=== PATIENT | male | born 1955 | race African-American/Black ===

== ENCOUNTER 2023-02-25 20:38 | Emergency (ER) | payer OTHER, SELFPAY ==
[2023-02-25 20:49] VITALS: BMI 24.4
--- NOTE | 2023-02-25 21:10 | ED.PSYCH ---
HPI - Psych General Chief Complaint: Psychiatric Symptoms Stated Complaint: SI Time Seen by Provider: 02/25/23 21:06 Source: patient Mode of arrival: EMS Limitations: other (Intoxicated) History of Present Illness HPI Narrative: Patient comes to the emergency room complaining ideas of hurting himself. Patient called 911 from a gas station and EMS take him about brought him to the emergency room. Patient denies using drugs other than marijuana. Patient unwilling to disclose his plan of self-harm. Patient states that he does not want detox, states that he is not an alcoholic, does not drink heavily every day. Related Data Home Medications Medication Instructions Recorded Confirmed bictegravir 50 mg-emtricitabine 1 tab PO QAM 02/26/23 02/26/23 200 mg-tenofovir alafenam 25 mg tablet (Biktarvy) clonidine HCl 0.1 mg tablet 0.1 mg PO BID blood pressure 02/26/23 02/26/23 quetiapine 100 mg tablet 100 mg PO DAILY@1200 02/26/23 02/26/23 quetiapine 300 mg tablet 600 mg PO BEDTIME blood pressure 02/26/23 02/26/23 Allergies Allergy/AdvReac Type Severity Reaction Status Date / Time acetaminophen [ACETAMINOPHEN] Allergy Mild rashes Unverified 05/12/20 17:39 Review of Systems Review of Systems: Constitutional : No Weight loss, No Fever, No Chills, No Night Sweats, No Fatigue, No Malaise ENT/Mouth : No Hearing loss, No Ear Pain, No Nasal Congestion, No Sinus Pain, No Hoarseness, No sore throat, No Rhinorrhea, No Swallowing Difficulty Eyes: No Eye Pain, No Swelling, No Redness, No Foreign Body, No Discharge, No Vision Changes Cardiovascular : No Chest Pain, No SOB, No Dyspnea on Exertion, No Orthopnea, No Edema, No Palpitations Respiratory : No Cough, No Sputum, No Wheezing, No Smoke Exposure, No Dyspnea Gastrointestinal : No Nausea, No Vomiting, No Diarrhea, No Constipation, No abdominal Pain, No Hematochezia, No Melena Genitourinary : no irregular bleeding, No Dysuria, No Urinary Frequency, No Hematuria, No Urinary Incontinence, No Urgency, No Flank Pain, No Urinary Flow Changes, No Hesitancy Musculoskeletal : No joint pain, No Myalgias, No Joint Swelling Skin : No Skin Lesions, No rash Neuro : No Weakness, No Numbness, No Paresthesias, No Loss of Consciousness, No Dizziness, No Headache Psych : Complaining of ideas of self-harm Heme/Lymph: No Bruising, No Bleeding,No Lymphadenopathy Endocrine : No Polyuria, No Polydipsia, No Temperature Intolerance PMFSH Past Medical History Medical History Alcohol intoxication Social History Social History Advance Directives: No Advance Directives Information Provided: Yes Physical Exam Vital Signs: Vital Signs: Last Vital Signs Temp 97.9 F 02/26/23 05:00 Pulse 80 02/26/23 05:00 Resp 16 02/26/23 05:00 BP 150/87 H 02/26/23 05:00 Pulse Ox 97 02/26/23 05:00 O2 Del Method Room Air 02/26/23 05:00 BMI result Body Mass Index 24.4 Const: Other: Appearance: Alert. Oriented X3. No acute distress. Seems intoxicated Eyes: Pupils equal, round and reactive to light. ENT: Pharynx normal. Neck: Normal inspection. Neck supple. No lymph nodes noted. No crepitus CVS: Normal heart rate and rhythm. Pulses normal. Normal S1 and S2 Respiratory: No respiratory distress. Breath sounds normal. No Wheezing. No rales Abdomen: Soft and nontender. No rigidity. No distention. Skin: Skin warm and dry. Normal skin color. Normal skin turgor. Extremities: No lower extremity edema. No Lacerations. No Rash Neuro: Oriented X 3. No motor deficit. No sensory deficit. Moving all extremities. No slurred speech. CN 2 through 12 grossly intact Psych: calm, cooperative, symptom toxic gated Course Course Course Narrative: -patient calm, cooperative, intoxicated -patient's labs pending -care team consult pending -physician observation started at 21:15 Reevaluation(s) Reevaluation #1: Physician observation continued: Patient has been in the emergency department for 10 hours. No reported incidents on the patient overnight. Patient is waiting to be seen by the care team. Patient will be kept in the emergency department Behavioral Health Unit until he is seen by the care to and a disposition can be determined. Medical Decision Making Lab Data 02/25/23 21:32 02/25/23 21:32 Labs: Lab Results 0702/25/23 02/26/23 Range/Units 21:32 21:32 06:42 WBC 5.4 (4.8-10.8) X10*3/uL RBC 4.38 L (4.60-5.80) X10*6/uL Hgb 14.1 (14.0-18.0) g/dl Hct 41.4 L (42.0-52.0) % MCV 94.5 (80.0-98.0) fL MCH 32.2 (27.0-33.0) pg MCHC 34.1 (31.0-36.0) g/dl RDW 15.0 (11.0-16.0) % Plt Count 182 (160-400) X10*3/uL MPV 11.1 (9.4-12.4) fL Immature Gran % (Auto) 0.4 (0.0-0.4) % Neut % (Auto) 56.4 (45-73) % Lymph % (Auto) 33.6 (20-40) % Craven % (Auto) 8.6 (2-11) % Eos % (Auto) 0.4 (0-4) % Baso % (Auto) 0.6 (0-2) % Lymph # (Auto) 1.8 (1.2-4.9) X10*3/uL Craven # (Auto) 0.5 (0.1-1.2) X10*3/uL Eos # (Auto) 0.0 (0.0-0.4) X10*3/uL Baso # (Auto) 0.0 (0.0-0.2) X10*3/uL Abs Immat Gran (auto) 0.02 (0.00-0.03) X10*3/uL Absolute Neuts (auto) 3.0 (2.0-8.3) x10*3/uL Absolute Nucleated RBC 0.000 (0.0-0.012) X10*3/uL Nucleated RBC % (auto) 0.0 (0.0-0.2) /100WBC Sodium 140 (135-145) mmol/L Potassium 4.2 (3.3-5.1) mmol/L Chloride 104 (96-108) mmol/L Carbon Dioxide 22 (22-29) mmol/L Anion Gap 18 (12-20) BUN 20 H (9-16) mg/dL Creatinine 1.60 H (0.5-1.4) mg/dL Estim Creat Clear Calc 50.5 Estimated GFR 44 Random Glucose 68 (60-115) mg/dL Calcium 9.5 (8.4-10.2) mg/dL Total Bilirubin 0.6 (0.0-1.0) mg/dL Direct Bilirubin 0.1 (0.0-0.5) mg/dL AST 51 H (5-37) U/L ALT 45 H (0-40) U/L Alkaline Phosphatase 88 (39-117) U/L Total Protein 7.8 (6.5-8.0) g/dL Albumin 3.8 (3.5-5.0) g/dL Urine Color Yellow Urine Appearance Clear Urine pH 6.0 (5.0-9.0) Ur Specific [place] 1.025 (1.005-1.025) Urine Protein Negative (Neg-Trace) mg/dL Urine Glucose (UA) Negative (Negative) mg/dL Urine Ketones Negative (Negative) mg/dL Urine Blood Negative (Negative) Urine Nitrite Negative (Negative) Ur Leukocyte Esterase Negative (Negative) Ethyl Alcohol 168 mg/dL Discharge Plan Discharge Clinical Impression: Alcohol intoxication, Suicidal ideation Patient Disposition: Still a Patient Prescriptions: No Action clonidine HCl 0.1 mg tablet 0.1 mg PO BID quetiapine 300 mg tablet 600 mg PO BEDTIME quetiapine 100 mg tablet 100 mg PO DAILY@1200 Biktarvy 50-200-25 mg tablet 1 tab PO QAM Interventions: Price-Suicide Risk Severity Scale Last Done: 02/26/23 06:06
[2023-02-25 21:11] VITALS: BP 114/74; PULSE 92; RESP 18; TEMP 36.4; O2SAT 97
[2023-02-25 21:51] LABS: Alanine Aminotransferase 45 U/L (0-40); Albumin Level 3.8 g/dL (3.5-5.0); Alkaline Phosphatase 88 U/L (39-117); Anion Gap 18 (12-20); Aspartate Amino Transferase 51 U/L (5-37); Bilirubin Direct 0.1 mg/dL (0.0-0.5); Bilirubin Total 0.6 mg/dL (0.0-1.0); Blood Urea Nitrogen 20 mg/dL (9-16); Calcium 9.5 mg/dL (8.4-10.2); Carbon Dioxide 22 mmol/L (22-29); Chloride 104 mmol/L (96-108); Creatinine Clr Calc Pharmacy 50.5; Estimated Glomerular Filt Rate 44; Ethanol 168 mg/dL; Glucose Random 68 mg/dL (60-115); Potassium 4.2 mmol/L (3.3-5.1); Sodium 140 mmol/L (135-145); Total Protein 7.8 g/dL (6.5-8.0)
[2023-02-26 05:00] VITALS: BP 150/87; PULSE 80; RESP 16; TEMP 36.6; O2SAT 97
--- NOTE | 2023-02-26 06:08 | PC.NURSE ---
Patient slept through the night, no distress observed/reported, pending urine sample, care consult ordered/pending evaluation, blood draw completed/resulted, med rec consult ordered/med rec completed by talking to the patient, patient claim histroy is not uptodate to recent change in pharmacy, pharmacy made aware that patient is using [facility] as his pharmacy, behavior non concerning, patient is currently upset about his missing backpack, Samantha called awaiting their answers, VSS, will continue to monitor.
--- NOTE | 2023-02-26 07:02 | PHA.MEDREC ---
Pharmacy Consult ? Medication Reconciliation Pharmacy has completed the medication reconciliation. Pharmacy has reviewed med rec done by Jett. Acknowledged that pt has changed pharmacy and his claim history is not correct but conversation with patient was used to complete med rec.
== END 2023-02-26 10:45 | disposition home or self-care (01) ==
PROVIDERS: Emergency Medicine; Emergency Provider Emergency Medicine Emergency Medical Services
DX: F10.920 Alcohol use, unspecified with intoxication, uncomplicated (principal); Y90.6 Blood alcohol level of 120-199 mg/100 ml; R45.851 Suicidal ideations; F12.90 Cannabis use, unspecified, uncomplicated; Z79.899 Other long term (current) drug therapy
CPT/HCPCS: 36415; 80053; 80307; 81003; 82248; 85025; 99284; S9485

== ENCOUNTER 2023-05-15 09:22 | Emergency (ER) | payer OTHER, SELFPAY ==
--- NOTE | ~2023-05-15 | CT_ITS ---
EXAM: Noncontrast CT scan of the head and cervical spine. INDICATION: Fall with head strike. COMPARISON: Head CT 08/30/2018 TECHNIQUE: Axial slices were obtained from skull base to vertex and displayed. This was followed by helical, multislice, multidetector axial images from the occiput to the upper thorax. Coronal and sagittal reformats of the cervical spine in addition to coronal reformats of the head were obtained at the technologist workstation. DLP: 1067 mGy-cm FINDINGS: HEAD: There is no evidence of acute intracranial hemorrhage or territorial infarction. No abnormal mass effect or midline shift is appreciated. Yap-white differentiation is well preserved. No extra-axial fluid collections. The ventricular system and cortical sulci are prominent, consistent with age-appropriate volume loss. Mild cerebellar volume loss is also appreciated. There are areas of low density in the periventricular and subcortical white matter, most consistent with sequelae of microvascular ischemic change. The osseous structures and soft tissues are normal. The visualized paranasal sinuses and mastoid air cells are well aerated. SPINE: The cervical spine is visualized in its entirety. There is reversal of the normal cervical lordosis. Alignment is otherwise unremarkable. Normal C1/C2 articulation. Cervical vertebral body heights are maintained. There is mild to moderate disc space narrowing throughout the mid and lower cervical spine. Small to moderate-sized osteophytes are also noted throughout the mid and lower cervical spine. Mild diffuse facet hypertrophy bilaterally. Visualized lung apices demonstrate emphysematous changes CT/CT cervical spine wo IV con IMPRESSION: 1. No acute intracranial pathology. 2. No fractures or dislocations of the cervical spine.
--- NOTE | ~2023-05-15 | XR_ITS ---
EXAMINATION: XR RIBS, LEFT CLINICAL INFORMATION: Fall chest pain COMPARISON: Chest radiograph from 09/30/2019 TECHNIQUE: 4 views of the left ribs were obtained. FINDINGS: No focal consolidation. Stable atelectatic changes along the left costophrenic recess. No pneumothorax. Trachea is midline. Cardiac mediastinal silhouette is not enlarged. Aorta demonstrates tortuosity. No large pleural effusion. Soft tissues are unremarkable. Degenerative changes of the thoracolumbar spine. Nondisplaced fractures of the left lateral fourth through eighth ribs. XR/XR ribs LT min 3V w CXR1V IMPRESSION: 1. Stable atelectatic changes along the left costophrenic recess. 2. Nondisplaced fractures of the left lateral fourth through eighth ribs.
--- NOTE | ~2023-05-15 | CT_ITS ---
EXAM: Noncontrast CT scan of the head and cervical spine. INDICATION: Fall with head strike. COMPARISON: Head CT 08/30/2018 TECHNIQUE: Axial slices were obtained from skull base to vertex and displayed. This was followed by helical, multislice, multidetector axial images from the occiput to the upper thorax. Coronal and sagittal reformats of the cervical spine in addition to coronal reformats of the head were obtained at the technologist workstation. DLP: 1067 mGy-cm FINDINGS: HEAD: There is no evidence of acute intracranial hemorrhage or territorial infarction. No abnormal mass effect or midline shift is appreciated. Yap-white differentiation is well preserved. No extra-axial fluid collections. The ventricular system and cortical sulci are prominent, consistent with age-appropriate volume loss. Mild cerebellar volume loss is also appreciated. There are areas of low density in the periventricular and subcortical white matter, most consistent with sequelae of microvascular ischemic change. The osseous structures and soft tissues are normal. The visualized paranasal sinuses and mastoid air cells are well aerated. SPINE: The cervical spine is visualized in its entirety. There is reversal of the normal cervical lordosis. Alignment is otherwise unremarkable. Normal C1/C2 articulation. Cervical vertebral body heights are maintained. There is mild to moderate disc space narrowing throughout the mid and lower cervical spine. Small to moderate-sized osteophytes are also noted throughout the mid and lower cervical spine. Mild diffuse facet hypertrophy bilaterally. Visualized lung apices demonstrate emphysematous changes CT/CT head/brain wo IV con IMPRESSION: 1. No acute intracranial pathology. 2. No fractures or dislocations of the cervical spine.
--- NOTE | ~2023-05-15 | CT_ITS ---
EXAMINATION: CT CHEST, ABDOMEN AND PELVIS WITHOUT CONTRAST CLINICAL INFORMATION: Fall left lower rib fractures COMPARISON: Left rib radiograph from 05/15/2023, CT lumbar spine from 06/16/2018 TECHNIQUE: Multidetector volumetric CT imaging of the chest, abdomen, and pelvis was performed. Axial MIP volume rendering provided. Sagittal and coronal reformatted images were obtained. DLP: 1761 mGy-cm. FINDINGS: CHEST: LUNGS/PLEURA: Bullous emphysematous changes. Biapical pleural parenchymal scarring. Nodular focus in the right middle lobe (series 20, image 288) measuring 1.2 cm. Bronchiectatic and atelectatic changes involving the right lower lobe. Left basilar atelectasis. No pneumothorax. Central airways are patent. No large pleural effusion. MEDIASTINUM: Heart is not enlarged. No pericardial effusion. Coronary artery calcifications are noted. Aorta is nonaneurysmal. Main pulmonary artery is not enlarged. No enlarged lymph nodes per size criteria. Visualized portions of the thyroid are unremarkable. AXILLA: No lymphadenopathy. ABDOMEN AND PELVIS: LIVER, GALLBLADDER, AND BILIARY TREE: The liver is normal in size, shape, and attenuation. No focal hepatic lesion or biliary ductal dilatation is present. The gallbladder is surgically absent. PANCREAS: Unremarkable. SPLEEN: Unremarkable. ADRENAL GLANDS: Unremarkable. KIDNEYS AND URETERS: The kidneys are normal in size, shape, and attenuation. No hydronephrosis, hydroureter, or calculi seen. No perinephric stranding. BLADDER: Bladder is mildly distended. Suggestion of mild urinary bladder wall thickening which is nonspecific in an underdistended state. GASTROINTESTINAL TRACT: The small and large bowel are unremarkable. The appendix is unremarkable. ABDOMINAL WALL: No significant hernia is appreciated. LYMPH NODES: Normal. VASCULAR: Unremarkable. PELVIC VISCERA: Prostate measures 4.1 cm. Small amount of free fluid is noted in the pelvis, nonspecific. Grade 1 retrolisthesis of L5 on S1. Wedge-shaped compression deformity involving L1 with a Schmorl's node along the superior endplate, chronic in appearance. Redemonstration of mildly displaced fractures of the left fourth through eighth ribs. OSSEOUS STRUCTURES: Unremarkable. CT/CT abdomen pelvis wo IV con IMPRESSION: 1. Redemonstration of mildly displaced fractures of the left fourth through eighth ribs. 2. Nodular focus in the right middle lobe of the lung measuring 1.2 cm. Follow-up as per Fleischner criteria. 3. Small amount of free fluid is noted in the pelvis, nonspecific. 4. Bladder is mildly distended. Suggestion of mild urinary bladder wall thickening which is nonspecific in an underdistended state. 5. Grade 1 retrolisthesis of L5 on S1. 6. Wedge-shaped compression deformity involving L1 with a Schmorl's node along the superior endplate, chronic in appearance. Various management parameters for solitary pulmonary nodules are in the literature. According to the Fleischner Society, recommendations for pulmonary nodules are as follows: According to the UPDATED 2017 Fleischner Society recommendations, the advised follow-up imaging for a single solid nodule measuring 8 mm or greater is: Consider CT, PET/CT, or tissue sampling at 3 months.
[2023-05-15 09:30] VITALS: BP 118/77; PULSE 94; RESP 19; TEMP 36.6; O2SAT 97; BMI 21.8
--- NOTE | 2023-05-15 11:36 | ED.GENADULT ---
HPI - General Adult General Chief complaint: General Medical Stated complaint: fell 2 days ago l side inj Time Seen by Provider: 05/15/23 11:36 Source: patient Mode of arrival: ambulatory Limitations: no limitations History of Present Illness HPI narrative: 67 yo male with PMHx significant for hypertension, neuropathy, HIV presents to the ED today with left rib pain s/p mechanical fall onto left side 4 days ago. Reports + head strike, no LOC, no anticoagulation. Admits to walking on a sidewalk when he missed the curb and fell, landing on his left side, hitting his left upper chest/ flank on the curb. Was able to stand and ambulate after fall. Did not seek medical attention at that time. Began having left-sided rib pain the day after. States his ability to take a deep breath is limited due to the pain. Pain exacerbated with coughing/breathing/movement. Has been taking naproxen without relief. Last dose at 4:00 a.m. this morning. Denies KEMP, vision changes, dizziness, neck/back pain, difficulty breathing, shortness of breath, abdominal pain, weakness/numbness/tingling of the extremities, saddle paresthesias, or bowel/ bladder incontinence or retention. Related Data Home Medications Medication Instructions Recorded Confirmed bictegravir 50 mg-emtricitabine 1 tab PO DAILY 02/26/23 02/26/23 200 mg-tenofovir alafenam 25 mg tablet (Biktarvy) clonidine HCl 0.1 mg tablet 0.1 mg PO BID blood pressure 02/26/23 02/26/23 quetiapine 100 mg tablet 100 mg PO DAILY@1200 02/26/23 02/26/23 quetiapine 300 mg tablet 600 mg PO BEDTIME blood pressure 02/26/23 02/26/23 Previous Rx's Medication Instructions Recorded morphine 15 mg immediate release 15 mg PO Q12H PRN pain (scale 05/15/23 tablet score 7-10) #5 tabs Allergies Allergy/AdvReac Type Severity Reaction Status Date / Time acetaminophen [ACETAMINOPHEN] Allergy Mild rashes Verified 05/15/23 09:29 Review of Systems Review of Systems: Constitutional: No fever, No chills, No fatigue, No malaise ENT/Mouth: No ear pain, No hearing loss, No nasal congestion, No sinus pain, No rhinorrhea, No sore throat Eyes: No eye pain, No swelling, No redness, No vision changes, No foreign body, No discharge Cardio: + chest wall/ rib pain, No chest pain, No palpitations, No dyspnea on exertion, No orthopnea, No edema Respiratory: No SOB, No cough, No sputum, No wheezing, No dyspnea, No hemoptysis GI: No nausea, No vomiting, No hematemesis, No abdominal pain, No diarrhea, No constipation, No hematochezia, No melena : No irregular bleeding, No dysuria, No frequency, No urgency, No hesitancy, No hematuria, No flank pain, No urinary flow changes, No urinary incontinence or retention MSK: No back pain, No neck pain, No joint pain, No myalgias Skin: No skin lesions, No rashes Neuro: No weakness, No numbness, No paresthesias, No LOC, No dizziness, No headache All other systems reviewed and are negative. [facility] Past Medical History Attestation statement: The following information was validated with the patient. Source: old records reviewed and nursing notes reviewed Medical History Alcohol intoxication Social History Social History Advance Directives: No Advance Directives Information Provided: Yes Physical Exam ED Vital Signs: Vital Signs - 24 hr 05/15/23 09:30 05/15/23 13:01 05/15/23 14:56 Temperature 98 F 97.9 F Pulse Rate 94 80 Respiratory Rate 19 18 Blood Pressure 118/77 157/95 H Pulse Oximetry 97 98 98 Oxygen Delivery Method Room Air Room Air BMI result Body Mass Index 21.8 Vital signs stable. General: Nontoxic appearing. NAD Skin: Warm and dry. No rashes or lesions. Head: Normocephalic, atraumatic. EENT: PERRLA. EOM intact. Moist mucous membranes. Pharynx normal. Neck: Supple without LAD. Normal ROM. Trachea midline. Cardiac: RRR. S1 and S1 appreciated. No MRG. No JVD. Chest wall: Chest wall symmetric. No paradoxical chest wall movements. No chest wall ecchymoses, erythema, deformity or laceration. Exquisite tenderness to palpation overlying the left lateral 4th - 8th ribs. No palpable deformity or creptitus. Lungs: CTA bilaterally. No rales, rhonchi, or wheezes. Normal respiratory effort without accessory muscle use. Abdomen: No visible lesions or scars. Soft, NT/ND. No rebound tenderness or guarding. Normoactive BS x4. No masses, hepatomegaly, or splenomegaly. Spine: Midline spinous tenderness to palpation over the lumbar region. No cervical or thoracic midline spinous tenderness. No deformity or step off. Ext: Upper and lower extremities atraumatic. Full ROM throughout. Capillary refill <2 seconds in all extremities. Pulses 2+ equal b/l. No edema, cyanosis, or clubbing. Neuro: AOx3. Normal speech. CN 2-12 grossly intact. Strength 5/5 intact throughout. Sensation intact to light touch. NV intact distally. Reflexes 2+ bilaterally. Normal finger to nose, heel to ahmadi. Ambulating with steady gait. Psych: Appropriate mood and affect. Responds appropriately to questions. Course Course Course Narrative: 1158-- discussed case with my attending physician, Dr. Caraballo, who recommends CT head, C-spine, chest, abdomen and pelvis to assess for any other injuries given patient's multiple rib fractures > ordered. Will also assess ambulatory pulse oximetry. Pain control ordered. 1222- Patient SPO2 100% on RA -- ambulating pulse ox performed by environmental services floor tech who reports brief drop of SPO2 to 95% on RA however immediately increased to 98% and stayed there the entire time of ambulation. CT head/ brain without acute bleed. CT c-spine without acute fracture. CT chest showing incidental finding of 1.2 cm nodule to middle lobe of right lung > informed patient of finding and advised follow up with PCP for follow-up imaging. CT abd/pelvis with unremarkable spleen and L1 compression fracture likely chronic in nature. > Will have RT educate patient on incentive spirometry to d/c patient home with. > Will send patient home with short script of oxycodone for pain control > expressed importance of ortho follow up regarding rib fractures and compression fractures for further management > referral provided. All questions answered. Educated pt on strict return precautions. Patient agreeable with plan. Patient hemodynamically stable, talking on phone to family member and stating that he would like to go home. Stable for discharge. Medications Administered Discontinued Medications Generic Name Dose Route Start Last Admin Trade Name Freq PRN Reason Stop Dose Admin Ibuprofen 600 mg 05/15/23 11:52 05/15/23 12:25 Ibuprofen 600 Mg Tablet PO 05/15/23 11:53 600 mg ONCE ONE Administration Oxycodone HCl 5 mg 05/15/23 11:52 05/15/23 12:26 Oxycodone Hcl Immed Release 5 Mg Tablet PO 05/15/23 11:53 5 mg ONCE ONE Administration Medical Decision Making Medical Decision Making [facility] Narrative: 67 yo male with PMHx significant for hypertension, neuropathy, HIV presents to the ED today with left rib pain s/p mechanical fall onto left side 4 days ago. Vital signs stable, nontoxic appearing, in NAD. Clinical concern for rib fracture vs MSK sprain/strain vs splenic laceration > will obtain CT chest. Low suspicion for pneumothorax as patient has vesicular breath sounds bilaterally with no respiratory distress > CXR ordered. Supicion for lumbar compression fracture d/t midline spinous tenderness over lumbar region. Low suspicion for cervical spine fracture as patient has no cervical midline spinous tenderness and full ROM of C-spine. Low suspicion for intracranial hemorrhage as patient is asymptomatic, not anticoagulated, exam nonfocal > will obtain dry CT head/brain. Differential Diagnosis Differential Diagnoses: The differential diagnosis associated with the presentation includes As above. Admission/Observation Not indicated Independent Interpretation I performed an independent interpretation of an: Plain X-Ray and CT Scan Interpretation: X-ray ribs showing fractures of the left 4th- 8th ribs, agree with radiologist's interpretation. CT head/brain without acute bleed, agree with radiologist's interpretation. CT chest showing fractures of 4th-8th ribs, agree with radiologist's interpretation. CT abdomen/ pelvis without acute intra abdominal pathology, agree with radiologist's interpretation. Radiology Impression Discussion of test interpretation with radiology: I have reviewed the radiologist's reading. Radiologist Impression: XR ribs LT min 3V w CXR1V IMPRESSION: 1. Stable atelectatic changes along the left costophrenic recess. 2. Nondisplaced fractures of the left lateral fourth through eighth ribs. CT head/brain and cervical spine wo IV con IMPRESSION: 1.? No acute intracranial pathology. 2.? No fractures or dislocations of the cervical spine. CT chest and abd/pelvis wo IV con IMPRESSION:? 1.? Redemonstration of mildly displaced fractures of the left fourth through eighth ribs. 2.? Nodular focus in the right middle lobe of the lung measuring 1.2 cm. Follow-up as per Fleischner criteria. 3.? Small amount of free fluid is noted in the pelvis, nonspecific. 4.? Bladder is mildly distended. Suggestion of mild urinary bladder wall thickening which is nonspecific in an underdistended state. 5.? Grade 1 retrolisthesis of L5 on S1. 6.? Wedge-shaped compression deformity involving L1 with a Schmorl's node along the superior endplate, chronic in appearance. ? Various management parameters for solitary pulmonary nodules are in the literature. According to the Fleischner Society, recommendations for pulmonary nodules are as follows: ? ? According to the UPDATED 2017 Fleischner Society recommendations, the advised follow-up imaging for a single solid nodule measuring 8 mm or greater is: Consider CT, PET/CT, or tissue sampling at 3 months. External Record Review External record reviewed: Inpatient record Prescription Management I considered prescription management with: Pain Medication Chronic Conditions Patient?s care impacted by: Hypertension and Other (Neuropathy, HIV) Critical Care Time Critical Care Time Critical Care Time: No Discharge Plan Discharge Clinical Impression: Multiple fractures of ribs, Closed rib fracture Patient Disposition: Home, Self-Care Instructions: Rib Fracture (ED), Pulmonary Contusion (ED) Additional Instructions: The CT of your head today was negative for bleed. CT of your neck was negative for fracture. The x-ray and CT of your chest showed fractures to your 4th through 8th ribs on the left side. It also showed a 1.2 cm nodule annular right lung. The radiologist recommends that you follow-up with your primary care provider as he may require further imaging in 3 months to evaluate size progression. CT chest wo IV con IMPRESSION: 1. Redemonstration of mildly displaced fractures of the left fourth through eighth ribs. 2. Nodular focus in the right middle lobe of the lung measuring 1.2 cm. Follow-up as per Fleischner criteria. 3. Small amount of free fluid is noted in the pelvis, nonspecific. 4. Bladder is mildly distended. Suggestion of mild urinary bladder wall thickening which is nonspecific in an underdistended state. 5. Grade 1 retrolisthesis of L5 on S1. 6. Wedge-shaped compression deformity involving L1 with a Schmorl's node along the superior endplate, chronic in appearance. Various management parameters for solitary pulmonary nodules are in the literature. According to the Fleischner Society, recommendations for pulmonary nodules are as follows: According to the UPDATED 2017 Fleischner Society recommendations, the advised follow-up imaging for a single solid nodule measuring 8 mm or greater is: Consider CT, PET/CT, or tissue sampling at 3 months. Oxycodone has been sent to your pharmacy. Take this as needed for pain. You can also take ibuprofen as needed. Use incentive spirometry as directed. Follow-up with your primary care provider. You have been provided a referral to the orthopedic surgeon. Please follow-up with them regarding her injuries today. Call them to make an appointment. They will not call you. Return to the emergency department if he develops fevers, difficulty breathing, bowel or bladder retention or incontinence. Prescriptions: New morphine 15 mg tablet 15 mg PO Q12H PRN (Reason: pain (scale score 7-10)) Qty: 5 0RF Rx Instructions: Partial Fill upon patient request. No Action clonidine HCl 0.1 mg tablet 0.1 mg PO BID quetiapine 300 mg tablet 600 mg PO BEDTIME quetiapine 100 mg tablet 100 mg PO DAILY@1200 Biktarvy 50-200-25 mg tablet 1 tab PO DAILY Referrals: [facility] [Provider Group] - 2 days (XR ribs LT min 3V w CXR1V IMPRESSION: 1. Stable atelectatic changes along the left costophrenic recess. 2. Nondisplaced fractures of the left lateral fourth through eighth ribs.) Interventions: ED Discharge Assessment Last Done: 05/15/23 14:59 Discharge Date/Time: 05/15/23 15:01
--- OUTSIDE RECORDS SUMMARY | 2023-05-15 11:57 | XMS_ITS | Continuity of Care Document ---
Author Name Unknown Organization [facility] Address [address] [place] [address]- Care Team Providers Care Oven Press Tender Name Role Phone Not on Staff, PCP Primary Care Physician Unavail able Encounter [facility] [place] Date(s): 04/12/23 - 04/19/23 [facility] [address] [place] [address]- Encounter Diagnosis Foot pain(Discharge Diagnosis) - 04/12/23 Tinea pedis(Discharge Diagnosis) - 04/12/23 Attending Physician: Leti Stratton MD Referring Physician: Maverick French MD Allergies, Adverse Reactions, Alerts Substance Reaction Severity Status acetaminophen Active acetaminophen containing compounds 1 Other Active OLANZapine Active 1Outside Source Comment: not documented Immunizations Given and Recorded Vaccine Date Status Refusal Reason Influenza Virus Vaccine (oldterm) 04/26/19 Recorde d influenza virus vaccine, inactivated 09/20/17 Give n Zoster Vaccine Live 03/21/15 Recorded pneumococcal 23-valent vaccine 03/21/15 Recorded Medications aspirin 81 mg oral delayed release tablet 81 mg, 1, tablet, By Mouth, Daily, Maintenance, 01/10/21 19:58:00 EDT, Partial fill upon patient request if the prescription is for a schedule II opioid drug. Start Date: 01/10/21 Status: Ordered Biktarvy oral tablet 1 tablet, By Mouth, Daily, Maintenance, 01/10/21 19:58:00 EDT, Tablet, Partial fill upon patient request if the prescription is for a schedule II opioid drug. Start Date: 01/10/21 Status: Ordered Clonidine By Mouth, 0 Refills, Maintenance, 04/12/23 12:38:00 EDT, Partial fill upon patient request if the prescription is for a schedule II opioid drug. Start Date: 04/12/23 Status: Ordered docusate sodium 100 mg oral capsule 100 mg, 1, capsule, By Mouth, 2 times a day, PRN, Maintenance, for constipation, 01/10/21 19:59:00 EDT, Partial fill upon patient request if the prescription is for a schedule II opioid drug. Start Date: 01/10/21 Status: Ordered Dulcolax 10 mg rectal suppository 1 supp = 10 mg, Rectally, Daily, PRN as needed for constipation, Maintenance, 01/10/21 19:59:00 EDT, Suppository, Partial fill upon patient request if the prescription is for a schedule II opioid drug. Start Date: 01/10/21 Status: Ordered Eliquis 2.5 mg oral tablet 1 tablet = 2.5 mg, By Mouth, 2 times a day, Maintenance, 01/10/21 20:01:00 EDT, Tablet, Partial fill upon patient request if the prescription is for a schedule II opioid drug. Start Date: 01/10/21 Status: Ordered Fleet Enema 19 gm-7 gm rectal enema 1 each, Rectally, Once, PRN for constipation, Maintenance, 01/10/21 20:01:00 EDT, Enema, Partial fill upon patient request if the prescription is for a schedule II opioid drug. Start Date: 01/10/21 Status: Ordered lisinopril 10 mg oral tablet 10 mg, 1, tablet, By Mouth, Daily, Maintenance, 01/10/21 20:03:00 EDT, Partial fill upon patient request if the prescription is for a schedule II opioid drug. Start Date: 01/10/21 Status: Ordered Mavyret 100 mg-40 mg oral tablet 3 tablet, By Mouth, Daily, with food, Maintenance, 01/10/21 20:08:00 EDT, Tablet, Partial fill uponpatient request if the prescription is for a schedule II opioid drug. Start Date: 01/10/21 Status: Ordered Milk of Magnesia 8% oral suspension 30 mL = 2.4 Gm, By Mouth, Daily, PRN for constipation, Maintenance, 01/10/21 20:10:00 EDT, Suspension, Partial fill upon patient request if the prescription is for a schedule II opioid drug. Start Date: 01/10/21 Status: Ordered MiraLax oral powder for reconstitution = 17 Gm, By Mouth, Daily, dissolve in water before taking, Maintenance, 01/10/21 20:12:00 EDT, REC Powder, Partial fill upon patient request if the prescription is for a schedule II opioid drug. Start Date: 01/10/21 Status: Ordered oxyCODONE 5 mg oral tablet 10 mg, 2, tablet, By Mouth, Every 6 hours, PRN, Refills 0, Tot. Refills 0, Maintenance, Pain , Moderate, 01/10/21 20:13:00 EDT, Partial fill upon patient request if the prescription is for a scheduleII opioid drug. Start Date: 01/10/21 Status: Ordered OxyCONTIN 10 mg oral tablet, extended release 10 mg, 1, tablet, By Mouth, Every 12 hours, Refills 0, Tot. Refills 0, Maintenance, 04/12/23 12:38:00 EDT, Partial fill upon patient request if the prescription is for a schedule II opioid drug. Start Date: 04/12/23 Status: Ordered pregabalin 150 mg oral capsule 1 capsule = 150 mg, By Mouth, 2 times a day, Maintenance, 01/10/21 20:07:00 EDT, Capsule, Partial fill upon patient request if the prescription is for a schedule II opioid drug. Start Date: 01/10/21 Status: Ordered QUEtiapine 300 mg oral tablet 2 tablet = 600 mg, By Mouth, Daily at bedtime, Maintenance, 01/10/21 20:20:00 EDT, Tablet, Partial fill upon patient request if the prescription is for a schedule II opioid drug. Start Date: 01/10/21 Status: Ordered QUEtiapine 50 mg oral tablet 3 tablet = 150 mg, By Mouth, Daily, Maintenance, 01/10/21 20:22:00 EDT, Partial fill upon patient request if the prescription is for a schedule II opioid drug. Start Date: 01/10/21 Status: Ordered Senna 8.6 mg oral tablet 17.2 mg, 2, tablet, By Mouth, Daily at bedtime, PRN, Maintenance, for constipation, 01/10/21 20:13:00 EDT, Tablet, Partial fill upon patient request if the prescription is for a schedule II opioid drug. Start Date: 01/10/21 Status: Ordered traZODone 150 mg oral tablet 1 tablet = 150 mg, By Mouth, 0 Refills, Maintenance, 04/12/23 12:39:00 EDT, Partial fill upon patient request if the prescription is for a schedule II opioid drug. Start Date: 04/12/23 Status: Ordered Problem List Condition Confirmation Course Effective Dates Status Health St atus Informant Depression Confirmed Active HIV Confirmed Active HTN Confirmed Active Schizophrenia Confirmed Active Diagnosis Diagnosis Type Effective Dates Health Status Clini [facility] Service Informant Foot pain Discharge Diagnosis 04/12/23 Tinea pedis Discharge Diagnosis 04/12/23 Vital Signs Most recent to oldest [Reference Range]: 1 Height 191 cm (04/12/23 12:32 PM) Oxygen Saturation [94-100 %] 98 % (04/12/23 12:32 PM) Pulse Rate [55-90 bpm] 107 bpm *H* (04/12/23 12:32 PM) Blood Pressure [90-138/55-84 mm Hg] 120/ 79mm Hg (04/12/23 12:32 PM) Respiratory Rate [16-30 br/min] 16 br/mi n (04/12/23 12:32 PM) Temperature [96.8-100.4 DegF] 97.7 DegF (04/12/23 12:32 PM) Mode of Delivery (Oxygen) Room air (04/12/23 12:32 PM) Blood pressure sites Arm, right (04/12/23 12:32 PM) Temperature Route Oral (04/12/23 12:32 PM) Social History Social History Type Response Smoking Status 10 or more cigarette s (1/2 pack or more)/day in last 30 days entered on: 02/01/20 Sex Patient Care team information Care Team Personnel Name: Angela Gee RN Position: [facility] AMB Nurse Member Role: Primary Care Nurse Name: Not on Staff, PCP Position: [facility] Physician (General Medicine) Member Role: PCP Name: Leonides CALL, Shira Matias Position: [facility] Hospital Foster Care Social Worker Member Role: Primary Care Nurse Care Team Related Persons Name: DEBBIE SHEETS Address: home [address] [place] [id number]
--- OUTSIDE RECORDS SUMMARY | 2023-05-15 11:57 | XMS_ITS | Continuity of Care Document ---
Author Name Unknown Organization [facility] Address [address] [place] [address]- Care Team Providers Care Vice President Of Software Engineering Name Role Phone Not on Staff, PCP Primary Care Physician Unavail able Encounter [facility] Date(s): 04/12/23 - 05/12/23 [facility] [address] [place] [address]- Attending Physician: Ray Alves Admitting Physician: Ray Alves Referring Physician: AdmtrRay Allergies, Adverse Reactions, Alerts Substance Reaction Severity [...] Active HTN Confirmed Active Schizophrenia Confirmed Active Social History Social History Type Response Smoking Status 10 or more cigarette s (1/2 pack or more)/day in last 30 days entered on: 02/01/20 Sex Patient Care team information Care Team Personnel Name: Angela Gee RN Position: [facility] AMB Nurse Member Role: Primary Care Nurse Name: Not on Staff, PCP Position: [facility] Physician (General Medicine) Member Role: PCP Name: Shira Coyle RN Position: [facility] Hospital Corrugator Helper Member Role: Primary Care Nurse Care Team Related Persons Name: DEBBIE SHEETS Address: [address] [address]
--- OUTSIDE RECORDS SUMMARY | 2023-05-15 11:58 | XMS_ITS | Continuity of Care Document ---
Author Name Unknown Organization [facility] ter Address [address] [place] [id number]- Care Team Providers Care Building Services Engineer Name Role Phone Not on Staff, PCP Primary Care Physician Unavail able Encounter [facility] Date(s): 04/28/23 - 04/29/[address] [address]- Encounter Diagnosis Alcohol intoxication(Final) - 04/29/23 Discharge Disposition: A-D/C Home Attending Physician: Matthew Zhao MD Admitting Physician: Matthew Zhao MD Referring Physician: Not on Staff, Referring MD Allergies, Adverse Reactions, Alerts Substance Reaction [...] Active HTN Confirmed Active Schizophrenia Confirmed Active Vital Signs Most recent to oldest [Reference Range]: 1 2 Oxygen Saturation [94-100 %] 97 % (04/29/23 1:50 AM) 97 % (04/28/23 5:30 PM) Pulse Rate [55-90 bpm] 94 bpm *H* (04/29/23 1:50 AM) 89 bpm (04/28/23 5:30 PM) Blood Pressure [90-138/55-84 mm Hg] 156/ 91mm Hg *H* (04/29/23 1:50 AM) 136/85mm Hg (04/28/23 5:30 PM) Respiratory Rate [16-30 br/min] 19 br/mi n (04/29/23 1:50 AM) 18 br/min (04/28/23 5:30 PM) Temperature [96.8-100.4 DegF] 98.3 DegF (04/28/23 5:30 PM) Mode of Delivery (Oxygen) Room air (04/29/23 1:50 AM) Room air (04/28/23 5:30 PM) Blood pressure sites Arm, left (04/29/23 1:50 AM) Arm, left (04/28/23 5:30 PM) Temperature Route Oral (04/28/23 5:30 PM) Social History Social History Type Response Smoking Status 10 or more cigarette s (1/2 pack or more)/day in last 30 days entered on: 02/01/20 Sex Note * Matthew Zhao MD: PERFORM Event Display: Patient Education Leaflets Authored Date: [id number] Alcohol Intoxication ?? [id number] Alcohol Intoxication Alcohol intoxication is very serious. It occurs when you drink alcohol faster than your liver can break it down. Severe intoxication is a medical emergency. It's also called alcohol overdose or alcohol poisoning. It can lead to . Here are some quinn facts: ??? It can take 10 minutes or more??to start??to??feel the effects of a drink. So it's easy to drink more than you planned. Binge drinking can lead to an alcohol overdose. Binge drinking is having: o5 or more drinks over a short time for men o 4 or more drinks over a short time for women ??? One drink may be more than 1 serving of alcohol. In some cases, a drink can be 2 to 4 servings. This depends on the type of drink. ??? It takes about 1 hour for your body to break down 1 serving of alcohol. If you have more than 1 drink, it can take a few hours or more. ??? People with alcohol abuse disorders are more likely to get alcohol poisoning. But it can happen to anyone who drinks too much alcohol. Even a first-time drinker is at risk. ??? Many things affect how drinks will affect you. These include: o If you've eaten o How fast you drink o Your weight o How much you normally drink (or not)o Medicines you are taking o If you have a chronic disease o If you are male or female o How old you are Symptoms of alcohol intoxication Mild intoxication ??? Feel more relaxed, less tense ??? Slightly slurred speech ??? Sleepiness ??? Poor motor skills Moderate intoxication ??? Changing behavior, aggression, depression ??? Poor judgment ??? Confusion ??? Trouble focusing ??? Poor balance and coordination ??? Worsening slurred speech Severe intoxication ??? Vomiting ??? Seizures ??? Fainting or passing out (unconscious) ??? Cold, clammy skin ??? Slow or irregular breathing ??? Low body temperature (hypothermia) ??? Coma ?? Health effects Alcohol causes health problems.??This can happen after only drinking a little. There is no set number of drinks or amount of alcohol that's too much.??How much you drink at one time affects your health. And so does drinking often. Alcohol affects your whole body in these ways: ??? Brain.??Alcohol can harm parts of the brain that affect your balance, memory, thinking, and feelings. It can cause memory loss, blackouts, depression, agitation, sleep cycle changes, and seizures. These changes may or may not go away. ??? Heart and vascular system.??Alcohol can damage heart muscle. This can cause the heart muscle to weaken and stretch (cardiomyopathy). This can lead to: o Trouble breathing o Irregular heartbeat o Atrial fibrillation o Leg swelling o Heart failure Alcohol also makes the blood vessels stiffen. This causes high blood pressure. All of these problems raise your risk for heart attacks or strokes. ??? Liver.??Alcohol causes fat to build up in the liver. This affects how the liver works. And it raises the risk for hepatitis. This condition leads to belly pain, appetite loss, yellow skin and eyes (jaundice), and bleeding problems. It also leads to harmful changes in the liver. These include??liver fibrosis and cirrhosis. This can affect your ability to fight off infections. These liver changes stop it from removing toxins in your blood. This can cause a brain disease called encephalopathy. ??? Pancreas.??Alcohol can cause inflammation of the pancreas (pancreatitis). It can lead to belly pain, fever, and diabetes. ??? Immune system.??Alcohol weakens your immune system. This makes it harder to fight off infections and colds. You'll also have a higherrisk of some infections. ??? Cancer risk.??Alcohol raises your risk of some types of cancer. They include cancer of the: o Mouth o Esophagus o Pharynx o Larynx o Liver o Breast ? Sexual function.??Alcohol abuse can also lead to sexual problems. There is no safe level of alcohol use for people who are or thinking of getting . Alcohol use in may cause lifelong harm to the baby. So alcohol should be avoided. It can also cause a group of defects called alcohol spectrum disorder. These defects can include physical problems. And also behavior and learning problems. ?? Home care for alcohol intoxication Follow these tips to care for yourself at home: ??? Don't drink any more alcohol. ??? Don't drive??until all effects of the alcohol have worn off. ??? Don't use machinery that can cause injuries. ??? Get lots of rest over the next few days. ??? Drink plenty of water and other drinks that don't have alcohol. ??? Try to eat regular meals. If you have been drinking a lot every day, you may have alcohol withdrawal. Symptoms often last 3 to 4 days. They may include: ??? Nervousness ??? Shakiness ??? Nausea ??? Sweating ??? Sleeplessness They may also include severe, life-threatening symptoms. These are known as delirium tremens (DTs).DTs typically begin between 48 and 96 hours after the last drink and last 1 to 5 days. They include: ??? Seizures ??? Confusion ??? Seeing or hearing things that are not there (hallucinations) Alcohol withdrawal can cause . Call your healthcare provider before you stop drinking. This isespecially important if you've had DTs during past alcohol withdrawals. They may be able to help you with medicine. They can also refer you to an inpatient detox program. Or stay with family or friends who know when to call for medical help and can support you. If you have severe symptoms, call your provider or call 911 for help (see below). ?? Follow-up care These groups can help you and your loved one: ??? Alcoholics Anonymous (A.A.). Gives support through a self-help fellowship. ?? Find A.A. meetings near you at www.aa.org. ??? Al-Anon. ?? Gives support to families at www.al-anon.org . Or call 484-239-7987. ??? [employer] ( Self- Management and Recovery Training). A nationwide abstinence-oriented support group for people with addictive issues. This free program is focused on motivation to change, urge control, and living a balanced life. For more information and meetings near you, go to www.[employer].org/ ??? Substance Abuse and Mental Health Services Administration (SAMHSA) Treatment Clerk Typist. Free information on treatment resources in your area at https://findtreatment.gov/. Or call 680-132-4836. Call 911 Call 911 if any of these occur: ??? Trouble breathing or slow irregular breathing ??? Chest pain ??? Sudden weakness on 1 side of your body or sudden trouble speaking ??? Heavy bleeding or vomiting blood ??? Very sleepy or having trouble waking up ??? Fainting ??? Fast heart rate ??? Seizure ?? When to get medical advice Call your healthcare provider right away if any of these occur: ??? Severe shakiness? Fever of100.4??F (38??C) or higher, or as advised by your provider ??? Confusion or hallucinations ??? Painin your upper belly that gets worse ??? Repeated vomiting ?? Last Reviewed Date: 2021 ?? The [employer]. All rights reserved. This information is not intended as a substitute for professional medical care. Always follow your healthcare professional's instructions. ?? Patient Care team information Care Team Personnel Name: Gerard CALL, Angela Davies Position: [facility] AMB Nurse Member Role: Primary Care Nurse Name: Not on Staff, PCP Position: [facility] Physician (General Medicine) Member Role: PCP Name: Shira Coyle RN Position: [facility] Hospital Underwriting Director Member Role: Primary Care Nurse Name: *[facility], ED Attending Position: [facility] ED Attendings Patient Name: Kaitlyn Gray RN Position: [facility] ED RN W/OE and Tasks Member Role: Patient Care Provider Name: Matthew Zhao MD Position: [facility] Resident Member Role: ED Attending Physician Address: Address: [address] [place] [address] [place] [address]- Name: Lupis Gong Position: [facility] ED TA [facility] Member Role: Patient Care Provider Care Team Related Persons Name: DEBBIE SHEETS Address: [address] [address]
[2023-05-15] MEDS: Ibuprofen 600 MG TABLET PO (12:25)
[2023-05-15] MEDS: oxyCODONE HCl Immed Release 5 MG TABLET PO (12:26)
[2023-05-15 13:01] VITALS: O2SAT 98
--- NOTE | 2023-05-15 13:02 | PC.NURSE ---
O2 sat at rest 100% decreased to 95% then maintained 97-98% for remainder of ambulation
[2023-05-15 14:56] VITALS: BP 157/95; PULSE 80; RESP 18; TEMP 36.6; O2SAT 98
== END 2023-05-15 15:01 | disposition home or self-care (01) ==
PROVIDERS: Emergency Provider Emergency Medicine
DX: S22.42XA Multiple fractures of ribs, left side, initial encounter for closed fracture (principal); R07.81 Pleurodynia; R07.89 Other chest pain; R10.2 Pelvic and perineal pain; I10 Essential (primary) hypertension; R51.9 Headache, unspecified; M54.2 Cervicalgia; M54.6 Pain in thoracic spine; W01.10XA Fall on same level from slipping, tripping and stumbling with subsequent striking against unspecified object, initial encounter; Y93.9 Activity, unspecified; Y92.9 Unspecified place or not applicable; Y99.9 Unspecified external cause status; Z79.899 Other long term (current) drug therapy
CPT/HCPCS: 70450; 71101; 71250; 72125; 74176; 99284

== ENCOUNTER 2023-05-18 11:00 | Emergency (ER) | payer OTHER, SELFPAY ==
[2023-05-18 11:33] VITALS: BP 153/87; PULSE 111; RESP 16; TEMP 36.7; O2SAT 99; BMI 21.2
--- NOTE | 2023-05-18 11:36 | ED_ITS ---
HPI - General Adult General Chief complaint: Recheck/Abnormal Lab/Rx Stated complaint: med reill Time Seen by Provider: 05/18/23 11:48 Source: patient and RN notes reviewed Mode of arrival: ambulatory Limitations: no limitations History of Present Illness HPI narrative: This is a 67-year-old male, with a past medical history of hypertension, neuropathy, HIV, presenting to the emergency department with complaints of ongoing left-sided rib pain. Patient was seen on May 15, 2023 where he was diagnosed with multiple rib fractures and was d/c with morphine tablets for pain management. He is out of pain medication and has been taking naprosyn without any relief. He has a f/u appt with his PCP on saturday, may 21. He has had no fevers, chills, shortness of breath, chest pain, abdominal pain, nausea, vomiting or diarrhea. No other complaints or concerns at this time. MD complaint: Med refill Onset (ago): day(s) Quality: sharp Pain Consistency: constant Relieving factors: medication Exacerbating factors: none Associated symptoms: denies other symptoms Related Data Home Medications Medication Instructions Recorded Confirmed bictegravir 50 mg-emtricitabine 1 tab PO DAILY 02/26/23 02/26/23 200 mg-tenofovir alafenam 25 mg tablet (Biktarvy) clonidine HCl 0.1 mg tablet 0.1 mg PO BID blood pressure 02/26/23 02/26/23 quetiapine 100 mg tablet 100 mg PO DAILY@1200 02/26/23 02/26/23 quetiapine 300 mg tablet 600 mg PO BEDTIME blood pressure 02/26/23 02/26/23 Previous Rx's Medication Instructions Recorded morphine 15 mg immediate release 15 mg PO Q12H PRN pain (scale 05/15/23 tablet score 7-10) #5 tabs lidocaine 5 % topical patch 1 patch topical DAILY #30 ea 05/18/23 (Lidoderm) naproxen 500 mg tablet 500 mg PO BID #30 tabs 05/18/23 oxycodone 5 mg tablet 5 mg PO Q6H PRN pain #7 tabs 05/18/23 Allergies Allergy/AdvReac Type Severity Reaction Status Date / Time acetaminophen [ACETAMINOPHEN] Allergy Mild rashes Verified 05/18/23 11:39 Review of Systems Review of Systems: Yes all other systems are reviewed and are negative Constitutional: Constitutional: Reports as per HPI [facility] Past Medical History Medical History Alcohol intoxication Social History Social History Advance Directives: No Physical Exam ED Vital Signs: Vital Signs - 24 hr 05/18/23 11:33 Temperature 98.0 F Pulse Rate 111 H Respiratory Rate 16 Blood Pressure 153/87 H Pulse Oximetry 99 Oxygen Delivery Method Room Air BMI result Body Mass Index 21.2 Const General: cooperative, comfortable and no acute distress Orientation/consciousness: patient oriented x3 Limitations: no limitations HENMT Head: Yes normal to inspection, Yes normocephalic and Yes atraumatic Ears: hearing grossly normal bilaterally General nose exam: Normal external nose present Face and sinus: Yes normal facial exam Mouth: Normal oral and palatal mucosa present, oropharynx normal and moist mucous membranes Throat: Yes posterior oropharynx normal Eyes General: appearance normal, both eyes and all related structures Eyelids: Yes eyelids normal Conjunctivae: conjunctivae normal Sclerae: sclerae normal Pupils: Equal, round and reactive pupils present EOM: EOMs intact bilaterally Neck Neck: Yes normal visual inspection, Yes full ROM and Yes no lymphadenopathy Lymphatic: no lymphadenopathy noted Chest Chest palpation & inspection: normal inspection of the chest Resp Other: TTP to left lateral anterior chest wall, approximately over ribs 7-9. Normal chest rise. No flail chest noted. Lungs CTAB Effort & Inspection: normal respiratory effort and able to speak in complete sentences Auscultation: clear to auscultation bilaterally, no crackles, no rales, no rhonchi and no wheezes Cardio Rate: regular rate Rhythm: regular rhythm Heart sounds: S1 normal heart sound present and S2 normal heart sound present GI Inspection: Yes normal to inspection Skin General skin exam: no rashes or lesions noted Trauma: no lacerations or abrasions Wounds: no wounds Neuro General: patient oriented x3 and moves all extremities Cranial nerves: Yes Equal, round and reactive pupils present Extrem General: Yes normal to inspection Right upper extremity: normal to inspection Left upper extremity: normal to inspection Right lower extremity: normal to inspection Left lower extremity: normal to inspection Course Course Course Narrative: This is an RME: Additional HPI, ROS, PE not included below will be deferred to primary provider. This a [id number], Medical Decision Making Medical Decision Making MDM Narrative: 67 y/o M presenting to the ER for med refill. He was seen several days ago for rib fx and was discharged on morphine tablets. He does not have a follow up appt with his PCP until saturday and is hoping to have pain relief with another med refill. I explained to him in great detail that we cannot routinely refill narcotic pain medication from the ER. Given multiple rib fx and inability to follow up with his PCP, will refill medication this one time. Explained to him if he returns for another pain medication refill we may not be able to. He understands aand agrees with plan. His vital signs are stable, no examination findings concerning for re-imaging at this time. Given oxycodone, lidoderm patches and naproxen. Given return precautions, pt understands and agrees with plan. Stable for d/c Differential Diagnosis Differential Diagnoses: The differential diagnosis associated with the presentation includes rib fx, med refill, medication noncompliance Discharge Plan Discharge Clinical Impression: Multiple fractures of ribs, Medication refill Patient Disposition: Home, Self-Care Instructions: Rib Fracture (ED) Additional Instructions: You reported to the emergency department for medication refill for controlled substance. We typically cannot refill strong narcotic pain medication from the emergency room. You need to follow-up with her primary care physician regarding this. If you return for pain management, we will not be able to refill this medication. Take oxycodone for severe pain only. Continue using spirometer. Follow up with your primary care physician on Saturday. Continue taking naproxen as needed for pain. Pain patches can also help with your pain. If any new or worsening symptoms occur please return for re-evaluation. Prescriptions: New naproxen 500 mg tablet 500 mg PO BID Qty: 30 0RF oxycodone 5 mg tablet 5 mg PO Q6H PRN (Reason: pain) Qty: 7 0RF Rx Instructions: Partial Fill upon patient request. lidocaine [Lidoderm] 5 % adhesive patch,medicated 1 patch topical DAILY Qty: 30 0RF Rx Instructions: leave on most painful area for up to 12 hrs No Action clonidine HCl 0.1 mg tablet 0.1 mg PO BID quetiapine 300 mg tablet 600 mg PO BEDTIME quetiapine 100 mg tablet 100 mg PO DAILY@1200 Biktarvy 50-200-25 mg tablet 1 tab PO DAILY morphine 15 mg tablet 15 mg PO Q12H PRN (Reason: pain (scale score 7-10)) Qty: 5 0RF Rx Instructions: Partial Fill upon patient request. Interventions: ED Discharge Assessment Last Done: 05/18/23 12:20 Discharge Date/Time: 05/18/23 12:20
== END 2023-05-18 12:20 | disposition home or self-care (01) ==
PROVIDERS: Emergency Provider Emergency Medicine Emergency Medical Services; PCP Family Medicine
DX: Z76.0 Encounter for issue of repeat prescription (principal); S22.42XD Multiple fractures of ribs, left side, subsequent encounter for fracture with routine healing; X58.XXXD Exposure to other specified factors, subsequent encounter
CPT/HCPCS: 99282

== ENCOUNTER 2023-05-31 11:31 | Emergency (ER) | payer OTHER, SELFPAY ==
--- NOTE | 2023-05-31 11:40 | ED.GENADULT ---
HPI - General Adult General Chief complaint: Psychiatric Symptoms Stated complaint: Severe Depression Time Seen by Provider: 05/31/23 11:39 Source: patient Mode of arrival: ambulatory Limitations: no limitations History of Present Illness HPI narrative: Patient is a 67 year old assigned male at with a history of depression presenting to the emergency department today with depression and requesting additional pain medication for his left rib pain. Patient states that a few days ago he broke some ribs on his left side and is out of the pain medication they sent in. Patient states the pain is making him depressed. Patient denies any dizziness, lightheadedness, abdominal pain, nausea, vomiting, fever, chills, blurry vision, double vision, loss of vision, chest pain, difficulty breathing, shortness of breath, back pain, night sweats, pain with urination, increased urinary frequency, increased urinary urgency, blood in his urine or stool, syncope or a near syncopal episode, bowel incontinence, bladder incontinence, bowel retention, bladder retention, or any other complaints at this time. Onset (ago): day(s) Relieving factors: none Exacerbating factors: none Associated symptoms: denies other symptoms Treatments prior to arrival: none Related Data Home Medications Medication Instructions Recorded Confirmed bictegravir 50 mg-emtricitabine 1 tab PO DAILY 02/26/23 02/26/23 200 mg-tenofovir alafenam 25 mg tablet (Biktarvy) clonidine HCl 0.1 mg tablet 0.1 mg PO BID blood pressure 02/26/23 02/26/23 quetiapine 100 mg tablet 100 mg PO DAILY@1200 02/26/23 02/26/23 quetiapine 300 mg tablet 600 mg PO BEDTIME blood pressure 02/26/23 02/26/23 Previous Rx's Medication Instructions Recorded morphine 15 mg immediate release 15 mg PO Q12H PRN pain (scale 05/15/23 tablet score 7-10) #5 tabs lidocaine 5 % topical patch 1 patch topical DAILY #30 ea 05/18/23 (Lidoderm) naproxen 500 mg tablet 500 mg PO BID #30 tabs 05/18/23 oxycodone 5 mg tablet 5 mg PO Q6H PRN pain #7 tabs 05/18/23 Allergies Allergy/AdvReac Type Severity Reaction Status Date / Time acetaminophen [ACETAMINOPHEN] Allergy Mild rashes Verified 09/23/23 11:39 Review of Systems Constitutional: Constitutional: Reports no additional constitutional complaints, Denies chills, Denies fever(s) and Denies night sweats Eyes: Eyes: Reports no additional eye complaints, Denies blurry vision, Denies change in vision, Denies diplopia, Denies eye discharge, Denies loss of vision and Denies eye pain ENT: Denies dizziness Cardiovascular: Cardiovascular: Reports no additional cardiovascular complaints, Denies chest pain, Denies lightheadedness, Denies Loss of Consciousness and Denies dyspnea Respiratory: Respiratory: Reports no additional respiratory complaints and Denies dyspnea Gastrointestinal: Gastrointestinal: Reports no additional gastrointestinal complaints, Denies abdominal pain, Denies melena, Denies hematochezia, Denies change in bowel habits and Denies change in stool character Genitourinary: Genitourinary: Reports no additional male genitourinary complaints, Denies hematuria, Denies oliguria, Denies difficulty urinating, Denies dysuria, Denies urinary frequency, Denies urinary hesitancy, Denies urinary incontinence and Denies urinary urgency Musculoskeletal: Musculoskeletal: Reports no additional musculoskeletal complaints, Denies numbness and Denies tingling Comments: left sided rib pain Neurologic: Denies dizziness, Denies loss of vision, Denies numbness and Denies tingling Psychiatric: Psychiatric: Reports depression Endocrine: Endocrine: Reports no additional endocrine complaints Hematologic/Lymphatic: Hematologic/Lymphatic: Reports no additional hematologic/lymphatic complaints Allergic/Immunologic: Allergic/Immunologic: Reports no additional allergic/immunologic complaints PMFSH Past Medical History Attestation statement: The following information was validated with the patient. Source: old records reviewed and nursing notes reviewed Medical History Alcohol intoxication Social History Social History Advance Directives: No Advance Directives Information Provided: No Physical Exam ED Vital Signs: Vital Signs - 24 hr 05/31/23 12:12 Temperature 97.4 F Pulse Rate 102 H Respiratory Rate 18 Blood Pressure 154/105 H Pulse Oximetry 98 Oxygen Delivery Method Room Air BMI result Body Mass Index 20.5 Const General: cooperative, no acute distress, alert and awake Nutritional Appearance: well nourished Orientation/consciousness: patient oriented x3 Limitations: no limitations HENMT Head: Yes normal to inspection and Yes atraumatic Ears: hearing grossly normal bilaterally and external ears normal General nose exam: Normal external nose present, no nasal discharge noted and no epistaxis Face and sinus: Yes normal facial exam, No abrasion and No laceration Mouth: Normal oral and palatal mucosa present, no drooling and no muffled voice Eyes General: appearance normal, both eyes and all related structures Periorbital: periorbital findings normal Eyelids: Yes eyelids normal Conjunctivae: conjunctivae normal Pupils: Equal, round and reactive pupils present EOM: EOMs intact bilaterally Neck Neck: Yes normal visual inspection, Yes full ROM and Yes no lymphadenopathy Chest Chest palpation & inspection: normal inspection of the chest Resp Effort & Inspection: normal respiratory effort and able to speak in complete sentences Auscultation: clear to auscultation bilaterally Cardio Rate: regular rate Rhythm: regular rhythm GI Inspection: Yes normal to inspection Neuro General: patient oriented x3 and moves all extremities Cranial nerves: Yes Equal, round and reactive pupils present Cognition (Neuro): normal cognition Motor exam (neuro): 5/5 motor strength present throughout Sensory Exam: Normal double simultaneous stimulation for sensation Coordination: [id number] test normal Extrem General: Yes normal to inspection, Yes full ROM and Yes capillary refill normal Psych Appearance: grossly normal Mental Status: mental status grossly normal Affect: normal affect Attitude: cooperative Thought process: Normal thought process present Thought content: Normal thought content present Insight: Good insight present (Psych) Medical Decision Making Medical Decision Making MDM Narrative: Patient is a 67 year old assigned male at with a history of depression presenting to the emergency department today with increased depression and left rib pain. Patient's physical exam was unremarkable. Patient's blood work was unremarkable. Patient's urine showed no acute process. Patient's EKG was unremarkable. I explained my physical exam findings as well as all test results to the patient. I answered all questions asked by the patient. Patient requested opiates for his pain. I explained to the patient that opiates aren't appropriate for this type of pain. Patient stated that he would like to leave. Patient confirmed again he is not suicidal or homicidal. I stressed the importance of the patient taking his medication as prescribed. I stressed the importance of the patient following up with his primary care provider. I stressed the importance of the patient returning to the emergency department immediately if his symptoms were to worsen or if he were to develop any dizziness, shortness of breath, difficulty breathing, chest pain, blurry vision, loss of vision, nausea, vomiting, abdominal pain, fever, chills, back pain, or any other complaints. Patient verbalized agreement and understanding with this treatment plan and discharge. Differential Diagnosis Differential Diagnoses: The differential diagnosis associated with the presentation includes Depression Lab Data MDM Lab Attestation statement: I reviewed the patient's lab results. My interpretation of these studies and their corresponding values is that they are grossly normal. 05/31/23 13:04 05/31/23 13:04 Labs: Lab Results 05/31/23 05/31/23 Range/Units 12:09 13:04 WBC 3.8 L (4.8-10.8) X10*3/uL RBC 4.12 L (4.60-5.80) X10*6/uL Hgb 13.5 L (14.0-18.0) g/dl Hct 38.3 L (42.0-52.0) % MCV 93.0 (80.0-98.0) fL MCH 32.8 (27.0-33.0) pg MCHC 35.2 (31.0-36.0) g/dl RDW 13.3 (11.0-16.0) % Plt Count 144 L (160-400) X10*3/uL MPV 11.9 (9.4-12.4) fL Immature Gran % (Auto) 0.3 (0.0-0.4) % Neut % (Auto) 41.8 L (45-73) % Lymph % (Auto) 44.6 H (20-40) % [place] % (Auto) 11.4 H (2-11) % Eos % (Auto) 1.1 (0-4) % Baso % (Auto) 0.8 (0-2) % Lymph # (Auto) 1.7 (1.2-4.9) X10*3/uL [place] # (Auto) 0.4 (0.1-1.2) X10*3/uL Eos # (Auto) 0.0 (0.0-0.4) X10*3/uL Baso # (Auto) 0.0 (0.0-0.2) X10*3/uL Abs Immat Gran (auto) 0.01 (0.00-0.03) X10*3/uL Absolute Neuts (auto) 1.6 L (2.0-8.3) x10*3/uL Absolute Nucleated RBC 0.000 (0.0-0.012) X10*3/uL Nucleated RBC % (auto) 0.0 (0.0-0.2) /100WBC Sodium 142 (135-145) mmol/L Potassium 3.8 (3.3-5.1) mmol/L Chloride 107 (96-108) mmol/L Carbon Dioxide 26 (22-29) mmol/L Anion Gap 13 (12-20) BUN 9 (9-16) mg/dL Creatinine 0.93 (0.5-1.4) mg/dL Estim Creat Clear Calc 81.2 Estimated GFR > 60 Random Glucose 126 H (60-115) mg/dL Calcium 8.9 D (8.4-10.2) mg/dL Total Bilirubin 0.6 (0.0-1.0) mg/dL AST 67 H (5-37) U/L ALT 36 (0-40) U/L Alkaline Phosphatase 116 (39-117) U/L Total Protein 6.3 L (6.5-8.0) g/dL Albumin 3.1 L (3.5-5.0) g/dL Urine Color Yellow Urine Appearance Clear Urine pH 7.5 (5.0-9.0) Ur Specific [employer] 1.015 (1.005-1.025) Urine Protein Negative (Neg-Trace) mg/dL Urine Glucose (UA) Negative (Negative) mg/dL Urine Ketones Negative (Negative) mg/dL Urine Blood Negative (Negative) Urine Nitrite Negative (Negative) Ur Leukocyte Esterase Moderate (2+) H (Negative) Urine RBC 0-2 (0-2) /HPF Urine WBC 21-50 H (0-5) /HPF Ur Squamous Epith Cells 0-2 (0-2) /HPF Urine Bacteria None Seen (None Seen) Hyaline Casts 0-2 (0-2) /LPF Salicylates < 5.0 L (15-30) mg/dL Urine Opiates Screen Not Detected (Not Detect) Urine Fentanyl Screen Not Detected (Not Detect) Acetaminophen < 17 (<30) mcg/mL Ur Barbiturates Screen Not Detected (Not Detect) Ur Phencyclidine Scrn Not Detected (Not Detect) Ur Amphetamines Screen Not Detected (Not Detect) U Benzodiazepines Scrn Not Detected (Not Detect) Urine Cocaine Screen Not Detected (Not Detect) U Marijuana (THC) Screen POSITIVE H (Not Detect) Ethyl Alcohol < 10 mg/dL COVID-19 (DRAKE) Negative (Negative) COVID-19 Clin Com See Note Independent Interpretation I performed an independent interpretation of an: EKG Interpretation: Vent. Rate: 082 BPM Atrial Rate: 082 BPM P-R Int: 140 ms QRS Dur: 082 ms QT Int: 368 ms P-R-T Axes: 077 053 068 degrees QTc Int: 429 ms Normal sinus rhythm Normal ECG When compared with ECG of 26-MAY-2019 22:10, No significant change was found DD/ 1331 Discharge Plan Discharge Clinical Impression: Depression Patient Disposition: Home, Self-Care Instructions: Depression (DC) Additional Instructions: Follow up with your primary care provider. Return to the emergency department immediately if your symptoms worsen or if you develop any dizziness, shortness of breath, difficulty breathing, chest pain, blurry vision, loss of vision, nausea, vomiting, abdominal pain, fever, chills, back pain, or any other complaints. [facility]: [address] [place] [id number] Walk in hours from 10am - 12pm Open from 10am - 12pm [facility] Crisis Services: [address] [place] [address] Walk in hours from 10am - 12pm Open 18/03 [facility]: [address] [place] [id number] [address] [place] [id number] Hours: M-F 8am to 8pm Saturday and Saturday 9am to 5pm Prescriptions: No Action naproxen 500 mg tablet 500 mg PO BID Qty: 30 0RF oxycodone 5 mg tablet 5 mg PO Q6H PRN (Reason: pain) Qty: 7 0RF Rx Instructions: Partial Fill upon patient request. lidocaine [Lidoderm] 5 % adhesive patch,medicated 1 patch topical DAILY Qty: 30 0RF Rx Instructions: leave on most painful area for up to 12 hrs clonidine HCl 0.1 mg tablet 0.1 mg PO BID quetiapine 300 mg tablet 600 mg PO BEDTIME quetiapine 100 mg tablet 100 mg PO DAILY@1200 Biktarvy 50-200-25 mg tablet 1 tab PO DAILY morphine 15 mg tablet 15 mg PO Q12H PRN (Reason: pain (scale score 7-10)) Qty: 5 0RF Rx Instructions: Partial Fill upon patient request. Referrals: [facility] Family Medicine [Provider Group] (Call to establish and follow up with a primary care provider. If you already have a primary care provider, please follow up with them.) [facility] Primary Care, [facility] [Provider Group] (Call to establish and follow up with a primary care provider. If you already have a primary care provider, please follow up with them.) [facility] Primary CareJose [Provider Group] (Call to establish and follow up with a primary care provider. If you already have a primary care provider, please follow up with them.) Interventions: [place]-Suicide Risk Severity Scale Last Done: 05/31/23 13:46 ED Discharge Assessment Last Done: 05/31/23 14:42 Discharge Date/Time: 05/31/23 14:43 Print Language: Persian
[2023-05-31 12:12] VITALS: BP 154/105; PULSE 102; RESP 18; TEMP 36.3; O2SAT 98; BMI 20.5
--- NOTE | 2023-05-31 14:12 | PC.NURSE ---
patient spoke to clinician and client had asked for pain medication but had previously been offered toradol by provider, which client had declined previously and does now.
--- NOTE | 2023-05-31 14:23 | PC.NURSE ---
patient asks to leave, advised care team, patient comes up to nurses station and states this is a total waste of time
== END 2023-05-31 14:43 | disposition home or self-care (01) ==
PROVIDERS: Emergency Provider Emergency Medicine
DX: F32.A Depression, unspecified (principal); R07.81 Pleurodynia; Z11.52 Encounter for screening for COVID-19; F12.90 Cannabis use, unspecified, uncomplicated; Z79.899 Other long term (current) drug therapy
CPT/HCPCS: 80053; 80143; 80179; 80307; 81001; 85025; 87635; 93005; 99284

== ENCOUNTER 2023-10-28 23:45 | Inpatient (IN) | payer MEDICARE, OTHER, SELFPAY ==
[2023-10-28 23:52] VITALS: BP 138/114; BP 171/102; PULSE 84; PULSE 96; RESP 18; TEMP 36.8; O2SAT 96; O2SAT 98; BMI 21.9
--- NOTE | 2023-10-29 00:57 | ECG_ITS ---
Test Reason : med clearance Blood Pressure : / mmHG Vent. Rate : 091 BPM Atrial Rate : 091 BPM P-R Int : 148 ms QRS Dur : 084 ms QT Int : 388 ms P-R-T Axes : 077 060 070 degrees QTc Int : 477 ms Sinus rhythm with Premature supraventricular complexes Minimal voltage criteria for LVH, may be normal variant ( Sokolow-Mackey ) Borderline ECG When compared with ECG of 31-MAY-2023 13:31, Premature supraventricular complexes are now Present Referred By: Christina Watson Electronically Signed By:Mack Isaac
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
[2023-10-29 01:29] LABS: MANUAL DIFF FLAG NO
--- NOTE | 2023-10-29 01:29 | PC.NURSE ---
patient offered prev requested seroquel i want all of my meds or none of them . patient commonly calling out for his wants, advised to approach desk if he has requests.
[2023-10-29 01:30] LABS: Basophils Absolute Auto 0.1 X10*3/uL (0.0-0.2); Basophils Percent Auto 1.7 % (0-2); Eosinophils Absolute Auto 0.1 X10*3/uL (0.0-0.4); Hematocrit 39.8 % (42.0-52.0); Hemoglobin 13.8 g/dl (14.0-18.0); Imm Gran Abs Auto 0.01 X10*3/uL (0.00-0.03); Imm Gran Pct Auto 0.2 % (0.0-0.4); Lymphocytes Absolute Auto 3.1 X10*3/uL (1.2-4.9); Lymphocytes Percent Auto 53.5 % (20-40); Mean Corpuscular HGB Conc 34.7 g/dl (31.0-36.0); Mean Corpuscular Hemoglobin 31.5 pg (27.0-33.0); Mean Corpuscular Volume 90.9 fL (80.0-98.0); Mean Platelet Volume 10.6 fL (9.4-12.4); Monocytes Absolute Auto 0.5 X10*3/uL (0.1-1.2); Monocytes Percent Auto 7.8 % (2-11); Neutrophils Absolute Auto 2.1 x10*3/uL (2.0-8.3); Neutrophils Percent Auto 35.8 % (45-73); Platelet Count 221 X10*3/uL (160-400); Red Blood Count 4.38 X10*6/uL (4.60-5.80); Red Cell Distribution Width 13.9 % (11.0-16.0); White Blood Count 5.9 X10*3/uL (4.8-10.8)
[2023-10-29 01:49] LABS: Alanine Aminotransferase 56 U/L (0-40); Albumin Level 3.5 g/dL (3.5-5.0); Alkaline Phosphatase 99 U/L (39-117); Anion Gap 16 (12-20); Aspartate Amino Transferase 84 U/L (5-37); Bilirubin Direct 0.2 mg/dL (0.0-0.5); Bilirubin Total 0.4 mg/dL (0.0-1.0); Blood Urea Nitrogen 14 mg/dL (9-16); Calcium 9.6 mg/dL (8.4-10.2); Carbon Dioxide 26 mmol/L (22-29); Chloride 105 mmol/L (96-108); Creatinine Clr Calc Pharmacy 81.5; Estimated Glomerular Filt Rate > 60; Ethanol 140 mg/dL; Glucose Random 94 mg/dL (60-115); Lipase 36 U/L (8-78); Potassium 3.8 mmol/L (3.3-5.1); Sodium 143 mmol/L (135-145); Total Protein 7.9 g/dL (6.5-8.0)
[2023-10-29 01:54] LABS: Troponin-I High Sensitivity 3.3 ng/L (<3.5-35.0)
[2023-10-29 07:02] LABS: Amphetamine Screen Urine Not Detected (Not Detect); Barbiturates, Urine Not Detected (Not Detect); Benzodiazepines Screen Urine Not Detected (Not Detect); Cannabinoid Screen Urine POSITIVE (Not Detect); Cocaine Screen Urine Not Detected (Not Detect); Fentanyl, urine Not Detected (Not Detect); Opiate Screen Urine Not Detected (Not Detect); Phencyclidine Screen Urine Not Detected (Not Detect)
[2023-10-29 07:03] LABS: Appearance Urine Clear; Color Urine Yellow; Glucose Urine UA Negative (Negative); Leukocyte Esterase Urine Negative (Negative); Nitrite Urine Negative (Negative); PH 7.5 (5.0-9.0); Specific Gravity - Urine 1.015 (1.005-1.025); Urine Blood Negative (Negative); Urine Ketones Negative (Negative); Urine Protein Negative (Neg-Trace)
[2023-10-29 07:47] VITALS: BP 161/94; PULSE 90; RESP 20; TEMP 36.7; O2SAT 95
--- NOTE | 2023-10-29 08:52 | PC.NURSE ---
Med rec verified with patient who stated his medications were last filled in [place] at the [facility]. Patient stating that he was taken off metoprolol and started on lisinopril 20mg while in [place]. Patient stating last took all his medications a few days ago but medications were thrown out when he left the half-way
--- NOTE | 2023-10-29 10:16 | PC.NURSE ---
Patient refusing all am medications until he gets topical cream for pain in feet. Provider aware
[2023-10-29] MEDS: lisinopriL 20 MG TABLET PO (10:48)
[2023-10-29] MEDS: QUEtiapine Fumarate 100 MG TABLET PO (10:49)
[2023-10-29] MEDS: cloNIDine HCL 0.1 MG TABLET PO (10:50)
[2023-10-29] MEDS: Nicotine 21 MG PATCH.TD24 TRANSDERMA (10:50)
[2023-10-29] MEDS: Bictegrav/Emtricit/Tenofov Ala TABLET 1 TAB PO (10:50)
[2023-10-29] MEDS: Aspirin Enteric Coated 81 MG TABLET.DR PO (10:51)
[2023-10-29 10:52] LABS: COVID-19 Test Negative (Negative); IDNOW Serial# 152EDE1D
--- NOTE | 2023-10-29 11:28 | MHC.CARE ---
CARE Team spoke with CCA- Pt CCA 06/25/23
[2023-10-29] MEDS: Trolamine Salicylate 10 % Cream 141 gm Tube 1 APPL TOPICAL (11:58)
[2023-10-29 14:47] VITALS: BP 121/81; PULSE 107; RESP 16; TEMP 36.8; O2SAT 97
--- NOTE | 2023-10-29 15:58 | PC.NURSE ---
pt arrived to unit on a CV via wheelchair. Vital taken, skin check performed, and patient oriented to the unit. Admission handed-off to Francoise Price RN
[2023-10-29 16:06] VITALS: BMI 22.9
--- NOTE | 2023-10-29 17:25 | PC.ADMIT ---
This 68 y.o. male was referred to this [facility] by [facility] Care Team with diagnosis of Major Depressive Disorder, recurrent, severe with psychotic symptoms. Arrived on unit at 1445 and placed on 15 min safety checks. Nurse to nurse done with ED pod prior to admission. Conditional voluntary signed. Precipitating events to admission: Self presented to [facility] ED oin 10/28/23 reporting SI with plan, non compliance with meds and depression. Reporting struggling with mental health issues, housing insecurities and SI; currently homeless. Reporting AH telling him to kill himself. Denies HI/VH. Pt does not have current providers, reports [facility] involvement. Hx prior behavioral health admissions and substance admissions for etoh. Medical issues: Reports hx HTN and frequendt falls due to legs giving out for unknown reason. Does not use ambulatory device at home. WRAY positive for marijuana, etoh 140 10/29/23 at 0125. CIWA 4 when assessed during admission process. Pt states it is unlikely that he will withdraw. Last etoh/marijuana use 10/28/23 rob prior to ED admission. Becomes frustrated easily and repeats needs until needs are met. Denies current SI.
[2023-10-30 08:15] VITALS: BP 139/94; PULSE 87; RESP 16; TEMP 36.2; O2SAT 97
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
--- NOTE | 2023-10-30 09:59 | MHC.CLN ---
NUTRITION CONSULT FOR RECENT 2-13# WEIGHT LOSS. EMR INCLUDING WEIGHT HX REVIEWED. 10/29/23 WEIGHT=83.1 KG; 10/28/23=79.379 KG; 05/18/23=77.111 KG. SHOWS WEIGHT GAIN X 6 MONTHS OF 7.8% (USING 3/ WEIGHT) OR 2.9% (USING 3/ WEIGHT). DIET=REGULAR. PROVIDER ADDED ENSURE TID. SUPPLEMENT PROVIDES 1050 KCALS, 60 G PROTEIN. ESTIMATED ENERGY NEEDS BASED ON HT=6'3 AND IBW=89.1 KG IS 2405 KG (27 KCALS/KG IBW). PATIENT WITH HIGHER ENERGY NEEDS DUE TO STATURE. SUSPECT RECENT POOR NUTRITION DUE TO HOMELESSNESS. CONTINUE REGULAR DIET AND SUPPLEMENT.
[2023-10-30] MEDS: Aspirin Enteric Coated 81 MG TABLET.DR PO (12:05)
[2023-10-30] MEDS: Bictegrav/Emtricit/Tenofov Ala TABLET 1 TAB PO (12:05)
[2023-10-30] MEDS: cloNIDine HCL 0.1 MG TABLET PO (12:05)
[2023-10-30] MEDS: LORazepam 1 MG TABLET PO ×2 (12:06→21:04)
[2023-10-30] MEDS: Nicotine 21 MG PATCH.TD24 TRANSDERMA (12:06)
[2023-10-30 12:24] VITALS: BP 139/82; PULSE 99
[2023-10-30] MEDS: Brexpiprazole 1 MG TABLET 3 MG PO (13:13)
[2023-10-30] MEDS: Trolamine Salicylate 10 % Cream 141 gm Tube 1 APPL TOPICAL ×2 (13:14→16:04)
[2023-10-30] MEDS: QUEtiapine Fumarate 100 MG TABLET PO ×2 (13:17→17:07)
--- NOTE | 2023-10-30 15:08 | MHC.RECOVRN ---
AUDIT-C Brief Intervention Pt had positive screen for unhealthy alcohol use on admission. Pt declined to meet to discuss alcohol use/resources.
[2023-10-30 16:20] VITALS: BP 110/63; PULSE 98; TEMP 36.6
[2023-10-31] MEDS: Trolamine Salicylate 10 % Cream 141 gm Tube 1 APPL TOPICAL ×3 (06:52→17:40)
[2023-10-31] MEDS: LORazepam 1 MG TABLET PO (06:54)
[2023-10-31 07:00] VITALS: BMI 23.9
[2023-10-31] MEDS: Bictegrav/Emtricit/Tenofov Ala TABLET 1 TAB PO (08:09)
[2023-10-31] MEDS: lisinopriL 20 MG TABLET PO (08:09)
[2023-10-31] MEDS: Aspirin Enteric Coated 81 MG TABLET.DR PO (08:09)
[2023-10-31] MEDS: cloNIDine HCL 0.1 MG TABLET PO (08:10)
[2023-10-31 08:25] LABS: Estimated Average Glucose 103 mg/dL; Hemoglobin A1c % 5.2 % (<6.0)
[2023-10-31] MEDS: Nicotine 7 MG PATCH.TD24 TRANSDERMA (08:35)
[2023-10-31 08:46] LABS: Alanine Aminotransferase 60 U/L (0-40); Albumin Level 3.2 g/dL (3.5-5.0); Alkaline Phosphatase 103 U/L (39-117); Anion Gap 13 (12-20); Aspartate Amino Transferase 94 U/L (5-37); Bilirubin Total 0.5 mg/dL (0.0-1.0); Blood Urea Nitrogen 12 mg/dL (9-16); Calcium 9.7 mg/dL (8.4-10.2); Carbon Dioxide 28 mmol/L (22-29); Chloride 104 mmol/L (96-108); Cholesterol 161 mg/dL (<200); Creatinine Clr Calc Pharmacy 88.9; Estimated Glomerular Filt Rate > 60; Glucose Fasting 75 mg/dL (60-99); HDL Cholesterol 84 mg/dL (>40); LDL Cholesterol Calculated 61 mg/dL (<100); Potassium 4.2 mmol/L (3.3-5.1); Sodium 141 mmol/L (135-145); Total Protein 7.2 g/dL (6.5-8.0); Triglycerides 80 mg/dL (<150)
[2023-10-31 09:04] LABS: Thyroid Stimulating Hormone 1.25 uIU/mL (0.32-4.0)
[2023-10-31 09:05] LABS: Vitamin B12 413 pg/mL (200-900)
[2023-10-31 09:17] VITALS: BP 115/74; PULSE 87; RESP 16; TEMP 36.6; O2SAT 97
[2023-10-31] MEDS: QUEtiapine Fumarate 100 MG TABLET PO ×2 (12:09→17:32)
--- NOTE | 2023-10-31 17:19 | P.PNPSI_ITS ---
Subjective Subjective Date of Service: 10/31/23 Reason For Visit: SI Subjective Notes: Conditional Voluntary Interim History: Pt continues to insist that he needs oxycodone for bunions, arthritis. He states I am the star of the show, you do what I say! He denies SI/HI. He was encourage to consider treatment options discuss for type of pain he has been having. He has been visible on the unit. He does not attend groups. We discussed referrals for shelters. [facility] filament makerVanessa Srivastava told SW that he will submit referral to PACT team this week. no signs of psychosis. Review of Systems Review of Systems Pt reports feet pain due to arthritis and bunions. No chest pain No constipation or diarrhea. No SOB/Wheezing No changes in vision Mental Status Exam Mental Status Exam Narrative: Appearance: wearing casual clothing, good hygiene, in NAD Behavior: superficially cooperative Psychomotor: no agitation or retardation noted. noted involuntary perioral movement Speech: clear, normal rate/rhythm/volume, spontaneous TP: linear TC: complaining of pain and need for oxycodone Mood: in pain Affect: brigther than reported mood, irritable SI: denies HI: denies VH/AH: does not appear internally preoccupied Delusions: none Insight/judgment: poor x 2 memory/cog: alert, oriented x 3. grossly intact to conversational testing. Diagnostics Vital Signs (24Hr): Vital Signs - 24 hr 10/31/23 09:17 Temperature 97.9 F Pulse Rate 87 Respiratory Rate 16 Blood Pressure 115/74 Pulse Oximetry 97 Oxygen Delivery Method Room Air BMI result Body Mass Index 23.9 Labs 10/29/23 01:24 10/31/23 07:49 Labs: Laboratory Results - last 48 hr 10/31/23 10/31/23 07:49 07:50 Sodium 141 Potassium 4.2 Chloride 104 Carbon Dioxide 28 Anion Gap 13 BUN 12 Creatinine 0.96 Estim Creat Clear Calc 88.9 Estimated GFR > 60 Fasting Glucose 75 Estimat Average Glucose 103 Hemoglobin A1c % 5.2 Calcium 9.7 Total Bilirubin 0.5 AST 94 H ALT 60 H Alkaline Phosphatase 103 Total Protein 7.2 Albumin 3.2 L Triglycerides 80 Cholesterol 161 LDL Cholesterol, Calc 61 HDL Cholesterol 84 Vitamin B12 413 TSH 1.25 Medications Medications Current Medications Al Hydroxide/Mg Hydroxide (Magnesium Hydrox/Alum Hydrox 30 Ml Oral.Susp) 30 ml PO Q6H PRN PRN Reason: Heartburn/Nausea Aspirin (Aspirin Enteric Coated 81 Mg Tablet.Dr) 81 mg PO DAILY [facility] Last Admin: 10/31/23 08:09 Dose: 81 mg Bictegravir/Emtricitabine/Tenofovir (Bictegrav/Emtricit/Tenofov Ala Tablet) 1 tab PO DAILY [facility] Last Admin: 10/31/23 08:09 Dose: 1 tab Brexpiprazole (Brexpiprazole 1 Mg Tablet) 3 mg PO BEDTIME [facility] Clonidine HCl (Clonidine Hcl 0.1 Mg Tablet) 0.1 mg PO BID [facility]; Protocol Last Admin: 10/31/23 08:10 Dose: 0.1 mg Hydroxyzine HCl (Hydroxyzine Hcl 25 Mg Tablet) 25 mg PO Q6H PRN PRN Reason: Anxiety Lisinopril (Lisinopril 20 Mg Tablet) 20 mg PO DAILY [facility]; Protocol Last Admin: 10/31/23 08:09 Dose: 20 mg Lorazepam (Lorazepam 1 Mg Tablet) 1 mg PO Q4H PRN PRN Reason: ciwa 8-12 Last Admin: 10/31/23 06:54 Dose: 1 mg Magnesium Hydroxide (Milk Of Magnesia 30 Ml Oral.Susp) 30 ml PO DAILY PRN PRN Reason: Constipation Nicotine (Nicotine 7 Mg Patch.Td24) 7 mg TRANSDERMA DAILY [facility] Last Admin: 10/31/23 08:35 Dose: 7 mg Quetiapine Fumarate (Quetiapine Fumarate 100 Mg Tablet) 100 mg PO DAILY@1300,1800 [facility] Last Admin: 10/31/23 12:09 Dose: 100 mg Thiamine HCl (Thiamine Hcl 100 Mg Tablet) 100 mg PO DAILY [facility] Last Admin: 10/31/23 08:16 Dose: Not Given Trazodone HCl (Trazodone Hcl 50 Mg Tablet) 50 mg PO BEDTIME PRN PRN Reason: Insomnia Trolamine Salicylate (Trolamine Salicylate 10 % Cream 141 Gm Tube) 1 appl TOPICAL QID [facility]; Protocol Last Admin: 10/31/23 13:59 Dose: 1 appl Allergies Allergies Allergy/AdvReac Type Severity Reaction Status Date / Time acetaminophen [ACETAMINOPHEN] Allergy Mild rashes Verified 05/18/23 11:39 Assessment & Plan Assessment & Plan (1) MDD (major depressive disorder), recurrent episode, moderate: Status: Acute Code(s): F33.1 - Major depressive disorder, recurrent, moderate (2) Alcohol use disorder: Status: Acute Code(s): F10.90 - Alcohol use, unspecified, uncomplicated Plan continue tx. Reason for continued inpatient stay Substantial Risk for: stable for discharge Time Spent With Patient Time: Total time managing care of this patient today ____ minutes.
[2023-10-31] MEDS: Brexpiprazole 1 MG TABLET 3 MG PO (17:31)
[2023-10-31 18:00] VITALS: BP 122/78; PULSE 90; RESP 18; TEMP 36.6; O2SAT 97
--- NOTE | 2023-10-31 19:02 | PC.NURSE ---
Antonio requested to take his HS rexulti at 1700. This nurse spoke with Dr Lundberg while he was on the unit. He states that Antonio can take the rexulti when he would like . Medication given per patients request.
[2023-11-01] MEDS: Bictegrav/Emtricit/Tenofov Ala TABLET 1 TAB PO (08:24)
[2023-11-01] MEDS: cloNIDine HCL 0.1 MG TABLET PO ×2 (08:24→21:27)
[2023-11-01] MEDS: Aspirin Enteric Coated 81 MG TABLET.DR PO (08:24)
[2023-11-01] MEDS: Nicotine 7 MG PATCH.TD24 TRANSDERMA (08:25)
[2023-11-01] MEDS: lisinopriL 20 MG TABLET PO (08:33)
[2023-11-01] MEDS: Trolamine Salicylate 10 % Cream 141 gm Tube 1 APPL TOPICAL ×2 (08:34→12:05)
[2023-11-01 08:35] VITALS: BP 127/78; PULSE 96; RESP 16; TEMP 36.2; O2SAT 98
--- NOTE | 2023-11-01 09:52 | HO.PSYCHPN ---
Subjective Subjective Date of Service: 11/01/23 Reason For Visit: SI Subjective Notes: Conditional Voluntary Interim History: Pt continues to insist that he needs oxycodone for bunions, arthritis. He is irritable and anxious; He denies SI/HI. He was encourage to consider treatment options discuss for type of pain he has been having. declined tylenol, aspercream, ibuprofen. agreed to trial of lidocain cream He has been visible on the unit. no sign of psychosi. no withdrawal symptoms; CIWA discontinued Medication Compliance: Yes Side effects from medications: No Attending Groups: No Review of Systems Acute medical concerns: No Medical Review of Systems: unchanged Review of Systems Review of Systems All other systems are reviewed and are negative Constitutional: Reports as per HPI and Reports no additional constitutional complaints Eyes: Reports as per HPI and Reports no additional eye complaints Reports system reviewed and no additional complaints, except as documented Cardiovascular: Reports as per HPI and Reports no additional cardiovascular complaints Respiratory: Reports as per HPI and Reports no additional respiratory complaints Gastrointestinal: Reports as per HPI and Reports no additional gastrointestinal complaints Genitourinary: Reports no additional female genitourinary complaints Musculoskeletal: Reports no additional musculoskeletal complaints Skin/Breast: Reports system reviewed and no additional complaints, except as docu Psychiatric: Reports no additional psychiatric complaints Endocrine: Reports no additional endocrine complaints Hematologic/Lymphatic: Reports no additional hematologic/lymphatic complaints Allergic/Immunologic: Reports no additional allergic/immunologic complaints Reports system reviewed and no additional complaints, except as documented and Reports Abnormal speech present Mental Status Exam Mental Status Exam Narrative: Appearance: wearing casual clothing, good hygiene, in NAD Behavior: superficially cooperative Psychomotor: no agitation or retardation noted. noted involuntary perioral movement Speech: clear, normal rate/rhythm/volume, spontaneous TP: linear TC: complaining of pain and need for oxycodone Mood: in pain Affect: brigther than reported mood, irritable SI: denies HI: denies VH/AH: does not appear internally preoccupied Delusions: none Insight/judgment: poor x 2 memory/cog: alert, oriented x 3. grossly intact to conversational testing. Diagnostics Vital Signs (24Hr): Vital Signs - 24 hr 10/31/23 18:00 11/01/23 08:35 Temperature 97.9 F 97.2 F Pulse Rate 90 96 Respiratory Rate 18 16 Blood Pressure 122/78 127/78 Pulse Oximetry 97 98 Oxygen Delivery Method Room Air Room Air BMI result Body Mass Index 23.9 Labs 10/29/23 01:24 10/31/23 07:49 Labs: Laboratory Results - last 48 hr 10/31/23 10/31/23 07:49 07:50 Sodium 141 Potassium 4.2 Chloride 104 Carbon Dioxide 28 Anion Gap 13 BUN 12 Creatinine 0.96 Estim Creat Clear Calc 88.9 Estimated GFR > 60 Fasting Glucose 75 Estimat Average Glucose 103 Hemoglobin A1c % 5.2 Calcium 9.7 Total Bilirubin 0.5 AST 94 H ALT 60 H Alkaline Phosphatase 103 Total Protein 7.2 Albumin 3.2 L Triglycerides 80 Cholesterol 161 LDL Cholesterol, Calc 61 HDL Cholesterol 84 Vitamin B12 413 TSH 1.25 Medications Medications Current Medications Al Hydroxide/Mg Hydroxide (Magnesium Hydrox/Alum Hydrox 30 Ml Oral.Susp) 30 ml PO Q6H PRN PRN Reason: Heartburn/Nausea Aspirin (Aspirin Enteric Coated 81 Mg Tablet.) 81 mg PO DAILY [facility] Last Admin: 11/01/23 08:24 Dose: 81 mg Bictegravir/Emtricitabine/Tenofovir (Bictegrav/Emtricit/Tenofov Ala Tablet) 1 tab PO DAILY [facility] Last Admin: 11/01/23 08:24 Dose: 1 tab Brexpiprazole (Brexpiprazole 1 Mg Tablet) 3 mg PO BEDTIME [facility] Last Admin: 10/31/23 17:31 Dose: 3 mg Clonidine HCl (Clonidine Hcl 0.1 Mg Tablet) 0.1 mg PO BID [facility]; Protocol Last Admin: 11/01/23 08:24 Dose: 0.1 mg Hydroxyzine HCl (Hydroxyzine Hcl 25 Mg Tablet) 25 mg PO Q6H PRN PRN Reason: Anxiety Lisinopril (Lisinopril 20 Mg Tablet) 20 mg PO DAILY [facility]; Protocol Last Admin: 11/01/23 08:33 Dose: 20 mg Lorazepam (Lorazepam 1 Mg Tablet) 1 mg PO Q4H PRN PRN Reason: ciwa 8-12 Last Admin: 10/31/23 06:54 Dose: 1 mg Magnesium Hydroxide (Milk Of Magnesia 30 Ml Oral.Susp) 30 ml PO DAILY PRN PRN Reason: Constipation Nicotine (Nicotine 7 Mg Patch.Td24) 7 mg TRANSDERMA DAILY [facility] Last Admin: 11/01/23 08:25 Dose: 7 mg Quetiapine Fumarate (Quetiapine Fumarate 100 Mg Tablet) 100 mg PO DAILY@1300,1800 [facility] Last Admin: 10/31/23 17:32 Dose: 100 mg Thiamine HCl (Thiamine Hcl 100 Mg Tablet) 100 mg PO DAILY [facility] Last Admin: 11/01/23 08:34 Dose: Not Given Trazodone HCl (Trazodone Hcl 50 Mg Tablet) 50 mg PO BEDTIME PRN PRN Reason: Insomnia Trolamine Salicylate (Trolamine Salicylate 10 % Cream 141 Gm Tube) 1 appl TOPICAL QID [facility]; Protocol Last Admin: 11/01/23 08:34 Dose: 1 appl Allergies Allergies Allergy/AdvReac Type Severity Reaction Status Date / Time acetaminophen [ACETAMINOPHEN] Allergy Mild rashes Verified 05/18/23 11:39 Assessment & Plan Assessment & Plan (1) MDD (major depressive disorder), recurrent episode, moderate: Status: Acute Code(s): F33.1 - Major depressive disorder, recurrent, moderate (2) Alcohol use disorder: Status: Acute Code(s): F10.90 - Alcohol use, unspecified, uncomplicated Plan Plan Continue treatment plan add lidocaine cream p.r.n. Patient educated on: diagnosis, medication risk/benefits, substance abuse, therapeutic strategies and medical condition Informed Consent: further education needed Reason for continued inpatient stay Substantial Risk for: harm to self, inability to function and rapid decompensation Time Spent With Patient Time: Total time managing care of this patient today __30__ minutes.
[2023-11-01] MEDS: QUEtiapine Fumarate 100 MG TABLET PO ×2 (12:49→17:42)
[2023-11-01] MEDS: Lidocaine 4 % Cream KIT 1 APPL TOPICAL (16:42)
[2023-11-01 20:45] VITALS: BP 132/78; PULSE 82; RESP 18; TEMP 36.3; O2SAT 97
[2023-11-01] MEDS: Brexpiprazole 1 MG TABLET 3 MG PO (21:27)
[2023-11-02] MEDS: Lidocaine 4 % Cream KIT 1 APPL TOPICAL ×3 (06:25→19:02)
[2023-11-02 08:00] VITALS: BP 144/82; PULSE 76; RESP 18; TEMP 36.3; O2SAT 100
[2023-11-02] MEDS: Nicotine 7 MG PATCH.TD24 TRANSDERMA (09:29)
[2023-11-02] MEDS: lisinopriL 20 MG TABLET PO (09:29)
[2023-11-02] MEDS: Aspirin Enteric Coated 81 MG TABLET.DR PO (09:30)
[2023-11-02] MEDS: Bictegrav/Emtricit/Tenofov Ala TABLET 1 TAB PO (09:30)
--- NOTE | 2023-11-02 10:28 | P.PNPSI_ITS ---
Subjective Subjective Date of Service: 11/02/23 Reason For Visit: SI Interim History: Met with patient; discussed with team Mood overall better though patient shares he has some residual anger that he was not continued on oxycodone 5 mg for foot pain; patient says that he is in the hospital he gets it but does not want it on discharge. At any rate, he appreciates increase in lidocaine cream availability, which has been increased to q.i.d.. No SI. Patient hoping to get help with PCP to help address severe left foot bunions which he showed medical underwriter Mental Status Exam Mental Status Exam Narrative: Appearance: wearing casual clothing, good hygiene, in NAD Behavior: cooperative, friendly Psychomotor: no agitation or retardation noted. noted involuntary perioral movement Speech: clear, normal rate/rhythm/volume, spontaneous TP: linear TC: complaining of pain and need for oxycodone Mood: Still angry but also agrees overall better Affect: brigther than reported mood, irritable SI: denies HI: denies VH/AH: does not appear internally preoccupied Delusions: none Insight/judgment: Improving Diagnostics Vital Signs (24Hr): Vital Signs - 24 hr 11/01/23 20:45 11/02/23 08:00 Temperature 97.4 F 97.4 F Pulse Rate 82 76 Respiratory Rate 18 18 Blood Pressure 132/78 144/82 H Pulse Oximetry 97 100 Oxygen Delivery Method Room Air Room Air BMI result Body Mass Index 23.9 Labs 10/29/23 01:24 10/31/23 07:49 Medications Medications Current Medications Al Hydroxide/Mg Hydroxide (Magnesium Hydrox/Alum Hydrox 30 Ml Oral.Susp) 30 ml PO Q6H PRN PRN Reason: Heartburn/Nausea Aspirin (Aspirin Enteric Coated 81 Mg Tablet.) 81 mg PO DAILY [facility] Last Admin: 11/02/23 09:30 Dose: 81 mg Bictegravir/Emtricitabine/Tenofovir (Bictegrav/Emtricit/Tenofov Ala Tablet) 1 tab PO DAILY [facility] Last Admin: 11/02/23 09:30 Dose: 1 tab Brexpiprazole (Brexpiprazole 1 Mg Tablet) 3 mg PO BEDTIME [facility] Last Admin: 11/01/23 21:27 Dose: 3 mg Clonidine HCl (Clonidine Hcl 0.1 Mg Tablet) 0.1 mg PO BID [facility]; Protocol Last Admin: 03/08/24 21:27 Dose: 0.1 mg Hydroxyzine HCl (Hydroxyzine Hcl 25 Mg Tablet) 25 mg PO Q6H PRN PRN Reason: Anxiety Lidocaine HCl (Lidocaine 4 % Cream Kit) 1 appl TOPICAL ONCE PRN; Protocol PRN Reason: foot pain Last Admin: 11/02/23 06:25 Dose: 1 appl Lisinopril (Lisinopril 20 Mg Tablet) 20 mg PO DAILY [facility]; Protocol Last Admin: 11/02/23 09:29 Dose: 20 mg Lorazepam (Lorazepam 1 Mg Tablet) 1 mg PO Q4H PRN PRN Reason: ciwa 8-12 Last Admin: 10/31/23 06:54 Dose: 1 mg Magnesium Hydroxide (Milk Of Magnesia 30 Ml Oral.Susp) 30 ml PO DAILY PRN PRN Reason: Constipation Nicotine (Nicotine 7 Mg Patch.Td24) 7 mg TRANSDERMA DAILY [facility] Last Admin: 11/02/23 09:29 Dose: 7 mg Quetiapine Fumarate (Quetiapine Fumarate 100 Mg Tablet) 100 mg PO DAILY@1300,1800 [facility] Last Admin: 11/01/23 17:42 Dose: 100 mg Thiamine HCl (Thiamine Hcl 100 Mg Tablet) 100 mg PO DAILY [facility] Last Admin: 11/02/23 09:29 Dose: Not Given Trazodone HCl (Trazodone Hcl 50 Mg Tablet) 50 mg PO BEDTIME PRN PRN Reason: Insomnia Trolamine Salicylate (Trolamine Salicylate 10 % Cream 141 Gm Tube) 1 appl TOPICAL QID [facility]; Protocol Last Admin: 11/01/23 21:33 Dose: Not Given Allergies Allergies Allergy/AdvReac Type Severity Reaction Status Date / Time acetaminophen [ACETAMINOPHEN] Allergy Mild rashes Verified 05/18/23 11:39 Assessment & Plan Assessment & Plan (1) MDD (major depressive disorder), recurrent episode, moderate: Status: Acute Code(s): F33.1 - Major depressive disorder, recurrent, moderate (2) Alcohol use disorder: Status: Acute Code(s): F10.90 - Alcohol use, unspecified, uncomplicated Plan Hospital course: 11/01 patient expresses some residual anger about medication treatment however says overall mood improving Plan Continue treatment plan Increase lidocaine cream to q.i.d. p.r.n. Patient educated on: diagnosis, medication risk/benefits and medical condition Informed Consent: understands Reason for continued inpatient stay Substantial Risk for: rapid decompensation Time Spent With Patient Time: Total time managing care of this patient today ____ minutes.
[2023-11-02] MEDS: cloNIDine HCL 0.1 MG TABLET PO ×2 (10:42→20:24)
[2023-11-02] MEDS: QUEtiapine Fumarate 100 MG TABLET PO ×2 (13:13→17:29)
[2023-11-02] MEDS: Trolamine Salicylate 10 % Cream 141 gm Tube 1 APPL TOPICAL (15:51)
[2023-11-02 18:00] VITALS: BP 168/100; PULSE 99; RESP 18; TEMP 36.8; O2SAT 98
[2023-11-02] MEDS: Brexpiprazole 1 MG TABLET 3 MG PO (20:25)
[2023-11-03] MEDS: Lidocaine 4 % Cream KIT 1 APPL TOPICAL (05:33)
[2023-11-03 08:00] VITALS: BP 165/85; PULSE 74; RESP 18; TEMP 36.4; O2SAT 100
[2023-11-03] MEDS: lisinopriL 20 MG TABLET PO (09:07)
[2023-11-03] MEDS: Bictegrav/Emtricit/Tenofov Ala TABLET 1 TAB PO (09:07)
[2023-11-03] MEDS: Aspirin Enteric Coated 81 MG TABLET.DR PO (09:07)
[2023-11-03] MEDS: Nicotine 7 MG PATCH.TD24 TRANSDERMA (09:07)
[2023-11-03] MEDS: cloNIDine HCL 0.1 MG TABLET PO ×2 (09:08→21:03)
--- NOTE | 2023-11-03 11:02 | HO.PSYCHPN ---
Subjective Subjective Date of Service: 11/03/23 Reason For Visit: SI Interim History: met with patient; discussed with team mood overall better, but remains irritated about not getting oxycodone for foot pain. Mental Status Exam Mental Status Exam Narrative: Appearance: wearing casual clothing, good hygiene, in NAD Behavior: cooperative, friendly Psychomotor: no agitation or retardation noted. noted involuntary perioral movement Speech: clear, normal rate/rhythm/volume, spontaneous TP: linear TC: complaining of pain and need for oxycodone Mood: irritated but also agrees overall better Affect: brigther than reported mood, irritable SI: denies HI: denies VH/AH: does not appear internally preoccupied Delusions: none Insight/judgment: fair Diagnostics Vital Signs (24Hr): Vital Signs - 24 hr 11/02/23 18:00 11/03/23 08:00 Temperature 98.2 F 97.5 F Pulse Rate 99 74 Respiratory Rate 18 18 Blood Pressure 168/100 H 165/85 H Pulse Oximetry 98 100 Oxygen Delivery Method Room Air Room Air BMI result Body Mass Index 23.9 Labs 10/29/23 01:24 10/31/23 07:49 Medications Medications Current Medications Al Hydroxide/Mg Hydroxide (Magnesium Hydrox/Alum Hydrox 30 Ml Oral.Susp) 30 ml PO Q6H PRN PRN Reason: Heartburn/Nausea Aspirin (Aspirin Enteric Coated 81 Mg Tablet.) 81 mg PO DAILY [facility] Last Admin: 11/03/23 09:07 Dose: 81 mg Bictegravir/Emtricitabine/Tenofovir (Bictegrav/Emtricit/Tenofov Ala Tablet) 1 tab PO DAILY [facility] Last Admin: 11/03/23 09:07 Dose: 1 tab Brexpiprazole (Brexpiprazole 1 Mg Tablet) 3 mg PO BEDTIME [facility] Last Admin: 11/02/23 20:25 Dose: 3 mg Clonidine HCl (Clonidine Hcl 0.1 Mg Tablet) 0.1 mg PO BID [facility]; Protocol Last Admin: 11/03/23 09:08 Dose: 0.1 mg Hydroxyzine HCl (Hydroxyzine Hcl 25 Mg Tablet) 25 mg PO Q6H PRN PRN Reason: Anxiety Lidocaine HCl (Lidocaine 4 % Cream Kit) 1 appl TOPICAL QID PR[facility]; Protocol PRN Reason: foot pain Last Admin: 11/03/23 05:33 Dose: 1 appl Lisinopril (Lisinopril 20 Mg Tablet) 20 mg PO DAILY [facility]; Protocol Last Admin: 11/03/23 09:07 Dose: 20 mg Magnesium Hydroxide (Milk Of Magnesia 30 Ml Oral.Susp) 30 ml PO DAILY PRN PRN Reason: Constipation Nicotine (Nicotine 7 Mg Patch.Td24) 7 mg TRANSDERMA DAILY [facility] Last Admin: 11/03/23 09:07 Dose: 7 mg Quetiapine Fumarate (Quetiapine Fumarate 100 Mg Tablet) 100 mg PO DAILY@1300,1800 [facility] Last Admin: 11/02/23 17:29 Dose: 100 mg Trazodone HCl (Trazodone Hcl 50 Mg Tablet) 50 mg PO BEDTIME PRN PRN Reason: Insomnia Trolamine Salicylate (Trolamine Salicylate 10 % Cream 141 Gm Tube) 1 appl TOPICAL QID [facility]; Protocol Last Admin: 11/03/23 09:16 Dose: Not Given Allergies Allergies Allergy/AdvReac Type Severity Reaction Status Date / Time acetaminophen [ACETAMINOPHEN] Allergy Mild rashes Verified 05/18/23 11:39 Assessment & Plan Assessment & Plan (1) MDD (major depressive disorder), recurrent episode, moderate: Status: Acute Code(s): F33.1 - Major depressive disorder, recurrent, moderate (2) Alcohol use disorder: Status: Acute Code(s): F10.90 - Alcohol use, unspecified, uncomplicated Plan Hospital course: 11/01 patient expresses some residual anger about medication treatment however says overall mood improving 11/02 stable; irritable; added Diclofenac lotion bid Plan Continue treatment plan Increase lidocaine cream to q.i.d. p.r.n. Diclofenac XL gell BID both feet Patient educated on: diagnosis, medication risk/benefits and medical condition Informed Consent: understands Reason for continued inpatient stay Substantial Risk for: stable for discharge Time Spent With Patient Time: Total time managing care of this patient today ____ minutes.
[2023-11-03] MEDS: Lidocaine 5 % Ointment 35 GM 1 APPL TOPICAL ×2 (13:48→19:43)
[2023-11-03] MEDS: QUEtiapine Fumarate 100 MG TABLET PO ×2 (13:48→21:05)
[2023-11-03 18:44] VITALS: BP 146/85; PULSE 85; RESP 18; TEMP 36.4; O2SAT 96
[2023-11-03] MEDS: Diclofenac Sodium Delayed Rel 50 MG TABLET.DR PO (21:03)
[2023-11-03] MEDS: Brexpiprazole 1 MG TABLET 3 MG PO (21:03)
[2023-11-04] MEDS: Lidocaine 5 % Ointment 35 GM 1 APPL TOPICAL ×2 (03:16→08:52)
[2023-11-04 08:14] VITALS: BP 143/68; PULSE 84; RESP 16; TEMP 36.6; O2SAT 98
[2023-11-04] MEDS: Bictegrav/Emtricit/Tenofov Ala TABLET 1 TAB PO (08:46)
[2023-11-04] MEDS: cloNIDine HCL 0.1 MG TABLET PO ×2 (08:46→19:56)
[2023-11-04] MEDS: hydrOXYzine HCL 25 MG TABLET PO (08:47)
[2023-11-04] MEDS: Diclofenac Sodium Delayed Rel 50 MG TABLET.DR PO ×2 (08:47→19:55)
[2023-11-04] MEDS: lisinopriL 20 MG TABLET PO (08:47)
[2023-11-04] MEDS: Nicotine 7 MG PATCH.TD24 TRANSDERMA (08:47)
[2023-11-04] MEDS: Aspirin Enteric Coated 81 MG TABLET.DR PO (09:03)
--- NOTE | 2023-11-04 11:29 | HO.PSYCHPN ---
Subjective Subjective Date of Service: 11/04/23 Reason For Visit: SI Subjective Notes: Conditional Voluntary Interim History: Reviewed with Dr. Villa. Pt reports feeling a little better today; pt stated, my psychotherapist social worker spoke to me about maybe going to respite, which I think is a good idea . denies SI/HI/VH/AH. Medication Compliance: Yes Side effects from medications: No Review of Systems Constitutional: Reports as per HPI Eyes: Reports as per HPI Reports as per HPI Cardiovascular: Reports as per HPI Respiratory: Reports as per HPI Gastrointestinal: Reports as per HPI Genitourinary: Reports as per HPI Musculoskeletal: Reports as per HPI Skin/Breast: Reports as per HPI Reports as per HPI Psychiatric: Reports as per HPI Endocrine: Reports as per HPI Hematologic/Lymphatic: Reports as per HPI Allergic/Immunologic: Reports as per HPI Mental Status Exam Mental Status Exam Narrative: Pt is alert and oriented; behavior is calm; dressed in casual attire; mood is described as a little better ; eye contact appropriate; Speech is normal rate, volume and prosody and not pressured; thought process is organized and goal directed; Thought content is on tx; denies SI/HI/VH/AH. Diagnostics Vital Signs (24Hr): Vital Signs - 24 hr 11/03/23 18:44 11/04/23 08:14 Temperature 97.5 F 97.8 F Pulse Rate 85 84 Respiratory Rate 18 16 Blood Pressure 146/85 H 143/68 H Pulse Oximetry 96 98 Oxygen Delivery Method Room Air BMI result Body Mass Index 23.9 Labs 10/29/23 01:24 10/31/23 07:49 Medications Medications Current Medications Al Hydroxide/Mg Hydroxide (Magnesium Hydrox/Alum Hydrox 30 Ml Oral.Susp) 30 ml PO Q6H PRN PRN Reason: Heartburn/Nausea Aspirin (Aspirin Enteric Coated 81 Mg Tablet.) 81 mg PO DAILY [facility] Last Admin: 11/04/23 09:03 Dose: 81 mg Bictegravir/Emtricitabine/Tenofovir (Bictegrav/Emtricit/Tenofov Ala Tablet) 1 tab PO DAILY [facility] Last Admin: 11/04/23 08:46 Dose: 1 tab Brexpiprazole (Brexpiprazole 1 Mg Tablet) 3 mg PO BEDTIME [facility] Last Admin: 11/03/23 21:03 Dose: 3 mg Clonidine HCl (Clonidine Hcl 0.1 Mg Tablet) 0.1 mg PO BID [facility]; Protocol Last Admin: 11/04/23 08:46 Dose: 0.1 mg Diclofenac Sodium (Diclofenac Sodium Delayed Rel 50 Mg Tablet.Dr) 50 mg PO BID [facility] Last Admin: 11/04/23 08:47 Dose: 50 mg Hydroxyzine HCl (Hydroxyzine Hcl 25 Mg Tablet) 25 mg PO Q6H PRN PRN Reason: Anxiety Last Admin: 11/04/23 08:47 Dose: 25 mg Lidocaine (Lidocaine 5 % Ointment 35 Gm) 1 appl TOPICAL Q6H PRN; Protocol PRN Reason: foot pain Last Admin: 11/04/23 08:52 Dose: 1 appl Lisinopril (Lisinopril 20 Mg Tablet) 20 mg PO DAILY [facility]; Protocol Last Admin: 11/04/23 08:47 Dose: 20 mg Magnesium Hydroxide (Milk Of Magnesia 30 Ml Oral.Susp) 30 ml PO DAILY PRN PRN Reason: Constipation Nicotine (Nicotine 7 Mg Patch.Td24) 7 mg TRANSDERMA DAILY [facility] Last Admin: 11/04/23 08:47 Dose: 7 mg Quetiapine Fumarate (Quetiapine Fumarate 100 Mg Tablet) 100 mg PO DAILY@1300,2100 [facility] Last Admin: 11/03/23 21:05 Dose: 100 mg Trazodone HCl (Trazodone Hcl 50 Mg Tablet) 50 mg PO BEDTIME PRN PRN Reason: Insomnia Trolamine Salicylate (Trolamine Salicylate 10 % Cream 141 Gm Tube) 1 appl TOPICAL QID [facility]; Protocol Last Admin: 11/04/23 09:09 Dose: Not Given Allergies Allergies Allergy/AdvReac Type Severity Reaction Status Date / Time acetaminophen [ACETAMINOPHEN] Allergy Mild rashes Verified 05/18/23 11:39 Assessment & Plan Assessment & Plan (1) MDD (major depressive disorder), recurrent episode, moderate: Status: Acute Code(s): F33.1 - Major depressive disorder, recurrent, moderate (2) Alcohol use disorder: Status: Acute Code(s): F10.90 - Alcohol use, unspecified, uncomplicated Plan Hospital course: 11/01 patient expresses some residual anger about medication treatment however says overall mood improving 11/02 stable; irritable; added Diclofenac lotion bid 11/03: continue current tx plan. Plan Continue treatment plan Increase lidocaine cream to q.i.d. p.r.n. Diclofenac XL gell BID both feet Reason for continued inpatient stay Substantial Risk for: med/psych decompensation Time Spent With Patient Time: Total time managing care of this patient today ____ minutes.
[2023-11-04] MEDS: QUEtiapine Fumarate 100 MG TABLET PO ×2 (12:21→20:01)
[2023-11-04] MEDS: Brexpiprazole 1 MG TABLET 3 MG PO (19:55)
[2023-11-04] MEDS: Melatonin 3 MG TABLET PO (19:57)
[2023-11-04] MEDS: traZODone HCL 50 MG TABLET PO (19:57)
[2023-11-04 20:03] VITALS: BP 177/95; PULSE 84; RESP 16; O2SAT 98
[2023-11-04 20:11] VITALS: TEMP 36.2
[2023-11-05] MEDS: Lidocaine 5 % Ointment 35 GM 1 APPL TOPICAL (01:22)
[2023-11-05 08:00] VITALS: BP 151/87; PULSE 75; RESP 16; TEMP 36.1; O2SAT 97
--- NOTE | 2023-11-05 08:38 | HO.PSYCHPN ---
Subjective Subjective Date of Service: 11/05/23 Reason For Visit: SI Subjective Notes: Conditional Voluntary Interim History: Reviewed with Dr. Villa. Keeping to self. active on unit. Pt reports feeling alright today; pt stated, I'm just waiting to see where I end up . denies SI/HI/VH/AH. Medication Compliance: Yes Side effects from medications: No Attending Groups: No Review of Systems Constitutional: Reports as per HPI Eyes: Reports as per HPI Reports as per HPI Cardiovascular: Reports as per HPI Respiratory: Reports as per HPI Gastrointestinal: Reports as per HPI Genitourinary: Reports as per HPI Musculoskeletal: Reports as per HPI Skin/Breast: Reports as per HPI Reports as per HPI Psychiatric: Reports as per HPI Endocrine: Reports as per HPI Hematologic/Lymphatic: Reports as per HPI Allergic/Immunologic: Reports as per HPI Mental Status Exam Mental Status Exam Narrative: Pt is alert and oriented; behavior is calm; dressed in casual attire; mood is described as alright ; eye contact appropriate; Speech is normal rate, volume and prosody and not pressured; thought process is organized and goal directed; Thought content is on tx; denies SI/HI/VH/AH. Diagnostics Vital Signs (24Hr): Vital Signs - 24 hr 11/04/23 20:03 11/04/23 20:11 Temperature 97.1 F Pulse Rate 84 Respiratory Rate 16 Blood Pressure 177/95 H Pulse Oximetry 98 Oxygen Delivery Method Room Air BMI result Body Mass Index 23.9 Labs 10/29/23 01:24 10/31/23 07:49 Medications Medications Current Medications Al Hydroxide/Mg Hydroxide (Magnesium Hydrox/Alum Hydrox 30 Ml Oral.Susp) 30 ml PO Q6H PRN PRN Reason: Heartburn/Nausea Aspirin (Aspirin Enteric Coated 81 Mg Tablet.) 81 mg PO DAILY [facility] Last Admin: 11/04/23 09:03 Dose: 81 mg Bictegravir/Emtricitabine/Tenofovir (Bictegrav/Emtricit/Tenofov Ala Tablet) 1 tab PO DAILY [facility] Last Admin: 11/04/23 08:46 Dose: 1 tab Brexpiprazole (Brexpiprazole 1 Mg Tablet) 3 mg PO BEDTIME [facility] Last Admin: 11/04/23 19:55 Dose: 3 mg Clonidine HCl (Clonidine Hcl 0.1 Mg Tablet) 0.1 mg PO BID [facility]; Protocol Last Admin: 11/04/23 19:56 Dose: 0.1 mg Diclofenac Sodium (Diclofenac Sodium Delayed Rel 50 Mg Tablet.Dr) 50 mg PO BID [facility] Last Admin: 11/04/23 19:55 Dose: 50 mg Hydroxyzine HCl (Hydroxyzine Hcl 25 Mg Tablet) 25 mg PO Q6H PRN PRN Reason: Anxiety Last Admin: 11/04/23 08:47 Dose: 25 mg Lidocaine (Lidocaine 5 % Ointment 35 Gm) 1 appl TOPICAL Q6H PRN; Protocol PRN Reason: foot pain Last Admin: 11/05/23 01:22 Dose: 1 appl Lisinopril (Lisinopril 20 Mg Tablet) 20 mg PO DAILY [facility]; Protocol Last Admin: 11/04/23 08:47 Dose: 20 mg Magnesium Hydroxide (Milk Of Magnesia 30 Ml Oral.Susp) 30 ml PO DAILY PRN PRN Reason: Constipation Melatonin (Melatonin 3 Mg Tablet) 3 mg PO BEDTIME PRN PRN Reason: Insomnia Last Admin: 11/04/23 19:57 Dose: 3 mg Nicotine (Nicotine 7 Mg Patch.Td24) 7 mg TRANSDERMA DAILY [facility] Last Admin: 11/04/23 08:47 Dose: 7 mg Quetiapine Fumarate (Quetiapine Fumarate 100 Mg Tablet) 100 mg PO DAILY@1300,2100 [facility] Last Admin: 11/04/23 20:01 Dose: 100 mg Trazodone HCl (Trazodone Hcl 50 Mg Tablet) 50 mg PO BEDTIME PRN PRN Reason: Insomnia Last Admin: 11/04/23 19:57 Dose: 50 mg Trolamine Salicylate (Trolamine Salicylate 10 % Cream 141 Gm Tube) 1 appl TOPICAL QID [facility]; Protocol Last Admin: 11/04/23 20:44 Dose: Not Given Allergies Allergies Allergy/AdvReac Type Severity Reaction Status Date / Time acetaminophen [ACETAMINOPHEN] Allergy Mild rashes Verified 05/18/23 11:39 Assessment & Plan Assessment & Plan (1) MDD (major depressive disorder), recurrent episode, moderate: Status: Acute Code(s): F33.1 - Major depressive disorder, recurrent, moderate (2) Alcohol use disorder: Status: Acute Code(s): F10.90 - Alcohol use, unspecified, uncomplicated Plan Hospital course: 11/01 patient expresses some residual anger about medication treatment however says overall mood improving 11/02 stable; irritable; added Diclofenac lotion bid 11/03: continue current tx plan. 11/04: continue current plan. Plan Continue treatment plan Increase lidocaine cream to q.i.d. p.r.n. Diclofenac XL gell BID both feet Patient educated on: diagnosis, medication risk/benefits and therapeutic strategies Informed Consent: understands Reason for continued inpatient stay Substantial Risk for: med/psych decompensation Time Spent With Patient Time: Total time managing care of this patient today _20___ minutes.
[2023-11-05] MEDS: Aspirin Enteric Coated 81 MG TABLET.DR PO (08:45)
[2023-11-05] MEDS: Nicotine 7 MG PATCH.TD24 TRANSDERMA (08:45)
[2023-11-05] MEDS: cloNIDine HCL 0.1 MG TABLET PO (08:45)
[2023-11-05] MEDS: lisinopriL 20 MG TABLET PO (08:46)
[2023-11-05] MEDS: Bictegrav/Emtricit/Tenofov Ala TABLET 1 TAB PO (08:46)
[2023-11-05] MEDS: Diclofenac Sodium Delayed Rel 50 MG TABLET.DR PO (08:51)
[2023-11-05] MEDS: QUEtiapine Fumarate 100 MG TABLET PO (13:45)
[2023-11-05 17:42] VITALS: BP 147/79; PULSE 86; RESP 16; TEMP 36.6; O2SAT 97
[2023-11-06] MEDS: Aspirin Enteric Coated 81 MG TABLET.DR PO (08:22)
[2023-11-06] MEDS: lisinopriL 20 MG TABLET PO (08:22)
[2023-11-06] MEDS: Nicotine 7 MG PATCH.TD24 TRANSDERMA (08:23)
[2023-11-06] MEDS: Lidocaine 5 % Ointment 35 GM 1 APPL TOPICAL (08:27)
[2023-11-06 08:34] VITALS: BP 151/96; PULSE 77; RESP 16; TEMP 36.3; O2SAT 99
[2023-11-06] MEDS: Bictegrav/Emtricit/Tenofov Ala TABLET 1 TAB PO (09:28)
--- NOTE | 2023-11-06 16:09 | P.DS_ITS ---
DS: Providers Provider Date of Service: 11/06/23 Date of admission: 10/29/23 14:03 Date of discharge: 11/06/23 Primary care physician: Unknown Physician Admitting clinician: Kesha Krishnamurthy Attending physician on admission: Amador Villa Consults: 10/29/23 16:44 Addiction Medicine Routine Consulting Provider: Addiction Covering Reason for consultation: scored 4 on assessment Attending physician on discharge: Amador Villa Discharging clinician: Hilda Tan DS: Diagnosis Discharge Diagnosis (1) MDD (major depressive disorder), recurrent episode, moderate: Status: Acute (2) Alcohol use disorder: Status: Acute DS: Medications Discharge Medications Home Medications: Previous Rx's Medication Instructions Recorded aspirin 81 mg tablet,delayed 81 mg PO DAILY #30 tabs 11/06/23 release bictegravir 50 mg-emtricitabine 1 tab PO DAILY #30 tabs 11/06/23 200 mg-tenofovir alafenam 25 mg tablet (Biktarvy) brexpiprazole 1 mg tablet (Rexulti) 3 mg (3 x 1 mg) PO BEDTIME #30 tabs 11/06/23 clonidine HCl 0.1 mg tablet 0.1 mg PO BID #60 tabs 11/06/23 diclofenac sodium 50 mg 50 mg PO BID #60 tabs 11/06/23 tablet,delayed release lidocaine 5 % topical ointment 1 appl topical Q6H PRN foot pain 11/06/23 #30 applicators lisinopril 20 mg tablet 20 mg PO DAILY #30 tabs 11/06/23 melatonin 3 mg tablet 3 mg PO BEDTIME PRN Insomnia #30 11/06/23 tabs nicotine 7 mg/24 hr daily 7 mg transdermal DAILY #30 ea 11/06/23 transdermal patch quetiapine 100 mg tablet 100 mg PO DAILY@1300,2100 #60 tabs 11/06/23 trazodone 50 mg tablet 50 mg PO BEDTIME PRN Insomnia #30 11/06/23 tabs trolamine salicylate 10 % topical 1 appl topical QID #120 applicators 11/06/23 cream (Aspercreme) Mental Status Exam Mental Status Exam Patient Appearance: Appropriate Patient Orientation: Person, Place, Time and Situation Level of Consciousness: Alert Patient Behavior: Talkative and Good Eye Contact Mood Description: Apprehensive Affect Description: Apprehensive Patient Cognition Impaired: No Ability to Follow Directions: Good Speech Pattern: Spontaneous Speech Memory Description: Intact Hallucinations: None Delusions: Not Present Thought Process: Goal Oriented Thought Content: positive for Goal Oriented, positive for Suicidal Ideation (denies) and positive for Homicidal Ideation (denies) Judgement: Good Data Data Completed and Pending Completed studies during hospitalization [Text1]: 10/31/23 10/31/23 07:49 07:50 Sodium 141 Potassium 4.2 Chloride 104 Carbon Dioxide 28 Anion Gap 13 BUN 12 Creatinine 0.96 Estim Creat Clear Calc 88.9 Estimated GFR > 60 Fasting Glucose 75 Estimat Average Glucose 103 Hemoglobin A1c % 5.2 Calcium 9.7 Total Bilirubin 0.5 AST 94 H ALT 60 H Alkaline Phosphatase 103 Total Protein 7.2 Albumin 3.2 L Triglycerides 80 Cholesterol 161 LDL Cholesterol, Calc 61 HDL Cholesterol 84 Vitamin B12 413 TSH 1.25 DS: Summary Hospital Course Hospital Course: Admission to adult psychiatry for exacerbation of recurrent major depression and alcohol use disorder. Pt reported medications being taken on a return trip from [place] with resulting increase in depressive symptoms with suicidal ideation. Pt is engaged with [facility]. He reports [facility] unstable housing as a stressor which exacerbated symptoms of depression. Medication regime was evaluated and adjusted. Pt was requesting of ongoing Oxycodone prescription which was not continued. Full milieu therapy was offered to strength his coping and stress management skills. Pt will discharge today to [facility] Respite/PACT Team in [place], [place]. Status at Discharge Functional status at discharge: independent ambulation Overall status at discharge: patient is progressing back to baseline Time Spent with Patient Time attestation: Total time managing care of this patient today ____ minutes. Time spent: Less than 30 minutes Discharge Plan Discharge Anticipated Discharge Date/Time: 11/06/23 12:00 Patient Disposition: Xfer to Respite Facility Discharge Diagnosis: Recurrent Major Depression Alcohol Use Disorder Referrals: Clinical and Support Options Respite [Other] - 11/06/23 12:00 pm (Patient accepted [facility] Clinical [facility] Support Options PACT [Other] - 11/06/23 (Patient referred by [facility] for PACT Services Patient to connect with PACT clinician upon discharge to [facility] ) Discharge Medications: New trazodone 50 mg Tablet 50 mg PO BEDTIME PRN (Reason: Insomnia) Qty: 30 0RF melatonin 3 mg Tablet 3 mg PO BEDTIME PRN (Reason: Insomnia) Qty: 30 0RF quetiapine 100 mg Tablet 100 mg PO DAILY@1300,2100 Qty: 60 0RF diclofenac sodium 50 mg Tablet,Delayed Release (Dr/Ec) 50 mg PO BID Qty: 60 0RF nicotine 7 mg/24 hr Patch 24 Hour 7 mg transdermal DAILY Qty: 30 0RF trolamine salicylate [Aspercreme] 10 % Cream 1 appl topical QID Qty: 120 0RF Protocol: Apply to: Apply to: bilateral feet lidocaine 5 % Ointment 1 appl topical Q6H PRN (Reason: foot pain) Qty: 30 0RF Protocol: Apply to: Apply to: b/l feet Rexulti 1 mg Tablet 3 mg PO BEDTIME Qty: 30 0RF Continued clonidine HCl 0.1 mg tablet 0.1 mg PO BID Qty: 60 0RF lisinopril 20 mg Tablet 20 mg PO DAILY Qty: 30 0RF aspirin 81 mg tablet,delayed release (DR/EC) 81 mg PO DAILY Qty: 30 0RF Biktarvy 50-200-25 mg tablet 1 tab PO DAILY Qty: 30 0RF Discontinued quetiapine 100 mg tablet 100 mg PO DAILY nicotine 21 mg/24 hr patch 24 hour 1 patch topical DAILY oxycodone 5 mg tablet 5 mg PO TID PRN (Reason: Pain) diclofenac sodium 1 % gel 2 g topical BID Discharge Orders: Discharge Order (Routine); Ordered 11/06/23 Ordered By: Hilda Tan Diet: Advance to usual diet Activity on Discharge: As tolerated Stand Alone Forms: Patient Portal Discharge page, Community Support Care Plan Goals: Work on Sobriety Mood and Behavioral Stabilization Health Concerns: Sobriety Mood and Behavioral Stabilization Plan of Treatment: Attend scheduled appointments Take medications as directed Per insurance, Lidocaine, Voltaren will not be given or covered. Assessment: Scheduled discharge to respite. Pt was interviewed prior to discharge and found to be fully oriented and without any SI/HI. Pt has insight and demonstrates good judgment in terms of wanting to pursue treatment. Pt is not in imminent risk of harm to self or others and has a safety plan that includes presenting to the closest ER or calling 911 if feeling unsafe. Pt has been observed closely by nursing and unit staff throughout admission. Pt has not engaged in any behaviors that suggest dangerousness to self or others and has demonstrated appropriate behaviors and impulse control. Discharge Date/Time: 11/06/23 11:41
== END 2023-11-06 11:41 | DRG 885 ==
LOC: HO.ED 10-29 03:39 → HO.PM5 10-29 14:15
PROVIDERS: Admitting Provider Social Worker; Emergency Provider Emergency Medicine; Visit Provider Clinical Nurse Specialist Psychiatric/Mental Health, Adult
DX: F33.1 Major depressive disorder, recurrent, moderate (principal); R45.851 Suicidal ideations; Z59.02 Unsheltered homelessness; F10.920 Alcohol use, unspecified with intoxication, uncomplicated; F17.210 Nicotine dependence, cigarettes, uncomplicated; Y90.6 Blood alcohol level of 120-199 mg/100 ml; Z20.822 Contact with and (suspected) exposure to COVID-19; Z71.6 Tobacco abuse counseling; Z79.82 Long term (current) use of aspirin; Z79.899 Other long term (current) drug therapy
CPT/HCPCS: 36415; 80048; 80053; 80061; 80076; 80307; 81003; 82607; 83036; 83690; 84443; 84484; 85025; 87635; 93005; 99285; S9485

== ENCOUNTER → 2023-10-29 00:57 | Outpatient (BNV) | payer MEDICARE, SELFPAY | PROVIDERS: Admitting Provider Social Worker; Emergency Provider Emergency Medicine; Visit Provider Internal Medicine Cardiovascular Disease | DX: I49.3 Ventricular premature depolarization (principal) | CPT/HCPCS: 93010 ==

== ENCOUNTER → 2023-10-29 14:03 | Outpatient (BNV) | payer MEDICARE, SELFPAY | PROVIDERS: Admitting Provider Social Worker; Emergency Provider Emergency Medicine; Visit Provider Social Worker | DX: F33.1 Major depressive disorder, recurrent, moderate (principal); F10.90 Alcohol use, unspecified, uncomplicated | CPT/HCPCS: 90792; 99231; 99238 ==

== ENCOUNTER 2023-12-15 19:55 | Emergency (ER) | payer OTHER, SELFPAY ==
--- NOTE | ~2023-12-15 | CT_ITS ---
EXAMINATION: CT head/brain wo IV con CT cervical spine wo IV con INDICATION INFORMATION: Trauma COMPARISON: CT head and CT C-spine 05/15/2023 TECHNIQUE: Separate noncontrast CT examinations of the head and cervical spine were performed. Coronal and sagittal reformats were obtained at the acquisition workstation. This CT examination was performed using dose optimization techniques as appropriate, variously including the following: * Automated exposure control * Adjustment of mA and/or kV according to patient size (this includes techniques or standardized protocols for targeted exams where dose is matched to indication/reason for exam; i.e. extremities or head) * Use of iterative reconstruction technique DLP: 1281 mGy-cm FINDINGS: HEAD: There is no evidence of acute intracranial hemorrhage or territorial infarction. [place]ap to white matter differentiation is well preserved. No abnormal mass effect or midline shift is seen. No extra-axial fluid collections are identified. No hydrocephalus. Proportional prominence of the ventricles and sulcal spaces is consistent with mild volume loss. Patchy periventricular and deep white matter hypoattenuation is consistent with moderate small vessel ischemic changes. The cerebellar tonsils are well positioned. No acute osseous or soft tissue abnormality. Visualized portions of the orbits are unremarkable. The mastoid air cells and visualized portions of the paranasal sinuses are well aerated. CERVICAL SPINE: No evidence of acute fracture or traumatic subluxation of the cervical spine. There is reversal of the normal cervical lordosis at C3 and C4. There is mild anterolisthesis of C2 on C3 and mild retrolisthesis of C4 on C5 and C5 on C6. Vertebral body heights are relatively maintained. Moderate multilevel intervertebral disc height loss. Moderate spondylosis from C3 to C6 with subchondral cysts and marginal osteophytes. The atlantoaxial and atlantooccipital articulations are intact. No prevertebral soft tissue swelling. There is no cervical lymphadenopathy. The visualized thyroid gland is unremarkable. Paraseptal emphysema in the visualized lung apices. CT/CT cervical spine wo IV con IMPRESSION: 1. No acute intracranial pathology. Chronic microangiopathy and generalized volume loss. 2. No acute osseous abnormality within the cervical spine. Moderate multilevel cervical spondylosis as described above.
[2023-12-15 20:14] VITALS: BP 162/86; PULSE 93; O2SAT 94; BMI 23.1
[2023-12-15 20:17] VITALS: BP 147/83; PULSE 90; RESP 18; TEMP 36.6; O2SAT 98
--- OUTSIDE RECORDS SUMMARY | 2023-12-15 20:29 | XMS_ITS | Continuity of Care Document ---
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 Name Role Phone Not on Staff, PCP Primary Care Physician Unavail able [place]counter [facility] [place] Date(s): 10/11/23 - 10/12/[address] [address]- Encounter Diagnosis Auditory hallucination(Final) - 10/12/23 Discharge Disposition: A-D/C Home Attending Physician: Ching Velasco DO Admitting Physician: Ching Velasco DO Referring Physician: Not on Staff, Referring MD [...] Range]: 1 2 Oxygen Saturation [94-100 %] 95 % (10/12/23 6:03 AM) 94 % (10/12/23 2:44 AM) Pulse Rate [55-90 bpm] 97 bpm *H* (10/12/23 6:03 AM) 103 bpm *H* (10/12/23 2:44 AM) Blood Pressure [90-138/55-84 mm Hg] 138/ 74mm Hg (10/12/23 6:03 AM) 119/67mm Hg (10/12/23 2:44 AM) Respiratory Rate [16-30 br/min] 18 br/mi n (10/12/23 6:03 AM) 19 br/min (10/12/23 2:44 AM) Temperature [96.8-100.4 DegF] 97.8 DegF (10/12/23 2:44 AM) Mode of Delivery (Oxygen) Room air (10/12/23 6:03 AM) Room air (10/12/23 2:44 AM) Blood pressure sites Arm, left (10/12/23 6:03 AM) Arm, left (10/12/23 2:44 AM) Temperature Route Oral (10/12/23 2:44 AM) Social History Social History Type Response Smoking Status 10 or more cigarette s (1/2 pack or more)/day in last 30 days entered on: 02/01/20 Sex Note * Ching Velasco DO: PERFORM Event Display: Patient Education Leaflets Authored Date: [id number] [facility] [place] - If you need a Doctor or Clinic ?? 34 If You Need a Doctor or Clinic ?? Call [facility] PCP Assignment Line to help you find a doctor:?? [phone] ?? Clinics in [place], [place] For a full list of clinics:? [email or web address] ?? [facility]? [address] [phone] [facility]?[address]?[phone] [facility]?[address][phone] [facility]?[address][phone] [facility]?[address] [phone] [facility]?[address][phone] [facility]?[address][phone] [facility]?[address] [phone] [facility]? [address][phone] [facility] director [facility] social services?[address][phone] [facility]?[address][phone] [facility]?[address][phone] [facility]?[address][phone] [facility]? [address][phone] [facility]?[address][phone] ? Patient Care team information Care Team Personnel Name: Angela Gee RN Position: [facility] Nurse Member Role: Primary Care Nurse Name: Not on Staff, PCP Position: [facility] Physician (General Medicine) Member Role: PCP Name: Shira Coyle RN Position: [facility] Manufacturing Lead Member Role: Primary Care Nurse Care Team Related Persons Name: DEBBIE SHEETS Address: [address] [address]
--- OUTSIDE RECORDS SUMMARY | 2023-12-15 20:29 | XMS_ITS | Continuity of Care Document ---
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 Start Date: 01/10/21 Status: Ordered Melatonin 3 mg oral tablet 1 tablet = 3 mg, By Mouth, Daily at bedtime, PRN for insomnia, # 60 tablet, 0 Refills, Maintenance,12/11/23 15:38:00 EDT, Tablet, Partial fill upon patient request if the prescription is for a schedule II opioid drug. Start Date: 12/11/23 Status: Ordered Metoprolol Tartrate 25 mg oral tablet 1 tablet = 25 mg, By Mouth, 2 times a day, # 60 tablet, 0 Refills, Maintenance, 12/11/23 15:39:00 EDT, Tablet, Partial fill upon patient request if the prescription is for a schedule II opioid drug. Start Date: 12/11/23 Status: Ordered Milk of Magnesia 8% oral [...] Status: Ordered oxyCODONE 5 mg oral tablet 5 mg, Tablet, By Mouth, 3 times a day, PRN for Pain , Moderate, Routine, 12/11/23 16:11:00 EDT Start Date: 12/11/23 Stop Date: 12/13/23 Status: Discontinued oxyCODONE 5 mg oral tablet 10 mg, [...] opioid drug. Start Date: 01/10/21 Status: Ordered Rexulti 3 mg oral tablet 1 tablet = 3 mg, By Mouth, Daily at bedtime, # 30 tablet, 0 Refills, Maintenance, 12/11/23 15:39:00EDT, Tablet, Partial fill upon patient request if the prescription is for a schedule II opioid drug. Start Date: 12/11/23 Status: Ordered Senna 8.6 mg oral tablet 17.2 mg, 2, tablet, By Mouth, Daily at bedtime, PRN, Maintenance, for constipation, 01/10/21 20:13:00 EDT, Tablet, Partial fill upon patient request if the prescription is for a schedule II opioid drug. Start Date: 01/10/21 Status: Ordered traZODone 50 mg oral tablet 50 mg, 1, tablet, By Mouth, Daily at bedtime, # 30 tablet, Refills 0, Maintenance, 12/11/23 15:41:00 EDT, Partial fill upon patient request if the prescription is for a schedule II opioid drug. Start Date: 12/11/23 Status: Ordered Problem List Condition Confirmation Course Effective Dates Status Health St atus Informant Depression Confirmed Active HIV Confirmed Active HTN Confirmed Active Schizophrenia Confirmed Active Vital Signs Most recent to oldest [Reference Range]: 1 2 3 Height 188 cm (12/12/23 5:46 PM) 188 cm (12/11/23 6:47 PM) 188 cm (12/11/23 1:01 PM) Weight 84 kg (12/12/23 5:46 PM) 84 kg (12/11/23 6:47 PM) 84 kg (12/11/23 1:01 PM) Oxygen Saturation [94-100 %] 98 % (12/12/23 12:25 PM) 98 % (12/12/23 12:35 AM) 98 % (12/11/23 6:47 PM) Pulse Rate [55-90 bpm] 61 bpm (12/12/23 12:25 PM) 78 bpm (12/12/23 12:35 AM) 77 bpm (12/11/23 6:47 PM) Body Mass Index [18.5-24.99 kg/m2] 23.77 kg/m2 (12/11/23 6:47 PM) 23.77 kg/m2 (12/11/23 1:01 PM) 23.77 kg/m2 (12/11/23 9:28 AM) Blood Pressure [90-138/55-84 mm Hg] 160/97mm Hg *H* (12/12/23 12:25 PM) 142/92mm Hg *H* (12/12/23 12:35 AM) 138/94mm Hg (12/11/23 6:47 PM) Respiratory Rate [16-30 br/min] 17 br/min (12/12/23 5:14 PM) 17 br/min (12/12/23 4:14 PM) 17 br/min (12/12/23 1:26 PM) Temperature [96.8-100.4 DegF] 98.6 DegF (12/12/23 12:25 PM) 98.3 DegF (12/12/23 12:35 AM) 97.5 DegF (12/11/23 6:47 PM) Mode of Delivery (Oxygen) Room air (12/12/23 12:25 PM) Room air (12/12/23 12:35 AM) Room air (12/11/23 6:47 PM) Blood pressure sites Arm, right (12/12/23 12:25 PM) Arm, right (12/12/23 12:35 AM) Arm, right (12/11/23 6:47 PM) Temperature Route Oral (12/12/23 12:25 PM) Oral (12/12/23 12:35 AM) Oral (12/11/23 6:47 PM) Dry Weight 84 kg (12/12/23 5:46 PM) 84 kg (12/11/23 6:47 PM) 84 kg (12/11/23 1:01 PM) Weight Obtained Via Standing scale (12/11/23 9:28 AM) Dry Weight Obtained Via Patient lift barnes ging scale (4/17/24 9:28 AM) Social History Social History Type Response Smoking Status 10 or more cigarette s (1/2 pack or more)/day in last 30 days entered on: 02/01/20 Sex Admission evaluation note * Prior Jhon PASTRANA S: PERFORM, MODIFY, MODIFY, MODIFY, MODIFY, MODIFY, MODIFY, MODIFY, MODIFY Event Display: Admission Note Authored Date: [id number] Patient: ??CHARLIE CUELLAR ? Age:??68 Years?Sex:??Male?:??1955?? History of Present Illness Referring Physician:?Dr. Prado??Cherie ?? Chief Complaint / Reason for consult:?psychotropic medication evaluation/management ?? Source of information:??Per patient, [facility] records ?? Identifying information:??CHARLIE CUELLAR is 68-year-old??patient with past history of HIV on HAART, coronary artery disease s/p stent,??hepatitis C, hypertension, peripheral neuropathy,??schizophrenia vs. bipolar spectrum disorder, antisocial personality disorder, cannabis use disorder, alcohol??use disorder,??and multiple previous psychiatric inpatient hospitalizations, who initially presented??[facility] ED on 12/11/23 for alcohol withdrawal. He was referred to detox and ultimately returned to the ED that same day for evaluation of??suicidal ideation. ?? History of Present Illness:??Patient is??known??to the [facility] psychiatry service??from prior encounter(s), most recently from inpatient psychiatric hospitalization on [facility] 08/26/2019-08/31/2019 forunspecified mood disorder. On this presentation, ED provider described patient presents seeking rehab placement. ??Patient has been drinking at least a pint of bourbon daily. ??Last drink about 24 hours ago. ??He does feel tremulous and sweaty. ??No chest pain shortness of breath nausea vomiting or diarrhea. ??He did contact several rehabs yesterday but was told to come to the ED for medical clearance and referral. ?? Per ED provider documentation: Initial vital signs: tachycardia??91, elevated DBP??98, otherwise within normal limits Physical exam: Visible tremor with hands fingers of full extension,??tongue fasciculations; exam otherwise unremarkable/reassuring Serology:??leukopenia WBC 3.7, trace normocytic anemia Hct 40.1, thrombocytopenia 101, INR/PT 09/05,elevated AST/ALT 65/67 with comprehensive metabolic panel otherwise within normal limits,??TSH within normal limits,??TSH within normal limits Urinalysis: toxicology pending collection Imaging: none ECG: none; last done 04/28/2020, QTc??459 Misc: negative COVID-19 by RT-PCR No other diagnostics were performed in the ED. Interventions: phenobarbital 200 mg PO x1, lidocaine 5% topical x1, melatonin 9 mg PO x1, oxycodone5 mg PO x1v Other orders/referrals: CIWA, Social Work, medically cleared,??Crisis, Psychiatry ?? Per initial Crisis evaluation: Today Charlie is self presenting himself for daily alcohol use,??ongoing auditory hallucinations and increased suicidal thoughts without a specific plan today but??just yesterday his plan was to shoot himself in the head. He??confirmed he has attempted in the past, (1x in 1998 by mean of attempting to shoot himself in the mouth). He reported the gun jammed and the trigger became stuck which caused him??not to be successful. He reported his voices have been strong again, increased to the point of sounding like a loud parade of voices that are causing him to??feel more and more distressed whichin??affect is making him??want to use alcohol more to drown??out the voices and numb himself??with alcohol per his report. [1] ?? On initial interview, patient is alert and oriented to all spheres. Corroborates aforementioned precipitating events. Describes mood as depressed and angry, citing technical difficulties with the E pod telephone. States he will not accept medications until this can be resolved because he has very important phone calls to make but declines to elaborate. RN has made several attempts to assist him and other patients have not encountered similar difficulties with the phone. Patient endorses ongoing suicidal ideation and declines to elaborate. Endorses auditory hallucinations and declines to elaborate. Insists they occur in the absence of substance use, although he endorsed long-term daily alcohol and cannabis use previously. Patient denies any additional symptoms concerning for anxiety, depression, abbey, psychosis or PTSD. Patient currently denies any homicidal ideation. ? Past medical, psychiatric, and family history from patient is??limited??due to altered mentation??secondary to acute psychiatric illness??and is ascertained/supplemented from aforementioned collateral sources, summarized below. ?? Past Psychiatric History:?? Diagnoses:??schizophrenia vs. bipolar spectrum disorder, antisocial personality disorder Hospitalizations: Multiple (at least 20), including on [facility]APTU 08/26/2019- 08/31/2019, previously at [facility], [facility]. Suicidality / Aggression / Self-Injurious Behavior / LEAN SPECIALIST Trauma / ECT:??At least 2 suicide attempts(1998, 2022). Denies any history of aggression. No history of head injuries, concussions, traumaticbrain injuries??or seizures. No history of ECT treatments. Current Psychotropic Medications:?? brexpiprazole 3 mg po qhs clonidine 0.1 mg po bid quetiapine 100 mg po bid trazodone 50 mg po qhs prn insomnia Past Treatment Trials:??pregabalin, lamotrigine, zolpidem Outpatient Providers:??Dr. Hilda Tan ?? Substance Use Patient admits to current use of alcohol (unspecified??amount of bourbon whiskey daily),??tobacco (1/3 ppd) and??cannabis (4 joints/day), and past use of pharmaceutic opioids and cocaine. Patient denies any current use of heroin, LSD, PCP, methamphetamine or prescription medication abuse. ?? 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 ?? Family History:?? Maternal history of depression. Paternal history of alcohol dependence.??No family history of suicidality or attempts.?? Review of Systems Pertinent positives as listed above in HPI.??Otherwise, remainder of review of systems negative. Mental Status Vitals & Measurements T:??98.3?F?? TMIN:??97.5?F?? TMAX:??98.3?F?? HR:??78??(Peripheral)?? RR:??18?? BP:??142/92?? SpO2:??98%?? WT:??84??kg?? Mental Status Exam Appearance: Casual, disheveled Eye contact: Within normal limits Attitude: Superficailly cooperative Motor Activity: Calm; absent of tics, tremors, psychomotor agitation, psychomotor slowing Mood: Depressed, angry Affect: Congruent, restricted, irritable Speech: Nonspontaneous, normal rate, low tone and??normal prosody Perception: No reported AVH;??no internal preoccupation or responding to internal stimuli Orientation: Intact to all spheres Memory: Grossly intact Thought Process: Coherent, goal-directed Thought Content: Desire to make unspecified phone call. Reliability: Limited historian Insight: Limited Judgment: Limited Impulse control: Limited Suicidality/Self-destructive Behavior: Ongoing SI. Homicidality/Violence: None ?? Musculoskeletal Antigravity. No rigidity noted. Moving all four extremities spontaneously. Not observed ambulating. Victoria Suicide Score Victoria Suicide Assessment Ca (12/11/23) Suicidal Thoughts Past Month - CSSRS: No (12/11/23) Suicide Behavior Lifetime - CSSRS: No (12/11/23) Wish to be Past Month - CSSRS: No (12/11/23) Assessment/Plan Assessment:?In brief, this is a 68-year-old??patient with past history of HIV on HAART, coronary artery disease s/p stent,??hepatitis C, hypertension, peripheral neuropathy,??schizophrenia vs. bipolar spectrum disorder, antisocial personality disorder, cannabis use disorder, alcohol??use disorder,??and multiple previous psychiatric inpatient hospitalizations, who initially presented??to [facility] ED on 12/11/23 for alcohol withdrawal. He was referred to detox and ultimately returned to the ED that same day for evaluation of??suicidal ideation. At this point in time, the patient has been medically cleared and referred to??[facility] Crisis for evaluation and assistance with disposition,??albeit currently pending bed search for inpatient psychiatric hospitalization.??The emergency psychiatry servicewas consulted for assistance with medication management. There is concern for acute depressive illness as evident by??worsening depressed mood, suicidal ideation, and difficulty sleeping in the setting of daily alcohol and cannabis use. Initial psychiatric evaluation was notable for superficially cooperative attitude, depressed and angry mood with congruently irritable affect,??and goal-directed thought form conveying ongoing suicidal ideation, adamant desire to use the phone, and refusal to accept medications contingent on said phone call,??which has been offered by RN several times. Diagnostic clarification is deferred to the next/longitudinal level of care to consider whether patient'ssymptoms represent primary and/or superimposed substance-induced process. In the interim, will optimize psychotropic regimen for continuity with outpatient treatment plan to the extent possible on hospital formulary and provide PRNs for comfort and safety in the ED while patient awaits final disposition. Explained to the patient the differential diagnoses, treatment options, risks of untreated illness, and risks/benefits of treatment. See below for??detailed??treatment recommendations. ?? Diagnoses Depressive disorder, unspecified, r/o alcohol-induced Suicidal ideation Alcohol withdrawal Schizoaffective disorder, depressive type, by history Antisocial personality disorder, by history Alcohol use disorder Cannabis use disorder ?? Recommendations: -Disposition as per Crisis Services, albeit currently a bed search for inpatient psychiatric hospitalization. Barriers to placement: uses cane to walk. -Continue constant manager web application. Patient may NOT leave AMA without Crisis/Psychiatry clearance. -Continue CIWA protocol. -Brexpiprazole 3 mg PO QHS for psychosis sand mood stabilization??not available on hospital formulary. This medication can be brought in from home or resumed at next level of care. -Modify quetiapine schedule 100 mg PO BID (12pm, bedtime) to match outpatient regimen??for mood stabilization. -Continue clonidine 0.1 mg PO BID for anxiety. Hold for excess sedation, SBP<100, DBP<60, HR<60. -Start quetiapine 25-50 mg PO Q6H PRN severe anxiety, agitation, or psychosis. -Can also use haloperidol??5 mg??BID PRN agitation/psychosis, reserving IM for severe agitation with acute safety concern and refusal of PO. When CIWA protocol is discontinued, please add lorazepam 2mg to be coadministered with haloperidol. -The preference is for PO medications, but if the patient refuses the oral medications and there issufficient acute safety concern, can judiciously utilize IM equivalents for severe agitation.?? -Would note that these medications are only being utilized in the ER while the patient awaits placement. Long-term need for these medications will need to be assessed by the patient's future treatingpsychiatrist. -Seclusion or restraint may only be used as interventions of last resort in the management of severe agitation in patient. If they are used, seclusion and restraint episodes should be as short as possible, dignified, and as safe as possible for all involved. Patient preference should always be considered when feasible. -Follow-up expanded urine toxicology. -ECG for baseline QT/QTc??given potentially??QT-prolonging polypharmacy. ?? We counseled the patient in detail about the importance of sobriety and the interplay between usageof recreational and illicit substances and psychiatric symptoms. We explained to the patient that recreational and illicit substances would interfere with the efficacy of psychiatric medications and would keep the psychiatric medications from being able to show optimal therapeutic effect. We spoke at length about how recreational and illicit substances are known to worsen psychiatric symptoms andare known to put patients at chronic risk for recurrent psychiatric decompensation. Patient was also made aware of the fact that recreational and illicit substances are known to lead to impulsivity and disinhibited behavior because of which patient may become more likely to act on negative thoughtsincluding thoughts of suicidality/homicidality. Patient was strongly advised to stay away from any recreational and illicit substances in the future, as any usage of recreational and illicit substances upon discharge would put the patient at chronic risk for recurrent psychiatric decompensation leading to chronic risk for impulsive behavior including but not limited to risk for suicide/self-harm/harm to others. Patient expressed a good understanding of this and showed motivation to stay away from recreational and illicit substances upon discharge and to work on addiction during individual psyc hotherapy sessions in the outpatient setting. ?? Please feel free to contact the Psychiatry consult service (page [phone]) with any questions or concerns.? Recommendations messaged via??[employer] to Dr. Eve Crespo ?? Jhon Ramirez PACatalina (he/him) Emergency Psychiatry Services Division of Consultation-Liaison Psychiatry Department of Psychiatry [facility]?? Medications Inpatient aspirin 81 mg oral tablet, chewable, 81 mg, By Mouth, Daily cloNIDine 0.1 mg oral tablet, 0.1 mg, By Mouth, 2 times a day Lidocaine 5% Topical, 1 application, Topically, 2 times a day, PRN lisinopril 20 mg oral tablet, 20 mg, By Mouth, Daily LORazepam Tablet, 1 mg, By Mouth, Every hour, PRN LORazepam Tablet, 2 mg, By Mouth, Every hour, PRN LORazepam Tablet, 3 mg, By Mouth, Every hour, PRN LORazepam Tablet, 4 mg, By Mouth, Every hour, PRN Melatonin Tablet, 3 mg, By Mouth, Daily at bedtime oxyCODONE 5 mg oral tablet, 5 mg, By Mouth, 3 times a day, PRN QUEtiapine 100 mg oral tablet, 100 mg, By Mouth, 2 times a day QUEtiapine 100 mg oral tablet, 100 mg, By Mouth, 2 times a day QUEtiapine 25 mg oral tablet, 25 mg, By Mouth, Every 6 hours, PRN traZODone 50 mg oral tablet, 50 mg, By Mouth, Daily at bedtime, PRN Allergies OLANZapine acetaminophen acetaminophen containing compounds??(Other) Lab Results Event Name?? Event Result?? Normal Range?? Date/Time?? WBC 3.7 k/mm3??Low 4 k/mm3 - 11 k/mm3 12/11/23 10:23:00 RBC 4.35 m/mm3??Low 4.7 m/mm3 - 6.1 m/mm3 12/11/23 10:23:00 Hgb 13.8 Gm/dL 13.7 Gm/dL - 17.1 Gm/dL 12/11/23 10:23:00 Hct 40.4 %??Low 40.5 % - 50 % 12/11/23 10:23:00 MCV 92.9 femtoliters 80 femtoliters - 94 femtoliters 12/11/23 10:23:00 MCH 31.7 pg 27 pg - 34 pg 12/11/23 10:23:00 MCHC 34.2 g/dL 33 g/dL - 37 g/dL 12/11/23 10:23:00 Platelet Count 101 k/mm3??Low 150 k/mm3 - 460 k/mm3 12/11/23 10:23:00 RDW-SD 50.3 femtoliters??High ?? 12/11/23 10:23:00 MPV 11.8 femtoliters 9.4 femtoliters - 12.4 femtoliters 12/11/23 10:23:00 Nucleated RBC (Automated) 0 #/100 WBC'S ?? 12/11/23 10:23:00 Abs. NRBC 0 k/mm3 ?? 12/11/23 10:23:00 Abs. Neut 1.8 k/mm3 1.3 k/mm3 - 7 k/mm3 12/11/23 10:23:00 Abs. Lymph 1.3 k/mm3 0.8 k/mm3 - 3.1 k/mm3 12/11/23 10:23:00 Abs. [place] 0.5 k/mm3 0.4 k/mm3 - 1.3 k/mm3 12/11/23 10:23:00 Abs. Eo 0.1 k/mm3 0 k/mm3 - 0.4 k/mm3 12/11/23 10:23:00 Abs. Baso 0 k/mm3 0 k/mm3 - 0.1 k/mm3 12/11/23 10:23:00 Neut % 48.7 % 44 % - 76 % 12/11/23 10:23:00 Lymph % 36.1 % 15 % - 43 % 12/11/23 10:23:00 [place] % 12.5 %??High 4.5 % - 10.5 % 12/11/23 10:23:00 Eos % 2.2 % 0 % - 6 % 12/11/23 10:23:00 Baso % 0.5 % 0 % - 2 % 12/11/23 10:23:00 Imm Gran 0 % ?? 12/11/23 10:23:00 Abs. Imm Gran 0 k/mm3 ?? 12/11/23 10:23:00 INR 1 0.9 ??- 1.1 12/11/23 10:34:00 Protime (PT) 11 seconds 9.2 seconds - 11.4 seconds 12/11/23 10:34:00 Sodium 142 mmol/L 133 mmol/L - 145 mmol/L 12/11/23 10:23:00 Potassium 3.9 mmol/L 3.6 mmol/L - 5.2 mmol/L 12/11/23 10:23:00 Chloride 107 mmol/L 98 mmol/L - 107 mmol/L 12/11/23 10:23:00 Bicarbonate Level 22 mmol/L 22 mmol/L - 29 mmol/L 12/11/23 10:23:00 Anion Gap 13 4 ??- 17 12/11/23 10:23:00 Glucose Level 79 mg/dL 70 mg/dL - 99 mg/dL 12/11/23 10:23:00 BUN 11 mg/dL 8 mg/dL - 23 mg/dL 12/11/23 10:23:00 Creatinine-Blood 1.1 mg/dL 0.7 mg/dL - 1.2 mg/dL 12/11/23 10:23:00 Estimated GFR Creatinine 78 ML/MIN/1.73 M2 ?? 12/11/23 10:23:00 Calcium 8.7 mg/dL 8.6 mg/dL - 10.5 mg/dL 12/11/23 10:23:00 Protein, Total 6.8 Gm/dL 6.2 Gm/dL - 8.2 Gm/dL 12/11/23 10:23:00 Albumin 3.7 Gm/dL 3.4 Gm/dL - 4.8 Gm/dL 12/11/23 10:23:00 AG Ratio 1.2 ?? 12/11/23 10:23:00 Alkaline Phosphatase 90 units/L 40 units/L - 129 units/L 12/11/23 10:23:00 AST (SGOT) 65 units/L??High 0 units/L - 40 units/L 12/11/23 10:23:00 ALT (SGPT) 67 units/L??High 0 units/L - 41 units/L 12/11/23 10:23:00 Bilirubin, Total 0.4 mg/dL 0 mg/dL - 1.2 mg/dL 12/11/23 10:23:00 TSH 1.01 uIU/mL 0.4 uIU/mL - 4.2 uIU/mL 12/11/23 10:23:00 Ethanol, Serum or Plasma NONE DETECTED ?? 12/11/23 10:23:00 COVID-19 by RT-PCR NEGATIVE ?? 12/11/23 10:40:00 Est Creatinine Clearance 76.84 mL/min ?? 12/11/23 11:54:38 ? [1]??Crisis Evaluation Initial; Phyllis Singer 12/11/2023 16:30 EDT Hospital Progress note * Event Display: Progress Note Hospital Authored Date: Note * Randi Vieyra: PERFORM, SIGN, VERIFY Event Display: Patient Education Handout Authored Date: * Randi Vieyra: PERFORM Event Display: Patient Education Leaflets Authored Date: Alcohol Withdrawal ?? [id number] Alcohol Withdrawal Alcohol withdrawal often starts after prolonged heavy drinking, and then you suddenly stop drinking. Or you cut down on your alcohol use. It is not one thing. It is a complex combination of signs andsymptoms that often occur together and define a certain problem or condition. ??? Alcohol withdrawal is potentially life-threatening. It is a medical emergency. ??? It can startas early as a couple of hours after your last drink. Or it may take 1 to 3 days to develop. ??? It can last from days to a week or more. ??? It can worsen very quickly. Signs and symptoms There are??several stages of alcohol withdrawal. But they overlap, as do their signs and symptoms. In the earlier stages, it most often includes: ??? Anxiety ??? Shakiness ??? Nausea and vomiting ???Sweating ??? Insomnia ??? Headaches ??? Fever ??? Mood swings, irritability, agitation, restlessness ?? Delirium tremens (DTs) DTs are a severe and life-threatening complication. If??DTs happen, they often start about 3 to 5 days after your last drink. They are potentially life threatening, so medical care should be sought. Symptoms of DTs include: ??? Sudden and severe mental or nervous system changes ??? Uncontrollable tremors ??? Severe disorientation, confusion, hallucinations ??? Heart racing, or irregular heartbeat??? High blood pressure ??? Seizures ??? Possible coma and ?? Home care ??? You'll need plenty of rest and fluids over the next several days. Eat regular meals and drink plenty of fluids to prevent dehydration. Don't drink any more alcohol. During this time, itis best that you're not alone. Stay with family or friends who can help and support you. You can also admit yourself to a residential detox program. ??? Don't drive until all symptoms are gone and you are feeling better. If you've had a seizure, don't drive until you've been examined by a healthcare provider. ??? If you were given sedative medicine to reduce your symptoms, don't take it more often than prescribed. Never take it with alcohol. ?? Follow-up care Once you've gone through the withdrawal symptoms, you've fought half of the block. To avoid the risk of going back to your past drinking pattern, it's vital that you get follow-up support and treatment. ??? Alcoholics Anonymous (AA) offers support through a self-help fellowship. There are no dues or fees. Search the internet or go to the AA website at www.aa.org to find a local meeting place. ??? [employer] offers support to families of alcohol users. Go to the Al-Anon website at www.alPhytelanon.org . ??? Residential alcohol detox programs are available. Search the internet for treatment centers [place] [facility]. ?? Call 911 Call 911 if any of these occur: ??? Seizure ??? Trouble breathing or slow, irregular breathing ??? Chest pain ??? Sudden weakness on a side of the body or sudden trouble speaking ??? Heavy bleeding or vomiting blood ??? Very drowsy or trouble awakening ??? Fainting or loss of consciousness ??? Rapid heart rate ?? When to get medical advice Call your healthcare provider right away??if any of these occur: ??? Severe shakiness ??? Hallucinations ??? Fever over 100.4?? F (38.0?? C) ??? Headache, confusion, extreme drowsiness, inability to awaken ??? Increasing upper abdominal pain ??? Repeated vomiting ?? Last Reviewed Date: 2021 ?? [id number] The [employer]. All rights reserved. This information is not intended as a substitute for professional medical care. Always follow your healthcare professional's instructions. ?? Patient Care team information Care Team Personnel Name: Angela Gee RN Position: [facility] Nurse Member Role: Primary Care Nurse Name: Not on Staff, PCP Position: [facility] Physician (General Medicine) Member Role: PCP Name: Shira Coyle RN Position: [facility] [employer] Specialist Member Role: Primary Care Nurse Care Team Related Persons Name: DEBBIE SHEETS Address: [address] [address]
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
[2023-12-15 22:09] VITALS: BP 139/74; PULSE 74; RESP 16; TEMP 36.7; O2SAT 96
--- NOTE | 2023-12-15 23:10 | PC.NURSE ---
report called to danyell giraldo
[2023-12-15 23:18] VITALS: BP 139/74; PULSE 74; RESP 16; TEMP 36.6; O2SAT 96
== END 2023-12-16 00:29 | disposition skilled nursing facility (03) ==
PROVIDERS: Emergency Provider Internal Medicine
DX: S09.93XA Unspecified injury of face, initial encounter (principal); S19.9XXA Unspecified injury of neck, initial encounter; M54.2 Cervicalgia; R51.9 Headache, unspecified; Y04.2XXA Assault by strike against or bumped into by another person, initial encounter; Y93.9 Activity, unspecified; Y92.9 Unspecified place or not applicable; Y99.8 Other external cause status
CPT/HCPCS: 70450; 72125; 99284

== ENCOUNTER 2024-01-28 14:53 | Emergency (ER) | payer OTHER, SELFPAY ==
[2024-01-28 15:06] VITALS: BP 123/78; PULSE 104; RESP 16; TEMP 36.2; O2SAT 95; BMI 21.9
--- NOTE | 2024-01-28 15:06 | ED.PSYCH ---
HPI - Psych General Chief Complaint: Psychiatric Symptoms Stated Complaint: SI Time Seen by Provider: 01/28/24 15:45 Source: patient, RN notes reviewed and old records reviewed Mode of arrival: ambulatory History of Present Illness ED Provider: Mely De Jesus PA-C HPI Narrative: 68-year-old male with a past medical history of major depressive disorder, alcohol use disorder, presenting to the ED complaining of suicidal ideations with plan to use his firearms and auditory hallucinations. Reports noncompliance with some of his medications. Patient states he has access to firearms. Admits to drinking about 4 nips today, denies drinking daily, history of ETOH withdrawal/seizures. Denies other drug use. States he does not see a reason for living any longer. Also reports vague HI. Denies visual hallucinations, CP/SOB, abdominal pain Related Data Previous Rx's ?Medication ?Instructions ?Recorded aspirin 81 mg tablet,delayed 81 mg PO DAILY #30 tabs 11/06/23 release bictegravir 50 mg-emtricitabine 1 tab PO DAILY #30 tabs 11/06/23 200 mg-tenofovir alafenam 25 mg tablet (Biktarvy) brexpiprazole 1 mg tablet (Rexulti) 3 mg (3 x 1 mg) PO BEDTIME #30 tabs 11/06/23 clonidine HCl 0.1 mg tablet 0.1 mg PO BID #60 tabs 11/06/23 diclofenac sodium 50 mg 50 mg PO BID #60 tabs 11/06/23 tablet,delayed release lidocaine 5 % topical ointment 1 appl topical Q6H PRN foot pain 11/06/23 #30 applicators lisinopril 20 mg tablet 20 mg PO DAILY #30 tabs 11/06/23 melatonin 3 mg tablet 3 mg PO BEDTIME PRN Insomnia #30 11/06/23 tabs nicotine 7 mg/24 hr daily 7 mg transdermal DAILY #30 ea 11/06/23 transdermal patch quetiapine 100 mg tablet 100 mg PO DAILY@1300,2100 #60 tabs 11/06/23 trazodone 50 mg tablet 50 mg PO BEDTIME PRN Insomnia #30 11/06/23 tabs trolamine salicylate 10 % topical 1 appl topical QID #120 applicators 11/06/23 cream (Aspercreme) Allergies Allergy/AdvReac Type Severity Reaction Status Date / Time acetaminophen [ACETAMINOPHEN] Allergy Mild rashes Verified 01/28/24 15:09 Review of Systems Review of Systems: Constitutional: No Fever, No Chills ENT/Mouth: No Ear Pain, No Nasal Congestion, No sore throat, No Rhinorrhea, No Swallowing Difficulty Eyes: No Eye Pain, No Swelling, No Redness Cardiovascular: No Chest Pain, No SOB Respiratory: No Cough, No Dyspnea Gastrointestinal: No Nausea, No Vomiting, No Diarrhea, No Constipation, No Abdominal pain Musculoskeletal: No joint pain, No Myalgias, No Joint Swelling Skin: No Skin Lesions, No rash Neuro: No Weakness, No Headache Psych: No Anxiety/Panic, +Depression, + SI/HI/AH, No VH, + Social Issues Yes all other systems are reviewed and are negative Constitutional: Constitutional: Reports as per [facility] Past Medical History Attestation statement: The following information was validated with the patient. Source: old records reviewed Medical History Alcohol intoxication Social History Social History Household Members: None Housing: Homeless Do you presently have visiting nurse or other home services: No Unable to assess alcohol history related to: Refusing to respond Alcohol intake: current Alcohol intake frequency: 3 or more drinks per day Alcohol type: hard liquor Patient Tobacco Use Status: Current everyday Tobacco user Tobacco use type: Cigarette Cigarettes Per Day: 8 Years Smoked: 36 years Smoked in Last 30 Days: Yes e-Cigarette/Vaping Use: Never Used Second Hand Smoke Exposure: Yes (Per own smoking) Use of substances other than those prescribed or required for medical reasons: Yes Substance Use Type: Marijuana Substance Use Frequency: Daily Advance Directives: No Advance Directives Information Provided: No Do you have a plan to hurt others: No Plan service: Yes ([employer]) Sexual orientation: Unable to collect Physical Exam Vital Signs: Vital Signs: Last Vital Signs Temp 97.1 F 01/28/24 15:53 Pulse 104 H 01/28/24 15:53 Resp 16 01/28/24 15:53 BP 123/78 01/28/24 15:53 Pulse Ox 95 01/28/24 15:53 O2 Del Method Room Air 01/28/24 15:53 BMI result Body Mass Index 21.9 Const: Other: + EtOH odor on breath General: cooperative and no acute distress Orientation/consciousness: patient oriented x3 Limitations: no limitations HEENT: Head: Yes normal to inspection and Yes atraumatic Ears: hearing grossly normal bilaterally General nose exam: Normal external nose present Face and sinus: Yes normal facial exam Eyes: General: appearance normal, both eyes and all related structures EOM: EOMs intact bilaterally Neck: Neck: Yes normal visual inspection and Yes no meningeal signs Resp: Effort & Inspection: normal respiratory effort and no respiratory distress Auscultation: clear to auscultation bilaterally, no crackles and no wheezes Cardio: Rate: regular rate Heart sounds: S1 normal heart sound present and S2 normal heart sound present GI: Inspection: Yes normal to inspection Palpation (GI): Soft to palpation, nontender, no guarding and not rigid Skin: Rashes: no rashes Wounds: no wounds Neuro: General: patient oriented x3, tone normal, no meningeal signs and CN's II-XI intact bilaterally Cranial nerves: Yes CN's II-XII intact bilaterally Gait exam (Neuro): Normal gait present Extrem: General: Yes normal to inspection Psych: Attitude: cooperative and Avoids eye contact (attititude/behavior) Thought content: Suicidality present, Homicidality present and Depressive thoughts present Course Course Course Narrative: This is a Rapid Medical Examination (RME) performed by Bibi Holcomb PA-C in triage. Full HPI, ROS, assessment and treatment plan per primary provider in the Main ED. 68 yo male hx of MDD and etoh use disorder here for eval of things are not going well . admits to thoughts of harming himself with plans to cut his wrists. Denies HI. Admits to etoh consumption today, approx 4 nips. denies hc of etoh withdrawal or withdrawal seizures. Denies AH/VH/TH. Denies illicit substance use. denies physical concerns. no tremors. no asterixis. ambulating with steady gait. Plan: medical clearance, care team -1630--ED care transferred to [facility] pending labs and CARE team consult Medical Decision Making Medical Decision Making MDM Narrative: 68-year-old male with a past medical history of major depressive disorder, alcohol use disorder, presenting to the ED complaining of suicidal ideations with plan to use his firearms and auditory hallucinations. On exam mildly tachycardic, NAD, nontoxic appearing, EtOH odor on breath. Concern for suicidality with access to firearms vs medication noncompliance. Rule out organic causes. No evidence of ETOH withdrawal at this time Plan: Labs, DS, care team consult, monitor for any signs of withdrawal Please refer to course for remaining clinical decision making, interpretation of labs/imaging results, and discussions with consultants and/or family members. Differential Diagnosis Differential Diagnoses: The differential diagnosis associated with the presentation includes As above Admission/Observation Consideration of admission/observation: Escalation of care including admission/observation considered Consult Healthcare Provider Management of the patient was discussed with: Behavioral Health Provider Lab Data MDM Lab Attestation statement: I reviewed the patient's lab results. External Record Review External record reviewed: Inpatient record, Office record, Outpatient record, Prior outpatient labs, Prior outpatient radiology, Primary care record and Outside ED record Tests considered The following testing was considered but not selected: As above Chronic Conditions Patient?s care impacted by: Other Social Determinants Patient?s care significantly limited by Social Determinants of Health including: Inadequate housing, Low income and Alcoholism and drug addiction in family Discharge Plan Discharge Clinical Impression: Suicidal ideation, Depression, MDD (major depressive disorder), recurrent episode, moderate Patient Disposition: Still a Patient Prescriptions: No Action trazodone 50 mg Tablet 50 mg PO BEDTIME PRN (Reason: Insomnia) Qty: 30 0RF melatonin 3 mg Tablet 3 mg PO BEDTIME PRN (Reason: Insomnia) Qty: 30 0RF quetiapine 100 mg Tablet 100 mg PO DAILY@1300,2100 Qty: 60 0RF diclofenac sodium 50 mg Tablet,Delayed Release (Dr/Ec) 50 mg PO BID Qty: 60 0RF nicotine 7 mg/24 hr Patch 24 Hour 7 mg transdermal DAILY Qty: 30 0RF trolamine salicylate [Aspercreme] 10 % Cream 1 appl topical QID Qty: 120 0RF Protocol: Apply to: Apply to: bilateral feet lidocaine 5 % Ointment 1 appl topical Q6H PRN (Reason: foot pain) Qty: 30 0RF Protocol: Apply to: Apply to: b/l feet Rexulti 1 mg Tablet 3 mg PO BEDTIME Qty: 30 0RF clonidine HCl 0.1 mg tablet 0.1 mg PO BID Qty: 60 0RF lisinopril 20 mg Tablet 20 mg PO DAILY Qty: 30 0RF aspirin 81 mg tablet,delayed release (DR/EC) 81 mg PO DAILY Qty: 30 0RF Biktarvy 50-200-25 mg tablet 1 tab PO DAILY Qty: 30 0RF Interventions: [place]-Suicide Risk Severity Scale Last Done: 01/28/24 15:56 Print Language: Mauritian
[2024-01-28 15:53] VITALS: BP 123/78; PULSE 104; RESP 16; TEMP 36.2; O2SAT 95
--- NOTE | 2024-01-28 15:58 | PC.NURSE ---
PT self presented to [facility] ED on a voluntary basis due to suicidal ideations with plan to cut wrists. Upon arrival to the unit the patient presents with a flat affect, internal preoccupation and slowed responses. He is calm and cooperative with staff. The patient states, I just don't feel well . The patient was changed over into hospital attire and belongings inventoried by security. The patient continues to endorse suicidal ideations, however now he plans to go back to [place] to retrieve his firearm to use it on himself. The patient endorses having access to firearms. The patient denies homicidal ideations. The patient endorses recent auditory hallucinations telling him to do things but would not expand on what the voices are saying. The patient denies visual hallucinations. The patient reports he has been off his psychiatric medications because the [place] would not prescribe medications that were originally prescribed from outside sources. The patient endorses smoking 12 cigarettes per day, recently drinking 4 nips of liquor prior to admission and using medical marijuana. The patient denies having ETOH withdrawal symptoms and/or seizures in the past.
[2024-01-28 16:16] LABS: MANUAL DIFF FLAG NO
[2024-01-28 16:20] LABS: Basophils Percent Auto 0.7 % (0-2); Eosinophils Absolute Auto 0.1 X10*3/uL (0.0-0.4); Eosinophils Percent Auto 0.9 % (0-4); Hematocrit 41.3 % (42.0-52.0); Imm Gran Abs Auto 0.01 X10*3/uL (0.00-0.03); Imm Gran Pct Auto 0.2 % (0.0-0.4); Lymphocytes Absolute Auto 2.5 X10*3/uL (1.2-4.9); Lymphocytes Percent Auto 44.1 % (20-40); Mean Corpuscular HGB Conc 36.3 g/dl (31.0-36.0); Mean Corpuscular Hemoglobin 33.4 pg (27.0-33.0); Mean Platelet Volume 11.2 fL (9.4-12.4); Monocytes Absolute Auto 0.4 X10*3/uL (0.1-1.2); Monocytes Percent Auto 7.7 % (2-11); Neutrophils Absolute Auto 2.7 x10*3/uL (2.0-8.3); Neutrophils Percent Auto 46.4 % (45-73); Platelet Count 147 X10*3/uL (160-400); Red Blood Count 4.49 X10*6/uL (4.60-5.80); Red Cell Distribution Width 14.8 % (11.0-16.0); White Blood Count 5.7 X10*3/uL (4.8-10.8)
[2024-01-28 16:41] LABS: Alanine Aminotransferase 62 U/L (0-40); Alkaline Phosphatase 92 U/L (39-117); Anion Gap 21 (12-20); Aspartate Amino Transferase 74 U/L (5-37); Bilirubin Total 0.6 mg/dL (0.0-1.0); Blood Urea Nitrogen 11 mg/dL (9-16); Carbon Dioxide 22 mmol/L (22-29); Chloride 105 mmol/L (96-108); Creatinine Clr Calc Pharmacy 85.8; Estimated Glomerular Filt Rate > 60; Ethanol 178 mg/dL; Glucose Random 113 mg/dL (60-115); Lipase 26 U/L (8-78); Potassium 3.2 mmol/L (3.3-5.1); Salicylate < 5.0 mg/dL (15-30); Sodium 145 mmol/L (135-145)
[2024-01-28] MEDS: Brexpiprazole 1 MG TABLET 3 MG PO (16:41)
[2024-01-28 23:35] LABS: Appearance Urine Clear; Color Urine Yellow; Glucose Urine UA Negative (Negative); Leukocyte Esterase Urine Negative (Negative); Nitrite Urine Negative (Negative); PH 6.5 (5.0-9.0); UMIC TRIGGER UACC YES; Urine Blood Negative (Negative); Urine Ketones Negative (Negative); Urine Protein 30 (1+) mg/dL (Neg-Trace)
[2024-01-28 23:38] LABS: Bacteria Urine None Seen (None Seen); Hyaline Casts Urine 0-2 /LPF (0-2); RBC Urine 0-2 /HPF (0-2); Squamous Epithelial Cell Urine 0-2 /HPF (0-2); WBC Urine 0-5 /HPF (0-5)
[2024-01-28 23:50] LABS: Amphetamine Screen Urine Not Detected (Not Detect); Barbiturates, Urine Not Detected (Not Detect); Benzodiazepines Screen Urine Not Detected (Not Detect); Buprenorphine Scr Not Detected (Not Detect); Cannabinoid Screen Urine POSITIVE (Not Detect); Cocaine Screen Urine Not Detected (Not Detect); Fentanyl, urine Not Detected (Not Detect); Methadone Screen, Urine Not Detected (Not Detect); Opiate Screen Urine Not Detected (Not Detect); Oxycodone Screen Urine Not Detected (Not Detect); Phencyclidine Screen Urine Not Detected (Not Detect)
[2024-01-29 03:32] VITALS: BP 158/103; PULSE 77; RESP 17; TEMP 36.7; O2SAT 99
--- NOTE | 2024-01-29 03:46 | PC.NURSE ---
patient requests sleep med. at 0328 requested med from provider
--- NOTE | 2024-01-29 03:46 | PC.NURSE ---
@[id number] patient expresses displeasure at the amount of time it takes for medication.
--- NOTE | 2024-01-29 03:51 | PC.NURSE ---
client uses profance language strikes box with hand sits in common area in front of pod, t/w notified charge nurse.
--- NOTE | 2024-01-29 03:53 | PC.NURSE ---
security called to lan support specialist in pod with clients poor choice of behaviors. client is seated still in pod, staff speaking to client.
--- NOTE | 2024-01-29 03:55 | PC.NURSE ---
offered client food to help calm client.
--- NOTE | 2024-01-29 04:13 | PC.NURSE ---
client declined trazadone (yielded from med list) client stated his medications were 600mg of seroquel. patient doesnt recall receiving rexulti earlier today.
--- NOTE | 2024-01-29 04:19 | PC.NURSE ---
client presented with seroquel and declined i know my medicicnes t/w offered to show client print of history. t/w offered to show client print of admission earlier today wherein client med list is, client expressed no desire to see this.
--- NOTE | 2024-01-29 05:17 | PC.NURSE ---
around 0500 client initially adjourned to 1 bed but once he discovered it had no tv then patient went back to [facility] where client was prior. client now seated in chair next to rn station using profane language once q 5 minutes.
[2024-01-29 08:05] VITALS: RESP 16
[2024-01-29] MEDS: cloNIDine HCL 0.1 MG TABLET PO (09:25)
[2024-01-29] MEDS: Nicotine 7 MG PATCH.TD24 TRANSDERMA (09:25)
[2024-01-29] MEDS: lisinopriL 20 MG TABLET PO (09:25)
[2024-01-29] MEDS: Bictegrav/Emtricit/Tenofov Ala TABLET 1 TAB PO (09:48)
[2024-01-29 10:08] VITALS: BP 158/103; PULSE 77; RESP 17; TEMP 36.7; O2SAT 99
== END 2024-01-29 10:16 | disposition home or self-care (01) ==
PROVIDERS: Physician Assistant Medical; Emergency Provider Emergency Medicine
DX: F33.1 Major depressive disorder, recurrent, moderate (principal); R45.851 Suicidal ideations; R45.850 Homicidal ideations; R44.0 Auditory hallucinations; F10.90 Alcohol use, unspecified, uncomplicated; Y90.6 Blood alcohol level of 120-199 mg/100 ml; F17.210 Nicotine dependence, cigarettes, uncomplicated; Z91.148 Patient's other noncompliance with medication regimen for other reason; Z79.82 Long term (current) use of aspirin; Z79.899 Other long term (current) drug therapy
CPT/HCPCS: 36415; 80053; 80179; 80307; 81001; 83690; 83735; 85025; 99285; S9485

== ENCOUNTER 2024-02-18 07:41 | Emergency (ER) | payer OTHER, SELFPAY ==
--- NOTE | ~2024-02-18 | XR_ITS ---
STUDY: Pelvis, right hip, right ankle INDICATION: Pain after fall COMPARISON: None TECHNIQUE: 2 views AP pelvis, two-view right hip, 4 view right ankle FINDINGS: Pelvis and right hip: Bony pelvis is intact. Pedicles and SI joints within normal limits. Degenerative changes lower lumbar spine. No significant hip joint narrowings. No fracture or dislocation. Metallic foreign body medial right upper thigh soft tissues. Right ankle: No fracture or dislocation. Alignment and articulations are maintained. No focal soft tissue swelling. XR/XR hip RT w PEL1V IMPRESSION: No acute bony pathology pelvis, right hip and right ankle.
--- NOTE | ~2024-02-18 | XR_ITS ---
STUDY: Pelvis, right hip, right ankle INDICATION: Pain after fall COMPARISON: None TECHNIQUE: 2 views AP pelvis, two-view right hip, 4 view right ankle FINDINGS: Pelvis and right hip: Bony pelvis is intact. Pedicles and SI joints within normal limits. Degenerative changes lower lumbar spine. No significant hip joint narrowings. No fracture or dislocation. Metallic foreign body medial right upper thigh soft tissues. Right ankle: No fracture or dislocation. Alignment and articulations are maintained. No focal soft tissue swelling. XR/XR ankle RT min 3V IMPRESSION: No acute bony pathology pelvis, right hip and right ankle.
[2024-02-18 07:44] VITALS: BP 153/101; PULSE 94; RESP 20; TEMP 37.2; O2SAT 99; BMI 23.1
--- NOTE | 2024-02-18 07:50 | ED_ITS ---
HPI - Fall General Chief Complaint: Fall Stated Complaint: Fall yesterday - pain R side Time Seen by Provider: 02/18/24 07:49 Source: patient and RN notes reviewed Mode of arrival: ambulatory Limitations: no limitations History of Present Illness ED Provider: Jody Morin PA-C HPI Narrative: This is a 68-year-old male, with a past medical history of major depressive disorder, neuropathy, and hypertension, who presents emergency department with complaints of fall. Patient states that he slipped while getting off the bus yesterday and tripped causing him to fall on his right side. States that he struck the back of his head however denies loss of consciousness. He states that the only thing that is bothering him is right hip pain and some right ankle pain. He was able to get himself back up without any difficulty. He states pain worsens in his right hip with ambulation. Denies any history of hip problems or ankle problems. He denies any severe headache, neck pain, dizzines s, blurred vision, chest pain, shortness of breath abdominal pain, nausea, vomiting or diarrhea. He has been taking ibuprofen with minimal relief. He has not on blood thinners. No other complaints or concerns at this time. MD complaint: fall Onset (ago): day(s) Fall from: standing Prolonged down time: no Symptoms prior to fall: none Context: tripped/slipped Severity: moderate Quality: aching Associated symptoms (after fall): denies Related Data Previous Rx's ?Medication ?Instructions ?Recorded aspirin 81 mg tablet,delayed 81 mg PO DAILY #30 tabs 11/06/23 release bictegravir 50 mg-emtricitabine 1 tab PO DAILY #30 tabs 11/06/23 200 mg-tenofovir alafenam 25 mg tablet (Biktarvy) brexpiprazole 1 mg tablet (Rexulti) 3 mg (3 x 1 mg) PO BEDTIME #30 tabs 11/06/23 clonidine HCl 0.1 mg tablet 0.1 mg PO BID #60 tabs 11/06/23 diclofenac sodium 50 mg 50 mg PO BID #60 tabs 11/06/23 tablet,delayed release lidocaine 5 % topical ointment 1 appl topical Q6H PRN foot pain 11/06/23 #30 applicators lisinopril 20 mg tablet 20 mg PO DAILY #30 tabs 11/06/23 nicotine 7 mg/24 hr daily 7 mg transdermal DAILY #30 ea 11/06/23 transdermal patch quetiapine 100 mg tablet 100 mg PO DAILY@1300,2100 #60 tabs 11/06/23 ibuprofen 600 mg tablet 600 mg PO Q6H PRN pain #30 tabs 02/18/24 lidocaine 5 % topical patch 1 patch topical DAILY #30 ea 02/18/24 Allergies Allergy/AdvReac Type Severity Reaction Status Date / Time acetaminophen [ACETAMINOPHEN] Allergy Mild rashes Verified 02/18/24 07:46 Review of Systems Review of Systems: Yes all other systems are reviewed and are negative Constitutional: Constitutional: Reports as per [facility] Past Medical History Attestation statement: The following information was validated with the patient. Medical History Alcohol intoxication Social History Social History Household Members: None Housing: Homeless Do you presently have visiting nurse or other home services: No Unable to assess alcohol history related to: Refusing to respond Alcohol intake: current Alcohol intake frequency: 3 or more drinks per day Alcohol type: hard liquor Patient Tobacco Use Status: Current everyday Tobacco user Tobacco use type: Cigarette Cigarettes Per Day: 8 Years Smoked: 36 years e-Cigarette/Vaping Use: Never Used Second Hand Smoke Exposure: Yes (Per own smoking) Substance Use Type: Marijuana Advance Directives: No Do you have a plan to hurt others: No Plan service: Yes ([facility] [employer]) Sexual orientation: Unable to collect Physical Exam Vital Signs: Vital Signs: Last Vital Signs Temp 98.9 F 02/18/24 07:44 Pulse 94 02/18/24 07:44 Resp 20 02/18/24 07:44 BP 153/101 H 02/18/24 07:44 Pulse Ox 99 02/18/24 07:44 O2 Del Method Room Air 02/18/24 07:44 BMI result Body Mass Index 23.1 Const: General: cooperative, comfortable and no acute distress Orientation/consciousness: patient oriented x3 Limitations: no limitations HEENT: Other: No midline C-spine tenderness on examination. Full range of motion of the neck without difficulty. He does have tenderness to palpation along the right trapezius muscle. Head: Yes normal to inspection, Yes normocephalic, Yes atraumatic, No Malik's sign, No occipital foramen tenderness and No raccoon eyes Ears: hearing grossly normal bilaterally and TM's normal bilaterally General nose exam: Normal external nose present Face and sinus: Yes normal facial exam Mouth: Normal oral and palatal mucosa present, oropharynx normal and moist mucous membranes Throat: Yes posterior oropharynx normal Eyes: General: appearance normal, both eyes and all related structures Eyelids: Yes eyelids normal Conjunctivae: conjunctivae normal Sclerae: sclerae normal Pupils: Equal, round and reactive pupils present EOM: EOMs intact bilaterally Neck: Neck: Yes normal visual inspection, Yes full ROM and Yes no lymphadenopathy Lymphatic: no lymphadenopathy noted Chest: Chest palpation & inspection: normal inspection of the chest Resp: Effort & Inspection: normal respiratory effort and able to speak in complete sentences Auscultation: clear to auscultation bilaterally, no crackles, no rales, no rhonchi and no wheezes Cardio: Rate: regular rate Rhythm: regular rhythm Heart sounds: S1 normal heart sound present and S2 normal heart sound present GI: Inspection: Yes normal to inspection Skin: General skin exam: no rashes or lesions noted Trauma: no lacerations or abrasions Wounds: no wounds Neuro: General: patient oriented x3 and moves all extremities Cranial nerves: Yes Equal, round and reactive pupils present Cognition (Neuro): normal cognition Gait exam (Neuro): Normal gait present Motor exam (neuro): 5/5 motor strength present throughout and Pronator motor function not present Coordination: [id number] test normal Romberg Test: Negative Extrem: Other: Tenderness to palpation along the right anterior hip with no bony deformity, step-off or crepitus. Full range of motion of the hip without difficulty. No overlying skin changes, warmth or ecchymosis. Right ankle with mild tenderness palpation along the lateral and medial malleolus. Full range of motion the ankle joint, range of motion with dorsi and plantar flexion. Strong DP pulse. No overlying skin changes, warmth, or ecchymosis seen. General: Yes normal to inspection Right upper extremity: normal to inspection Left upper extremity: normal to inspection Right lower extremity: normal to inspection Left lower extremity: normal to inspection Course Reevaluation(s) Reevaluation #1: X-rays return, no bony abnormality. Discussed findings with patient. He understands and agrees with plan. Patient given return precautions as well as orthopedic follow-up if you continues to have pain. Discharged on ibuprofen and lidocaine patches. Patient stable for discharge. Time: 09:53 Medical Decision Making Medical Decision Making MDM Narrative: This is a 68-year-old male, with a history of major depressive disorder, alcohol use disorder, who presents emergency department with complaints of fall. This fall was mechanical. On arrival, patient mildly hypertensive at 153/101. He is alert and oriented x4, no focal deficits. Head is normocephalic atraumatic. He did his head however denies loss of consciousness, headache, dizziness, blurred vision. He has not on anticoagulants. Defer head CT at this time. He has no midline spine tenderness. Patient has mild tenderness palpation along the anterior hip as well as medial and lateral malleolus. Differential diagnoses include sprain, strain, contusion, fracture. He is ambulatory with steady gait. Plan: X-ray hip, ankle Differential Diagnosis Differential Diagnoses: The differential diagnosis associated with the presentation includes See above Radiology Impression Discussion of test interpretation with radiology: I have reviewed the radiologist's reading. Radiologist Impression: XR/XR hip RT w PEL1V IMPRESSION: No acute bony pathology pelvis, right hip and right ankle. Dictated By: Cynthia Smart MD XR/XR ankle RT min 3V IMPRESSION: No acute bony pathology pelvis, right hip and right ankle. Dictated By: Cynthia Smart MD Discharge Plan Discharge Clinical Impression: Contusion of hip, right, Right ankle sprain Patient Disposition: Home, Self-Care Instructions: Ankle Sprain (ED), R.I.C.E. Treatment (ED), Hip Contusion (ED) Additional Instructions: You were seen in the emergency department after a trip and fall yesterday. Your x-ray of your right hip and your right ankle did not show any broken bones. Rest, ice, heat, gentle range of motion, stretching and massage can help with your symptoms. Take ibuprofen as prescribed. Do not over use this medication as this can be very dangerous. You may apply lidocaine patches as needed for symptoms. You may follow-up with the orthopedic team, call in several weeks if you still have pain. If any new or worsening symptoms occur including but not limited to fevers, chills, chest pain, shortness of breath, severe headache, dizziness, please return for re-evaluation. Prescriptions: New ibuprofen 600 mg tablet 600 mg PO Q6H PRN (Reason: pain) Qty: 30 0RF lidocaine 5 % adhesive patch,medicated 1 patch topical DAILY Qty: 30 0RF Rx Instructions: leave on most painful area for up to 12 hrs No Action quetiapine 100 mg Tablet 100 mg PO DAILY@1300,2100 Qty: 60 0RF diclofenac sodium 50 mg Tablet,Delayed Release (Dr/Ec) 50 mg PO BID Qty: 60 0RF nicotine 7 mg/24 hr Patch 24 Hour 7 mg transdermal DAILY Qty: 30 0RF lidocaine 5 % Ointment 1 appl topical Q6H PRN (Reason: foot pain) Qty: 30 0RF Protocol: Apply to: Apply to: b/l feet Rexulti 1 mg Tablet 3 mg PO BEDTIME Qty: 30 0RF clonidine HCl 0.1 mg tablet 0.1 mg PO BID Qty: 60 0RF lisinopril 20 mg Tablet 20 mg PO DAILY Qty: 30 0RF aspirin 81 mg tablet,delayed release (DR/EC) 81 mg PO DAILY Qty: 30 0RF Biktarvy 50-200-25 mg tablet 1 tab PO DAILY Qty: 30 0RF Referrals: [facility] [place] [facility] [Provider Group] Print Language: Senegalese
[2024-02-18 09:51] VITALS: BP 157/97; PULSE 84; RESP 16; O2SAT 99
[2024-02-18 10:04] VITALS: BP 157/97; PULSE 84; RESP 16; TEMP 37.2; O2SAT 99
== END 2024-02-18 10:05 | disposition home or self-care (01) ==
PROVIDERS: Emergency Provider Emergency Medicine
DX: S93.401A Sprain of unspecified ligament of right ankle, initial encounter (principal); S70.01XA Contusion of right hip, initial encounter; M25.551 Pain in right hip; M25.571 Pain in right ankle and joints of right foot; W10.9XXA Fall (on) (from) unspecified stairs and steps, initial encounter; Y93.9 Activity, unspecified; Y92.811 Bus as the place of occurrence of the external cause; Y99.8 Other external cause status
CPT/HCPCS: 73502; 73610; 99282; 99283

== ENCOUNTER 2024-03-14 00:20 | Emergency (ER) | payer OTHER, SELFPAY ==
--- NOTE | ~2024-03-14 | XR_ITS ---
EXAMINATION: XR HIP, RIGHT CLINICAL INFORMATION: Fall. Pain. COMPARISON: 02/18/2024 TECHNIQUE: Two views of the right hip. FINDINGS: The bony structures are osteopenic. The joint spaces are maintained. No fracture is seen. There is lower lumbar disc degenerative change. There is a 9 mm radiopaque structure within the right groin/medial right upper thigh similar to prior. XR/XR hip RT w PEL1V IMPRESSION: 1. Osteopenia. No fracture or dislocation. 2. 9 mm radiopaque structure within the right groin/medial right upper thigh similar to prior.
--- NOTE | ~2024-03-14 | CT_ITS ---
EXAMINATION: CT HEAD WITHOUT CONTRAST CT CERVICAL SPINE WITHOUT CONTRAST CLINICAL INFORMATION: Trauma. Pain. COMPARISON: None available. TECHNIQUE: Contiguous axial imaging was performed through the head and cervical spine without intravenous administration of contrast. Sagittal and coronal reformatted images also obtained. This CT examination was performed using dose optimization techniques as appropriate, variously including the following: *Automated exposure control *Adjustment of mA and/or kV according to patient size (this includes techniques or standardized protocols for targeted exams where dose is matched to indication/reason for exam; i.e. extremities or head) *Use of iterative reconstruction technique DLP: 1161 mGy-cm FINDINGS: There is cerebral volume loss with prominence of the lateral and the third ventricles. The cortical sulci are widened appropriately. The fourth ventricle and basal cisterns are normally outlined. There is [id number] bilateral periventricular and central white matter diminished attenuation. There is no acute territorial defect, hemorrhage or midline shift. The extra-axial spaces are unremarkable. Calvarium/scalp: Intact. Maxillofacial sinuses and mastoids: Clear as visualized. Cervical spine: There is mild reversal of the expected cervical spine curvature. There is moderate C3-C4 to C6-C7 disc degenerative change with loss of disc space, endplate change and posterior osteophytes associated with mild diffuse facet osteoarthritic hypertrophic change with multilevel mild spinal canal and neuroforaminal narrowing. No fracture is seen. The soft tissues are unremarkable. There is upper lung field emphysematous change. CT/CT head/brain wo IV con IMPRESSION: 1. No acute intracranial process seen. 2. Mild reversal of expected cervical spine curvature with degenerative disc changes C3-C4 to C6-C7 disc levels. No acute fracture, dislocation or subluxation seen.
--- NOTE | ~2024-03-14 | CT_ITS ---
EXAMINATION: CT HEAD WITHOUT CONTRAST CT CERVICAL SPINE WITHOUT CONTRAST CLINICAL INFORMATION: Trauma. Pain. COMPARISON: None available. TECHNIQUE: Contiguous axial imaging was performed through the head and cervical spine without intravenous administration of contrast. Sagittal and coronal reformatted images also obtained. This CT examination was performed using dose optimization techniques as appropriate, variously including the following: *Automated exposure control *Adjustment of mA and/or kV according to patient size (this includes techniques or standardized protocols for targeted exams where dose is matched to indication/reason for exam; i.e. extremities or head) *Use of iterative reconstruction technique DLP: 1161 mGy-cm FINDINGS: There is cerebral volume loss with prominence of the lateral and the third ventricles. The cortical sulci are widened appropriately. The fourth ventricle and basal cisterns are normally outlined. There is [id number] bilateral periventricular and central white matter diminished attenuation. There is no acute territorial defect, hemorrhage or midline shift. The extra-axial spaces are unremarkable. Calvarium/scalp: Intact. Maxillofacial sinuses and mastoids: Clear as visualized. Cervical spine: There is mild reversal of the expected cervical spine curvature. There is moderate C3-C4 to C6-C7 disc degenerative change with loss of disc space, endplate change and posterior osteophytes associated with mild diffuse facet osteoarthritic hypertrophic change with multilevel mild spinal canal and neuroforaminal narrowing. No fracture is seen. The soft tissues are unremarkable. There is upper lung field emphysematous change. CT/CT cervical spine wo IV con IMPRESSION: 1. No acute intracranial process seen. 2. Mild reversal of expected cervical spine curvature with degenerative disc changes C3-C4 to C6-C7 disc levels. No acute fracture, dislocation or subluxation seen.
[2024-03-14 00:26] VITALS: BP 120/85; PULSE 77; RESP 18; TEMP 36.7; O2SAT 95
[2024-03-14 00:30] VITALS: BP 110/80; PULSE 83; O2SAT 95; BMI 23.4
--- NOTE | 2024-03-14 01:35 | ED_ITS ---
HPI - Fall General Chief Complaint: Fall Stated Complaint: FALL/HEAD STRIKE Time Seen by Provider: 03/14/24 01:35 Source: patient Mode of arrival: ambulatory Limitations: no limitations History of Present Illness ED Provider: marly XAVIER Narrative: Patient's history of alcohol use or unsteady gait was at [facility] lost balance and fell hitting his right side of the head to the ground no loss of consciousness Related Data Previous Rx's ?Medication ?Instructions ?Recorded aspirin 81 mg tablet,delayed 81 mg PO DAILY #30 tabs 11/06/23 release bictegravir 50 mg-emtricitabine 1 tab PO DAILY #30 tabs 11/06/23 200 mg-tenofovir alafenam 25 mg tablet (Biktarvy) brexpiprazole 1 mg tablet (Rexulti) 3 mg (3 x 1 mg) PO BEDTIME #30 tabs 11/06/23 clonidine HCl 0.1 mg tablet 0.1 mg PO BID #60 tabs 11/06/23 diclofenac sodium 50 mg 50 mg PO BID #60 tabs 11/06/23 tablet,delayed release lidocaine 5 % topical ointment 1 appl topical Q6H PRN foot pain 11/06/23 #30 applicators lisinopril 20 mg tablet 20 mg PO DAILY #30 tabs 11/06/23 nicotine 7 mg/24 hr daily 7 mg transdermal DAILY #30 ea 11/06/23 transdermal patch quetiapine 100 mg tablet 100 mg PO DAILY@1300,2100 #60 tabs 11/06/23 ibuprofen 600 mg tablet 600 mg PO Q6H PRN pain #30 tabs 02/18/24 lidocaine 5 % topical patch 1 patch topical DAILY #30 ea 02/18/24 Allergies Allergy/AdvReac Type Severity Reaction Status Date / Time acetaminophen [ACETAMINOPHEN] Allergy Mild rashes Verified 03/14/24 00:34 Review of Systems 2 Review of Systems: Yes all other systems are reviewed and are negative PMFSH Past Medical History Medical History Alcohol intoxication Social History Social History Household Members: None Housing: Homeless Do you presently have visiting nurse or other home services: No Unable to assess alcohol history related to: Refusing to respond Alcohol intake: current Alcohol intake frequency: 3 or more drinks per day Alcohol type: hard liquor Patient Tobacco Use Status: Current everyday Tobacco user Tobacco use type: Cigarette Cigarettes Per Day: 8 Years Smoked: 36 years e-Cigarette/Vaping Use: Never Used Second Hand Smoke Exposure: Yes (Per own smoking) Substance Use Type: Marijuana Advance Directives: No Advance Directives Information Provided: No service: Yes ([facility] [employer]) Sexual orientation: Unable to collect Physical Exam 2 Vital Signs: Vital Signs: Last Vital Signs Temp 98.2 F 03/14/24 05:03 Pulse 65 03/14/24 05:03 Resp 18 03/14/24 05:03 BP 158/98 H 03/14/24 05:03 Pulse Ox 100 03/14/24 05:03 O2 Del Method Room Air 03/14/24 05:03 BMI result Body Mass Index 23.4 Appearance: Alert. Oriented X3. No acute distress. etoh+ Eyes: PERRLA, No Nystagmus ENT: Pharynx normal. Oral Mucosa moist Neck: Normal inspection. Neck supple. No midline tenderness CVS: Normal heart rate and rhythm. Pulses normal. Respiratory: No respiratory distress. Equal air entry bilateral, no wheezing/rales/rhonchi Abdomen: Soft and nontender. Bowel sounds are present, no mass palpable, no CVA tenderness Skin: Skin warm and dry. Normal skin color. Normal skin turgor. Extremities: No lower extremity edema. No calf tenderness Neuro: Oriented X 3. No motor deficit. No sensory deficit.No cerebellar signs , cranial nerves II-XII intact Medical Decision Making Medical Decision Making [facility] Narrative: Patient is status post mechanical fall with ETOH ambulatory in the ED CT scan negative for acute discharge patient home Differential Diagnosis Differential Diagnoses: The differential diagnosis associated with the presentation includes Intracranial hemorrhage/subdural hemorrhage/intoxication Lab Data [facility] Lab Attestation statement: I reviewed the patient's lab results. 03/14/24 01:50 03/14/24 01:50 Labs: Lab Results 03/14/24 Range/Units 01:50 WBC 4.6 L (4.8-10.8) X10*3/uL RBC 4.23 L (4.60-5.80) X10*6/uL Hgb 14.1 (14.0-18.0) g/dl Hct 39.1 L (42.0-52.0) % MCV 92.4 (80.0-98.0) fL MCH 33.3 H (27.0-33.0) pg MCHC 36.1 H (31.0-36.0) g/dl RDW 14.0 (11.0-16.0) % Plt Count 129 L (160-400) X10*3/uL MPV 11.5 (9.4-12.4) fL Immature Gran % (Auto) 0.2 (0.0-0.4) % Neut % (Auto) 37.0 L (45-73) % Lymph % (Auto) 50.3 H (20-40) % [place] % (Auto) 9.0 (2-11) % Eos % (Auto) 2.6 (0-4) % Baso % (Auto) 0.9 (0-2) % Lymph # (Auto) 2.3 (1.2-4.9) X10*3/uL [place] # (Auto) 0.4 (0.1-1.2) X10*3/uL Eos # (Auto) 0.1 (0.0-0.4) X10*3/uL Baso # (Auto) 0.0 (0.0-0.2) X10*3/uL Abs Immat Gran (auto) 0.01 (0.00-0.03) X10*3/uL Absolute Neuts (auto) 1.7 L (2.0-8.3) x10*3/uL Absolute Nucleated RBC 0.000 (0.0-0.012) X10*3/uL Nucleated RBC % (auto) 0.0 (0.0-0.2) /100WBC Sodium 143 (135-145) mmol/L Potassium 3.6 (3.3-5.1) mmol/L Chloride 108 (96-108) mmol/L Carbon Dioxide 22 (22-29) mmol/L Anion Gap 17 (12-20) BUN 11 (9-16) mg/dL Creatinine 0.90 (0.5-1.4) mg/dL Estim Creat Clear Calc 93.8 Estimated GFR > 60 Random Glucose 94 (60-115) mg/dL Calcium 8.7 D (8.4-10.2) mg/dL Magnesium 2.1 (1.6-2.6) mg/dL Total Bilirubin 0.6 (0.0-1.0) mg/dL AST 69 H (5-37) U/L ALT 60 H (0-40) U/L Alkaline Phosphatase 85 (39-117) U/L Total Protein 6.9 (6.5-8.0) g/dL Albumin 3.5 (3.5-5.0) g/dL Ethyl Alcohol 170 mg/dL Discharge Plan Discharge Clinical Impression: Alcohol use disorder, Fall Patient Disposition: Home, Self-Care Instructions: Abuse of Alcohol (ED), Fall Prevention (ED) Additional Instructions: Care and cautions as advised Do not drink alcohol Prescriptions: No Action quetiapine 100 mg Tablet 100 mg PO DAILY@1300,2100 Qty: 60 0RF diclofenac sodium 50 mg Tablet,Delayed Release (Dr/Ec) 50 mg PO BID Qty: 60 0RF nicotine 7 mg/24 hr Patch 24 Hour 7 mg transdermal DAILY Qty: 30 0RF lidocaine 5 % Ointment 1 appl topical Q6H PRN (Reason: foot pain) Qty: 30 0RF Protocol: Apply to: Apply to: b/l feet Rexulti 1 mg Tablet 3 mg PO BEDTIME Qty: 30 0RF clonidine HCl 0.1 mg tablet 0.1 mg PO BID Qty: 60 0RF lisinopril 20 mg Tablet 20 mg PO DAILY Qty: 30 0RF aspirin 81 mg tablet,delayed release (DR/EC) 81 mg PO DAILY Qty: 30 0RF Biktarvy 50-200-25 mg tablet 1 tab PO DAILY Qty: 30 0RF ibuprofen 600 mg tablet 600 mg PO Q6H PRN (Reason: pain) Qty: 30 0RF lidocaine 5 % adhesive patch,medicated 1 patch topical DAILY Qty: 30 0RF Rx Instructions: leave on most painful area for up to 12 hrs Print Language: Guinean
[2024-03-14 01:54] LABS: MANUAL DIFF FLAG NO
[2024-03-14 02:05] LABS: Basophils Percent Auto 0.9 % (0-2); Eosinophils Absolute Auto 0.1 X10*3/uL (0.0-0.4); Eosinophils Percent Auto 2.6 % (0-4); Hematocrit 39.1 % (42.0-52.0); Hemoglobin 14.1 g/dl (14.0-18.0); Imm Gran Abs Auto 0.01 X10*3/uL (0.00-0.03); Imm Gran Pct Auto 0.2 % (0.0-0.4); Lymphocytes Absolute Auto 2.3 X10*3/uL (1.2-4.9); Lymphocytes Percent Auto 50.3 % (20-40); Mean Corpuscular HGB Conc 36.1 g/dl (31.0-36.0); Mean Corpuscular Hemoglobin 33.3 pg (27.0-33.0); Mean Corpuscular Volume 92.4 fL (80.0-98.0); Mean Platelet Volume 11.5 fL (9.4-12.4); Monocytes Absolute Auto 0.4 X10*3/uL (0.1-1.2); Neutrophils Absolute Auto 1.7 x10*3/uL (2.0-8.3); Platelet Count 129 X10*3/uL (160-400); Red Blood Count 4.23 X10*6/uL (4.60-5.80); White Blood Count 4.6 X10*3/uL (4.8-10.8)
[2024-03-14 02:16] LABS: Alanine Aminotransferase 60 U/L (0-40); Albumin Level 3.5 g/dL (3.5-5.0); Alkaline Phosphatase 85 U/L (39-117); Anion Gap 17 (12-20); Aspartate Amino Transferase 69 U/L (5-37); Bilirubin Total 0.6 mg/dL (0.0-1.0); Blood Urea Nitrogen 11 mg/dL (9-16); Calcium 8.7 mg/dL (8.4-10.2); Carbon Dioxide 22 mmol/L (22-29); Chloride 108 mmol/L (96-108); Creatinine Clr Calc Pharmacy 93.8; Estimated Glomerular Filt Rate > 60; Ethanol 170 mg/dL; Glucose Random 94 mg/dL (60-115); Magnesium 2.1 mg/dL (1.6-2.6); Potassium 3.6 mmol/L (3.3-5.1); Sodium 143 mmol/L (135-145); Total Protein 6.9 g/dL (6.5-8.0)
[2024-03-14 05:03] VITALS: BP 158/98; PULSE 65; RESP 18; TEMP 36.8; O2SAT 100
[2024-03-14 06:36] VITALS: BP 158/98; PULSE 65; RESP 18; TEMP 36.8; O2SAT 100
== END 2024-03-14 06:36 | disposition home or self-care (01) ==
PROVIDERS: Emergency Provider Internal Medicine
DX: F10.90 Alcohol use, unspecified, uncomplicated (principal); Y90.6 Blood alcohol level of 120-199 mg/100 ml; Z91.81 History of falling; F33.1 Major depressive disorder, recurrent, moderate; F17.210 Nicotine dependence, cigarettes, uncomplicated; Z79.899 Other long term (current) drug therapy
CPT/HCPCS: 36415; 70450; 72125; 73502; 80053; 80307; 83735; 85025; 99283; 99284

== ENCOUNTER 2024-04-30 16:26 | Emergency (ER) | payer SELFPAY ==
--- NOTE | ~2024-04-30 | XR_ITS ---
EXAMINATION: XR KNEE, RIGHT CLINICAL INFORMATION: Fall. Pain. COMPARISON: None available. TECHNIQUE: Four views of the right knee. FINDINGS: Status post right total knee replacement. No fracture. No dislocation. No acute abnormality. No focal bone lesion or abnormal periosteal reaction. No radiographic evidence of loosening of the prosthesis. XR/XR knee RT 4V IMPRESSION: Status post right total knee replacement. No acute abnormality. Electronically signed by: Maury Winston MD 04/30/2024 06:12 PM EDT
[2024-04-30 16:34] VITALS: BP 111/85; PULSE 70; RESP 16; TEMP 36.9; O2SAT 97; BMI 22.5
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
== END 2024-04-30 17:36 | disposition left against medical advice (07) ==
PROVIDERS: Emergency Provider Emergency Medicine
DX: Z04.1 Encounter for examination and observation following transport accident (principal); M25.561 Pain in right knee
CPT/HCPCS: 73564; 99281; 99283

== ENCOUNTER 2024-06-25 22:20 | Emergency (ER) | payer MEDICARE, MEDICAID, SELFPAY ==
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
[2024-06-25 22:31] VITALS: BP 143/87; PULSE 72; O2SAT 100; BMI 22.5
[2024-06-25 22:42] VITALS: BP 116/69; PULSE 66; RESP 16; TEMP 36.5; O2SAT 97
--- NOTE | 2024-06-25 23:01 | MHC.EDTECH ---
Pt Changeovered and belongings secured in [employer] with security.
--- NOTE | 2024-06-25 23:05 | ED.ALCOHOL ---
HPI - Alcohol General Chief Complaint: ETOH/Substance Use Stated Complaint: etoh Time Seen by Provider: 06/25/24 22:42 Source: patient and EMS Mode of arrival: EMS History of Present Illness HPI narrative: Patient is a 68-year-old male who presents emergency department via EMS he was found in the [facility] trying to sleep. His belongings included a half bottle of whiskey. When asked he denies any drug or alcohol usage. He offers no physical complaints at this time he states ?I do not know why I am here I am just trying to sleep?. Related Data Previous Rx's ?Medication ?Instructions ?Recorded aspirin 81 mg tablet,delayed 81 mg PO DAILY #30 tabs 11/06/23 release bictegravir 50 mg-emtricitabine 1 tab PO DAILY #30 tabs 11/06/23 200 mg-tenofovir alafenam 25 mg tablet (Biktarvy) brexpiprazole 1 mg tablet (Rexulti) 3 mg (3 x 1 mg) PO BEDTIME #30 tabs 11/06/23 clonidine HCl 0.1 mg tablet 0.1 mg PO BID #60 tabs 11/06/23 diclofenac sodium 50 mg 50 mg PO BID #60 tabs 11/06/23 tablet,delayed release lidocaine 5 % topical ointment 1 appl topical Q6H PRN foot pain 11/06/23 #30 applicators lisinopril 20 mg tablet 20 mg PO DAILY #30 tabs 11/06/23 nicotine 7 mg/24 hr daily 7 mg transdermal DAILY #30 ea 11/06/23 transdermal patch quetiapine 100 mg tablet 100 mg PO DAILY@1300,2100 #60 tabs 11/06/23 ibuprofen 600 mg tablet 600 mg PO Q6H PRN pain #30 tabs 02/18/24 lidocaine 5 % topical patch 1 patch topical DAILY #30 ea 02/18/24 Allergies Allergy/AdvReac Type Severity Reaction Status Date / Time acetaminophen [ACETAMINOPHEN] Allergy Mild rashes Verified 06/25/24 22:34 Review of Systems Review of Systems: Yes all other systems are reviewed and are negative [facility] Past Medical History Attestation statement: The following information was validated with the patient. Source: old records reviewed Medical History Alcohol intoxication Social History Social History Household Members: None Housing: Homeless Do you presently have visiting nurse or other home services: No Unable to assess alcohol history related to: Refusing to respond Alcohol intake: current Alcohol intake frequency: 3 or more drinks per day Alcohol type: hard liquor Patient Tobacco Use Status: Current everyday Tobacco user Tobacco use type: Cigarette Cigarettes Per Day: 8 Years Smoked: 36 years e-Cigarette/Vaping Use: Never Used Second Hand Smoke Exposure: Yes (Per own smoking) Substance Use Type: Marijuana Do you have a plan to hurt others: No Plan service: Yes ([employer]) Sexual orientation: Unable to collect Physical Exam ED Vital Signs: Vital Signs - 24 hr 06/25/24 22:42 06/25/24 23:39 Temperature 97.7 F 97.8 F Pulse Rate 66 64 Respiratory Rate 16 16 Blood Pressure 116/69 143/80 H Pulse Oximetry 97 95 Oxygen Delivery Method Room Air BMI result Body Mass Index 22.5 Appearance: Alert.?Oriented to person, and place. Appears intoxicated. Eyes: Pupils equal, round and reactive to light.? Bilateral sclerae are injected. ENT: Pharynx normal.?? Neck: Normal inspection.? Neck supple.?? CVS: Heart sounds normal. Normal heart rate and rhythm.? Pulses normal.?? Respiratory: No respiratory distress.? Lung sounds clear to auscultation bilaterally?? Abdomen: Soft and non-tender. Normoactive bowel sounds. Skin: Skin warm and dry.? Normal skin color.? Extremities: No lower extremity edema.? Neuro: Moves all extremities spontaneously. Sensation intact bilaterally. No focal neuro deficits. Course Reevaluation(s) Reevaluation #1: Refusing serum labs Time: 00:00 Medical Decision Making Medical Decision Making MDM Narrative: Patient is a 68-year-old male with past medical history of alcohol use disorder presenting to emergency department via EMS after being found attempting to sleep in the lobby of a local [facility]. He offers no physical complaints overall his examination is benign. No signs of systemic illness/toxicity. His speech is clear though he does repeat things said to him. Appears to be under the influence of alcohol at this time. No odor of alcohol is noted on his breath, and his sclerae are injected bilaterally. At this time he will be placed in physician observation until clinical sobriety. Currently denies SI/HI. Differential Diagnosis Differential Diagnoses: The differential diagnosis associated with the presentation includes (See narrative below) Admission/Observation Consideration of admission/observation: Escalation of care including admission/observation considered Placing physician observation at 23:14 on 06/25/2024, stable vital signs, no respiratory distress, acute alcohol intoxication, will require clinical sobriety before safe disposition can be determined. Lab Data MDM Lab Attestation statement: I reviewed the patient's lab results. Independent Historian Clinical information obtained from an independent historian. History obtained from or confirmed by: EMS External Record Review External record reviewed: Outpatient record Discharge Plan Discharge Clinical Impression: Alcoholic intoxication Patient Disposition: Still a Patient Prescriptions: No Action quetiapine 100 mg Tablet 100 mg PO DAILY@1300,2100 Qty: 60 0RF diclofenac sodium 50 mg Tablet,Delayed Release (Dr/Ec) 50 mg PO BID Qty: 60 0RF nicotine 7 mg/24 hr Patch 24 Hour 7 mg transdermal DAILY Qty: 30 0RF lidocaine 5 % Ointment 1 appl topical Q6H PRN (Reason: foot pain) Qty: 30 0RF Protocol: Apply to: Apply to: b/l feet Rexulti 1 mg Tablet 3 mg PO BEDTIME Qty: 30 0RF clonidine HCl 0.1 mg tablet 0.1 mg PO BID Qty: 60 0RF lisinopril 20 mg Tablet 20 mg PO DAILY Qty: 30 0RF aspirin 81 mg tablet,delayed release (DR/EC) 81 mg PO DAILY Qty: 30 0RF Biktarvy 50-200-25 mg tablet 1 tab PO DAILY Qty: 30 0RF ibuprofen 600 mg tablet 600 mg PO Q6H PRN (Reason: pain) Qty: 30 0RF lidocaine 5 % adhesive patch,medicated 1 patch topical DAILY Qty: 30 0RF Rx Instructions: leave on most painful area for up to 12 hrs Print Language: Egyptian
--- NOTE | 2024-06-25 23:08 | PC.NURSE ---
report given to Laura CALL
[2024-06-25 23:39] VITALS: BP 143/80; PULSE 64; RESP 16; TEMP 36.6; O2SAT 95
--- NOTE | 2024-06-25 23:44 | MHC.EDTECH ---
This pct assumed care of Patient at 2300 ,vitals taken ,Patient very resistive and combative towards staff ,not able to obtain labs at this time ,RN and Provider aware .
[2024-06-26 02:00] VITALS: RESP 15
--- NOTE | 2024-06-26 02:56 | MHC.EDTECH ---
This pct attempted again to obtain labs and vitals ,Patient striking out at this pct RN Laura aware ,And Provider Marky said not to worry about it .
--- NOTE | 2024-06-26 04:01 | PC.NURSE ---
Pt refusing all interactions, including lab draw and vital signs. Yellowing out for help, asking to shut the lights off because he can't sleep. Pt reassured and informed that the lights need to stay on for the staff to be able to work. Will continue to monitor for any changes.
[2024-06-26 04:32] VITALS: RESP 16
[2024-06-26 06:00] VITALS: RESP 15
--- NOTE | 2024-06-26 06:16 | MHC.EDTECH ---
Patient continue to refused all care ,rn aware .
--- NOTE | 2024-06-26 06:17 | PC.NURSE ---
Pt continues to refuse all vital signs, lab draw requests, and attempts for interview/assessment. Pt has been sleeping most of the shift, changing positions independently as desired. Pt is able to stand unassisted and ambulate with only supervision, very mildly unsteady on feet. Pt is unable or unwilling to tell us where he lives or what brings him in today. Was found trying sleeping in the lobby of [facility] and was brought in by EMS. Will continue to monitor for any changes.
--- NOTE | 2024-06-26 06:21 | PC.NURSE ---
Pt woke up, got out of bed without assistance and asked for a Ritter , but wasn't willing or able to tell us who or what that is. Security called and briefly needed.
--- NOTE | 2024-06-26 07:20 | PC.NURSE ---
Resumed care of pt at 0700. Pt resting in bed, respirations even and unlabored, no increased wob/sob noted. Pt continues to refuse labs/vitals/assessment, aware. Call sanchez within reach, all needs met at this time.
[2024-06-26 10:41] VITALS: BP 0/0; PULSE 0; RESP 0; TEMP -17.7; TEMP 0; O2SAT 0
== END 2024-06-26 10:42 | disposition home or self-care (01) ==
PROVIDERS: Emergency Provider Emergency Medicine Emergency Medical Services
DX: F10.129 Alcohol abuse with intoxication, unspecified (principal); R41.82 Altered mental status, unspecified; Y90.6 Blood alcohol level of 120-199 mg/100 ml; F17.210 Nicotine dependence, cigarettes, uncomplicated; Z79.899 Other long term (current) drug therapy
CPT/HCPCS: 70450; 99284

== ENCOUNTER → 2024-06-26 06:57 | Outpatient (BNV) | payer MEDICARE, MEDICAID, SELFPAY | PROVIDERS: Emergency Provider Emergency Medicine Emergency Medical Services; Visit Provider Radiology Diagnostic Radiology | DX: R41.82 Altered mental status, unspecified (principal) | CPT/HCPCS: 70450 ==

== ENCOUNTER 2024-09-05 07:55 | Emergency (ER) | payer OTHER, SELFPAY ==
[2024-09-05 08:05] VITALS: BP 140/90; PULSE 89; O2SAT 96
[2024-09-05 08:28] VITALS: BP 128/82; PULSE 89; RESP 16; TEMP 36.8; O2SAT 100; BMI 20.6
[2024-09-05 08:40] VITALS: BP 128/82; PULSE 89; RESP 16; TEMP 36.8; O2SAT 100
--- NOTE | 2024-09-05 08:48 | ED.GENADULT ---
HPI - General Adult General Chief complaint: Psychiatric Symptoms Stated complaint: CHRONIC SHARP R SIDED ABD PAIN,+SI/-HI PER EMS Time Seen by Provider: 09/05/24 08:47 Source: patient, EMS, RN notes reviewed and old records reviewed Mode of arrival: EMS Limitations: no limitations History of Present Illness ED Provider: Sugar HPI narrative: Patient is a 69-year-old male with history of depression, alcohol use disorder presenting to the emergency department from homeless senior living with complaint of depression, suicidal ideation as well as slight worsening of chronic right-sided hip and leg pain. States his pain is slightly worse than baseline. He expresses plan to cut his wrists. Denies homicidal ideation, auditory or visual hallucinations. States that he uses buprenorphine, cannabis, diclofenac gel for his chronic pain. MD complaint: suicidal ideation Onset (ago): week(s) Treatments prior to arrival: none Related Data Previous Rx's ?Medication ?Instructions ?Recorded aspirin 81 mg tablet,delayed 81 mg PO DAILY #30 tabs 11/06/23 release bictegravir 50 mg-emtricitabine 1 tab PO DAILY #30 tabs 11/06/23 200 mg-tenofovir alafenam 25 mg tablet (Biktarvy) brexpiprazole 1 mg tablet (Rexulti) 3 mg (3 x 1 mg) PO BEDTIME #30 tabs 11/06/23 clonidine HCl 0.1 mg tablet 0.1 mg PO BID #60 tabs 11/06/23 diclofenac sodium 50 mg 50 mg PO BID #60 tabs 11/06/23 tablet,delayed release lidocaine 5 % topical ointment 1 appl topical Q6H PRN foot pain 11/06/23 #30 applicators lisinopril 20 mg tablet 20 mg PO DAILY #30 tabs 11/06/23 nicotine 7 mg/24 hr daily 7 mg transdermal DAILY #30 ea 11/06/23 transdermal patch quetiapine 100 mg tablet 100 mg PO DAILY@1300,2100 #60 tabs 11/06/23 ibuprofen 600 mg tablet 600 mg PO Q6H PRN pain #30 tabs 02/18/24 lidocaine 5 % topical patch 1 patch topical DAILY #30 ea 02/18/24 Allergies Allergy/AdvReac Type Severity Reaction Status Date / Time acetaminophen [ACETAMINOPHEN] Allergy Mild rashes Verified 09/05/24 08:32 Review of Systems Review of Systems: As per HPI Yes all other systems are reviewed and are negative Constitutional: Constitutional: Reports as per HPI [facility] Past Medical History Medical History Alcohol intoxication Social History Social History Household Members: None Housing: Homeless Do you presently have visiting nurse or other home services: No Unable to assess alcohol history related to: Refusing to respond Alcohol intake: current Alcohol intake frequency: a few times a month Alcohol type: hard liquor Patient Tobacco Use Status: Current everyday Tobacco user Tobacco use type: Cigarette Cigarettes Per Day: 8 Years Smoked: 36 years Smoked in Last 30 Days: Yes e-Cigarette/Vaping Use: Never Used Second Hand Smoke Exposure: Yes (Per own smoking) Use of substances other than those prescribed or required for medical reasons: Yes Substance Use Type: Marijuana Substance Use Frequency: Daily Advance Directives: No Advance Directives Information Provided: Yes Do you have a plan to hurt others: No Plan service: Yes ([employer]) Sexual orientation: Unable to collect Physical Exam ED Vital Signs: Vital Signs - 24 hr 09/05/24 08:28 09/05/24 08:40 Temperature 98.2 F 98.2 F Pulse Rate 89 89 Respiratory Rate 16 16 Blood Pressure 128/82 128/82 Pulse Oximetry 100 100 Oxygen Delivery Method Room Air Room Air BMI result Body Mass Index 20.6 Vital signs have been reviewed and appear to be correct. Blood pressure normal. Heart rate normal. Respiratory rate normal. Temperature normal. Oxygen saturation normal. Const General: cooperative, healthy appearing and no acute distress Orientation/consciousness: oriented to person, oriented to place, oriented to time and patient oriented x3 Limitations: no limitations [facility] Head: Yes normocephalic and Yes atraumatic Ears: external ears normal General nose exam: Normal external nose present Face and sinus: Yes face symmetric Mouth: oropharynx normal and moist mucous membranes Throat: Yes uvula midline Eyes Pupils: Equal, round and reactive pupils present Neck Neck: Yes normal visual inspection and Yes supple Resp Effort & Inspection: normal respiratory effort and able to speak in complete sentences Auscultation: clear to auscultation bilaterally Cardio Rate: regular rate Rhythm: regular rhythm Heart sounds: S1 normal heart sound present and S2 normal heart sound present GI Palpation (GI): Soft to palpation and nontender Auscultation: normoactive bowel sounds General: Yes no CVA tenderness Back/Spine/Pelvis Back: no CVA tenderness Skin General skin exam: elasticity normal and turgor normal Neuro General: oriented to person, oriented to place, oriented to time, patient oriented x3, moves all extremities, no focal motor deficits and CN's II-XI intact bilaterally Cranial nerves: Yes Equal, round and reactive pupils present Cognition (Neuro): normal cognition Extrem General: Yes full ROM, Yes no pedal edema and Yes no calf tenderness Psych Appearance: grossly normal Mental Status: mental status grossly normal Affect: Other affect and mood findings present (flat) Attitude: Avoids eye contact (attititude/behavior) Thought process: Normal thought process present Thought content: Suicidality present, no homicidality, no hallucinations and Depressive thoughts present Course Reevaluation(s) Reevaluation #1: Patient is AAO x3, no SI, no HI, no hallucination, care team input is appreciated patient will be discharged back to the senior living. Time: 14:51 Medical Decision Making Medical Decision Making [facility] Narrative: Patient is a 69-year-old male with history of depression, alcohol use disorder presenting to the emergency department from homeless senior living with complaint of depression, suicidal ideation as well as slight worsening of chronic right-sided hip and leg pain. On exam patient is awake, A+Ox3, VS WNL, afebrile, normal neurological exam without focal deficits, physical exam findings as above. Given reported symptoms and physical exam findings, initial differential includes but is not limited to depression, suicidal ideation, acute on chronic pain. Labs consistent with prior values, no acute abnormalities. Ethanol negative. Viral serology negative. Patient medically cleared at this time for care team evaluation and placed on physician observation pending care team eval. Differential Diagnosis Differential Diagnoses: The differential diagnosis associated with the presentation includes As per [facility] Admission/Observation Consideration of admission/observation: Escalation of care including admission/observation considered Consult Healthcare Provider Management of the patient was discussed with: Behavioral Health Provider Lab Data [facility] Lab Attestation statement: I reviewed the patient's lab results. As per MDM 09/05/24 09:11 09/05/24 09:11 Labs: Lab Results 09/05/24 09/05/24 Range/Units 09:11 13:16 WBC 3.8 L (4.8-10.8) X10*3/uL RBC 4.02 L (4.60-5.80) X10*6/uL Hgb 13.3 L (14.0-18.0) g/dl Hct 37.1 L (42.0-52.0) % MCV 92.3 (80.0-98.0) fL MCH 33.1 H (27.0-33.0) pg MCHC 35.8 (31.0-36.0) g/dl RDW 13.5 (11.0-16.0) % Plt Count 97 L (160-400) X10*3/uL MPV 11.7 (9.4-12.4) fL Immature Gran % (Auto) 0.8 H (0.0-0.4) % Neut % (Auto) 57.2 (45-73) % Lymph % (Auto) 31.4 (20-40) % [place] % (Auto) 9.6 (2-11) % Eos % (Auto) 0.5 (0-4) % Baso % (Auto) 0.5 (0-2) % Lymph # (Auto) 1.2 (1.2-4.9) X10*3/uL [place] # (Auto) 0.4 (0.1-1.2) X10*3/uL Eos # (Auto) 0.0 (0.0-0.4) X10*3/uL Baso # (Auto) 0.0 (0.0-0.2) X10*3/uL Abs Immat Gran (auto) 0.03 (0.00-0.03) X10*3/uL Absolute Neuts (auto) 2.2 (2.0-8.3) x10*3/uL Absolute Nucleated RBC 0.000 (0.0-0.012) X10*3/uL Nucleated RBC % (auto) 0.0 (0.0-0.2) /100WBC Smear Tech's Comments VERIFIED PT 10.3 L (10.9-12.4) SEC INR 0.9 (0.9-1.1) Sodium 140 (135-145) mmol/L Potassium 4.6 D (3.3-5.1) mmol/L Chloride 108 (96-108) mmol/L Carbon Dioxide 27 (22-29) mmol/L Anion Gap 10 L (12-20) BUN 15 (9-16) mg/dL Creatinine 0.84 (0.5-1.4) mg/dL Estim Creat Clear Calc 87.8 Estimated GFR > 60 Random Glucose 96 (60-115) mg/dL Calcium 8.4 (8.4-10.2) mg/dL Total Bilirubin 0.5 (0.0-1.0) mg/dL AST 49 H (5-37) U/L ALT 37 (0-40) U/L Alkaline Phosphatase 86 (39-117) U/L Total Protein 6.9 (6.5-8.0) g/dL Albumin 3.3 L (3.5-5.0) g/dL Urine Color Yellow Urine Appearance Cloudy Urine pH >= 9.0 (5.0-9.0) Ur Specific [place] 1.020 (1.005-1.025) Urine Protein 30 (1+) H (Neg-Trace) mg/dL Urine Glucose (UA) Negative (Negative) mg/dL Urine Ketones Negative (Negative) mg/dL Urine Blood Negative (Negative) Urine Nitrite Negative (Negative) Ur Leukocyte Esterase Trace H (Negative) Urine RBC 0-2 (0-2) /HPF Urine WBC 0-5 (0-5) /HPF Ur Squamous Epith Cells 0-2 (0-2) /HPF Urine Bacteria None Seen (None Seen) Hyaline Casts 0-2 (0-2) /LPF Urine Opiates Screen Not Detected (Not Detect) Ur Buprenorphine Scrn Not Detected (Not Detect) ng/mL Ur Oxycodone Screen Not Detected (Not Detect) ng/mL Urine Methadone Screen Not Detected (Not Detect) ng/mL Urine Fentanyl Screen Not Detected (Not Detect) Ur Barbiturates Screen Not Detected (Not Detect) Ur Phencyclidine Scrn Not Detected (Not Detect) Ur Amphetamines Screen Not Detected (Not Detect) U Benzodiazepines Scrn Not Detected (Not Detect) Urine Cocaine Screen Not Detected (Not Detect) U Marijuana (THC) Screen POSITIVE H (Not Detect) Ethyl Alcohol < 10 mg/dL Influenza Type A (PCR) NEGATIVE (Negative) Influenza Type B (PCR) NEGATIVE (Negative) RSV RNA Qual (PCR) NEGATIVE (Negative) SARS-CoV-2 RNA (RT-PCR) NEGATIVE (Negative) External Record Review External record reviewed: Inpatient record, Office record and Outpatient record Discharge Plan Discharge Clinical Impression: Depression, Suicidal ideation Patient Disposition: Home, Self-Care Instructions: Help Prevent Suicide in Older Adults (ED) Prescriptions: No Action quetiapine 100 mg Tablet 100 mg PO DAILY@1300,2100 Qty: 60 0RF diclofenac sodium 50 mg Tablet,Delayed Release (Dr/Ec) 50 mg PO BID Qty: 60 0RF nicotine 7 mg/24 hr Patch 24 Hour 7 mg transdermal DAILY Qty: 30 0RF lidocaine 5 % Ointment 1 appl topical Q6H PRN (Reason: foot pain) Qty: 30 0RF Protocol: Apply to: Apply to: b/l feet Rexulti 1 mg Tablet 3 mg PO BEDTIME Qty: 30 0RF clonidine HCl 0.1 mg tablet 0.1 mg PO BID Qty: 60 0RF lisinopril 20 mg Tablet 20 mg PO DAILY Qty: 30 0RF aspirin 81 mg tablet,delayed release (DR/EC) 81 mg PO DAILY Qty: 30 0RF Biktarvy 50-200-25 mg tablet 1 tab PO DAILY Qty: 30 0RF ibuprofen 600 mg tablet 600 mg PO Q6H PRN (Reason: pain) Qty: 30 0RF lidocaine 5 % adhesive patch,medicated 1 patch topical DAILY Qty: 30 0RF Rx Instructions: leave on most painful area for up to 12 hrs Interventions: [place]-Suicide Risk Severity Scale Last Done: 09/05/24 08:32 Print Language: Palestinian
--- NOTE | 2024-09-05 09:11 | PC.NURSE ---
Pt BIBA from [facility] for SI and c/o of ferry terminal agent right sided hip/leg pain and bilateral foot pain to hammer toes. Pt reports depressed and having thoughts of SI without plan. Changed over by security. 1:[address] Alert and oriented.
[2024-09-05 09:19] LABS: Basophils Percent Auto 0.5 % (0-2); Eosinophils Percent Auto 0.5 % (0-4); Hematocrit 37.1 % (42.0-52.0); Hemoglobin 13.3 g/dl (14.0-18.0); Imm Gran Abs Auto 0.03 X10*3/uL (0.00-0.03); Imm Gran Pct Auto 0.8 % (0.0-0.4); Lymphocytes Absolute Auto 1.2 X10*3/uL (1.2-4.9); Lymphocytes Percent Auto 31.4 % (20-40); MANUAL DIFF FLAG SCAN; Mean Corpuscular HGB Conc 35.8 g/dl (31.0-36.0); Mean Corpuscular Hemoglobin 33.1 pg (27.0-33.0); Mean Corpuscular Volume 92.3 fL (80.0-98.0); Mean Platelet Volume 11.7 fL (9.4-12.4); Monocytes Absolute Auto 0.4 X10*3/uL (0.1-1.2); Monocytes Percent Auto 9.6 % (2-11); Neutrophils Absolute Auto 2.2 x10*3/uL (2.0-8.3); Neutrophils Percent Auto 57.2 % (45-73); PLT CLUMP 1; Red Blood Count 4.02 X10*6/uL (4.60-5.80); Red Cell Distribution Width 13.5 % (11.0-16.0); SCAN SMEAR FLAG 1
[2024-09-05 09:21] LABS: White Blood Count 3.8 X10*3/uL (4.8-10.8)
--- NOTE | 2024-09-05 09:26 | PC.NURSE ---
Buprenorphine patch to left upper arm in place on arrival to unit.
--- NOTE | 2024-09-05 09:27 | PC.NURSE ---
Addendum entered by Mariah Mccloud RN 09/05/24 09:30: Escorted by security and RN to [facility]. Original Note: Report given to ONEYDA Ulrich, care transferred.
[2024-09-05 09:31] LABS: INTERNATIONAL NORM RATIO 0.9 (0.9-1.1); Prothrombin Time 10.3 SEC (10.9-12.4)
[2024-09-05 09:38] LABS: Alanine Aminotransferase 37 U/L (0-40); Albumin Level 3.3 g/dL (3.5-5.0); Alkaline Phosphatase 86 U/L (39-117); Anion Gap 10 (12-20); Aspartate Amino Transferase 49 U/L (5-37); Bilirubin Total 0.5 mg/dL (0.0-1.0); Blood Urea Nitrogen 15 mg/dL (9-16); Calcium 8.4 mg/dL (8.4-10.2); Carbon Dioxide 27 mmol/L (22-29); Chloride 108 mmol/L (96-108); Creatinine Clr Calc Pharmacy 87.8; Estimated Glomerular Filt Rate > 60; Ethanol < 10 mg/dL; Glucose Random 96 mg/dL (60-115); Platelet Count 97 X10*3/uL (160-400); Potassium 4.6 mmol/L (3.3-5.1); Sodium 140 mmol/L (135-145); Total Protein 6.9 g/dL (6.5-8.0)
[2024-09-05 09:39] LABS: SLIDE REVIEW VERIFIED
[2024-09-05 09:52] LABS: Influenza A PCR NEGATIVE (Negative); Influenza B PCR NEGATIVE (Negative); Resp Syncy Virus RNA Qual PCR NEGATIVE (Negative); SARS COV2 PCR INHOUSE NEGATIVE (Negative)
--- NOTE | 2024-09-05 13:22 | PC.NURSE ---
Pt reporting he doesn't want to be here anymore, CARE team aware
[2024-09-05 13:24] LABS: Appearance Urine Cloudy; Color Urine Yellow; Glucose Urine UA Negative (Negative); Leukocyte Esterase Urine Trace (Negative); Nitrite Urine Negative (Negative); PH >= 9.0 (5.0-9.0); UMIC TRIGGER UACC YES; Urine Blood Negative (Negative); Urine Ketones Negative (Negative); Urine Protein 30 (1+) mg/dL (Neg-Trace)
[2024-09-05 13:27] LABS: Bacteria Urine None Seen (None Seen); Hyaline Casts Urine 0-2 /LPF (0-2); RBC Urine 0-2 /HPF (0-2); Squamous Epithelial Cell Urine 0-2 /HPF (0-2); WBC Urine 0-5 /HPF (0-5)
--- NOTE | 2024-09-05 13:33 | MHC.CARE ---
Patient stated to story writer and nursing staff that he would like to go home. Soda Drier Feeder asked what has changed as the patient was previously requesting to stay in the hospital for a few days due to SI. Patient stated he does not anticipate anyone will help him and verbalized frustration with [facility] for not providing him with the help/resources. I was supposed to get an apartment and they never did. Patient agreed to provide a urine sample for nursing staff and went back to bed.
[2024-09-05 13:35] LABS: Amphetamine Screen Urine Not Detected (Not Detect); Barbiturates, Urine Not Detected (Not Detect); Benzodiazepines Screen Urine Not Detected (Not Detect); Buprenorphine Scr Not Detected (Not Detect); Cannabinoid Screen Urine POSITIVE (Not Detect); Cocaine Screen Urine Not Detected (Not Detect); Fentanyl, urine Not Detected (Not Detect); Methadone Screen, Urine Not Detected (Not Detect); Opiate Screen Urine Not Detected (Not Detect); Oxycodone Screen Urine Not Detected (Not Detect); Phencyclidine Screen Urine Not Detected (Not Detect)
[2024-09-05 14:58] VITALS: BP 109/88; PULSE 84; RESP 16; TEMP 36.4; O2SAT 99
== END 2024-09-05 14:59 | disposition home or self-care (01) ==
PROVIDERS: Registered Nurse Emergency; Emergency Provider Emergency Medicine
DX: F33.1 Major depressive disorder, recurrent, moderate (principal); R45.851 Suicidal ideations; G89.29 Other chronic pain; M25.551 Pain in right hip; F10.90 Alcohol use, unspecified, uncomplicated; Y90.0 Blood alcohol level of less than 20 mg/100 ml; R79.1 Abnormal coagulation profile; F17.210 Nicotine dependence, cigarettes, uncomplicated; F12.90 Cannabis use, unspecified, uncomplicated; Z59.01 Sheltered homelessness; Z79.899 Other long term (current) drug therapy; Z03.818 Encounter for observation for suspected exposure to other biological agents ruled out
CPT/HCPCS: 0241U; 80053; 80307; 81001; 85025; 85610; 99285

== ENCOUNTER 2024-09-19 09:41 | Emergency (ER) | payer OTHER, MEDICAID, SELFPAY ==
[2024-09-19 09:52] VITALS: PULSE 76; RESP 16; TEMP 36.9; O2SAT 100; BMI 23.1
[2024-09-19 09:54] VITALS: RESP 16
--- NOTE | 2024-09-19 09:55 | PC.NURSE ---
Antonio comes to the hospital today reporting SI with a plan to cut himself. Patient endorses increased life stressors over the past few months. Pt aware of plan of care for medical clearance and CARE team yesenia
--- NOTE | 2024-09-19 09:57 | ED_ITS ---
HPI - Psych General Chief Complaint: Psychiatric Symptoms Stated Complaint: SELF HARM,NO HI ROM BUS STATION PER EMS Time Seen by Provider: 09/19/24 09:42 Source: patient Mode of arrival: ambulatory Limitations: no limitations History of Present Illness ED Provider: VICTORIANO Garcia HPI Narrative: 69-year-old male history of alcohol use disorder, HIV, major depression presents with concerns of depression and thoughts of self-harm. [place] was [place] the [place] he approached a chief juvenile probation officer that was nearby and told the officer that he wanted to harm himself EMS was called and he was brought to the hospital. He does not have a particular plan he thought about cutting his wrist however he did not do so. He states he also wanted juice when he was at the bus station which he was unable to get so now he wants juice while he is here. He denies visual, auditory and tactile hallucinations. Denies drugs, alcohol and tobacco. No medical complaints Related Data Home Medications ?Medication ?Instructions ?Recorded ?Confirmed quetiapine 100 mg tablet 600 mg PO BEDTIME 09/19/24 09/19/24 valbenazine 60 mg capsule 60 mg PO DAILY 09/19/24 09/19/24 (Ingrezza) Previous Rx's ?Medication ?Instructions ?Recorded bictegravir 50 mg-emtricitabine 1 tab PO DAILY #30 tabs 11/06/23 200 mg-tenofovir alafenam 25 mg tablet (Biktarvy) clonidine HCl 0.1 mg tablet 0.1 mg PO BID #60 tabs 11/06/23 lidocaine 5 % topical ointment 1 appl topical Q6H PRN foot pain 11/06/23 #30 applicators nicotine 7 mg/24 hr daily 7 mg transdermal DAILY #30 ea 11/06/23 transdermal patch ibuprofen 600 mg tablet 600 mg PO Q6H PRN pain #30 tabs 02/18/24 lidocaine 5 % topical patch 1 patch topical DAILY #30 ea 02/18/24 Allergies Allergy/AdvReac Type Severity Reaction Status Date / Time acetaminophen [ACETAMINOPHEN] Allergy Mild rashes Verified 09/19/24 09:53 Review of Systems 2 Review of Systems: Yes all other systems are reviewed and are negative PMFSH Past Medical History Attestation statement: The following information was validated with the patient. Source: old records reviewed and nursing notes reviewed Medical History Alcohol intoxication Social History Social History Household Members: None Housing: Homeless Do you presently have visiting nurse or other home services: No Unable to assess alcohol history related to: Refusing to respond Alcohol intake: current Alcohol intake frequency: holidays/special occasions only Alcohol type: hard liquor Patient Tobacco Use Status: Current everyday Tobacco user Tobacco use type: Cigarette Cigarettes Per Day: 8 Years Smoked: 36 years Smoked in Last 30 Days: Yes e-Cigarette/Vaping Use: Never Used Second Hand Smoke Exposure: Yes (Per own smoking) Use of substances other than those prescribed or required for medical reasons: No Substance Use Type: Marijuana Advance Directives: No Advance Directives Information Provided: Yes service: Yes ([employer]) Sexual orientation: Unable to collect Physical Exam 2 Vital Signs: Vital Signs: Last Vital Signs Temp 98.4 F 09/19/24 09:52 Pulse 76 09/19/24 09:52 Resp 16 09/19/24 09:54 Pulse Ox 100 09/19/24 09:52 BMI result Body Mass Index 23.1 vss Appearance: Alert.? Oriented X3.? No acute distress.? Head: Normocephalic, atraumatic, no step-offs or deformities Eyes: Pupils equal, round and reactive to light.? ENT: Pharynx normal.? Neck: Normal inspection.? Neck supple.? CVS: Normal heart rate and rhythm.? Pulses normal.? Respiratory: No respiratory distress.? Breath sounds normal.? Abdomen: Soft and nontender.? Skin: Skin warm and dry.? Normal skin color.? Normal skin turgor.? Extremities: No lower extremity edema.? No calf ttp. 5/5 strength to bilateral upper and lower extremities Neuro: Oriented X 3.? No motor deficit.? No sensory deficit. CN 2-12 intact Course Reevaluation(s) Reevaluation #1: Patient adamantly refusing giving us a urine and lab work. Time: 10:09 Reevaluation #2: Patient's CBC with leukopenia at baseline and thrombocytopenia again at baseline. Chemistry with no acute findings needing intervention. Total bilirubin elevated to 1.3 however no abdominal complaints or tenderness to palpation on exam. His transaminases also elevated in a nearly 2-1 fashion concerning for chronic alcohol abuse. UA without infection. Ethanol negative. Urine toxicology pending. Time: 10:52 Reevaluation #3: Urine positive for buprenorphine and marijuana. This time patient will be placed into physician observation to allow more time to be evaluated by care team. Time: 11:08 Medical Decision Making Medical Decision Making [facility] Narrative: 0936 69-year-old male presents with thoughts of self-harm no particular plan. Physical exam benign flat affect noted however. History and physical exam concerning for depression, anxiety. Unlikely metabolic derangements. Plan medical clearance evaluation by care team Differential Diagnosis Differential Diagnoses: The differential diagnosis associated with the presentation includes ( History and physical exam concerning for depression, anxiety. Unlikely metabolic derangements.) Admission/Observation Consideration of admission/observation: Escalation of care including admission/observation considered Lab Data 09/19/24 10:12 09/19/24 10:12 Labs: Lab Results 09/19/24 09/19/24 Range/Units 10:11 10:12 WBC 4.3 L (4.8-10.8) X10*3/uL RBC 4.65 (4.60-5.80) X10*6/uL Hgb 15.3 (14.0-18.0) g/dl Hct 43.5 (42.0-52.0) % MCV 93.5 (80.0-98.0) fL MCH 32.9 (27.0-33.0) pg MCHC 35.2 (31.0-36.0) g/dl RDW 14.3 (11.0-16.0) % Plt Count 159 L D (160-400) X10*3/uL MPV 11.4 (9.4-12.4) fL Immature Gran % (Auto) 0.0 (0.0-0.4) % Neut % (Auto) 65.5 (45-73) % Lymph % (Auto) 24.7 (20-40) % [place] % (Auto) 9.1 (2-11) % Eos % (Auto) 0.2 (0-4) % Baso % (Auto) 0.5 (0-2) % Lymph # (Auto) 1.1 L (1.2-4.9) X10*3/uL [place] # (Auto) 0.4 (0.1-1.2) X10*3/uL Eos # (Auto) 0.0 (0.0-0.4) X10*3/uL Baso # (Auto) 0.0 (0.0-0.2) X10*3/uL Abs Immat Gran (auto) 0.00 (0.00-0.03) X10*3/uL Absolute Neuts (auto) 2.8 (2.0-8.3) x10*3/uL Absolute Nucleated RBC 0.000 (0.0-0.012) X10*3/uL Nucleated RBC % (auto) 0.0 (0.0-0.2) /100WBC Sodium 139 (135-145) mmol/L Potassium 4.2 (3.3-5.1) mmol/L Chloride 103 (96-108) mmol/L Carbon Dioxide 24 (22-29) mmol/L Anion Gap 16 (12-20) BUN 14 (9-16) mg/dL Creatinine 0.74 (0.5-1.4) mg/dL Estim Creat Clear Calc 105.6 Estimated GFR > 60 Random Glucose 71 (60-115) mg/dL Calcium 9.6 D (8.4-10.2) mg/dL Magnesium 2.0 (1.6-2.6) mg/dL Total Bilirubin 1.3 H (0.0-1.0) mg/dL AST 111 H (5-37) U/L ALT 76 H (0-40) U/L Alkaline Phosphatase 79 (39-117) U/L Troponin I High Sens < 2.7 (<3.5-35.0) ng/L Total Protein 8.7 H (6.5-8.0) g/dL Albumin 4.1 (3.5-5.0) g/dL Urine Color Dark Yellow Urine Appearance Clear Urine pH 6.0 (5.0-9.0) Ur Specific [place] 1.025 (1.005-1.025) Urine Protein 30 (1+) H (Neg-Trace) mg/dL Urine Glucose (UA) Negative (Negative) mg/dL Urine Ketones 80 (Negative) mg/dL Urine Blood Negative (Negative) Urine Nitrite Negative (Negative) Ur Leukocyte Esterase Negative (Negative) Urine RBC 0-2 (0-2) /HPF Urine WBC 0-5 (0-5) /HPF Ur Squamous Epith Cells 3-5 (0-2) /HPF Urine Bacteria None Seen (None Seen) Hyaline Casts 0-2 (0-2) /LPF Urine Opiates Screen Not Detected (Not Detect) Ur Buprenorphine Scrn Positive H (Not Detect) ng/mL Ur Oxycodone Screen Not Detected (Not Detect) ng/mL Urine Methadone Screen Not Detected (Not Detect) ng/mL Urine Fentanyl Screen Not Detected (Not Detect) Ur Barbiturates Screen Not Detected (Not Detect) Ur Phencyclidine Scrn Not Detected (Not Detect) Ur Amphetamines Screen Not Detected (Not Detect) U Benzodiazepines Scrn Not Detected (Not Detect) Urine Cocaine Screen Not Detected (Not Detect) U Marijuana (THC) Screen POSITIVE H (Not Detect) Ethyl Alcohol < 10 mg/dL Critical Care Time Critical Care Time Critical Care Time: No Discharge Plan Discharge Clinical Impression: MDD (major depressive disorder), recurrent episode, moderate Patient Disposition: Still a Patient Prescriptions: No Action nicotine 7 mg/24 hr Patch 24 Hour 7 mg transdermal DAILY Qty: 30 0RF lidocaine 5 % Ointment 1 appl topical Q6H PRN (Reason: foot pain) Qty: 30 0RF Protocol: Apply to: Apply to: b/l feet clonidine HCl 0.1 mg tablet 0.1 mg PO BID Qty: 60 0RF Biktarvy 50-200-25 mg tablet 1 tab PO DAILY Qty: 30 0RF ibuprofen 600 mg tablet 600 mg PO Q6H PRN (Reason: pain) Qty: 30 0RF lidocaine 5 % adhesive patch,medicated 1 patch topical DAILY Qty: 30 0RF Rx Instructions: leave on most painful area for up to 12 hrs quetiapine 100 mg tablet 600 mg PO BEDTIME Ingrezza 60 mg Capsule 60 mg PO DAILY Interventions: [place]-Suicide Risk Severity Scale Last Done: 09/19/24 09:54 Print Language: Macedonian
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
--- OUTSIDE RECORDS SUMMARY | 2024-09-19 10:15 | XMS_ITS | Continuity of Care Document ---
Author Organization [facility] Address [address] [place] [address] Phone Care Team Providers Care Product Craftsman Name Role Phone Unavailable Unavailable Unavailable Procedures Procedure Date EKG Interpretation - Hospital 6 Advance Directives Directive Yes / No Effective Date File Name No Information Encounters Encounter Description Practice Location Reason(s) For Visit Diagnoses Date Provider Providers Copied on Encounter Tianji [facility], [address] [place] [address], [id number], tel:[phone] [employer] No Information No Information Referring Provider: Bebeto Head, [address] [place] [address], [id number] . tel:[phone] Family History Family Member Type Diagnosis Age At Onset No Information Payers Payer name Insurance type Covered republican ID Authoriza tion(s) Medicare Part B [place] [id number] Medicaid [id number] Social History Type Description Quantity Date Captured [...]
[2024-09-19 10:17] LABS: MANUAL DIFF FLAG NO
--- NOTE | 2024-09-19 10:18 | PC.NURSE ---
pt originally refusing to give urine sample/blood work stating he wants to be discharged, however patient then stated Actually I need somewhere to stay, I'll give you the urine sample
[2024-09-19 10:22] LABS: Appearance Urine Clear; Color Urine Dark Yellow; Glucose Urine UA Negative (Negative); Leukocyte Esterase Urine Negative (Negative); Nitrite Urine Negative (Negative); Specific Gravity - Urine 1.025 (1.005-1.025); UMIC TRIGGER UACC YES; Urine Blood Negative (Negative); Urine Ketones 80 mg/dL (Negative); Urine Protein 30 (1+) mg/dL (Neg-Trace)
[2024-09-19 10:24] LABS: Basophils Percent Auto 0.5 % (0-2); Eosinophils Percent Auto 0.2 % (0-4); Hematocrit 43.5 % (42.0-52.0); Hemoglobin 15.3 g/dl (14.0-18.0); Lymphocytes Absolute Auto 1.1 X10*3/uL (1.2-4.9); Lymphocytes Percent Auto 24.7 % (20-40); Mean Corpuscular HGB Conc 35.2 g/dl (31.0-36.0); Mean Corpuscular Hemoglobin 32.9 pg (27.0-33.0); Mean Corpuscular Volume 93.5 fL (80.0-98.0); Mean Platelet Volume 11.4 fL (9.4-12.4); Monocytes Absolute Auto 0.4 X10*3/uL (0.1-1.2); Monocytes Percent Auto 9.1 % (2-11); Neutrophils Absolute Auto 2.8 x10*3/uL (2.0-8.3); Neutrophils Percent Auto 65.5 % (45-73); Platelet Count 159 X10*3/uL (160-400); Red Blood Count 4.65 X10*6/uL (4.60-5.80); Red Cell Distribution Width 14.3 % (11.0-16.0); White Blood Count 4.3 X10*3/uL (4.8-10.8)
[2024-09-19 10:24] LABS: Bacteria Urine None Seen (None Seen); Hyaline Casts Urine 0-2 /LPF (0-2); RBC Urine 0-2 /HPF (0-2); WBC Urine 0-5 /HPF (0-5)
[2024-09-19 10:47] LABS: Alanine Aminotransferase 76 U/L (0-40); Albumin Level 4.1 g/dL (3.5-5.0); Alkaline Phosphatase 79 U/L (39-117); Anion Gap 16 (12-20); Aspartate Amino Transferase 111 U/L (5-37); Bilirubin Total 1.3 mg/dL (0.0-1.0); Blood Urea Nitrogen 14 mg/dL (9-16); Calcium 9.6 mg/dL (8.4-10.2); Carbon Dioxide 24 mmol/L (22-29); Chloride 103 mmol/L (96-108); Creatinine Clr Calc Pharmacy 105.6; Estimated Glomerular Filt Rate > 60; Ethanol < 10 mg/dL; Glucose Random 71 mg/dL (60-115); Potassium 4.2 mmol/L (3.3-5.1); Sodium 139 mmol/L (135-145); Total Protein 8.7 g/dL (6.5-8.0)
[2024-09-19 10:54] LABS: Troponin-I High Sensitivity < 2.7 ng/L (<3.5-35.0)
[2024-09-19 10:58] LABS: Amphetamine Screen Urine Not Detected (Not Detect); Barbiturates, Urine Not Detected (Not Detect); Benzodiazepines Screen Urine Not Detected (Not Detect); Buprenorphine Scr Positive (Not Detect); Cannabinoid Screen Urine POSITIVE (Not Detect); Cocaine Screen Urine Not Detected (Not Detect); Fentanyl, urine Not Detected (Not Detect); Methadone Screen, Urine Not Detected (Not Detect); Opiate Screen Urine Not Detected (Not Detect); Oxycodone Screen Urine Not Detected (Not Detect); Phencyclidine Screen Urine Not Detected (Not Detect)
--- NOTE | 2024-09-19 13:05 | PHA.MEDREC ---
Addendum entered by Abigail Knapp [facility] 09/19/24 14:33: Confirmed with [facility] that Ingrezza was picked up on 07/03 despite not being on claim history; patient has no label on bottle but bottle is not Original Note: Pharmacy Consult ? Medication Reconciliation Reviewed med rec done by nursing- most match claim HX. Reached out to Mo[facility] regarding Ingrezza and she reports he has two bottles on his person. Also confirmed pt is not taking the aspirin 81mg.
--- NOTE | 2024-09-19 13:57 | PC.NURSE ---
Pt yelling and swearing from his room, this RN entered room to check on patient, pt then scolded this RN stating you should know better, I need my meds now, and jose ell ken feeding me . This RN explained to the patient that his medications are orderd but are pending pharmacy review at this time. Patient was not satisfied with said answer and told this RN you know what, fuck that, I don't want your damn meds anyway
[2024-09-19 13:59] VITALS: RESP 16
[2024-09-19 21:02] VITALS: RESP 18
[2024-09-20] MEDS: QUEtiapine Fumarate 300 MG TABLET 600 MG PO (04:43)
[2024-09-20] MEDS: Lidocaine 5 % Ointment 35 GM 1 APPL TOPICAL (05:00)
--- NOTE | 2024-09-20 07:34 | PC.NURSE ---
Assumed care of patient at 0645, patient appears to be sleeping, respirations even and unlabored, no apparent distress noted. Continue plan of care for CARE re-eval this am
[2024-09-20] MEDS: Lidocaine 4 % Patch ADH..PATCH 1 PATCH TRANSDERMA (08:15)
[2024-09-20] MEDS: VALBENAZINE 60 EACH PO (08:16)
[2024-09-20] MEDS: Nicotine 7 MG PATCH.TD24 TRANSDERMA (08:16)
[2024-09-20] MEDS: cloNIDine HCL 0.1 MG TABLET PO (08:16)
[2024-09-20 16:25] VITALS: RESP 14
--- NOTE | 2024-09-20 23:41 | PC.NURSE ---
Took over care from Susan Ayon, pt sleeping at this time.
[2024-09-21 05:39] VITALS: RESP 16
--- NOTE | 2024-09-21 10:08 | MHC.EDTECH ---
patient stated he is going to raise hell because he waited three days to be sent upstairs , patient is also refusing medication . the care team , RN and i have reassured him multiple times that he is being admitted and will be assessed.
--- NOTE | 2024-09-21 10:24 | PC.NURSE ---
Patient is very upset and refusing all his 9 am meds at this time. WIll take them once he gets in his room upstairs we do not have a time for a bed upstairs at this time.
--- NOTE | 2024-09-21 11:21 | PC.NURSE ---
Patient very angry as still waiting to speak to care team and wants to be put in his room upstairs. Care team is aware and will see him when able
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
[2024-09-21 11:54] VITALS: BP 00/00
--- NOTE | 2024-09-21 12:08 | MHC.CARE ---
Patient requested discharge, met with psychiatric provider who agreed with disposition to discharge. ED provider, Dr. Lan updated. Patient sent home by [facility] to [address] [place] [address].
[2024-09-21 12:13] VITALS: BP 137/74; PULSE 88; RESP 16; TEMP 36.6
== END 2024-09-21 12:15 | disposition home or self-care (01) ==
PROVIDERS: Physician Assistant; Emergency Provider Emergency Medicine
DX: F33.1 Major depressive disorder, recurrent, moderate (principal); R45.851 Suicidal ideations; R45.1 Restlessness and agitation; B20 Human immunodeficiency virus [HIV] disease; F11.21 Opioid dependence, in remission; F10.90 Alcohol use, unspecified, uncomplicated; Y90.0 Blood alcohol level of less than 20 mg/100 ml; F17.210 Nicotine dependence, cigarettes, uncomplicated; F12.90 Cannabis use, unspecified, uncomplicated; Z79.899 Other long term (current) drug therapy
CPT/HCPCS: 36415; 80053; 80307; 81001; 83735; 84484; 85025; 99285; S9485

== ENCOUNTER → 2024-09-19 10:13 | Outpatient (BNV) | payer MEDICARE, MEDICAID, SELFPAY | PROVIDERS: Emergency Provider Emergency Medicine; Visit Provider Social Worker | DX: F39 Unspecified mood [affective] disorder (principal); F10.90 Alcohol use, unspecified, uncomplicated; F11.21 Opioid dependence, in remission | CPT/HCPCS: 99285 ==

== ENCOUNTER 2024-12-22 10:19 | Inpatient (IN) | payer OTHER, SELFPAY ==
--- NOTE | 2024-12-22 | ECG_ITS ---
Test Reason : R/O PROLONGED QT Blood Pressure : */* mmHG Vent. Rate : 72 BPM Atrial Rate : 72 BPM P-R Int : 152 ms QRS Dur : 78 ms QT Int : 396 ms P-R-T Axes : 73 64 77 degrees QTcB Int : 433 ms Normal sinus rhythm Normal ECG When compared with ECG of 29-Oct-2023 01:13, Premature supraventricular complexes are no longer Present Referred By: Generic ED Physician Electronically Signed By: Mack Isaac
--- NOTE | 2024-12-22 10:30 | ED.GENADULT ---
HPI - General Adult General Chief complaint: Psychiatric Symptoms Stated complaint: SI Time Seen by Provider: 12/22/24 10:30 Source: patient Mode of arrival: ambulatory Limitations: no limitations History of Present Illness ED Provider: Susan Zuluaga PA-C HPI narrative: Patient is a 69 year old assigned male at with a history of alcohol use disorder, HIV, and MDD presenting to the emergency department today with suicidal ideation and auditory hallucinations. Patient states that he has been feeling suicidal lately and hearing things telling him to do things but won't elaborate. Patient denies any dizziness, lightheadedness, abdominal pain, nausea, vomiting, fever, chills, blurry vision, double vision, loss of vision, chest pain, difficulty breathing, shortness of breath, back pain, night sweats, pain with urination, increased urinary frequency, increased urinary urgency, blood in his urine or stool, syncope or a near syncopal episode, recent trauma or falls, bowel incontinence, bladder incontinence, or any other complaints at this time. Related Data Home Medications ?Medication ?Instructions ?Recorded ?Confirmed quetiapine 100 mg tablet 500 mg PO BEDTIME 09/19/24 12/22/24 valbenazine 60 mg capsule 60 mg PO DAILY 09/19/24 12/22/24 (Ingrezza) aspirin 81 mg tablet,delayed 81 mg PO DAILY 12/22/24 12/22/24 release buprenorphine 20 mcg/hour weekly 1 patch transdermal Q7D 12/22/24 12/22/24 transdermal patch lidocaine 5 % topical ointment 1 appl topical TID PRN foot pain 12/22/24 12/22/24 Previous Rx's ?Medication ?Instructions ?Recorded bictegravir 50 mg-emtricitabine 1 tab PO DAILY #30 tabs 11/06/23 200 mg-tenofovir alafenam 25 mg tablet (Biktarvy) nicotine 7 mg/24 hr daily 7 mg transdermal DAILY #30 ea 11/06/23 transdermal patch lidocaine 5 % topical patch 1 patch topical DAILY #30 ea 02/18/24 Allergies Allergy/AdvReac Type Severity Reaction Status Date / Time acetaminophen [ACETAMINOPHEN] Allergy Mild rashes Verified 12/22/24 10:40 Review of Systems Constitutional: Constitutional: Reports no additional constitutional complaints, Denies chills, Denies fever(s) and Denies night sweats Eyes: Eyes: Reports no additional eye complaints, Denies blurry vision, Denies change in vision, Denies diplopia, Denies eye discharge, Denies loss of vision and Denies eye pain ENT: Denies dizziness Cardiovascular: Cardiovascular: Reports no additional cardiovascular complaints, Denies chest pain, Denies lightheadedness, Denies Loss of Consciousness and Denies dyspnea Respiratory: Respiratory: Reports no additional respiratory complaints and Denies dyspnea Gastrointestinal: Gastrointestinal: Reports no additional gastrointestinal complaints, Denies abdominal pain, Denies melena, Denies hematochezia, Denies change in bowel habits and Denies change in stool character Genitourinary: Genitourinary: Reports no additional male genitourinary complaints, Denies hematuria, Denies oliguria, Denies difficulty urinating, Denies dysuria, Denies urinary frequency, Denies urinary hesitancy, Denies urinary incontinence and Denies urinary urgency Musculoskeletal: Musculoskeletal: Reports no additional musculoskeletal complaints, Denies numbness and Denies tingling Neurologic: Denies dizziness, Denies loss of vision, Denies numbness and Denies tingling Psychiatric: Psychiatric: Reports depression, Reports auditory hallucinations, Denies homicidal ideation and Reports suicidal ideation Endocrine: Endocrine: Reports no additional endocrine complaints Hematologic/Lymphatic: Hematologic/Lymphatic: Reports no additional hematologic/lymphatic complaints Allergic/Immunologic: Allergic/Immunologic: Reports no additional allergic/immunologic complaints PENDING SALE TO [facility] Past Medical History Attestation statement: The following information was validated with the patient. Source: old records reviewed and nursing notes reviewed Medical History Alcohol intoxication Social History Social History Household Members: None Housing: Homeless Do you presently have visiting nurse or other home services: No Unable to assess alcohol history related to: Refusing to respond Alcohol intake: current Alcohol intake frequency: does not drink Alcohol type: hard liquor Patient Tobacco Use Status: Current everyday Tobacco user Tobacco use type: Cigarette Cigarettes Per Day: 8 Years Smoked: 36 years Smoked in Last 30 Days: No e-Cigarette/Vaping Use: Never Used Second Hand Smoke Exposure: Yes (Per own smoking) Use of substances other than those prescribed or required for medical reasons: Yes Substance Use Type: Marijuana Advance Directives: No Advance Directives Information Provided: Yes Do you have a plan to hurt others: No Plan service: Yes ([employer]) Sexual orientation: Unable to collect Physical Exam ED Vital Signs: Vital Signs - 24 hr 12/22/24 10:39 12/22/24 10:53 Temperature 97.1 F 97.1 F Pulse Rate 91 91 Respiratory Rate 14 14 Blood Pressure 161/99 H 161/99 H Pulse Oximetry 100 100 Oxygen Delivery Method Room Air Room Air BMI result Body Mass Index 23.2 Const General: cooperative, no acute distress, alert and awake Nutritional Appearance: well nourished Orientation/consciousness: patient oriented x3 Limitations: no limitations HENMT Head: Yes normal to inspection and Yes atraumatic Ears: hearing grossly normal bilaterally and external ears normal General nose exam: Normal external nose present, no nasal discharge noted and no epistaxis Face and sinus: Yes normal facial exam, No abrasion and No laceration Mouth: Normal oral and palatal mucosa present, no drooling and no muffled voice Eyes General: appearance normal, both eyes and all related structures Periorbital: periorbital findings normal Eyelids: Yes eyelids normal Conjunctivae: conjunctivae normal Pupils: Equal, round and reactive pupils present EOM: EOMs intact bilaterally Neck Neck: Yes normal visual inspection, Yes full ROM and Yes no lymphadenopathy Chest Chest palpation & inspection: normal inspection of the chest Resp Effort & Inspection: normal respiratory effort and able to speak in complete sentences GI Inspection: Yes normal to inspection Neuro General: patient oriented x3, moves all extremities and CN's II-XI intact bilaterally Cranial nerves: Yes Equal, round and reactive pupils present Cognition (Neuro): normal cognition Extrem General: Yes normal to inspection, Yes full ROM and Yes capillary refill normal Psych Appearance: grossly normal Mental Status: mental status grossly normal Affect: normal affect Thought content: Suicidality present Medications Administered Generic Name Dose Route Start Last Admin Trade Name Freq PRN Reason Stop Dose Admin Aspirin 81 mg 12/22/24 11:30 12/22/24 15:09 Aspirin Enteric Coated 81 Mg Tablet.Dr PO Not Given DAILY [facility] Bictegravir/Emtricitabine/Tenofovir 1 tab 12/22/24 13:00 12/22/24 15:09 Bictegrav/Emtricit/Tenofov Ala Tablet PO Not Given DAILY [facility] Lidocaine 1 patch 12/22/24 11:45 12/22/24 13:04 Lidocaine 4 % Patch Adh..Patch TRANSDERMA Not Given DAILY [facility] Nicotine 7 mg 12/22/24 11:30 12/22/24 13:04 Nicotine 7 Mg Patch.Td24 TRANSDERMA Not Given DAILY [facility] Discontinued Medications Generic Name Dose Route Start Last Admin Trade Name Hilda PRN Reason Stop Dose Admin Bictegravir/Emtricitabine/Tenofovir 1 tab 12/22/24 11:30 12/22/24 13:09 Bictegrav/Emtricit/Tenofov Ala Tablet PO Not Given DAILY [facility] Medical Decision Making Medical Decision Making MDM Narrative: Patient is a 69 year old assigned male at with a history of alcohol use disorder, HIV, and MDD presenting to the emergency department today with suicidal ideation and auditory hallucinations. Patient's physical exam was as noted in the physical exam portion of this note. Patient's blood work was unremarkable. Patient's EKG was unremarkable. Patient met with the CARE team who recommended inpatient level of care. I explained my physical exam findings as well as all test results to the patient. I answered all questions asked by the patient. Patient verbalized agreement and understanding with admission to the [facility] psychiatric inpatient service. Differential Diagnosis Differential Diagnoses: The differential diagnosis associated with the presentation includes SI Auditory hallucinations Admission/Observation Consideration of admission/observation: Escalation of care including admission/observation considered Patient admitted to [facility] psychiatry. Consult Healthcare Provider Management of the patient was discussed with: Behavioral Health Provider (spoke with the CARE team as noted in the MDM Rationale portion of this note. ) Lab Data [facility] Lab Attestation statement: I reviewed the patient's lab results. My interpretation of these results are in the MDM Rationale portion of this note. 12/22/24 11:45 12/22/24 11:45 Labs: Lab Results 12/22/24 Range/Units 11:45 WBC 5.1 (4.8-10.8) X10*3/uL RBC 4.36 L (4.60-5.80) X10*6/uL Hgb 14.2 (14.0-18.0) g/dl Hct 41.2 L (42.0-52.0) % MCV 94.5 (80.0-98.0) fL MCH 32.6 (27.0-33.0) pg MCHC 34.5 (31.0-36.0) g/dl RDW 15.1 (11.0-16.0) % Plt Count 135 L (160-400) X10*3/uL MPV 12.2 (9.4-12.4) fL Immature Gran % (Auto) 0.2 (0.0-0.4) % Neut % (Auto) 56.9 (45-73) % Lymph % (Auto) 34.1 (20-40) % [place] % (Auto) 8.2 (2-11) % Eos % (Auto) 0.2 (0-4) % Baso % (Auto) 0.4 (0-2) % Lymph # (Auto) 1.8 (1.2-4.9) X10*3/uL [place] # (Auto) 0.4 (0.1-1.2) X10*3/uL Eos # (Auto) 0.0 (0.0-0.4) X10*3/uL Baso # (Auto) 0.0 (0.0-0.2) X10*3/uL Abs Immat Gran (auto) 0.01 (0.00-0.03) X10*3/uL Absolute Neuts (auto) 2.9 (2.0-8.3) x10*3/uL Absolute Nucleated RBC 0.000 (0.0-0.012) X10*3/uL Nucleated RBC % (auto) 0.0 (0.0-0.2) /100WBC Sodium 140 (135-145) mmol/L Potassium 4.0 (3.3-5.1) mmol/L Chloride 104 (96-108) mmol/L Carbon Dioxide 26 (22-29) mmol/L Anion Gap 14 (12-20) BUN 16 (9-16) mg/dL Creatinine 0.77 (0.5-1.4) mg/dL Estim Creat Clear Calc 102.0 Estimated GFR > 60 Random Glucose 77 (60-115) mg/dL Calcium 9.8 (8.4-10.2) mg/dL Total Bilirubin 0.8 (0.0-1.0) mg/dL AST 110 H (5-37) U/L ALT 79 H (0-40) U/L Alkaline Phosphatase 83 (39-117) U/L Total Protein 8.6 H (6.5-8.0) g/dL Albumin 4.0 (3.5-5.0) g/dL Ethyl Alcohol 31 mg/dL Independent Interpretation I performed an independent interpretation of an: EKG Interpretation: I independently interpreted this EKG and am in agreement with the below findings: Vent. Rate: 72 BPM Atrial Rate: 72 BPM P-R Int: 152 ms QRS Dur: 78 ms QT Int: 396 ms P-R-T Axes: 73 64 77 degrees QTcB Int: 433 ms Normal sinus rhythm Normal ECG When compared with ECG of 29-Oct-2023 01:13, Premature supraventricular complexes are no longer Present DD/ [id number] Critical Care Time Critical Care Time Critical Care Time: Yes Total Critical Care Time: 36 Attestation: I spent 36 minutes of Critical Care Time with this patient. This does not include time spent on separately reported billable procedures. Discharge Plan Discharge Clinical Impression: Suicidal ideation Patient Disposition: Admitted As Inpatient Interventions: Jackson-Suicide Risk Severity Scale Last Done: 12/22/24 10:51 Print Language: Russian
[2024-12-22 10:39] VITALS: BP 161/99; PULSE 91; RESP 14; TEMP 36.2; O2SAT 100; BMI 23.2
--- NOTE | 2024-12-22 10:45 | PC.NURSE ---
RE: med rec Patient reports my meds are the same, but I don't remember the last time I took em
[2024-12-22 10:53] VITALS: BP 161/99; PULSE 91; RESP 14; TEMP 36.2; O2SAT 100
--- NOTE | 2024-12-22 10:55 | PC.NURSE ---
PT ARRIVED TO ED POD AT APPROXIMATELY 1045. PT IS a&oX4. HE REPORTS THAT HE HAS BEEN TAKING HIS PRESCRIBED MEDS BUT FEEL LIKE THEY ARE INEFFECTIVE. PT REPORTS AN INCREASE IN DEPRESSION. HE IS FLAT AND GUARDED DURING CONVERSATION. PT REPORTS COMMAND AH TELLING HIM TO HARM HIMSELF. HE HAS BEEN HAVING INCREASED THOUGHTS THAT LIFE ARE NOT WORTH LIVING, REPORTING I JUST WANT TO . PT REPORTS INTERMITTENT VH OF NO SPECIFIC NATURE. PT HAS DIFFICULTY WITH MEMORY AND COULD NO RECALL THE NAMES OF THE MEDICATIONS HE TAKES BUT WAS ABLE TO REQUEST HIS USUAL MEDS. PT IS EATING WELL. PT REPORT SOME DIFFICULTY SLEEPING. FEELS SAFE AT THIS TIME.
[2024-12-22 11:50] LABS: MANUAL DIFF FLAG NO
[2024-12-22 11:51] LABS: Basophils Percent Auto 0.4 % (0-2); Eosinophils Percent Auto 0.2 % (0-4); Hematocrit 41.2 % (42.0-52.0); Hemoglobin 14.2 g/dl (14.0-18.0); Imm Gran Abs Auto 0.01 X10*3/uL (0.00-0.03); Imm Gran Pct Auto 0.2 % (0.0-0.4); Lymphocytes Absolute Auto 1.8 X10*3/uL (1.2-4.9); Lymphocytes Percent Auto 34.1 % (20-40); Mean Corpuscular HGB Conc 34.5 g/dl (31.0-36.0); Mean Corpuscular Hemoglobin 32.6 pg (27.0-33.0); Mean Corpuscular Volume 94.5 fL (80.0-98.0); Mean Platelet Volume 12.2 fL (9.4-12.4); Monocytes Absolute Auto 0.4 X10*3/uL (0.1-1.2); Monocytes Percent Auto 8.2 % (2-11); Neutrophils Absolute Auto 2.9 x10*3/uL (2.0-8.3); Neutrophils Percent Auto 56.9 % (45-73); Platelet Count 135 X10*3/uL (160-400); Red Blood Count 4.36 X10*6/uL (4.60-5.80); Red Cell Distribution Width 15.1 % (11.0-16.0); White Blood Count 5.1 X10*3/uL (4.8-10.8)
[2024-12-22 12:09] LABS: Alanine Aminotransferase 79 U/L (0-40); Alkaline Phosphatase 83 U/L (39-117); Anion Gap 14 (12-20); Aspartate Amino Transferase 110 U/L (5-37); Bilirubin Total 0.8 mg/dL (0.0-1.0); Blood Urea Nitrogen 16 mg/dL (9-16); Calcium 9.8 mg/dL (8.4-10.2); Carbon Dioxide 26 mmol/L (22-29); Chloride 104 mmol/L (96-108); Estimated Glomerular Filt Rate > 60; Ethanol 31 mg/dL; Glucose Random 77 mg/dL (60-115); Sodium 140 mmol/L (135-145); Total Protein 8.6 g/dL (6.5-8.0)
--- NOTE | 2024-12-22 12:45 | MHC.CARE ---
Pt meets the criteria for IPLOC. Section 12a in chart. Provider in agreement.
--- NOTE | 2024-12-22 15:18 | PC.NURSE ---
pt increasing in agitated, occasionally hitting the couch and expressing agitation, this RN talked with patient, pt requesting medication to help him calm down. Verbal order 1mg Ativan PO, VICTORIANO Davis
[2024-12-22] MEDS: LORazepam 1 MG TABLET PO (15:21)
[2024-12-22 15:27] VITALS: BP 156/96; PULSE 69; RESP 18; TEMP 36.2; O2SAT 97
[2024-12-22 17:33] VITALS: BP 168/98; PULSE 70; RESP 17; TEMP 36.8; O2SAT 96
[2024-12-22 17:37] VITALS: BMI 21.5
--- NOTE | 2024-12-22 18:19 | PC.ADMIT ---
Patient is a 69 year old male admitted from the ED POD on a CV for treatment of Major Depressive Disorder Severe, no psychotic features. Per crisis eval, pt self admitted to the ED endorsing SI with no plan and command AH. Upon assessment, patient is A&Ox3 with impaired short term memory and occasional thought blocking . He is pleasant and cooperative, though mood is depressed, eye contact is intermittent and thought process is tangential throughout interaction's with his nurse (needs occasional reminders to stay on topic). Patient reports coming into the hospital d/t increased thoughts of wanting to hurt himself. States he doesn't want to be alive anymore but denies any current plan and feels safe coming to staff if thoughts of SI increase. He denies current AVH but reports experiencing command AH telling him to cut his wrists, prior to presenting to the ED. Patient reports an extensive hx of trauma, states he lost his fiance back in 2014, along with the loss of many family members over the years. Patient reports appetite is well, but sleep has been poor (uses Seroquel with some effect). BAL on arrival 37 (pt denies alcohol use in the last 4 weeks), tox screen unable to be obtained in the POD, as urine was not collected prior to transfer to our unit. He denies all substance use other than marijuana I smoke daily, last time I did was right before coming into the hospital . Patient is currently homeless and states he has been staying in a [facility], [facility]. Skin check completed and patient was found to have two blisters on the knuckle of both pointer toes, otherwise all other skin is WDI. Placed on 15 minute checks for safety
--- NOTE | 2024-12-22 18:22 | PHA.MEDREC ---
Pharmacy Consult ? Medication Reconciliation Pharmacy has completed the medication reconciliation. Contacted [facility] for med list. Dc'ed ingrezza 60 mg off med rec because it was the incorrect dose , patient confirmed and has been filling 40 mg . All other meds entered correctly. MD Baker notified.
[2024-12-22 20:00] VITALS: BP 135/75; PULSE 80; RESP 16; TEMP 36.8; O2SAT 97
--- NOTE | 2024-12-22 21:24 | PC.NURSE ---
Antonio refused HS Seroquel at bed time.
[2024-12-23 07:35] VITALS: BP 152/91; PULSE 76; RESP 16; TEMP 36.6; O2SAT 98
--- NOTE | 2024-12-23 09:21 | P.HPPS_ITS ---
[facility] Date of Service: 12/23/24 Chief Complaint: SI Sources of Information: patient interviewed, chart reviewed and crisis/core team assessment reviewed HPI Subjective Notes: Bonilla Warning and Conditional Voluntary Narrative: Patient is a 69-year-old male with history of MDD, PTSD, cocaine use disorder alcohol use disorder who self presented to ER due to suicidal ideation and command auditory hallucinations secondary to medication noncompliance. Per crisis report, patient reported suicidal ideation with no plan. Command auditory hallucinations and feeling like his medications are not effective. Patient reports having thoughts to cut his wrists and middle ideation with no plan/intent did not have a specific individual in mind. Patient stated, I do not feel like living. I want to . Patient presented disorganized with poor memory. Appeared thought blocking at times. He reports poor sleep and appetite. Patient has a history of multiple inpatient psychiatric hospitalizations and frequently does not follow up at medication and treatment recommendations. During admission assessment, patient presents alert and oriented x3. Calm and cooperative. Patient reports feeling depressed; patient stated, I came to the hospital because I was thinking about cutting my wrists. I just did not feel like living. I feel depressed. I just want to feel better . Patient reports auditory hallucination telling him to harm himself. He reports that he does not always take his medications because sometimes he does not feel like it . Patient reports when he is medication compliant, he feels they are helpful. Educated regarding importance of adherence. Patient reports passive suicidal ideation; patient stated, I wish I can not wake up . Denies HI/VH. Past Psychiatric History: hx of multiple inpatient psychiatric hospitalizations. denies hx of SIB. does not have outpatient psychiatric providers. Medical Evaluation Reviewed: Yes [facility] Medical History Alcohol intoxication Family History: pt reports family hx of depression. Social History: homeless. . 1 adult son. disability. Substance History: Patient reports history of cocaine use and alcohol use. He reports smoking marijuana daily. Trauma History: yes Diagnostics Vital Signs (24Hr): Vital Signs - 24 hr 12/22/24 10:39 12/22/24 10:53 12/22/24 15:27 Temperature 97.1 F 97.1 F 97.2 F Pulse Rate 91 91 69 Respiratory Rate 14 14 18 Blood Pressure 161/99 H 161/99 H 156/96 H Pulse Oximetry 100 100 97 Oxygen Delivery Method Room Air Room Air Room Air 12/22/24 17:33 12/22/24 20:00 12/23/24 07:35 Temperature 98.2 F 98.3 F 97.8 F Pulse Rate 70 80 76 Respiratory Rate 17 16 16 Blood Pressure 168/98 H 135/75 152/91 H Pulse Oximetry 96 97 98 Oxygen Delivery Method Room Air Room Air Room Air BMI result Body Mass Index 21.5 Labs 12/22/24 11:45 12/22/24 11:45 Labs: Laboratory Results - last 48 hr 12/22/24 11:45 WBC 5.1 RBC 4.36 L Hgb 14.2 Hct 41.2 L MCV 94.5 MCH 32.6 MCHC 34.5 RDW 15.1 Plt Count 135 L MPV 12.2 Immature Gran % (Auto) 0.2 Neut % (Auto) 56.9 Lymph % (Auto) 34.1 Alpine % (Auto) 8.2 Eos % (Auto) 0.2 Baso % (Auto) 0.4 Lymph # (Auto) 1.8 Alpine # (Auto) 0.4 Eos # (Auto) 0.0 Baso # (Auto) 0.0 Abs Immat Gran (auto) 0.01 Absolute Neuts (auto) 2.9 Absolute Nucleated RBC 0.000 Nucleated RBC % (auto) 0.0 Sodium 140 Potassium 4.0 Chloride 104 Carbon Dioxide 26 Anion Gap 14 BUN 16 Creatinine 0.77 Estim Creat Clear Calc 102.0 Estimated GFR > 60 Random Glucose 77 Calcium 9.8 Total Bilirubin 0.8 AST 110 H ALT 79 H Alkaline Phosphatase 83 Total Protein 8.6 H Albumin 4.0 Ethyl Alcohol 31 Meds/Allergies Meds Home Medications ?Medication ?Instructions ?Recorded ?Confirmed ?Type quetiapine 100 mg tablet 500 mg PO BEDTIME 09/19/24 12/22/24 History aspirin 81 mg tablet,delayed 81 mg PO DAILY 12/22/24 12/22/24 History release buprenorphine 20 mcg/hour weekly 1 patch transdermal Q7D 12/22/24 12/22/24 History transdermal patch lidocaine 5 % topical ointment 1 appl topical TID PRN foot pain 12/22/24 12/22/24 History valbenazine 40 mg capsule 40 mg PO DAILY 12/22/24 12/22/24 History (Ingrezza) Allergies Allergies Allergy/AdvReac Type Severity Reaction Status Date / Time acetaminophen [ACETAMINOPHEN] Allergy Mild rashes Verified 12/22/24 10:40 Mental Status Exam Mental Status Exam Narrative: Pt is alert and oriented; behavior is cooperative and calm; dressed in casual attire; mood is described as depressed ; eye contact appropriate; Speech is normal rate, volume and not pressured; thought process is organized and goal directed; Thought content is on tx; denies HI/VH. Passive suicidal ideation. +AH telling him to harm himself. Assessment & Plan Assessment & Plan (1) MDD (major depressive disorder), recurrent episode, moderate: Status: Acute Code(s): F33.1 - Major depressive disorder, recurrent, moderate (2) Alcohol use disorder: Status: Acute Code(s): F10.90 - Alcohol use, unspecified, uncomplicated (3) Cocaine use disorder: Status: Acute Code(s): F14.10 - Cocaine abuse, uncomplicated (4) Homelessness: Status: Acute Code(s): Z59.00 - Homelessness unspecified Plan Patient is a 69-year-old male with history of MDD, PTSD, cocaine use disorder alcohol use disorder who self presented to ER due to suicidal ideation and command auditory hallucinations secondary to medication noncompliance. Plan: CV 15 minute safety checks Continue home medications Obtain collateral Referral to outpatient psychiatric providers Encourage groups Encourage medication compliance Discharge planning Patient educated on: diagnosis and medication risk/benefits Reason for continued inpatient stay Substantial Risk for: harm to self and med/psych decompensation Statement Statement: I have reviewed the history and physical and performed a pertinent examination on my patient. No changes have occurred unless specified. If the History and Physical was not performed prior to admission, the Hospitalist's service will be consulted for completing the admission physical. Time Spent With Patient Time: Total time managing care of this patient today _60___ minutes.
[2024-12-23] MEDS: Nicotine 14 MG PATCH.TD24 TRANSDERMA (11:47)
[2024-12-23] MEDS: Aspirin Enteric Coated 81 MG TABLET.DR PO (11:48)
[2024-12-23] MEDS: Bictegrav/Emtricit/Tenofov Ala TABLET 1 TAB PO (11:48)
[2024-12-23] MEDS: OLANZapine 5 MG TABLET PO (11:51)
[2024-12-23 19:35] VITALS: BP 143/71; PULSE 80; RESP 16; TEMP 36.7; O2SAT 99
[2024-12-23] MEDS: QUEtiapine Fumarate 200 MG TABLET 500 MG PO (22:02)
[2024-12-24 07:38] VITALS: BP 111/70; PULSE 72; RESP 14; TEMP 36.4; O2SAT 98
--- NOTE | 2024-12-24 11:02 | P.PNPSI_ITS ---
Subjective Subjective Date of Service: 12/24/24 Reason For Visit: SI Subjective Notes: Conditional Voluntary Interim History: Patient signed 3 day notice then retracted. Patient stated, it's not your fault I signed a 3 day. I just need to go to the Social Security office to figure out why I'm not getting my checks . Patient reports feeling anxious; denies SI/HI/VH/AH. Patient reports he plans on returning to [facility] when discharged. Plan to discharge on Saturday if continues to improve. Medication Compliance: Yes Side effects from medications: No Attending Groups: Intermittent Mental Status Exam Mental Status Exam Narrative: Pt is alert and oriented; behavior is cooperative and calm; dressed in casual attire; mood is described as anxious ; eye contact appropriate; Speech is normal rate, volume and not pressured; thought process is organized and goal directed; Thought content is on discharge; denies SI/HI/VH/AH. Diagnostics Vital Signs (24Hr): Vital Signs - 24 hr 12/23/24 19:35 12/24/24 07:38 Temperature 98.0 F 97.5 F Pulse Rate 80 72 Respiratory Rate 16 14 Blood Pressure 143/71 H 111/70 Pulse Oximetry 99 98 Oxygen Delivery Method Room Air Room Air BMI result Body Mass Index 21.5 Labs 12/22/24 11:45 12/22/24 11:45 Labs: Laboratory Results - last 48 hr 12/22/24 11:45 WBC 5.1 RBC 4.36 L Hgb 14.2 Hct 41.2 L MCV 94.5 MCH 32.6 MCHC 34.5 RDW 15.1 Plt Count 135 L MPV 12.2 Immature Gran % (Auto) 0.2 Neut % (Auto) 56.9 Lymph % (Auto) 34.1 Wallace % (Auto) 8.2 Eos % (Auto) 0.2 Baso % (Auto) 0.4 Lymph # (Auto) 1.8 Wallace # (Auto) 0.4 Eos # (Auto) 0.0 Baso # (Auto) 0.0 Abs Immat Gran (auto) 0.01 Absolute Neuts (auto) 2.9 Absolute Nucleated RBC 0.000 Nucleated RBC % (auto) 0.0 Sodium 140 Potassium 4.0 Chloride 104 Carbon Dioxide 26 Anion Gap 14 BUN 16 Creatinine 0.77 Estim Creat Clear Calc 102.0 Estimated GFR > 60 Random Glucose 77 Calcium 9.8 Total Bilirubin 0.8 AST 110 H ALT 79 H Alkaline Phosphatase 83 Total Protein 8.6 H Albumin 4.0 Ethyl Alcohol 31 Medications Medications Current Medications Al Hydroxide/Mg Hydroxide (Magnesium Hydrox/Alum Hydrox 30 Ml Oral.Susp) 30 ml PO Q6H PRN PRN Reason: Heartburn/Nausea Aspirin (Aspirin Enteric Coated 81 Mg Tablet.) 81 mg PO DAILY [facility] Last Admin: 12/24/24 09:20 Dose: Not Given Bictegravir/Emtricitabine/Tenofovir (Bictegrav/Emtricit/Tenofov Ala Tablet) 1 tab PO DAILY [facility] Last Admin: 12/24/24 09:20 Dose: Not Given Hydroxyzine HCl (Hydroxyzine Hcl 25 Mg Tablet) 25 mg PO Q6H PRN PRN Reason: mild anxiety Lidocaine (Lidocaine 5 % Ointment 35 Gm) 1 appl TOPICAL TID PRN; Protocol PRN Reason: foot pain Magnesium Hydroxide (Milk Of Magnesia 30 Ml Oral.Susp) 30 ml PO DAILY PRN PRN Reason: Constipation Nicotine (Nicotine 14 Mg Patch.Td24) 14 mg TRANSDERMA DAILY [facility] Last Admin: 12/24/24 09:20 Dose: Not Given Nicotine Polacrilex (Nicotine Polacrilex 2 Mg Gum) 4 mg BUCCAL Q2H PRN PRN Reason: Nicotine Cravings Non-Formulary Medication (Buprenorphine) 1 patch TRANSDERMA Q7D [facility] Non-Formulary Medication (Valbenazine [Ingrezza]) 40 mg PO DAILY [facility] Olanzapine (Olanzapine 5 Mg Tablet) 5 mg PO Q4H PRN PRN Reason: Psychosis Last Admin: 12/23/24 11:51 Dose: 5 mg Ondansetron HCl (Ondansetron Odt 4 Mg Tab.Rapdis) 4 mg TRANSLINGU Q8H PRN PRN Reason: Nausea and Vomiting Quetiapine Fumarate (Quetiapine Fumarate 200 Mg Tablet) 500 mg PO BEDTIME [facility] Last Admin: 12/23/24 22:02 Dose: 500 mg Trazodone HCl (Trazodone Hcl 50 Mg Tablet) 50 mg PO BEDTIME MRX1 PRN PRN Reason: Insomnia Allergies Allergies Allergy/AdvReac Type Severity Reaction Status Date / Time acetaminophen [ACETAMINOPHEN] Allergy Mild rashes Verified 12/22/24 10:40 Assessment & Plan Assessment & Plan (1) MDD (major depressive disorder), recurrent episode, moderate: Status: Acute Code(s): F33.1 - Major depressive disorder, recurrent, moderate (2) Alcohol use disorder: Status: Acute Code(s): F10.90 - Alcohol use, unspecified, uncomplicated (3) Cocaine use disorder: Status: Acute Code(s): F14.10 - Cocaine abuse, uncomplicated (4) Homelessness: Status: Acute Code(s): Z59.00 - Homelessness unspecified Plan Patient is a 69-year-old male with history of MDD, PTSD, cocaine use disorder alcohol use disorder who self presented to ER due to suicidal ideation and command auditory hallucinations secondary to medication noncompliance. Plan: CV 15 minute safety checks Continue home medications Obtain collateral Referral to outpatient psychiatric providers Encourage groups Encourage medication compliance Discharge planning 12/24: Patient signed 3 day notice then retracted. Patient stated, it's not your fault I signed a 3 day. I just need to go to the Social Security office to figure out why I'm not getting my checks . Patient reports feeling anxious; denies SI/HI/VH/AH. Patient reports he plans on returning to [facility] when discharged. Plan to discharge on Saturday if continues to improve. Patient educated on: diagnosis, medication risk/benefits and therapeutic strategies Reason for continued inpatient stay Substantial Risk for: med/psych decompensation Time Spent With Patient Time: Total time managing care of this patient today _20___ minutes.
[2024-12-24] MEDS: BUPRENORPHINE 20 MCG/HR TRANSDERMA (12:10)
[2024-12-24 15:04] LABS: Estimated Average Glucose 94 mg/dL; Hemoglobin A1C 108.3863 umol/L; Hemoglobin A1c % 4.9 % (<6.0); Total Hemoglobin (HGBA1C) 3638.3243 umol/L
[2024-12-24 15:14] LABS: Alanine Aminotransferase 76 U/L (0-40); Albumin Level 3.6 g/dL (3.5-5.0); Anion Gap 13 (12-20); Aspartate Amino Transferase 99 U/L (5-37); Bilirubin Total 0.3 mg/dL (0.0-1.0); Blood Urea Nitrogen 21 mg/dL (9-16); Calcium 9.8 mg/dL (8.4-10.2); Carbon Dioxide 31 mmol/L (22-29); Chloride 103 mmol/L (96-108); Cholesterol 184 mg/dL (<200); Creatinine Clr Calc Pharmacy 75.8; Estimated Glomerular Filt Rate > 60; Glucose Random 92 mg/dL (60-115); HDL Cholesterol 88 mg/dL (>40); LDL Cholesterol Calculated 76 mg/dL (<100); Potassium 4.4 mmol/L (3.3-5.1); Sodium 143 mmol/L (135-145); Total Protein 7.9 g/dL (6.5-8.0); Triglycerides 100 mg/dL (<150)
[2024-12-24 15:19] LABS: Alkaline Phosphatase 100 U/L (39-117)
[2024-12-24 19:34] VITALS: BP 147/87; PULSE 90; RESP 16; TEMP 36.5; O2SAT 99
[2024-12-24] MEDS: Lidocaine 5 % Ointment 35 GM 1 APPL TOPICAL (22:24)
--- NOTE | 2024-12-25 10:07 | PC.NURSE ---
Pt refused vital signs to be obtained, refused AM meds including his HIV medication, aspirin, and nicotine patch. MD hodge.
[2024-12-25] MEDS: Bictegrav/Emtricit/Tenofov Ala TABLET 1 TAB PO (10:19)
[2024-12-25 10:20] VITALS: BP 157/90
[2024-12-25] MEDS: Aspirin Enteric Coated 81 MG TABLET.DR PO (10:20)
[2024-12-25] MEDS: cloNIDine HCL 0.1 MG TABLET PO ×2 (10:20→20:56)
[2024-12-25 10:21] VITALS: BP 157/90; PULSE 88; RESP 16; TEMP 36.2; O2SAT 99
[2024-12-25] MEDS: Lidocaine 5 % Ointment 35 GM 1 APPL TOPICAL (10:24)
--- NOTE | 2024-12-25 13:16 | P.PNPSI_ITS ---
Subjective Subjective Date of Service: 12/25/24 Reason For Visit: SI Interim History: states he wants to stay and take medications. meds reviewed, reconciled, prescribed. will give pt another chance to comply with treatment. c/o AH, asking for help. per staff, retracted 3-day notice. refused morning meds. irritable. not attending groups. angry and labile on eves. refused HS meds. Mental Status Exam Mental Status Exam Narrative: Pt is alert and oriented; behavior is cooperative and calm; dressed in casual attire; mood is not assessed. eye contact appropriate; Speech is normal incr rate and amount; thought process is organized and goal directed; Thought content is on wanting treatment with particular regimen; endorses AH. no SI/HI/VH expressed. Diagnostics Vital Signs (24Hr): Vital Signs - 24 hr 12/24/24 19:34 12/25/24 10:20 12/25/24 10:21 Temperature 97.7 F 97.1 F Pulse Rate 90 88 Respiratory Rate 16 16 Blood Pressure 147/87 H 157/90 H 157/90 H Pulse Oximetry 99 99 Oxygen Delivery Method Room Air Room Air BMI result Body Mass Index 21.5 Labs 12/22/24 11:45 12/24/24 14:30 Labs: Laboratory Results - last 48 hr 12/24/24 14:30 Sodium 143 Potassium 4.4 Chloride 103 Carbon Dioxide 31 H Anion Gap 13 BUN 21 H Creatinine 0.96 Estim Creat Clear Calc 75.8 Estimated GFR > 60 Random Glucose 92 Estimat Average Glucose 94 Hemoglobin A1c % 4.9 Calcium 9.8 Total Bilirubin 0.3 AST 99 H ALT 76 H Alkaline Phosphatase 100 Total Protein 7.9 Albumin 3.6 Triglycerides 100 Cholesterol 184 LDL Cholesterol, Calc 76 HDL Cholesterol 88 Medications Medications Current Medications Al Hydroxide/Mg Hydroxide (Magnesium Hydrox/Alum Hydrox 30 Ml Oral.Susp) 30 ml PO Q6H PRN PRN Reason: Heartburn/Nausea Aspirin (Aspirin Enteric Coated 81 Mg Tablet.) 81 mg PO DAILY [facility] Last Admin: 12/25/24 10:20 Dose: 81 mg Bictegravir/Emtricitabine/Tenofovir (Bictegrav/Emtricit/Tenofov Ala Tablet) 1 tab PO DAILY [facility] Last Admin: 12/25/24 10:19 Dose: 1 tab Buprenorphine (Buprenorphine 20 Mcg/Hr Patch.Tdwk) 20 mcg TRANSDERMA Q7D [facility] Last Admin: 12/24/24 12:10 Dose: 20 mcg Clonidine HCl (Clonidine Hcl 0.1 Mg Tablet) 0.1 mg PO BID [facility]; Protocol Last Admin: 12/25/24 10:20 Dose: 0.1 mg Hydroxyzine HCl (Hydroxyzine Hcl 25 Mg Tablet) 25 mg PO Q6H PRN PRN Reason: mild anxiety Lidocaine (Lidocaine 5 % Ointment 35 Gm) 1 appl TOPICAL TID PRN; Protocol PRN Reason: foot pain Last Admin: 12/25/24 10:24 Dose: 1 appl Lidocaine (Lidocaine 4 % Patch Adh..Patch) 1 patch TRANSDERMA DAILY PRN; Protocol PRN Reason: Pain, Mild (Pain Scale 1-3) Magnesium Hydroxide (Milk Of Magnesia 30 Ml Oral.Susp) 30 ml PO DAILY PRN PRN Reason: Constipation Melatonin (Melatonin 3 Mg Tablet) 3 mg PO BEDTIME [facility] Last Admin: 12/24/24 22:46 Dose: Not Given Nicotine (Nicotine 14 Mg Patch.Td24) 14 mg TRANSDERMA DAILY [facility] Last Admin: 12/25/24 09:11 Dose: Not Given Nicotine Polacrilex (Nicotine Polacrilex 2 Mg Gum) 4 mg BUCCAL Q2H PRN PRN Reason: Nicotine Cravings Non-Formulary Medication (Valbenazine [Ingrezza]) 40 mg PO DAILY [facility] Olanzapine (Olanzapine 5 Mg Tablet) 5 mg PO Q4H PRN PRN Reason: Psychosis Last Admin: 12/23/24 11:51 Dose: 5 mg Ondansetron HCl (Ondansetron Odt 4 Mg Tab.Rapdis) 4 mg TRANSLINGU Q8H PRN PRN Reason: Nausea and Vomiting Quetiapine Fumarate (Quetiapine Fumarate 50 Mg Tablet) 650 mg PO BEDTIME SABA Trazodone HCl (Trazodone Hcl 50 Mg Tablet) 150 mg PO BEDTIME [facility] Allergies Allergies Allergy/AdvReac Type Severity Reaction Status Date / Time acetaminophen [ACETAMINOPHEN] Allergy Mild rashes Verified 12/22/24 10:40 Assessment & Plan Assessment & Plan (1) MDD (major depressive disorder), recurrent episode, moderate: Status: Acute Code(s): F33.1 - Major depressive disorder, recurrent, moderate (2) Alcohol use disorder: Status: Acute Code(s): F10.90 - Alcohol use, unspecified, uncomplicated (3) Cocaine use disorder: Status: Acute Code(s): F14.10 - Cocaine abuse, uncomplicated (4) Homelessness: Status: Acute Code(s): Z59.00 - Homelessness unspecified Plan Patient is a 69-year-old male with history of MDD, PTSD, cocaine use disorder alcohol use disorder who self presented to ER due to suicidal ideation and command auditory hallucinations secondary to medication noncompliance. Plan: CV 15 minute safety checks Continue home medications Obtain collateral Referral to outpatient psychiatric providers Encourage groups Encourage medication compliance Discharge planning 12/24: Patient signed 3 day notice then retracted. Patient stated, it's not your fault I signed a 3 day. I just need to go to the Social Security office to figure out why I'm not getting my checks . Patient reports feeling anxious; denies SI/HI/VH/AH. Patient reports he plans on returning to [facility] when discharged. Plan to discharge on Saturday if continues to improve. 12/25: c/o AH, asking for seroquel increase to 650 QHS and to start clonidine 0.1 BID and trazodone 150. changes made, will give pt another opportunity to comply with recommended Tx. Reason for continued inpatient stay Substantial Risk for: inability to function and rapid decompensation Time Spent With Patient Time: Total time managing care of this patient today __25__ minutes.
[2024-12-25 20:00] VITALS: BP 140/87; PULSE 98; RESP 18; TEMP 36.4; O2SAT 97
[2024-12-25 20:56] VITALS: BP 140/87
[2024-12-25] MEDS: OLANZapine 5 MG TABLET PO (20:56)
[2024-12-25] MEDS: hydrOXYzine HCL 25 MG TABLET PO (20:56)
[2024-12-25] MEDS: QUEtiapine Fumarate 50 MG TABLET 650 MG PO (21:03)
[2024-12-25] MEDS: Melatonin 3 MG TABLET PO (21:07)
[2024-12-25] MEDS: traZODone HCL 50 MG TABLET 150 MG PO (21:07)
[2024-12-26 08:00] VITALS: BP 134/82; PULSE 86; RESP 12; TEMP 36.6; O2SAT 97
[2024-12-26 08:52] VITALS: BP 134/82
[2024-12-26] MEDS: cloNIDine HCL 0.1 MG TABLET PO ×2 (08:52→20:51)
[2024-12-26] MEDS: Aspirin Enteric Coated 81 MG TABLET.DR PO (08:52)
[2024-12-26] MEDS: Bictegrav/Emtricit/Tenofov Ala TABLET 1 TAB PO (08:52)
[2024-12-26] MEDS: Lidocaine 5 % Ointment 35 GM 1 APPL TOPICAL ×3 (10:00→20:55)
[2024-12-26 13:55] LABS: Amphetamine Screen Urine Not Detected (Not Detect); Barbiturates, Urine Not Detected (Not Detect); Benzodiazepines Screen Urine Not Detected (Not Detect); Buprenorphine Scr Not Detected (Not Detect); Cannabinoid Screen Urine POSITIVE (Not Detect); Cocaine Screen Urine Not Detected (Not Detect); Fentanyl, urine Not Detected (Not Detect); Methadone Screen, Urine Not Detected (Not Detect); Opiate Screen Urine Not Detected (Not Detect); Oxycodone Screen Urine Not Detected (Not Detect); Phencyclidine Screen Urine Not Detected (Not Detect)
[2024-12-26 13:57] LABS: Appearance Urine Cloudy; Color Urine Yellow; Glucose Urine UA Negative (Negative); Leukocyte Esterase Urine Trace (Negative); Nitrite Urine Negative (Negative); UMIC TRIGGER UACC YES; Urine Blood Negative (Negative); Urine Ketones Trace mg/dL (Negative); Urine Protein Negative (Neg-Trace)
[2024-12-26 14:02] LABS: Bacteria Urine None Seen (None Seen); Hyaline Casts Urine 0-2 /LPF (0-2); RBC Urine 0-2 /HPF (0-2); Squamous Epithelial Cell Urine 0-2 /HPF (0-2); WBC Urine 0-5 /HPF (0-5)
--- NOTE | 2024-12-26 19:27 | HO.PSYCHPN ---
Subjective Subjective Date of Service: 12/26/24 Reason For Visit: SI Interim History: calm, cooperative. slept well. per staff, irritable, angry re medications. calmed after discussion shakira PATTEN, med changes made. poor sleep, but seroquel was helpful. denies dep/anx. slept 8 hours last night. Mental Status Exam Mental Status Exam Narrative: Pt is alert and oriented; behavior is cooperative and calm; dressed in casual attire; mood is not assessed. eye contact appropriate; Speech is incr rate and amount; thought process is organized and goal directed; Thought content is on wanting treatment with particular regimen; no SI/HI/AVH expressed. Diagnostics Vital Signs (24Hr): Vital Signs - 24 hr 12/25/24 20:00 12/25/24 20:56 12/26/24 08:00 Temperature 97.6 F 97.8 F Pulse Rate 98 86 Respiratory Rate 18 12 Blood Pressure 140/87 H 140/87 H 134/82 Pulse Oximetry 97 97 Oxygen Delivery Method Room Air 12/26/24 08:52 Temperature Pulse Rate Respiratory Rate Blood Pressure 134/82 Pulse Oximetry Oxygen Delivery Method BMI result Body Mass Index 21.5 Labs 12/22/24 11:45 12/24/24 14:30 Labs: Laboratory Results - last 48 hr 12/26/24 13:20 Urine Color Yellow Urine Appearance Cloudy Urine pH 8.0 Ur Specific [place] 1.020 Urine Protein Negative Urine Glucose (UA) Negative Urine Ketones Trace Urine Blood Negative Urine Nitrite Negative Ur Leukocyte Esterase Trace H Urine RBC 0-2 Urine WBC 0-5 Ur Squamous Epith Cells 0-2 Urine Bacteria None Seen Hyaline Casts 0-2 Urine Opiates Screen Not Detected Ur Buprenorphine Scrn Not Detected Ur Oxycodone Screen Not Detected Urine Methadone Screen Not Detected Urine Fentanyl Screen Not Detected Ur Barbiturates Screen Not Detected Ur Phencyclidine Scrn Not Detected Ur Amphetamines Screen Not Detected U Benzodiazepines Scrn Not Detected Urine Cocaine Screen Not Detected U Marijuana (THC) Screen POSITIVE H Medications Medications Current Medications Al Hydroxide/Mg Hydroxide (Magnesium Hydrox/Alum Hydrox 30 Ml Oral.Susp) 30 ml PO Q6H PRN PRN Reason: Heartburn/Nausea Aspirin (Aspirin Enteric Coated 81 Mg Tablet.) 81 mg PO DAILY [facility] Last Admin: 12/26/24 08:52 Dose: 81 mg Bictegravir/Emtricitabine/Tenofovir (Bictegrav/Emtricit/Tenofov Ala Tablet) 1 tab PO DAILY [facility] Last Admin: 12/26/24 08:52 Dose: 1 tab Buprenorphine (Buprenorphine 20 Mcg/Hr Patch.Tdwk) 20 mcg TRANSDERMA Q7D [facility] Last Admin: 12/24/24 12:10 Dose: 20 mcg Clonidine HCl (Clonidine Hcl 0.1 Mg Tablet) 0.1 mg PO BID [facility]; Protocol Last Admin: 12/26/24 08:52 Dose: 0.1 mg Hydroxyzine HCl (Hydroxyzine Hcl 25 Mg Tablet) 25 mg PO Q6H PRN PRN Reason: mild anxiety Last Admin: 12/25/24 20:56 Dose: 25 mg Lidocaine (Lidocaine 5 % Ointment 35 Gm) 1 appl TOPICAL TID PRN; Protocol PRN Reason: foot pain Last Admin: 12/26/24 14:06 Dose: 1 appl Lidocaine (Lidocaine 4 % Patch Adh..Patch) 1 patch TRANSDERMA DAILY PRN; Protocol PRN Reason: Pain, Mild (Pain Scale 1-3) Magnesium Hydroxide (Milk Of Magnesia 30 Ml Oral.Susp) 30 ml PO DAILY PRN PRN Reason: Constipation Melatonin (Melatonin 3 Mg Tablet) 3 mg PO BEDTIME [facility] Last Admin: 12/25/24 21:07 Dose: 3 mg Nicotine (Nicotine 14 Mg Patch.Td24) 14 mg TRANSDERMA DAILY [facility] Last Admin: 12/26/24 10:04 Dose: Not Given Nicotine Polacrilex (Nicotine Polacrilex 2 Mg Gum) 4 mg BUCCAL Q2H PRN PRN Reason: Nicotine Cravings Olanzapine (Olanzapine 5 Mg Tablet) 5 mg PO Q4H PRN PRN Reason: Psychosis Last Admin: 12/25/24 20:56 Dose: 5 mg Ondansetron HCl (Ondansetron Odt 4 Mg Tab.Rapdis) 4 mg TRANSLINGU Q8H PRN PRN Reason: Nausea and Vomiting Quetiapine Fumarate 600 mg/ (Quetiapine Fumarate 50 mg) 650 mg PO BEDTIME [facility] Trazodone HCl (Trazodone Hcl 50 Mg Tablet) 150 mg PO BEDTIME [facility] Last Admin: 12/25/24 21:07 Dose: 150 mg Allergies Allergies Allergy/AdvReac Type Severity Reaction Status Date / Time acetaminophen [ACETAMINOPHEN] Allergy Mild rashes Verified 12/22/24 10:40 Assessment & Plan Assessment & Plan (1) MDD (major depressive disorder), recurrent episode, moderate: Status: Acute Code(s): F33.1 - Major depressive disorder, recurrent, moderate (2) Alcohol use disorder: Status: Acute Code(s): F10.90 - Alcohol use, unspecified, uncomplicated (3) Cocaine use disorder: Status: Acute Code(s): F14.10 - Cocaine abuse, uncomplicated (4) Homelessness: Status: Acute Code(s): Z59.00 - Homelessness unspecified Plan Patient is a 69-year-old male with history of MDD, PTSD, cocaine use disorder alcohol use disorder who self presented to ER due to suicidal ideation and command auditory hallucinations secondary to medication noncompliance. Plan: CV 15 minute safety checks Continue home medications Obtain collateral Referral to outpatient psychiatric providers Encourage groups Encourage medication compliance Discharge planning 12/24: Patient signed 3 day notice then retracted. Patient stated, it's not your fault I signed a 3 day. I just need to go to the Social Security office to figure out why I'm not getting my checks . Patient reports feeling anxious; denies SI/HI/VH/AH. Patient reports he plans on returning to [facility] when discharged. Plan to discharge on Saturday if continues to improve. 5/2: c/o AH, asking for seroquel increase to 650 QHS and to start clonidine 0.1 BID and trazodone 150. changes made, will give pt another opportunity to comply with recommended Tx. 5/3: slept better last night, appears satisfied with regimen currently. continue current mgmt. Reason for continued inpatient stay Substantial Risk for: inability to function and rapid decompensation Time Spent With Patient Time: Total time managing care of this patient today ____ minutes.
[2024-12-26 20:00] VITALS: BP 111/67; PULSE 84; RESP 16; TEMP 36.9; O2SAT 98
[2024-12-26] MEDS: QUETIAPINE FUMARATE 650 MG PO (20:50)
[2024-12-26 20:51] VITALS: BP 111/67
[2024-12-26] MEDS: OLANZapine 5 MG TABLET PO (20:51)
[2024-12-26] MEDS: traZODone HCL 50 MG TABLET 150 MG PO (20:51)
[2024-12-26] MEDS: Melatonin 3 MG TABLET PO (20:52)
[2024-12-27 08:00] VITALS: BP 157/85; PULSE 107; RESP 18; TEMP 36.6; O2SAT 95
[2024-12-27 09:13] VITALS: BP 157/89
[2024-12-27] MEDS: cloNIDine HCL 0.1 MG TABLET PO ×2 (09:13→21:49)
[2024-12-27] MEDS: Bictegrav/Emtricit/Tenofov Ala TABLET 1 TAB PO (09:13)
[2024-12-27] MEDS: Aspirin Enteric Coated 81 MG TABLET.DR PO (09:13)
[2024-12-27] MEDS: Lidocaine 5 % Ointment 35 GM 1 APPL TOPICAL ×3 (09:15→21:46)
--- NOTE | 2024-12-27 15:50 | P.PNPSI_ITS ---
Subjective Subjective Date of Service: 12/27/24 Reason For Visit: SI Interim History: sleepy, no requests or complaints. per staff, sleeping a lot. anxious and depressed. eating well. expressing SI. irritable, preoccupied. Mental Status Exam Mental Status Exam Narrative: Pt is somnolent and oriented; behavior is cooperative and calm; dressed in casual attire; mood is not assessed. eye contact appropriate; Speech is incr rate and decr amount; thought process is organized and goal directed; Thought content not notable for delusions or paranoia; no SI/HI/AVH expressed; SI expressed to RN. Diagnostics Vital Signs (24Hr): Vital Signs - 24 hr 12/26/24 20:00 12/26/24 20:51 12/27/24 08:00 Temperature 98.4 F 97.8 F Pulse Rate 84 107 H Respiratory Rate 16 18 Blood Pressure 111/67 111/67 157/85 H Pulse Oximetry 98 95 Oxygen Delivery Method Room Air Room Air 12/27/24 09:13 Temperature Pulse Rate Respiratory Rate Blood Pressure 157/89 H Pulse Oximetry Oxygen Delivery Method BMI result Body Mass Index 21.5 Labs 12/22/24 11:45 12/24/24 14:30 Labs: Laboratory Results - last 48 hr 12/26/24 13:20 Urine Color Yellow Urine Appearance Cloudy Urine pH 8.0 Ur Specific [place] 1.020 Urine Protein Negative Urine Glucose (UA) Negative Urine Ketones Trace Urine Blood Negative Urine Nitrite Negative Ur Leukocyte Esterase Trace H Urine RBC 0-2 Urine WBC 0-5 Ur Squamous Epith Cells 0-2 Urine Bacteria None Seen Hyaline Casts 0-2 Urine Opiates Screen Not Detected Ur Buprenorphine Scrn Not Detected Ur Oxycodone Screen Not Detected Urine Methadone Screen Not Detected Urine Fentanyl Screen Not Detected Ur Barbiturates Screen Not Detected Ur Phencyclidine Scrn Not Detected Ur Amphetamines Screen Not Detected U Benzodiazepines Scrn Not Detected Urine Cocaine Screen Not Detected U Marijuana (THC) Screen POSITIVE H Medications Medications Current Medications Al Hydroxide/Mg Hydroxide (Magnesium Hydrox/Alum Hydrox 30 Ml Oral.Susp) 30 ml PO Q6H PRN PRN Reason: Heartburn/Nausea Aspirin (Aspirin Enteric Coated 81 Mg Tablet.) 81 mg PO DAILY [facility] Last Admin: 12/27/24 09:13 Dose: 81 mg Bictegravir/Emtricitabine/Tenofovir (Bictegrav/Emtricit/Tenofov Ala Tablet) 1 tab PO DAILY [facility] Last Admin: 12/27/24 09:13 Dose: 1 tab Buprenorphine (Buprenorphine 20 Mcg/Hr Patch.Tdwk) 20 mcg TRANSDERMA Q7D [facility] Last Admin: 12/24/24 12:10 Dose: 20 mcg Clonidine HCl (Clonidine Hcl 0.1 Mg Tablet) 0.1 mg PO BID [facility]; Protocol Last Admin: 12/27/24 09:13 Dose: 0.1 mg Hydroxyzine HCl (Hydroxyzine Hcl 25 Mg Tablet) 25 mg PO Q6H PRN PRN Reason: mild anxiety Last Admin: 12/25/24 20:56 Dose: 25 mg Lidocaine (Lidocaine 5 % Ointment 35 Gm) 1 appl TOPICAL TID PRN; Protocol PRN Reason: foot pain Last Admin: 12/27/24 14:32 Dose: 1 appl Lidocaine (Lidocaine 4 % Patch Adh..Patch) 1 patch TRANSDERMA DAILY PRN; Protocol PRN Reason: Pain, Mild (Pain Scale 1-3) Magnesium Hydroxide (Milk Of Magnesia 30 Ml Oral.Susp) 30 ml PO DAILY PRN PRN Reason: Constipation Melatonin (Melatonin 3 Mg Tablet) 3 mg PO BEDTIME [facility] Last Admin: 12/26/24 20:52 Dose: 3 mg Nicotine (Nicotine 14 Mg Patch.Td24) 14 mg TRANSDERMA DAILY [facility] Last Admin: 12/27/24 09:15 Dose: Not Given Nicotine Polacrilex (Nicotine Polacrilex 2 Mg Gum) 4 mg BUCCAL Q2H PRN PRN Reason: Nicotine Cravings Olanzapine (Olanzapine 5 Mg Tablet) 5 mg PO Q4H PRN PRN Reason: Psychosis Last Admin: 12/26/24 20:51 Dose: 5 mg Ondansetron HCl (Ondansetron Odt 4 Mg Tab.Rapdis) 4 mg TRANSLINGU Q8H PRN PRN Reason: Nausea and Vomiting Quetiapine Fumarate 600 mg/ (Quetiapine Fumarate 50 mg) 650 mg PO BEDTIME [facility] Last Admin: 12/26/24 20:50 Dose: 650 mg Trazodone HCl (Trazodone Hcl 50 Mg Tablet) 150 mg PO BEDTIME [facility] Last Admin: 12/26/24 20:51 Dose: 150 mg Allergies Allergies Allergy/AdvReac Type Severity Reaction Status Date / Time acetaminophen [ACETAMINOPHEN] Allergy Mild rashes Verified 12/22/24 10:40 Assessment & Plan Assessment & Plan (1) MDD (major depressive disorder), recurrent episode, moderate: Status: Acute Code(s): F33.1 - Major depressive disorder, recurrent, moderate (2) Alcohol use disorder: Status: Acute Code(s): F10.90 - Alcohol use, unspecified, uncomplicated (3) Cocaine use disorder: Status: Acute Code(s): F14.10 - Cocaine abuse, uncomplicated (4) Homelessness: Status: Acute Code(s): Z59.00 - Homelessness unspecified Plan Patient is a 69-year-old male with history of MDD, PTSD, cocaine use disorder alcohol use disorder who self presented to ER due to suicidal ideation and command auditory hallucinations secondary to medication noncompliance. Plan: CV 15 minute safety checks Continue home medications Obtain collateral Referral to outpatient psychiatric providers Encourage groups Encourage medication compliance Discharge planning 12/24: Patient signed 3 day notice then retracted. Patient stated, it's not your fault I signed a 3 day. I just need to go to the Social Security office to figure out why I'm not getting my checks . Patient reports feeling anxious; denies SI/HI/VH/AH. Patient reports he plans on returning to [facility] when discharged. Plan to discharge on Saturday if continues to improve. 5/2: c/o AH, asking for seroquel increase to 650 QHS and to start clonidine 0.1 BID and trazodone 150. changes made, will give pt another opportunity to comply with recommended Tx. 5/3: slept better last night, appears satisfied with regimen currently. continue current mgmt. 5/4: sleeping a lot, somnolent this morning and remained in bed. expressed SI to RN yesterday. continue current mgmt. Reason for continued inpatient stay Substantial Risk for: harm to self and rapid decompensation Time Spent With Patient Time: Total time managing care of this patient today ____ minutes.
[2024-12-27 20:00] VITALS: BP 110/62; PULSE 99; RESP 16; TEMP 36.8; O2SAT 97
[2024-12-27] MEDS: Melatonin 3 MG TABLET PO (21:48)
[2024-12-27] MEDS: QUETIAPINE FUMARATE 650 MG PO (21:48)
[2024-12-27 21:49] VITALS: BP 117/72
[2024-12-28 08:20] VITALS: BP 117/68; PULSE 81; RESP 18; TEMP 36.7; O2SAT 81
[2024-12-28 08:29] VITALS: BP 117/68
[2024-12-28] MEDS: cloNIDine HCL 0.1 MG TABLET PO ×2 (08:29→20:22)
[2024-12-28] MEDS: Bictegrav/Emtricit/Tenofov Ala TABLET 1 TAB PO (08:29)
[2024-12-28] MEDS: Aspirin Enteric Coated 81 MG TABLET.DR PO (08:29)
[2024-12-28] MEDS: Lidocaine 5 % Ointment 35 GM 1 APPL TOPICAL ×2 (08:36→14:49)
--- NOTE | 2024-12-28 12:32 | P.PNPSI_ITS ---
Subjective Subjective Date of Service: 12/28/24 Reason For Visit: SI Interim History: doesn't want to stay in [facility] in [place]. looking to stay at [facility]. calling himself. asking for DC. future-oriented, thinking of getting his financial affairs in order. feels well with current regimen. per staff, hyperverbal. +AH. passive SI. c/o cravings. irritable. apologetic. slept 6 hours. planning for DC. Mental Status Exam Mental Status Exam Narrative: Pt is alert and oriented; behavior is cooperative and hypermotoric; dressed in casual attire; mood is improved. eye contact appropriate; Speech is incr rate and amount; thought process is organized and goal directed; Thought content not notable for delusions or paranoia; no SI/HI/AVH expressed. Diagnostics Vital Signs (24Hr): Vital Signs - 24 hr 12/27/24 20:00 12/27/24 21:49 12/28/24 08:20 Temperature 98.3 F 98.0 F Pulse Rate 99 81 Respiratory Rate 16 18 Blood Pressure 110/62 117/72 117/68 Pulse Oximetry 97 81 L Oxygen Delivery Method Room Air Room Air 12/28/24 08:29 Temperature Pulse Rate Respiratory Rate Blood Pressure 117/68 Pulse Oximetry Oxygen Delivery Method BMI result Body Mass Index 21.5 Labs 12/22/24 11:45 12/24/24 14:30 Labs: Laboratory Results - last 48 hr 12/26/24 13:20 Urine Color Yellow Urine Appearance Cloudy Urine pH 8.0 Ur Specific [place] 1.020 Urine Protein Negative Urine Glucose (UA) Negative Urine Ketones Trace Urine Blood Negative Urine Nitrite Negative Ur Leukocyte Esterase Trace H Urine RBC 0-2 Urine WBC 0-5 Ur Squamous Epith Cells 0-2 Urine Bacteria None Seen Hyaline Casts 0-2 Urine Opiates Screen Not Detected Ur Buprenorphine Scrn Not Detected Ur Oxycodone Screen Not Detected Urine Methadone Screen Not Detected Urine Fentanyl Screen Not Detected Ur Barbiturates Screen Not Detected Ur Phencyclidine Scrn Not Detected Ur Amphetamines Screen Not Detected U Benzodiazepines Scrn Not Detected Urine Cocaine Screen Not Detected U Marijuana (THC) Screen POSITIVE H Medications Medications Current Medications Al Hydroxide/Mg Hydroxide (Magnesium Hydrox/Alum Hydrox 30 Ml Oral.Susp) 30 ml PO Q6H PRN PRN Reason: Heartburn/Nausea Aspirin (Aspirin Enteric Coated 81 Mg Tablet.Dr) 81 mg PO DAILY [facility] Last Admin: 12/28/24 08:29 Dose: 81 mg Bictegravir/Emtricitabine/Tenofovir (Bictegrav/Emtricit/Tenofov Ala Tablet) 1 tab PO DAILY [facility] Last Admin: 12/28/24 08:29 Dose: 1 tab Buprenorphine (Buprenorphine 20 Mcg/Hr Patch.Tdwk) 20 mcg TRANSDERMA Q7D [facility] Last Admin: 12/24/24 12:10 Dose: 20 mcg Clonidine HCl (Clonidine Hcl 0.1 Mg Tablet) 0.1 mg PO BID [facility]; Protocol Last Admin: 12/28/24 08:29 Dose: 0.1 mg Hydroxyzine HCl (Hydroxyzine Hcl 25 Mg Tablet) 25 mg PO Q6H PRN PRN Reason: mild anxiety Last Admin: 12/25/24 20:56 Dose: 25 mg Lidocaine (Lidocaine 5 % Ointment 35 Gm) 1 appl TOPICAL TID PRN; Protocol PRN Reason: foot pain Last Admin: 12/28/24 08:36 Dose: 1 appl Lidocaine (Lidocaine 4 % Patch Adh..Patch) 1 patch TRANSDERMA DAILY PRN; Protocol PRN Reason: Pain, Mild (Pain Scale 1-3) Magnesium Hydroxide (Milk Of Magnesia 30 Ml Oral.Susp) 30 ml PO DAILY PRN PRN Reason: Constipation Melatonin (Melatonin 3 Mg Tablet) 3 mg PO BEDTIME [facility] Last Admin: 12/27/24 21:48 Dose: 3 mg Nicotine (Nicotine 14 Mg Patch.Td24) 14 mg TRANSDERMA DAILY [facility] Last Admin: 12/28/24 09:25 Dose: Not Given Nicotine Polacrilex (Nicotine Polacrilex 2 Mg Gum) 4 mg BUCCAL Q2H PRN PRN Reason: Nicotine Cravings Olanzapine (Olanzapine 5 Mg Tablet) 5 mg PO Q4H PRN PRN Reason: Psychosis Last Admin: 12/26/24 20:51 Dose: 5 mg Ondansetron HCl (Ondansetron Odt 4 Mg Tab.Rapdis) 4 mg TRANSLINGU Q8H PRN PRN Reason: Nausea and Vomiting Quetiapine Fumarate 600 mg/ (Quetiapine Fumarate 50 mg) 650 mg PO BEDTIME [facility] Last Admin: 12/27/24 21:48 Dose: 650 mg Trazodone HCl (Trazodone Hcl 50 Mg Tablet) 150 mg PO BEDTIME [facility] Last Admin: 12/27/24 21:54 Dose: Not Given Allergies Allergies Allergy/AdvReac Type Severity Reaction Status Date / Time acetaminophen [ACETAMINOPHEN] Allergy Mild rashes Verified 12/22/24 10:40 Assessment & Plan Assessment & Plan (1) MDD (major depressive disorder), recurrent episode, moderate: Status: Acute Code(s): F33.1 - Major depressive disorder, recurrent, moderate (2) Alcohol use disorder: Status: Acute Code(s): F10.90 - Alcohol use, unspecified, uncomplicated (3) Cocaine use disorder: Status: Acute Code(s): F14.10 - Cocaine abuse, uncomplicated (4) Homelessness: Status: Acute Code(s): Z59.00 - Homelessness unspecified Plan Patient is a 69-year-old male with history of MDD, PTSD, cocaine use disorder alcohol use disorder who self presented to ER due to suicidal ideation and command auditory hallucinations secondary to medication noncompliance. Plan: CV 15 minute safety checks Continue home medications Obtain collateral Referral to outpatient psychiatric providers Encourage groups Encourage medication compliance Discharge planning 12/24: Patient signed 3 day notice then retracted. Patient stated, it's not your fault I signed a 3 day. I just need to go to the Social Security office to figure out why I'm not getting my checks . Patient reports feeling anxious; denies SI/HI/VH/AH. Patient reports he plans on returning to [facility] when discharged. Plan to discharge on Saturday if continues to improve. 5/2: c/o AH, asking for seroquel increase to 650 QHS and to start clonidine 0.1 BID and trazodone 150. changes made, will give pt another opportunity to comply with recommended Tx. 5/3: slept better last night, appears satisfied with regimen currently. continue current mgmt. 5/4: sleeping a lot, somnolent this morning and remained in bed. expressed SI to RN yesterday. continue current mgmt. 5/5: up and about today. calling for a bed at [facility]. happy with meds as they are. future-oriented. asking for discharge. Reason for continued inpatient stay Substantial Risk for: inability to function and rapid decompensation Time Spent With Patient Time: Total time managing care of this patient today ___25_ minutes.
[2024-12-28 19:40] VITALS: BP 121/77; PULSE 92; RESP 16; TEMP 36.9; O2SAT 97
[2024-12-28] MEDS: traZODone HCL 50 MG TABLET 150 MG PO (20:22)
[2024-12-28] MEDS: Melatonin 3 MG TABLET PO (20:22)
[2024-12-28] MEDS: QUETIAPINE FUMARATE 650 MG PO (20:23)
[2024-12-29 07:15] VITALS: BP 141/79; PULSE 73; RESP 14; TEMP 37.1; O2SAT 97
--- NOTE | 2024-12-29 09:30 | HO.PSYCHPN ---
Subjective Subjective Date of Service: 12/29/24 Reason For Visit: SI Subjective Notes: Conditional Voluntary Interim History: Active on unit. frequently seen using unit phone. Patient reports feeling ready for discharge on ; pt reports he plans on going to [facility].He reports mood has improved. denies SI/HI/VH/AH. per nursing, slept 8 hours last night. Medication Compliance: Yes Side effects from medications: No Attending Groups: No Mental Status Exam Mental Status Exam Narrative: Pt is alert and oriented; behavior is cooperative and calm; dressed in casual attire; mood is described as good ; eye contact appropriate; Speech is normal rate, volume and not pressured; thought process is organized and goal directed; Thought content is on tx; denies SI/HI/VH/AH. Diagnostics Vital Signs (24Hr): Vital Signs - 24 hr 12/28/24 19:40 12/29/24 07:15 Temperature 98.4 F 98.8 F Pulse Rate 92 73 Respiratory Rate 16 14 Blood Pressure 121/77 141/79 H Pulse Oximetry 97 97 Oxygen Delivery Method Room Air Room Air BMI result Body Mass Index 21.5 Labs 12/22/24 11:45 12/24/24 14:30 Medications Medications Current Medications Al Hydroxide/Mg Hydroxide (Magnesium Hydrox/Alum Hydrox 30 Ml Oral.Susp) 30 ml PO Q6H PRN PRN Reason: Heartburn/Nausea Aspirin (Aspirin Enteric Coated 81 Mg Tablet.Dr) 81 mg PO DAILY [facility] Last Admin: 12/29/24 09:20 Dose: Not Given Bictegravir/Emtricitabine/Tenofovir (Bictegrav/Emtricit/Tenofov Ala Tablet) 1 tab PO DAILY [facility] Last Admin: 12/29/24 09:20 Dose: Not Given Buprenorphine (Buprenorphine 20 Mcg/Hr Patch.Tdwk) 20 mcg TRANSDERMA Q7D [facility] Last Admin: 12/24/24 12:10 Dose: 20 mcg Clonidine HCl (Clonidine Hcl 0.1 Mg Tablet) 0.1 mg PO BID [facility]; Protocol Last Admin: 12/29/24 09:20 Dose: Not Given Hydroxyzine HCl (Hydroxyzine Hcl 25 Mg Tablet) 25 mg PO Q6H PRN PRN Reason: mild anxiety Last Admin: 12/25/24 20:56 Dose: 25 mg Lidocaine (Lidocaine 5 % Ointment 35 Gm) 1 appl TOPICAL TID PRN; Protocol PRN Reason: foot pain Last Admin: 12/28/24 14:49 Dose: 1 appl Lidocaine (Lidocaine 4 % Patch Adh..Patch) 1 patch TRANSDERMA DAILY PRN; Protocol PRN Reason: Pain, Mild (Pain Scale 1-3) Magnesium Hydroxide (Milk Of Magnesia 30 Ml Oral.Susp) 30 ml PO DAILY PRN PRN Reason: Constipation Melatonin (Melatonin 3 Mg Tablet) 3 mg PO BEDTIME [facility] Last Admin: 12/28/24 20:22 Dose: 3 mg Nicotine (Nicotine 14 Mg Patch.Td24) 14 mg TRANSDERMA DAILY [facility] Last Admin: 12/29/24 09:18 Dose: Not Given Nicotine Polacrilex (Nicotine Polacrilex 2 Mg Gum) 4 mg BUCCAL Q2H PRN PRN Reason: Nicotine Cravings Olanzapine (Olanzapine 5 Mg Tablet) 5 mg PO Q4H PRN PRN Reason: Psychosis Last Admin: 12/26/24 20:51 Dose: 5 mg Ondansetron HCl (Ondansetron Odt 4 Mg Tab.Rapdis) 4 mg TRANSLINGU Q8H PRN PRN Reason: Nausea and Vomiting Quetiapine Fumarate 600 mg/ (Quetiapine Fumarate 50 mg) 650 mg PO BEDTIME [facility] Last Admin: 12/28/24 20:23 Dose: 650 mg Trazodone HCl (Trazodone Hcl 50 Mg Tablet) 150 mg PO BEDTIME [facility] Last Admin: 12/28/24 20:22 Dose: 150 mg Allergies Allergies Allergy/AdvReac Type Severity Reaction Status Date / Time acetaminophen [ACETAMINOPHEN] Allergy Mild rashes Verified 12/22/24 10:40 Assessment & Plan Assessment & Plan (1) MDD (major depressive disorder), recurrent episode, moderate: Status: Acute Code(s): F33.1 - Major depressive disorder, recurrent, moderate (2) Alcohol use disorder: Status: Acute Code(s): F10.90 - Alcohol use, unspecified, uncomplicated (3) Cocaine use disorder: Status: Acute Code(s): F14.10 - Cocaine abuse, uncomplicated (4) Homelessness: Status: Acute Code(s): Z59.00 - Homelessness unspecified Plan Patient is a 69-year-old male with history of MDD, PTSD, cocaine use disorder alcohol use disorder who self presented to ER due to suicidal ideation and command auditory hallucinations secondary to medication noncompliance. Plan: CV 15 minute safety checks Continue home medications Obtain collateral Referral to outpatient psychiatric providers Encourage groups Encourage medication compliance Discharge planning 12/24: Patient signed 3 day notice then retracted. Patient stated, it's not your fault I signed a 3 day. I just need to go to the Social Security office to figure out why I'm not getting my checks . Patient reports feeling anxious; denies SI/HI/VH/AH. Patient reports he plans on returning to [facility] when discharged. Plan to discharge on Saturday if continues to improve. 12/25: c/o AH, asking for seroquel increase to 650 QHS and to start clonidine 0.1 BID and trazodone 150. changes made, will give pt another opportunity to comply with recommended Tx. 12/26: slept better last night, appears satisfied with regimen currently. continue current mgmt. 5/: sleeping a lot, somnolent this morning and remained in bed. expressed SI to RN yesterday. continue current mgmt. /5: up and about today. calling for a bed at [facility]. happy with meds as they are. future-oriented. asking for discharge. 12/29: Active on unit. frequently seen using unit phone. Patient reports feeling ready for discharge on ; pt reports he plans on going to [facility].He reports mood has improved. denies SI/HI/VH/AH. per nursing, slept 8 hours last night. Continue current tx plan. Patient educated on: diagnosis and medication risk/benefits Reason for continued inpatient stay Substantial Risk for: med/psych decompensation Time Spent With Patient Time: Total time managing care of this patient today _20___ minutes.
[2024-12-29] MEDS: Lidocaine 5 % Ointment 35 GM 1 APPL TOPICAL ×2 (12:57→20:56)
[2024-12-29 20:47] VITALS: BP 137/83; PULSE 85; RESP 16; TEMP 37.2; O2SAT 98
[2024-12-29] MEDS: traZODone HCL 50 MG TABLET 150 MG PO (20:57)
[2024-12-29] MEDS: Melatonin 3 MG TABLET PO (20:58)
[2024-12-29] MEDS: cloNIDine HCL 0.1 MG TABLET PO (20:58)
[2024-12-29] MEDS: QUETIAPINE FUMARATE 650 MG PO (20:58)
[2024-12-30 08:45] VITALS: BP 171/90; PULSE 92; RESP 18; TEMP 36.9; O2SAT 97
[2024-12-30] MEDS: Aspirin Enteric Coated 81 MG TABLET.DR PO (08:47)
[2024-12-30] MEDS: Bictegrav/Emtricit/Tenofov Ala TABLET 1 TAB PO (08:47)
[2024-12-30 08:48] VITALS: BP 171/90
[2024-12-30] MEDS: cloNIDine HCL 0.1 MG TABLET PO ×2 (08:48→20:46)
[2024-12-30] MEDS: Lidocaine 5 % Ointment 35 GM 1 APPL TOPICAL ×2 (08:52→20:53)
--- NOTE | 2024-12-30 09:56 | HO.PSYCHPN ---
Subjective Subjective Date of Service: 12/30/24 Reason For Visit: SI Subjective Notes: Conditional Voluntary Interim History: Active on unit. Patient reports feeling better and ready to leave tomorrow. denies any issues at this time. denies SI/HI/VH/AH. Patient reports he plans on returning to his hotel room and plans on following up with outpatient providers. Medication Compliance: Yes Side effects from medications: No Attending Groups: Intermittent Mental Status Exam Mental Status Exam Narrative: Pt is alert and oriented; behavior is cooperative and calm; dressed in casual attire; mood is described as good ; eye contact appropriate; Speech is normal rate, volume and not pressured; thought process is organized; Thought content is on discharge; denies SI/HI/VH/AH. Diagnostics Vital Signs (24Hr): Vital Signs - 24 hr 12/29/24 20:47 12/30/24 08:45 12/30/24 08:48 Temperature 98.9 F 98.5 F Pulse Rate 85 92 Respiratory Rate 16 18 Blood Pressure 137/83 171/90 H 171/90 H Pulse Oximetry 98 97 Oxygen Delivery Method Room Air Room Air BMI result Body Mass Index 21.5 Labs 12/22/24 11:45 12/24/24 14:30 Medications Medications Current Medications Al Hydroxide/Mg Hydroxide (Magnesium Hydrox/Alum Hydrox 30 Ml Oral.Susp) 30 ml PO Q6H PRN PRN Reason: Heartburn/Nausea Aspirin (Aspirin Enteric Coated 81 Mg Tablet.) 81 mg PO DAILY [facility] Last Admin: 12/30/24 08:47 Dose: 81 mg Bictegravir/Emtricitabine/Tenofovir (Bictegrav/Emtricit/Tenofov Ala Tablet) 1 tab PO DAILY [facility] Last Admin: 12/30/24 08:47 Dose: 1 tab Buprenorphine (Buprenorphine 20 Mcg/Hr Patch.Tdwk) 20 mcg TRANSDERMA Q7D [facility] Last Admin: 12/24/24 12:10 Dose: 20 mcg Clonidine HCl (Clonidine Hcl 0.1 Mg Tablet) 0.1 mg PO BID [facility]; Protocol Last Admin: 12/30/24 08:48 Dose: 0.1 mg Hydroxyzine HCl (Hydroxyzine Hcl 25 Mg Tablet) 25 mg PO Q6H PRN PRN Reason: mild anxiety Last Admin: 12/25/24 20:56 Dose: 25 mg Lidocaine (Lidocaine 5 % Ointment 35 Gm) 1 appl TOPICAL TID PRN; Protocol PRN Reason: foot pain Last Admin: 12/30/24 08:52 Dose: 1 appl Lidocaine (Lidocaine 4 % Patch Adh..Patch) 1 patch TRANSDERMA DAILY PRN; Protocol PRN Reason: Pain, Mild (Pain Scale 1-3) Magnesium Hydroxide (Milk Of Magnesia 30 Ml Oral.Susp) 30 ml PO DAILY PRN PRN Reason: Constipation Melatonin (Melatonin 3 Mg Tablet) 3 mg PO BEDTIME [facility] Last Admin: 12/29/24 20:58 Dose: 3 mg Nicotine (Nicotine 14 Mg Patch.Td24) 14 mg TRANSDERMA DAILY [facility] Last Admin: 12/30/24 08:48 Dose: Not Given Nicotine Polacrilex (Nicotine Polacrilex 2 Mg Gum) 4 mg BUCCAL Q2H PRN PRN Reason: Nicotine Cravings Olanzapine (Olanzapine 5 Mg Tablet) 5 mg PO Q4H PRN PRN Reason: Psychosis Last Admin: 12/26/24 20:51 Dose: 5 mg Ondansetron HCl (Ondansetron Odt 4 Mg Tab.Rapdis) 4 mg TRANSLINGU Q8H PRN PRN Reason: Nausea and Vomiting Quetiapine Fumarate 600 mg/ (Quetiapine Fumarate 50 mg) 650 mg PO BEDTIME [facility] Last Admin: 12/29/24 20:58 Dose: 650 mg Trazodone HCl (Trazodone Hcl 50 Mg Tablet) 150 mg PO BEDTIME [facility] Last Admin: 12/29/24 20:57 Dose: 150 mg Allergies Allergies Allergy/AdvReac Type Severity Reaction Status Date / Time acetaminophen [ACETAMINOPHEN] Allergy Mild rashes Verified 12/22/24 10:40 Assessment & Plan Assessment & Plan (1) MDD (major depressive disorder), recurrent episode, moderate: Status: Acute Code(s): F33.1 - Major depressive disorder, recurrent, moderate (2) Alcohol use disorder: Status: Acute Code(s): F10.90 - Alcohol use, unspecified, uncomplicated (3) Cocaine use disorder: Status: Acute Code(s): F14.10 - Cocaine abuse, uncomplicated (4) Homelessness: Status: Acute Code(s): Z59.00 - Homelessness unspecified Plan Patient is a 69-year-old male with history of MDD, PTSD, cocaine use disorder alcohol use disorder who self presented to ER due to suicidal ideation and command auditory hallucinations secondary to medication noncompliance. Plan: CV 15 minute safety checks Continue home medications Obtain collateral Referral to outpatient psychiatric providers Encourage groups Encourage medication compliance Discharge planning 12/24: Patient signed 3 day notice then retracted. Patient stated, it's not your fault I signed a 3 day. I just need to go to the Social Security office to figure out why I'm not getting my checks . Patient reports feeling anxious; denies SI/HI/VH/AH. Patient reports he plans on returning to [facility] when discharged. Plan to discharge on Saturday if continues to improve. 12/25: c/o AH, asking for seroquel increase to 650 QHS and to start clonidine 0.1 BID and trazodone 150. changes made, will give pt another opportunity to comply with recommended Tx. 12/26: slept better last night, appears satisfied with regimen currently. continue current mgmt. 12/27: sleeping a lot, somnolent this morning and remained in bed. expressed SI to RN yesterday. continue current mgmt. 12/28: up and about today. calling for a bed at [facility] on. happy with meds as they are. future-oriented. asking for discharge. 12/29: Active on unit. frequently seen using unit phone. Patient reports feeling ready for discharge on ; pt reports he plans on going to [place] On.He reports mood has improved. denies SI/HI/VH/AH. per nursing, slept 8 hours last night. Continue current tx plan. 12/30: Active on unit. Patient reports feeling better and ready to leave tomorrow. denies any issues at this time. denies SI/HI/VH/AH. Patient reports he plans on returning to his hotel room and plans on following up with outpatient providers. Patient educated on: diagnosis and medication risk/benefits Reason for continued inpatient stay Substantial Risk for: stable for discharge Time Spent With Patient Time: Total time managing care of this patient today _20___ minutes.
[2024-12-30 10:04] VITALS: BP 124/77; PULSE 74; RESP 18; O2SAT 97
[2024-12-30 20:00] VITALS: BP 116/68; PULSE 79; RESP 16; TEMP 36.4; O2SAT 96
[2024-12-30] MEDS: QUETIAPINE FUMARATE 650 MG PO (20:45)
[2024-12-30] MEDS: traZODone HCL 50 MG TABLET 150 MG PO (20:47)
[2024-12-30] MEDS: Melatonin 3 MG TABLET PO (20:48)
[2024-12-31 07:39] VITALS: BP 135/81; PULSE 81; RESP 18; TEMP 36.9; O2SAT 95
[2024-12-31] MEDS: Nicotine 14 MG PATCH.TD24 TRANSDERMA (08:17)
[2024-12-31] MEDS: Bictegrav/Emtricit/Tenofov Ala TABLET 1 TAB PO (08:18)
[2024-12-31] MEDS: Aspirin Enteric Coated 81 MG TABLET.DR PO (08:18)
[2024-12-31] MEDS: cloNIDine HCL 0.1 MG TABLET PO (08:18)
--- NOTE | 2024-12-31 09:15 | P.DS_ITS ---
DS: Providers Provider Date of Service: 12/31/24 Date of admission: 12/22/24 14:27 Date of discharge: 12/31/24 Primary care physician: Tadeo Physician Admitting clinician: Lenore Baker Attending physician on admission: Amador Villa Attending physician on discharge: Amador Villa Discharging clinician: Lenore Baker DS: Diagnosis Discharge Diagnosis (1) MDD (major depressive disorder), recurrent episode, moderate: Status: Acute (2) Alcohol use disorder: Status: Acute (3) Cocaine use disorder: Status: Acute (4) Homelessness: Status: Acute DS: Medications Discharge Medications Home Medications: Previous Rx's ?Medication ?Instructions ?Recorded aspirin 81 mg tablet,delayed 81 mg PO DAILY 30 days #30 tabs 12/30/24 release bictegravir 50 mg-emtricitabine 1 tab PO DAILY 30 days #30 tabs 12/30/24 200 mg-tenofovir alafenam 25 mg tablet (Biktarvy) buprenorphine 20 mcg/hour weekly 20 mcg transdermal Q7D 7 days #1 ea 12/30/24 transdermal patch (Butrans) clonidine HCl 0.1 mg tablet 0.1 mg PO BID 30 days #60 tabs 12/30/24 lidocaine 5 % topical ointment 1 appl topical TID PRN foot pain 12/30/24 30 days #30 grams melatonin 3 mg tablet 3 mg PO BEDTIME 30 days #30 tabs 12/30/24 quetiapine 300 mg tablet 600 mg (2 x 300 mg) PO BEDTIME 30 12/30/24 days #60 tabs trazodone 150 mg tablet 150 mg PO BEDTIME 30 days #30 tabs 12/30/24 valbenazine 40 mg capsule 40 mg PO DAILY 30 days #30 caps 12/30/24 (Ingrezza) Mental Status Exam Mental Status Exam Narrative: Pt is alert and oriented; behavior is cooperative and calm; dressed in casual attire; mood is described as good ; eye contact appropriate; Speech is normal rate, volume and not pressured; thought process is organized; Thought content is on discharge; denies SI/HI/VH/AH. Data Data Completed and Pending Completed studies during hospitalization [Text1]: 12/24/24 12/26/24 14:30 13:20 Sodium 143 Potassium 4.4 Chloride 103 Carbon Dioxide 31 H Anion Gap 13 BUN 21 H Creatinine 0.96 Estim Creat Clear Calc 75.8 Estimated GFR > 60 Random Glucose 92 Estimat Average Glucose 94 Hemoglobin A1c % 4.9 Calcium 9.8 Total Bilirubin 0.3 AST 99 H ALT 76 H Alkaline Phosphatase 100 Total Protein 7.9 Albumin 3.6 Triglycerides 100 Cholesterol 184 LDL Cholesterol, Calc 76 HDL Cholesterol 88 Urine Color Yellow Urine Appearance Cloudy Urine pH 8.0 Ur Specific [place] 1.020 Urine Protein Negative Urine Glucose (UA) Negative Urine Ketones Trace Urine Blood Negative Urine Nitrite Negative Ur Leukocyte Esterase Trace H Urine RBC 0-2 Urine WBC 0-5 Ur Squamous Epith Cells 0-2 Urine Bacteria None Seen Hyaline Casts 0-2 Urine Opiates Screen Not Detected Ur Buprenorphine Scrn Not Detected Ur Oxycodone Screen Not Detected Urine Methadone Screen Not Detected Urine Fentanyl Screen Not Detected Ur Barbiturates Screen Not Detected Ur Phencyclidine Scrn Not Detected Ur Amphetamines Screen Not Detected U Benzodiazepines Scrn Not Detected Urine Cocaine Screen Not Detected U Marijuana (THC) Screen POSITIVE H DS: Summary Hospital Course Hospital Course: Patient is a 69-year-old male with history of MDD, PTSD, cocaine use disorder alcohol use disorder who self presented to ER due to suicidal ideation and command auditory hallucinations secondary to medication noncompliance. Per crisis report, patient reported suicidal ideation with no plan. Command auditory hallucinations and feeling like his medications are not effective. Patient reports having thoughts to cut his wrists and middle ideation with no plan/intent did not have a specific individual in mind. Patient stated, I do not feel like living. I want to . Patient presented disorganized with poor memory. Appeared thought blocking at times. He reports poor sleep and appetite. Patient has a history of multiple inpatient psychiatric hospitalizations and frequently does not follow up at medication and treatment recommendations. During admission assessment, patient presents alert and oriented x3. Calm and cooperative. Patient reports feeling depressed; patient stated, I came to the hospital because I was thinking about cutting my wrists. I just did not feel like living. I feel depressed. I just want to feel better . Patient reports auditory hallucination telling him to harm himself. He reports that he does not always take his medications because sometimes he does not feel like it . Patient reports when he is medication compliant, he feels they are helpful. Educated regarding importance of adherence. Patient reports passive suicidal ideation; patient stated, I wish I can not wake up . Denies HI/VH. Plan: CV 15 minute safety checks Continue home medications Obtain collateral Referral to outpatient psychiatric providers Encourage groups Encourage medication compliance Discharge planning Patient signed 3 day notice then retracted. Patient stated, it's not your fault I signed a 3 day. I just need to go to the Social Security office to figure out why I'm not getting my checks . Patient reports feeling anxious; denies SI/HI/VH/AH. Patient reports he plans on returning to [facility] when dischar ged. Plan to discharge on Saturday if continues to improve. c/o AH, asking for seroquel increase to 650 QHS and to start clonidine 0.1 BID and trazodone 150. changes made, will give pt another opportunity to comply with recommended Tx. slept better last night, appears satisfied with regimen currently. continue current mgmt. sleeping a lot, somnolent this morning and remained in bed. expressed SI to RN yesterday. continue current mgmt. up and about today. calling for a bed at [facility] on. happy with meds as they are. future-oriented. asking for discharge. Active on unit. frequently seen using unit phone. Patient reports feeling ready for discharge on ; pt reports he plans on going to [place] On.He reports mood has improved. denies SI/HI/VH/AH. per nursing, slept 8 hours last night. Continue current tx plan. Active on unit. Patient reports feeling better and ready to leave tomorrow. denies any issues at this time. denies SI/HI/VH/AH. Patient reports he plans on returning to his hotel room and plans on following up with outpatient providers. Status at Discharge Cognitive/behavioral status at discharge: Patient has insight and demonstrates good judgment in terms of wanting to pursue treatment. Patient has a safety plan that includes presenting to the closest ER or calling 911 if feeling unsafe. Functional status at discharge: independent ambulation Overall status at discharge: patient is back to baseline Time Spent with Patient Time attestation: Total time managing care of this patient today _20___ minutes. Time spent: Less than 30 minutes Discharge Plan Discharge Anticipated Discharge Date/Time: 12/31/24 11:00 Patient Disposition: Home, Self-Care Discharge Diagnosis: MDD, Alcohol use d/o, Cocaine use d/o Referrals: [facility] [Other] - 1 Week (Please follow up with [facility] (labeling specialist) from [facility] when discharged. ) [facility] [Other] - 1 Week (Walk in hours are Saturday-Saturday 9am-7pm Please bring your discharge paperwork, ID and insurance card. ) [facility] [Other] - 1 Week (Walk in hours Saturday-Saturday 10am-12pm Please bring your discharge paperwork, ID and insurance card. ) Jerardo Emery MD [Physician] - 01/11/25 2:30 pm (12-28-24 Your follow up appt has been scheduled with Dr. Emery for January 11 @ 2:30pm. They also requested we let you know that your voicemail is full and can not take any more messages. fax [phone].) Discharge Medications: New melatonin 3 mg Tablet 3 mg PO BEDTIME 30 Days Qty: 30 0RF trazodone 150 mg tablet 150 mg PO BEDTIME 30 Days Qty: 30 0RF clonidine HCl 0.1 mg Tablet 0.1 mg PO BID 30 Days Qty: 60 0RF Protocol: Hold for SBP< HOLD for SBP < : 90 quetiapine 300 mg tablet 600 mg PO BEDTIME 30 Days Qty: 60 0RF buprenorphine [Butrans] 20 mcg/hour Patch Weekly 20 mcg transdermal Q7D 7 Days Qty: 1 0RF Continued aspirin 81 mg tablet,delayed release (DR/EC) 81 mg PO DAILY 30 Days Qty: 30 0RF Ingrezza 40 mg Capsule 40 mg PO DAILY 30 Days Qty: 30 0RF Biktarvy 50-200-25 mg tablet 1 tab PO DAILY 30 Days Qty: 30 0RF Changed lidocaine 5 % ointment 1 appl topical TID PRN (Reason: foot pain) 30 Days Qty: 30 0RF Protocol: Apply to: Apply to: b/l feet Discontinued nicotine 7 mg/24 hr Patch 24 Hour 7 mg transdermal DAILY Qty: 30 0RF buprenorphine 20 mcg/hour Patch Weekly 1 patch TRANSDERMAL Q7D lidocaine 5 % adhesive patch,medicated 1 patch topical DAILY Qty: 30 0RF Rx Instructions: leave on most painful area for up to 12 hrs quetiapine 100 mg tablet 500 mg PO BEDTIME Discharge Orders: Discharge Order (Routine); Ordered 12/31/24 Ordered By: Lenore Baker Diet: Regular diet Activity on Discharge: As tolerated Stand Alone Forms: Patient Portal Discharge page, Community Support Print Language: Lao Care Plan Goals: Maintain mood and safe behaviors Take medications as prescribed Continue to pursue sobriety Practice coping skills Continue with outpatient providers and reach out to them as needed Health Concerns: Mood stability and behaviors Sobriety Plan of Treatment: Follow up with your PCP, psychiatric provider and other outpatient providers regarding above concerns Take medications as prescribed Assessment: Patient has insight and demonstrates good judgment in terms of wanting to pursue treatment. Patient has a safety plan that includes presenting to the closest ER or calling 911 if feeling unsafe. Discharge Date/Time: 12/31/24 10:50
[2024-12-31] MEDS: BUPRENORPHINE 20 MCG/HR TRANSDERMA (10:35)
== END 2024-12-31 10:50 | disposition home or self-care (01) | DRG 885 ==
LOC: HO.ED 15:17 → HO.PADLT16 15:22
PROVIDERS: Admitting Provider Registered Nurse; Emergency Provider Emergency Medicine; Responsible Provider Registered Nurse; Visit Provider Psychiatry & Neurology Psychiatry
DX: F33.1 Major depressive disorder, recurrent, moderate (principal); F11.20 Opioid dependence, uncomplicated; Z59.02 Unsheltered homelessness; R45.851 Suicidal ideations; F10.90 Alcohol use, unspecified, uncomplicated; F14.10 Cocaine abuse, uncomplicated; Z21 Asymptomatic human immunodeficiency virus [HIV] infection status; Y90.1 Blood alcohol level of 20-39 mg/100 ml; Z91.148 Patient's other noncompliance with medication regimen for other reason; Z87.891 Personal history of nicotine dependence; Z79.899 Other long term (current) drug therapy
CPT/HCPCS: 36415; 80053; 80061; 80307; 81001; 83036; 85025; 93005; 99285; S9485

== ENCOUNTER → 2024-12-22 12:41 | Outpatient (BNV) | payer MEDICARE, MEDICAID, SELFPAY | PROVIDERS: Admitting Provider Registered Nurse; Emergency Provider Emergency Medicine; Visit Provider Internal Medicine Cardiovascular Disease | DX: Z13.6 Encounter for screening for cardiovascular disorders (principal) | CPT/HCPCS: 93010 ==

== ENCOUNTER → 2024-12-22 14:27 | Outpatient (BNV) | payer MEDICARE, MEDICAID, SELFPAY | PROVIDERS: Admitting Provider Registered Nurse; Emergency Provider Emergency Medicine; Responsible Provider Registered Nurse; Visit Provider Registered Nurse | DX: F33.1 Major depressive disorder, recurrent, moderate (principal); F10.90 Alcohol use, unspecified, uncomplicated; F14.10 Cocaine abuse, uncomplicated; Z59.00 Homelessness unspecified | CPT/HCPCS: 90792; 99231; 99232; 99238 ==

== ENCOUNTER 2025-05-04 17:45 | Inpatient (IN) | payer OTHER, SELFPAY ==
--- OUTSIDE RECORDS SUMMARY | 2016-04-29 20:00 | XMS_ITS | Continuity of Care Document ---
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 tel:[phone] Family History Family Member Type Diagnosis Age At Onset No Information Payers Payer name Insurance type Covered alliance party ID Authoriza tion(s) Medicare Part B [place] [id number] Medicaid [id number] Social History Type Description Quantity Date Captured [...]
--- NOTE | ~2025-05-04 | CT_ITS ---
CLINICAL HISTORY: fall, +HS CT cervical spine without contrast Comparison: CT/SR - CT CERVICAL SPINE WITHOUT IV CONTRAST - 03/14/24 00:58 EDT Findings: There is reversal of the normal cervical lordosis secondary to degenerative change, unchanged from prior. Mild anterolisthesis of C2 on C3. Mild retrolisthesis of C4 on C5 and C5 on C6. Multilevel degenerative change of the cervical spine. No acute fractures or dislocations. No acute findings on limited view of the intracranial contents. No cervical fluid collections or masses. Centrilobular emphysematous changes at the lung apices. No apical pneumothorax. IMPRESSION: No acute findings. This document has been electronically signed by: Carlos Frederick MD on 05/04/2025 20:44:29
--- NOTE | ~2025-05-04 | CT_ITS ---
CLINICAL HISTORY: fall, +head strike CT head without contrast Comparison: CT/REG/NE/SR - CT HEAD WITHOUT IV CONTRAST - 06/26/24 07:56 EDT Findings: No intra-axial mass, midline shift, hydrocephalus, or acute hemorrhage. Moderate cerebral atrophy and compensatory ventriculomegaly. Low attenuation in the periventricular white matter consistent with chronic small-vessel ischemic gliosis. There is no sinus or mastoid fluid. The orbits are within normal limits. No skull fracture. IMPRESSION: 1. No acute intracranial findings. This document has been electronically signed by: Carlos Frederick MD on 05/04/2025 20:49:41
[2025-05-04 17:57] VITALS: BP 159/94; PULSE 112; RESP 16; TEMP 37; O2SAT 96; BMI 21.9
--- NOTE | 2025-05-04 17:59 | ED_ITS ---
HPI - Fall General Chief Complaint: Psychiatric Symptoms Stated Complaint: SI Time Seen by Provider: 05/04/25 19:27 Source: patient Limitations: no limitations History of Present Illness ED Provider: Bibi Del Angel PA-C HPI Narrative: 69-year-old male with a history of alcohol use disorder, polysubstance abuse, housing and security, depression and mood disorder who presents with vague SI. Patient states he has been having auditory hallucinations ?telling him to kill himself?. Patient states he has a plan to ?slit his wrists?. Patient also states he sustained a mechanical fall 3 days ago striking his head. He does use aspirin, no other blood thinners. Patient admits to using marijuana, but no other illicit substances. Related Data Home Medications ?Medication ?Instructions ?Recorded ?Confirmed diclofenac sodium 1 % topical gel 2 g topical BID 04/2605/05/25 lisinopril 10 mg PO BID 05/05/25 oxycodone 5 mg PO Q6H Pain 05/05/25 Previous Rx's ?Medication ?Instructions ?Recorded aspirin 81 mg tablet,delayed 81 mg PO DAILY 30 days #3 0 tabs 12/30/24 release bictegravir 50 mg-emtricitabine 1 tab PO DAILY 30 days #30 tabs 12/30/24 200 mg-tenofovir alafenam 25 mg tablet (Biktarvy) clonidine HCl 0.1 mg tablet 0.1 mg PO BID 30 days #60 tabs 12/30/24 melatonin 3 mg tablet 3 mg PO BEDTIME 30 days #30 tabs 12/30/24 quetiapine 300 mg tablet 600 mg (2 x 300 mg) PO BEDTI ME 30 12/30/24 days #60 tabs trazodone 150 mg tablet 150 mg PO BEDTIME 30 days #3 0 tabs 12/30/24 Allergies Allergy/AdvReac Type Severity Reaction Status Date / Time acetaminophen (ACETAMINOPHEN) Allergy Mild rashes Verified 05/04/25 17:59 [facility] Past Medical History Medical History Alcohol intoxication Social History Social History Household Members: None Housing: Apartment Housing Other:: staying in [facility] Do you presently have visiting nurse or other home services: No Unable to assess alcohol history related to: Refusing to respond Alcohol intake: current Alcohol intake frequency: does not drink Alcohol type: hard liquor Patient Tobacco Use Status: Former Tobacco user Tobacco use type: Cigarette Cigarettes Per Day: 8 Years Smoked: 36 years Smoked in Last 30 Days: Yes e-Cigarette/Vaping Use: Never Used Second Hand Smoke Exposure: No Use of substances other than those prescribed or required for medical reasons: Yes Substance Use Type: Marijuana Currently Displaying Signs/Symptoms of Drug Intoxication Withdrawal: No Have you been hit, kicked, punched, or otherwise hurt by someone within the past year? If so, by whom?: No Do you feel safe in your current relationship?: No Current Relationship Is there a partner from a previous relationship who is making you feel unsafe now?: No Are you made to feel afraid or neglected: No Advance Directives: No Advance Directives Information Provided: No Do you have thoughts of harming others: None Do you have a plan to hurt others: No Plan Recently lost weight without trying: Yes How much weight loss: 2-13 pounds Eating poorly because of decreased appetite: Yes Nutrition screen score: 4 Nutrition Risks: Anorexia Poor oral hygiene: Yes service: Yes Sexual orientation: Straight/Heterosexual Physical Exam 2 Vital Signs: Vital Signs: Last Vital Signs Temp 96.9 F 05/06/25 20:00 Pulse 84 05/06/25 20:00 Resp 16 05/06/25 20:00 BP 144/84 H 05/06/25 20:00 Pulse Ox 96 05/06/25 20:00 O2 Del Method Room Air 05/06/25 20:00 BMI result Body Mass Index 21.9 Course Course Course Narrative: This is an RME: Additional HPI, ROS, PE not included below will be deferred to primary provider. RME assessment and note performed by: Jody Estrada PA-C 69 year old assigned male at with a history of alcohol use disorder, HIV, and MDD presenting to the emergency department who presents to the ER with a complaint of headache s/p mechanical fall x 3 days ago. Reports that his right leg gave out at him and he struck the right side of his head. Patient is not on blood thinners, only aspirin. Endorsing Auditory hallucinations, no drug use. He is neurologically intact, no focal deficits. Head is normocephalic atraumatic. He is tachycardic at 112bpm. Plan: Labs, EKG, CT head/neck, utox, further ER eval needed Reevaluation(s) Reevaluation #1: Spoke with the care team, the patient is being made section 12, he is meeting inpatient level of care for psychiatric bed search Time: 21:38 Date: 05/04/25 Provider: VICTORIANO Emerson Patient in physician observation for psychiatric evaluation.? No acute events reported overnight. No current complaints. VS stable.? Patient is in bed search status/pending CARE team evaluation. Will continue to monitor. Reevaluation #2: Time: 06:21 Date: 05/05/25 Provider: Jose Lan MD Patient in physician observation for psychiatric evaluation.? No acute events reported overnight. No current complaints. VS stable.? Patient is in bed search status/pending CARE team evaluation. Will continue to monitor. Reevaluation #3: 05/05/2025 11:48 a.m. patient will be admitted to the psych unit. At this time we will end the ED psych observation Time: 11:49 Medications Administered Generic Name Dose Route Start Last Admin Trade Name Freq PRN Reason Stop Dose Admin Aspirin 81 mg 05/05/25 09:00 05/06/25 09:18 Aspirin Enteric Coated 81 Mg Tablet. PO 81 mg DAILY SABA Administration Bictegravir/Emtricitabine/Tenofovir 1 tab 05/05/25 09:00 05/06/25 09:18 Bictegrav/Emtricit/Tenofov Ala Tablet PO 1 tab DAILY SABA Administration Clonidine HCl 0.1 mg 05/05/25 03:00 05/06/25 21:17 Clonidine Hcl 0.1 Mg Tablet PO 0.1 mg BID SABA Administration Protocol Lidocaine 2 patch 05/06/25 09:00 05/06/25 09:22 Lidocaine 4 % Patch Adh..Patch TRANSDERMA Not Given DAILY SABA Protocol Lisinopril 10 mg 05/06/25 12:00 05/06/25 12:28 Lisinopril 10 Mg Tablet PO 10 mg DAILY SABA Administration Protocol Melatonin 6 mg 05/05/25 21:00 05/06/25 21:18 Melatonin 3 Mg Tablet PO 3 mg BEDTIME SABA Administration Pat Own Med ( 2 gm 05/05/25 21:00 05/06/25 21:18 Diclofenac Sodium 1 TOPICAL 2 gm % Gel) BID SABA Administration Quetiapine Fumarate 600 mg 05/05/25 03:00 05/06/25 21:18 Quetiapine Fumarate 300 Mg Tablet PO 600 mg BEDTIME SABA Administration Trazodone HCl 150 mg 05/05/25 03:00 05/06/25 21:18 Trazodone Hcl 50 Mg Tablet PO 150 mg BEDTIME SABA Administration Discontinued Medications Generic Name Dose Route Start Last Admin Trade Name Hilda PRN Reason Stop Dose Admin Influenza Virus Vaccine 0.5 ml 05/05/25 17:48 05/05/25 18:58 Flu Vacc [id number](6mo Up)/Pf 0.5 Ml Syringe IM 05/05/25 17:49 Not Given .ONCE ONE Lisinopril 10 mg 05/05/25 10:01 05/05/25 10:08 Lisinopril 10 Mg Tablet PO 05/05/25 10:02 10 mg BID ONE Administration Protocol Lisinopril 10 mg 05/06/25 21:45 05/06/25 21:56 Lisinopril 10 Mg Tablet PO 05/06/25 21:46 10 mg ONCE ONE Administration Protocol Melatonin 3 mg 05/05/25 03:00 05/05/25 03:24 Melatonin 3 Mg Tablet PO 3 mg BEDTIME SABA Administration Oxycodone HCl 5 mg 05/05/25 03:00 05/05/25 09:18 Oxycodone Hcl Immed Release 5 Mg Tablet PO 5 mg Q6H SABA Administration Medical Decision Making Medical Decision Making MDM Narrative: 69-year-old male with a history of alcohol use disorder, polysubstance abuse, housing and security, depression and mood disorder who presents with vague SI. Patient states he has been having auditory hallucinations ?telling him to kill himself?. Patient states he has a plan to ?slit his wrists?. Patient also states he sustained a mechanical fall 3 days ago striking his head. He does use aspirin, no other blood thinners. Patient admits to using marijuana, but no other illicit substances. Problem: Housing and security, polysubstance abuse, alcohol use disorder , psychiatric illness History: Per patient I have considered the following differential diagnoses: Intracranial hemorrhage, cervical spine injury, SI, HI, decompensated psychiatric illness, drug/alcohol intoxication Plan: The patient will be referred to the care team, he has high-risk given he is homeless , has polysubstance abuse with psychiatric illness. Screening labs including drug screen and ethanol we will be obtained. Imaging of his brain and cervical spine completed, there was no acute injury. I have independently reviewed the following tests: Labs: Stable pancytopenia, no electrolyte abnormality, ethanol 76, awaiting drug screen, viral panel negative screened for COVID influenza EKG: Sinus tachycardia rate of 108, no ischemic changes no ectopy QTC 458 CT brain:Findings: No intra-axial mass, midline shift, hydrocephalus, or acute hemorrhage. Moderate cerebral atrophy and compensatory ventriculomegaly. Low attenuation in the periventricular white matter consistent with chronic small-vessel ischemic gliosis. There is no sinus or mastoid fluid. The orbits are within normal limits. No skull fracture. IMPRESSION: 1. No acute intracranial findings. CT cervical spine:Findings: There is reversal of the normal cervical lordosis secondary to degenerative change, unchanged from prior. Mild anterolisthesis of C2 on C3. Mild retrolisthesis of C4 on C5 and C5 on C6. Multilevel degenerative change of the cervical spine. No acute fractures or dislocations. No acute findings on limited view of the intracranial contents. No cervical fluid collections or masses. Centrilobular emphysematous changes at the lung apices. No apical pneumothorax. IMPRESSION: No acute findings. Differential Diagnosis Differential Diagnoses: The differential diagnosis associated with the presentation includes See medical decision making Admission/Observation Consideration of admission/observation: Escalation of care including admission/observation considered Psych consult, may require inpatient level of care Consult Healthcare Provider Management of the patient was discussed with: Satellite Installation Technician Psych Lab Data [facility] Lab Attestation statement: I reviewed the patient's lab results. 05/04/25 18:22 05/04/25 18:22 Labs: Lab Results 05/04/25 05/04/25 Range/Units 18:22 21:31 WBC 4.2 L (4.8-10.8) X10*3/uL RBC 4.17 L (4.60-5.80) X10*6/uL Hgb 13.9 L (14.0-18.0) g/dl Hct 39.1 L (42.0-52.0) % MCV 93.8 (80.0-98.0) fL MCH 33.3 H (27.0-33.0) pg MCHC 35.5 (31.0-36.0) g/dl RDW 14.2 (11.0-16.0) % Plt Count 154 L (160-400) X10*3/uL MPV 11.8 (9.4-12.4) fL Immature Gran % (Auto) 0.0 (0.0-0.4) % Neut % (Auto) 33.7 L (45-73) % Lymph % (Auto) 53.6 H (20-40) % Snyder % (Auto) 10.0 (2-11) % Eos % (Auto) 1.7 (0-4) % Baso % (Auto) 1.0 (0-2) % Lymph # (Auto) 2.3 (1.2-4.9) X10*3/uL Snyder # (Auto) 0.4 (0.1-1.2) X10*3/uL Eos # (Auto) 0.1 (0.0-0.4) X10*3/uL Baso # (Auto) 0.0 (0.0-0.2) X10*3/uL Abs Immat Gran (auto) 0.00 (0.00-0.03) X10*3/uL Absolute Neuts (auto) 1.4 L (2.0-8.3) x10*3/uL Absolute Nucleated RBC 0.000 (0.0-0.012) X10*3/uL Nucleated RBC % (auto) 0.0 (0.0-0.2) /100WBC Sodium 146 H (135-145) mmol/L Potassium 3.8 (3.3-5.1) mmol/L Chloride 106 (96-108) mmol/L Carbon Dioxide 28 (22-29) mmol/L Anion Gap 16 (12-20) BUN 17 H (9-16) mg/dL Creatinine 0.87 (0.5-1.4) mg/dL Estim Creat Clear Calc 92.6 Estimated GFR > 60 Random Glucose 110 (60-115) mg/dL Calcium 9.4 (8.4-10.2) mg/dL Magnesium 2.0 (1.6-2.6) mg/dL Total Bilirubin 0.4 (0.0-1.0) mg/dL Direct Bilirubin 0.1 (0.0-0.5) mg/dL AST 78 H (5-37) U/L ALT 71 H (0-40) U/L Alkaline Phosphatase 113 (39-117) U/L Total Creatine Kinase 105 (38-174) U/L Total Protein 8.3 H (6.5-8.0) g/dL Albumin 4.0 (3.5-5.0) g/dL Urine Color Yellow Urine Appearance Turbid Urine pH 8.5 (5.0-9.0) Ur Specific [place] 1.020 (1.005-1.025) Urine Protein Trace (Neg-Trace) mg/dL Urine Glucose (UA) Negative (Negative) mg/dL Urine Ketones Trace (Negative) mg/dL Urine Blood Negative (Negative) Urine Nitrite Negative (Negative) Ur Leukocyte Esterase Trace H (Negative) Urine RBC 0-2 (0-2) /HPF Urine WBC 0-5 (0-5) /HPF Ur Squamous Epith Cells 0-2 (0-2) /HPF Urine Bacteria None Seen (None Seen) Hyaline Casts 0-2 (0-2) /LPF Urine Opiates Screen Not Detected (Not Detect) Ur Buprenorphine Scrn Not Detected (Not Detect) ng/mL Ur Oxycodone Screen Not Detected (Not Detect) ng/mL Urine Methadone Screen Not Detected (Not Detect) ng/mL Urine Fentanyl Screen Not Detected (Not Detect) Ur Barbiturates Screen Not Detected (Not Detect) Ur Phencyclidine Scrn Not Detected (Not Detect) Ur Amphetamines Screen Not Detected (Not Detect) U Benzodiazepines Scrn Not Detected (Not Detect) Urine Cocaine Screen Not Detected (Not Detect) U Marijuana (THC) Screen POSITIVE H (Not Detect) Ethyl Alcohol 76 mg/dL COVID-19 (DRAKE) Negative (Negative) COVID-19 Clin Com See Note Influenza Type A (JOVITA) Negative (Negative) Influenza Type B (JOVITA) Negative (Negative) Influenza A & B Note See Note Radiology Impression Discussion of test interpretation with radiology: I have reviewed the radiologist's reading. Discharge Plan Discharge Clinical Impression: Suicidal ideation, Auditory hallucination Patient Disposition: Admitted As Inpatient Interventions: Admission Worksheet (ED) Last Done: 05/05/25 14:19 Discharge Date/Time: 05/05/25 14:20
--- NOTE | 2025-05-04 18:03 | ECG_ITS ---
Test Reason : TACHYCARDIA Blood Pressure : */* mmHG Vent. Rate : 108 BPM Atrial Rate : 108 BPM P-R Int : 136 ms QRS Dur : 82 ms QT Int : 342 ms P-R-T Axes : 74 22 72 degrees QTcB Int : 458 ms Sinus tachycardia Otherwise normal ECG When compared with ECG of 22-Dec-2024 12:41, Vent. rate has increased by 36 bpm Referred By: Jody Estrada Electronically Signed By: SUKHDEEP DYER MD
[2025-05-04 18:32] LABS: MANUAL DIFF FLAG NO
[2025-05-04 18:33] LABS: Hematocrit 39.1 % (42.0-52.0); Hemoglobin 13.9 g/dl (14.0-18.0); Imm Gran Abs Auto 0.00 X10*3/uL (0.00-0.03); Imm Gran Pct Auto 0.0 % (0.0-0.4); Lymphocytes Absolute Auto 2.3 X10*3/uL (1.2-4.9); Mean Corpuscular HGB Conc 35.5 g/dl (31.0-36.0); Mean Corpuscular Hemoglobin 33.3 pg (27.0-33.0); Mean Corpuscular Volume 93.8 fL (80.0-98.0); NRBC Abs Auto 0.000 X10*3/uL (0.0-0.012); NRBC Pct Auto 0.0 /100WBC (0.0-0.2); Platelet Count 154 X10*3/uL (160-400); Red Blood Count 4.17 X10*6/uL (4.60-5.80); White Blood Count 4.2 X10*3/uL (4.8-10.8)
--- OUTSIDE RECORDS SUMMARY | 2025-05-04 18:33 | XMS_ITS | Clinical Summary ---
Author Organization [facility] Address [address] [address] Care Team Providers Care Java Web Engineer Name Role Phone Zaki Freedman MD Primary Care Provider [phone] Allergies Active Allergy Reactions Criticality Noted Date Comments Acetaminophen Rash Medium 09/18/2013 rash Amoxicillin-Pot Clavulanate 02/11/20 19 Spironolactone 02/10/2019 Social History Tobacco Use Types Packs/Day Years Used Date Smoking Tobacco: Never Smokeless Tobacco: Never Tobacco Cessation:Counseling Given: Not Answered Sex and Gender Information Value Date Recorded Sex Assigned at Not on file Legal Sex Male 12:32 AM EST Gender Identity Not on file Sexual Orientation Not on file Last Filed Vital Signs Vital Sign Reading Time Taken Comments Blood Pressure 117/70 06/10/2023 4:49 AM EDT Pulse 91 06/10/2023 4:49 AM EDT Temperature 36.5 C (97.7 F) 06/10/2023 4:49 AM EDT Respiratory Rate 16 06/10/2023 4:49 AM EDT Oxygen Saturation 98% 06/10/2023 4:49 AM EDT Inhaled Oxygen Concentration - - Weight - - Height - - Body Mass Index - - Plan of Treatment Health Maintenance Due Date Last Done Comments CT Colonography 1957 Colonoscopy 1957 Colorectal Cancer Screening 1957 FIT-DNA 1957 FIT 1957 FOBT 1957 Lipid Panel 1957 Sigmoidoscopy 1957 Meningococcal Vaccine (1 - Risk 2-dose series) 1959 COVID-19 Vaccine (#1) 1962 Hepatitis A Vaccines (1 of 2 - Risk 2-dose series) 1976 Hepatitis B Vaccines (2 of 3 - Risk 3-dose series) 04/18/2013 03/21/2013 Zoster Vaccines (1 of 2) 05/16/2015 03/21/2015 Pneumococcal Vaccine: 50+ Years (3 of 3 - PCV) 03/21/2016 03/21/2015, 03/21/2015, 08/11/2012 DTaP/Tdap/Td Vaccines (2 - Tdap) 03/21/2022 03/21/2012 Medicare Annual Wellness (AWV) 01/25/2024 Depression Screening 08/26/2024 Influenza Vaccine (#1) 2025 8, 03/21/2014, 08/11/2012, Additional history exists HIB Vaccines Aged Out 03/21/2013 No longer eligi ble based on patient's age to complete this topic Pneumococcal Vaccine: Pediatrics (0 to 5 Years) and At-Risk Patients (6 to 49 Years) Discontinued 03/21/2015, 03/21/2015, 08/11/2012 HPV Vaccines Aged Out No longer eligi ble based on patient's age to complete this topic IPV Vaccines Aged Out No longer eligi ble based on patient's age to complete this topic Meningococcal B Vaccine Aged Out No l onger eligible based on patient's age to complete this topic Rotavirus Vaccines Aged Out No longer eligible based on patient's age to complete this topic Insurance [facility] [employer]IONS [place]CTOR[employer] BABB [id number] Care Teams Java Web Engineer Relationship Specialty Start Date End Date Zaki Freedman MD [address] [place] [address] [facility] - General 09/29/21
--- NOTE | 2025-05-04 18:39 | PC.NURSE ---
Pt is axox3/ cooperative iwth ion exchange operator and able to follow commands but slow in response times. c/o kailey feet pain. reports command hallucinations with plan to cut himself. skin pwd.
[2025-05-04 18:49] LABS: Alanine Aminotransferase 71 U/L (0-40); Albumin Level 4.0 g/dL (3.5-5.0); Alkaline Phosphatase 113 U/L (39-117); Anion Gap 16 (12-20); Aspartate Amino Transferase 78 U/L (5-37); Blood Urea Nitrogen 17 mg/dL (9-16); Calcium 9.4 mg/dL (8.4-10.2); Carbon Dioxide 28 mmol/L (22-29); Chloride 106 mmol/L (96-108); Creatinine Clr Calc Pharmacy 92.6; Estimated Glomerular Filt Rate > 60; Magnesium 2.0 mg/dL (1.6-2.6); Potassium 3.8 mmol/L (3.3-5.1); Sodium 146 mmol/L (135-145); Total Protein 8.3 g/dL (6.5-8.0)
[2025-05-04 18:52] LABS: COVID-19 Test Negative (Negative); IDNOW Serial# 58CA691E
[2025-05-04 18:53] LABS: IDNOW Serial# 55D5AD1C; Influenza B2 Negative (Negative)
[2025-05-04 19:15] VITALS: BP 139/88; PULSE 96; RESP 22; TEMP 37.1; O2SAT 96
[2025-05-04 21:11] VITALS: BP 147/101; PULSE 102; O2SAT 95
[2025-05-04 21:40] LABS: Appearance Urine Turbid; Glucose Urine UA Negative (Negative); PH 8.5 (5.0-9.0); Specific Gravity - Urine 1.020 (1.005-1.025); UMIC TRIGGER UACC YES
[2025-05-04 21:48] LABS: Cannabinoid Screen Urine POSITIVE (Not Detect)
[2025-05-04 23:56] VITALS: BP 158/95; PULSE 78; RESP 18; TEMP 36.8; O2SAT 97
[2025-05-05] VITALS (7 sets, daily range): BP systolic 106–178; BP diastolic 67–100; PULSE 72–88; RESP 16–17; TEMP 35.9–36.8; O2SAT 98–100; BMI 21.2
--- NOTE | 2025-05-05 01:51 | PC.NURSE ---
Patient transferred to behavioral pod, room 7 from ED. Patient observed ambulating with a steady gait. Patient oriented to behavioral pod/ pod room 7. Patient currently resting in bed, watching TV, offers no complaints at this time, no s/s of apparent distress noted.
[2025-05-05] MEDS: oxyCODONE HCl Immed Release 5 MG TABLET PO ×2 (03:24→09:18)
--- NOTE | 2025-05-05 03:26 | PC.NURSE ---
Patient medicated per MAR.
--- NOTE | 2025-05-05 07:27 | PC.NURSE ---
Assumed care of pt. Transferred to room in the pod from chairs. Ambulating independently with a shuffling gait. States he does not use any assistive devices at home, though endorses recent falls. A&OX4, responds appropriately to questions, able to make needs known. No behavioral concerns at this time.
[2025-05-05] MEDS: Aspirin Enteric Coated 81 MG TABLET.DR PO (09:18)
[2025-05-05] MEDS: Bictegrav/Emtricit/Tenofov Ala TABLET 1 TAB PO (09:18)
--- NOTE | 2025-05-05 11:55 | PC.NURSE ---
Report given to Jodee CALL inpt.
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
--- NOTE | 2025-05-05 20:26 | HO.PSYADMNOT ---
HPI Date of Service: 05/05/25 Chief Complaint: SI and AH Sources of Information: patient interviewed, chart reviewed and crisis/core team assessment reviewed HPI Subjective Notes: Bonilla Warning and 3 Day Healthcare Proxy: No Guardianship: No Medical Problems Affecting Mental Status: No Narrative: Patient is a 69 years old , black, [place] speaking male who self presented to [facility] [place] to endorsing SI with plan to slit his wrist. He also reports command hallucination telling him to kill himself. Reports no precipitants to the voices or suicidal thoughts come out of no where . ? If medication compliant. At baseline, do not follow-up with medication and treatment recommendations. Many hospitalizations. on M3: Patient reports reason for being here is I have problems with voices. They were bothering me telling me to hurt myself . Reports the voices got was in the past week. He can not identify precipitants. Reports history of days go without sleeping. Reports he did not sleep well the past 2 nights. Appetite is okay and then he requests ensure plus 3 times a day. He denies SI/SIB/HI/ AVH at the assessment time. Reports suicidal thoughts history, and want history of suicide attempts 20 years ago when he was putting gun into his mouth and the gun jammed. Reports that he used to have the guns at home but he is just sold 2 of them and have 1 at home. Access to gun. Denies trauma history. Denies drug use but smoked marijuana 3 times daily for pain released. Reports drinking 3-4 shots of liquor but not consistently daily or weekly. Smoke 1/3 of the pack cigarettes a day. Reports history of schizoaffective bipolar type. Mood is anxious, can be irritable, hyper focused on oxycodone which he was not given lately from any outpatient providers, only given for 3 days back in March. He was back and forth not signing a 3 day decided to signed a 3 days right after this provider told him that he will not get oxycodone. Older him lidocaine patches, and that him use Voltaren cream for pain on his leg. Not focused on mental health, more focused on the oxycodone than anything else at this current time. Nursing was working really hard to do collateral/obtain information regarding his [facility]. when address the TD his face as a side effects from baseline I do not care about that right now . Numerous inpatient level of care admissions, recently was at [facility] after discharge from [facility] back in December of this year. History of to detox admission was couple of months ago. Past Psychiatric History: hx of multiple inpatient psychiatric hospitalizations. denies hx of SIB. does not have outpatient psychiatric providers. History of not following up with outpatient treatment plan/appointments Medical Evaluation Reviewed: Yes Reports pain on bilateral legs. Requests oxycodone. [facility] Medical History Alcohol intoxication Family History: pt reports family hx of depression. Social History: homeless. . 1 adult son. disability. Substance History: Denies current use. Not daily drinker. No withdrawal symptoms. Smoke marijuana daily. Cigarettes 1/3 of the pack a day. Trauma History: Denies Diagnostics Vital Signs (24Hr): Vital Signs - 24 hr 05/04/25 21:11 05/04/25 23:56 05/05/25 03:19 Temperature 98.3 F 98.3 F Pulse Rate 102 H 78 72 Respiratory Rate 18 17 Blood Pressure 147/101 H 158/95 H 178/100 H Pulse Oximetry 95 97 98 Oxygen Delivery Method Room Air Room Air Room Air 05/05/25 03:24 05/05/25 09:18 05/05/25 10:08 Temperature Pulse Rate Respiratory Rate Blood Pressure 178/100 H 178/100 H 123/83 Pulse Oximetry Oxygen Delivery Method 05/05/25 10:10 05/05/25 15:02 Temperature 96.6 F L 98.1 F Pulse Rate 73 77 Respiratory Rate 16 16 Blood Pressure 123/83 137/93 H Pulse Oximetry 100 99 Oxygen Delivery Method Room Air Room Air BMI result Body Mass Index 21.2 Labs 05/04/25 18:22 05/04/25 18:22 Labs: Laboratory Results - last 48 hr 05/04/25 05/04/25 18:22 21:31 WBC 4.2 L RBC 4.17 L Hgb 13.9 L Hct 39.1 L MCV 93.8 MCH 33.3 H MCHC 35.5 RDW 14.2 Plt Count 154 L MPV 11.8 Immature Gran % (Auto) 0.0 Neut % (Auto) 33.7 L Lymph % (Auto) 53.6 H Mccreary % (Auto) 10.0 Eos % (Auto) 1.7 Baso % (Auto) 1.0 Lymph # (Auto) 2.3 Mccreary # (Auto) 0.4 Eos # (Auto) 0.1 Baso # (Auto) 0.0 Abs Immat Gran (auto) 0.00 Absolute Neuts (auto) 1.4 L Absolute Nucleated RBC 0.000 Nucleated RBC % (auto) 0.0 Sodium 146 H Potassium 3.8 Chloride 106 Carbon Dioxide 28 Anion Gap 16 BUN 17 H Creatinine 0.87 Estim Creat Clear Calc 92.6 Estimated GFR > 60 Random Glucose 110 Calcium 9.4 Magnesium 2.0 Total Bilirubin 0.4 Direct Bilirubin 0.1 AST 78 H ALT 71 H Alkaline Phosphatase 113 Total Creatine Kinase 105 Total Protein 8.3 H Albumin 4.0 Urine Color Yellow Urine Appearance Turbid Urine pH 8.5 Ur Specific [place] 1.020 Urine Protein Trace Urine Glucose (UA) Negative Urine Ketones Trace Urine Blood Negative Urine Nitrite Negative Ur Leukocyte Esterase Trace H Urine RBC 0-2 Urine WBC 0-5 Ur Squamous Epith Cells 0-2 Urine Bacteria None Seen Hyaline Casts 0-2 Urine Opiates Screen Not Detected Ur Buprenorphine Scrn Not Detected Ur Oxycodone Screen Not Detected Urine Methadone Screen Not Detected Urine Fentanyl Screen Not Detected Ur Barbiturates Screen Not Detected Ur Phencyclidine Scrn Not Detected Ur Amphetamines Screen Not Detected U Benzodiazepines Scrn Not Detected Urine Cocaine Screen Not Detected U Marijuana (THC) Screen POSITIVE H Ethyl Alcohol 76 COVID-19 (DRAKE) Negative COVID-19 Clin Com See Note Influenza Type A (JOVITA) Negative Influenza Type B (JOVITA) Negative Influenza A & B Note See Note Meds/Allergies Meds Home Medications ?Medication ?Instructions ?Recorded ?Confirmed ?Type diclofenac sodium 1 % topical gel 2 g topical BID 05/05/25 05/05/25 History lisinopril 10 mg PO BID 05/05/25 05/05/25 History oxycodone 5 mg PO Q6H Pain 05/05/25 05/05/25 History Allergies Allergies Allergy/AdvReac Type Severity Reaction Status Date / Time acetaminophen (ACETAMINOPHEN) Allergy Mild rashes Verified 05/04/25 17:59 Mental Status Exam Mental Status Exam Narrative: Patient is alert and oriented; behavior is cooperative, mild to moderate anxiety; patient is not in distress; dressed in hospital attire with kempt hair and adequate hygiene;anxious,irritable- affect incongruent; eye contact appropriate; Speech is normal rate, volume and prosody and not pressured; no psychomotor agitation/retardation present; thought process is organized and goal directed but hyperfocus on Oxycodone; Thought content is WNL, pertinent to relevant topics and without any delusional content, paranoid ideation or grandiosity; denies any SI/SIB/HI. Denies AH and there is no evidence of perceptual disturbance. Patient's insight and judgment impaired. Assessment & Plan Assessment & Plan (1) Suicidal ideation: Status: Acute Code(s): R45.851 - Suicidal ideations (2) Schizoaffective disorder: Status: Acute Code(s): F25.9 - Schizoaffective disorder, unspecified Plan HPI: Patient is a 69 years old , black, [place] speaking male who self presented to [facility] [place] to endorsing SI with plan to slit his wrist. He also reports command hallucination telling him to kill himself. Reports no precipitants to the voices or suicidal thoughts come out of no where . ? If medication compliant. At baseline, do not follow-up with medication and treatment recommendations. Many hospitalizations. Formulation/clinical reasoning: Poor sleep, increase in SI and command hallucination telling him to hurt himself. ? Medication compliant. Decompensate. History of schizoaffective bipolar type. Given the above information, patient will be benefit for restrictive environment for his own safety, medication adjustment, and refer patient back to outpatient psychiatry services for aftercare. Hospital course: 05/05/25: Continue with home medications. The lidocaine patches for lower legs pain. Voltaren personal own cream for bilateral leg pain. Seroquel 600 at bedtime for mood. We will monitor for possible [id number] a new presentation. Patient is not cooperative for more information regarding medication compliant. Hyper focused on oxycodone for now. We will monitor for hypotension, lisinopril was held at this moment as medication does not not look right, record indicated he takes twice a day which is rare. Clonidine 0.1BID Continue with medication for HIV. Patient was given oxycodone last night in the ED. no record of given lately, except for only 2-3 days back in March. We will not prescribed oxycodone-not necessary at this time. Plan Patient on 15 minute checks for safety. Admitted to M5. CV. Signed 3 day notice and he is not getting oxycodone. Work with treatment team to do collateral. Contact the hospitalist regarding hospitalist consultation on admission: By lateral lower leg pain. Patient educated on: medication risk/benefits and therapeutic strategies Informed Consent: further education needed Reason for continued inpatient stay Substantial Risk for: med/psych decompensation Statement Statement: I have reviewed the history and physical and performed a pertinent examination on my patient. No changes have occurred unless specified. If the History and Physical was not performed prior to admission, the Hospitalist's service will be consulted for completing the admission physical. Time Spent With Patient Time: Total time managing care of this patient today ____ minutes.
[2025-05-05] MEDS: DICLOFENAC SODIUM 1% 2 EACH TOPICAL (20:28)
[2025-05-06 07:50] VITALS: BP 146/83; PULSE 77; RESP 18; TEMP 36.4; O2SAT 99
[2025-05-06] MEDS: Aspirin Enteric Coated 81 MG TABLET.DR PO (09:18)
[2025-05-06] MEDS: Bictegrav/Emtricit/Tenofov Ala TABLET 1 TAB PO (09:18)
[2025-05-06] MEDS: DICLOFENAC SODIUM 1% 2 EACH TOPICAL ×2 (09:19→21:18)
--- NOTE | 2025-05-06 11:35 | P.CONHOSP_ITS ---
History of Present Illness Data of Consult Service Date: 05/06/25 Primary Care Provider: None Physician HPI Reason for consult: Medical management 9-year-old male with past medical history of alcohol use disorder, polysubstance abuse, MDD, housing and security issues, depression, and mood disorder resulted to the emergency department with vague suicidal ideation. Patient reports that he was having auditory hallucinations high kill himself with a plan to slit his wrists. Patient also presented with a mechanical fall 3 days ago striking his head. While in the ED workup included CBC and BMP which revealed stable pancytopenia, ethanol level 76, viral panel negative for COVID and flu, his EKG revealed sinus tach with no ischemic changes with a QTC of 458. CT of his head demonstrated no acute intracranial findings. CT cervical spine demonstrated no acute findings. Tox screen positive for marijuana He was admitted on a section 12 to inpatient psych for further care and treatment. On exam the only thing he wants to discuss is being prescribed Oxy codeine as he was given a dose in the ED. patient reports that he is followed outpatient by a sys dir and was scheduled to have surgery in the near future to his foot. Mass PAT checked, patient has not had any recent oxycodone prescriptions prescribed to him, was on buprenorphine. He reports that the buprenorphine does not work and that he wants oxycodone. Explained to patient that oxycodone will not be prescribed inpatient for him and he will need to follow up with his outpatient providers. Patient is not pleased with this answer and declines any further evaluation or treatment by this provider. He is lying in bed appears to be in no apparent distress. Review of Systems 2 Review of Systems: Patient refused to answer. [facility] Medical History Alcohol intoxication Social History Household Members: None Housing: Apartment Housing Other:: staying in [facility] Do you presently have visiting nurse or other home services: No Unable to assess alcohol history related to: Refusing to respond Alcohol intake: current Alcohol intake frequency: does not drink Alcohol type: hard liquor Patient Tobacco Use Status: Former Tobacco user Tobacco use type: Cigarette Cigarettes Per Day: 8 Years Smoked: 36 years Smoked in Last 30 Days: Yes e-Cigarette/Vaping Use: Never Used Second Hand Smoke Exposure: No Use of substances other than those prescribed or required for medical reasons: Yes Substance Use Type: Marijuana Currently Displaying Signs/Symptoms of Drug Intoxication Withdrawal: No Have you been hit, kicked, punched, or otherwise hurt by someone within the past year? If so, by whom?: No Do you feel safe in your current relationship?: No Current Relationship Is there a partner from a previous relationship who is making you feel unsafe now?: No Are you made to feel afraid or neglected: No Advance Directives: No Advance Directives Information Provided: No Do you have thoughts of harming others: None Do you have a plan to hurt others: No Plan Recently lost weight without trying: Yes How much weight loss: 2-13 pounds Eating poorly because of decreased appetite: Yes Nutrition screen score: 4 Nutrition Risks: Anorexia Poor oral hygiene: Yes service: Yes Sexual orientation: Straight/Heterosexual Meds Allergies Allergy/AdvReac Type Severity Reaction Status Date / Time acetaminophen (ACETAMINOPHEN) Allergy Mild rashes Verified 05/04/25 17:59 Active Medications: Current Medications Al Hydroxide/Mg Hydroxide (Magnesium Hydrox/Alum Hydrox 30 Ml Oral.Susp) 30 ml PO Q6H PRN PRN Reason: Heartburn/Nausea Aspirin (Aspirin Enteric Coated 81 Mg Tablet.Dr) 81 mg PO DAILY COUNTS INCLUDE 234 BEDS AT THE [facility] Last Admin: 05/06/25 09:18 Dose: 81 mg Bictegravir/Emtricitabine/Tenofovir (Bictegrav/Emtricit/Tenofov Ala Tablet) 1 tab PO DAILY COUNTS INCLUDE 234 BEDS AT THE [facility] Last Admin: 05/06/25 09:18 Dose: 1 tab Clonidine HCl (Clonidine Hcl 0.1 Mg Tablet) 0.1 mg PO BID COUNTS INCLUDE 234 BEDS AT THE [facility]; Protocol Last Admin: 05/06/25 09:18 Dose: 0.1 mg Hydroxyzine HCl (Hydroxyzine Hcl 25 Mg Tablet) 25 mg PO Q6H PRN PRN Reason: mild anxiety Lidocaine (Lidocaine 4 % Patch Adh..Patch) 2 patch TRANSDERMA DAILY COUNTS INCLUDE 234 BEDS AT THE [facility]; Protocol Last Admin: 05/06/25 09:22 Dose: Not Given Magnesium Hydroxide (Milk Of Magnesia 30 Ml Oral.Susp) 30 ml PO DAILY PRN PRN Reason: Constipation Melatonin (Melatonin 3 Mg Tablet) 6 mg PO BEDTIME COUNTS INCLUDE 234 BEDS AT THE [facility] Last Admin: 05/05/25 20:28 Dose: 6 mg Nicotine (Nicotine 21 Mg Patch.Td24) 21 mg TRANSDERMA DAILY PRN PRN Reason: nicotine craving Nicotine Polacrilex (Nicotine Polacrilex 2 Mg Gum) 2 mg BUCCAL Q2H PRN PRN Reason: Nicotine Cravings Pat Own Med ( Diclofenac Sodium 1 % Gel) 2 gm TOPICAL BID COUNTS INCLUDE 234 BEDS AT THE [facility] Last Admin: 05/06/25 09:19 Dose: 2 gm Olanzapine (Olanzapine 5 Mg Tablet) 5 mg PO BID PRN PRN Reason: agitation Quetiapine Fumarate (Quetiapine Fumarate 300 Mg Tablet) 600 mg PO BEDTIME COUNTS INCLUDE 234 BEDS AT THE [facility] Last Admin: 05/05/25 20:27 Dose: 600 mg Trazodone HCl (Trazodone Hcl 50 Mg Tablet) 150 mg PO BEDTIME COUNTS INCLUDE 234 BEDS AT THE [facility] Last Admin: 05/05/25 20:29 Dose: Not Given Home Medications ?Medication ?Instructions ?Recorded ?Confirmed ?Last Taken ?Type diclofenac sodium 1 % topical gel 2 g topical BID 04/2605/05/25 Unknown History lisinopril 10 mg PO BID 05/05/25 1 Day Ago History ~05/04/25 oxycodone 5 mg PO Q6H Pain 05/05/25 Unknown History Physical Exam 2 Vital Signs and Narrative: Vital Signs: Last Vital Signs Temp 97.5 F 05/06/25 07:50 Pulse 77 05/06/25 07:50 Resp 18 05/06/25 07:50 BP 146/83 H 05/06/25 07:50 Pulse Ox 99 05/06/25 07:50 O2 Del Method Room Air 05/06/25 07:50 BMI result Body Mass Index 21.2 CONST: Alert and oriented, in NAD. Thin HEENT: Normocephalic, atraumatic, MMM RESP: Respiratory rate even and regular, no use of accessory muscles HEART:No edema SKIN: Warm dry and intact, no visible lesions or rashes NEURO: Moves in bed independently PSYCH: Angry affect Results Labs 05/04/25 18:22 05/04/25 18:22 Assessment and Plan (1) HTN (hypertension): Status: Acute Plan 69-year-old male with a history of alcohol use disorder, polysubstance abuse disorder, housing and security issues, depression, mood disorder presented with vague suicidal ideation, he is admitted to inpatient psych for further treatment. EtOH use disorder/polysubstance abuse disorder/depression/mood disorder/suicidal ideation Plan per inpatient psychiatric team Patient MASS PAT checked, previously on buprenorphine. No oxycodone scripts noted. Recommendations to follow up with outpatient Podiatry, and primary care regarding chronic pain management. Would avoid narcotic pain medications in his patient with a known history of polysubstance abuse. Hypertension Continue Clonidine and Lisinopril. Foot pain Patient has a outpatient follow up with upcoming surgery with [facility] Advised patient to follow up with his primary care doctor and sys dir for chronic pain management Continue with Lidoderm patches, diclofenac gel and ibuprofen as needed. Thank you for allowing me to participate in the care of this patient. Signing off at this time. Please reconsult of any acute concerns or issues arise.
[2025-05-06 12:28] VITALS: BP 116/66
--- NOTE | 2025-05-06 18:08 | HO.PSYCHPN ---
Subjective Subjective Date of Service: 05/06/25 Reason For Visit: SI and AH Subjective Notes: 3 Day Healthcare Proxy: No Guardianship: No Medical Problems Affecting Mental Status: No Interim History: Medical record and nursing notes reviewed; case discussed during rounds with team/nursing staff, and met with patient for supportive therapy/psychoeducation, as well as medication management. Patient slept for 7 hours, mostly compliant with meds. Patient is not cooperative with either this provider or with SW. Is irritable, passively engaged, shut down the interaction since he was told not able to get Oxycodone. Denies voices I am not now when he wanted to leave the hospital but earlier report voices telling him you guys are doing nothing for me - regarding his leg/foot pain. He states that he will not do anything- not attend groups or anything like that next couple of days until he is discharged. Repeated a couple more times as this provider approached the exit door. Denies SI. Irritable, isolative, not treatment focus. Per nursing note, patient was only given a couple doses of Oxycodone on 04/03- 04/05/25, No refill. Patient was seen by Hospitalist, started on Naproxin BID scheduled. Meds offered at bedside. Medication Compliance: Yes (Refused trazodone. ) Side effects from medications: No (not express) Attending Groups: No Review of Systems Acute medical concerns: No Medical Review of Systems: unchanged Review of Systems Review of Systems No SOB/Wheezing. No N/V. Pain on bilateral legs/feet: seen by hospitalist on 05/06/25. Mental Status Exam Mental Status Exam Narrative: Patient is alert and oriented; behavior is not cooperative, irritable; patient is not in distress; dressed in hospital attire with kempt hair and adequate hygiene; isolative,irritable- affect congruent; eye contact avoided; Speech is normal rate, volume and prosody and not pressured; no psychomotor agitation/retardation present; thought process is organized and goal directed - want to be discharged; Thought content is WNL, pertinent to relevant topics and without any delusional content, paranoid ideation or grandiosity; denies any SI/SIB/HI. Denies AH and there is no evidence of perceptual disturbance. Patient's insight and judgment fair. Diagnostics Vital Signs (24Hr): Vital Signs - 24 hr 05/05/25 20:00 05/06/25 07:50 05/06/25 12:28 Temperature 97.7 F 97.5 F Pulse Rate 88 77 Respiratory Rate 16 18 Blood Pressure 106/67 146/83 H 116/66 Pulse Oximetry 99 99 Oxygen Delivery Method Room Air Room Air BMI result Body Mass Index 21.2 Labs 05/04/25 18:22 05/04/25 18:22 Labs: Laboratory Results - last 48 hr 05/04/25 05/04/25 18:22 21:31 WBC 4.2 L RBC 4.17 L Hgb 13.9 L Hct 39.1 L MCV 93.8 MCH 33.3 H MCHC 35.5 RDW 14.2 Plt Count 154 L MPV 11.8 Immature Gran % (Auto) 0.0 Neut % (Auto) 33.7 L Lymph % (Auto) 53.6 H Real % (Auto) 10.0 Eos % (Auto) 1.7 Baso % (Auto) 1.0 Lymph # (Auto) 2.3 Real # (Auto) 0.4 Eos # (Auto) 0.1 Baso # (Auto) 0.0 Abs Immat Gran (auto) 0.00 Absolute Neuts (auto) 1.4 L Absolute Nucleated RBC 0.000 Nucleated RBC % (auto) 0.0 Sodium 146 H Potassium 3.8 Chloride 106 Carbon Dioxide 28 Anion Gap 16 BUN 17 H Creatinine 0.87 Estim Creat Clear Calc 92.6 Estimated GFR > 60 Random Glucose 110 Calcium 9.4 Magnesium 2.0 Total Bilirubin 0.4 Direct Bilirubin 0.1 AST 78 H ALT 71 H Alkaline Phosphatase 113 Total Creatine Kinase 105 Total Protein 8.3 H Albumin 4.0 Urine Color Yellow Urine Appearance Turbid Urine pH 8.5 Ur Specific Darrow 1.020 Urine Protein Trace Urine Glucose (UA) Negative Urine Ketones Trace Urine Blood Negative Urine Nitrite Negative Ur Leukocyte Esterase Trace H Urine RBC 0-2 Urine WBC 0-5 Ur Squamous Epith Cells 0-2 Urine Bacteria None Seen Hyaline Casts 0-2 Urine Opiates Screen Not Detected Ur Buprenorphine Scrn Not Detected Ur Oxycodone Screen Not Detected Urine Methadone Screen Not Detected Urine Fentanyl Screen Not Detected Ur Barbiturates Screen Not Detected Ur Phencyclidine Scrn Not Detected Ur Amphetamines Screen Not Detected U Benzodiazepines Scrn Not Detected Urine Cocaine Screen Not Detected U Marijuana (THC) Screen POSITIVE H Ethyl Alcohol 76 COVID-19 (DRAKE) Negative COVID-19 Clin Com See Note Influenza Type A (JOVITA) Negative Influenza Type B (JOVITA) Negative Influenza A & B Note See Note Medications Medications Current Medications Al Hydroxide/Mg Hydroxide (Magnesium Hydrox/Alum Hydrox 30 Ml Oral.Susp) 30 ml PO Q6H PRN PRN Reason: Heartburn/Nausea Aspirin (Aspirin Enteric Coated 81 Mg Tablet.Dr) 81 mg PO DAILY [facility] Last Admin: 05/06/25 09:18 Dose: 81 mg Bictegravir/Emtricitabine/Tenofovir (Bictegrav/Emtricit/Tenofov Ala Tablet) 1 tab PO DAILY [facility] Last Admin: 05/06/25 09:18 Dose: 1 tab Clonidine HCl (Clonidine Hcl 0.1 Mg Tablet) 0.1 mg PO BID [facility]; Protocol Last Admin: 05/06/25 09:18 Dose: 0.1 mg Hydroxyzine HCl (Hydroxyzine Hcl 25 Mg Tablet) 25 mg PO Q6H PRN PRN Reason: mild anxiety Ibuprofen (Ibuprofen 400 Mg Tablet) 400 mg PO Q6H PRN PRN Reason: Pain, Mild 1-3,fever,headache Lidocaine (Lidocaine 4 % Patch Adh..Patch) 2 patch TRANSDERMA DAILY [facility]; Protocol Last Admin: 05/06/25 09:22 Dose: Not Given Lisinopril (Lisinopril 10 Mg Tablet) 10 mg PO DAILY [facility]; Protocol Last Admin: 05/06/25 12:28 Dose: 10 mg Magnesium Hydroxide (Milk Of Magnesia 30 Ml Oral.Susp) 30 ml PO DAILY PRN PRN Reason: Constipation Melatonin (Melatonin 3 Mg Tablet) 6 mg PO BEDTIME [facility] Last Admin: 05/05/25 20:28 Dose: 6 mg Nicotine (Nicotine 21 Mg Patch.Td24) 21 mg TRANSDERMA DAILY PRN PRN Reason: nicotine craving Nicotine Polacrilex (Nicotine Polacrilex 2 Mg Gum) 2 mg BUCCAL Q2H PRN PRN Reason: Nicotine Cravings Pat Own Med ( Diclofenac Sodium 1 % Gel) 2 gm TOPICAL BID [facility] Last Admin: 05/06/25 09:19 Dose: 2 gm Olanzapine (Olanzapine 5 Mg Tablet) 5 mg PO BID PRN PRN Reason: agitation Quetiapine Fumarate (Quetiapine Fumarate 300 Mg Tablet) 600 mg PO BEDTIME [facility] Last Admin: 05/05/25 20:27 Dose: 600 mg Trazodone HCl (Trazodone Hcl 50 Mg Tablet) 150 mg PO BEDTIME [facility] Last Admin: 05/05/25 20:29 Dose: Not Given Allergies Allergies Allergy/AdvReac Type Severity Reaction Status Date / Time acetaminophen (ACETAMINOPHEN) Allergy Mild rashes Verified 05/04/25 17:59 Assessment & Plan Assessment & Plan (1) HTN (hypertension): Status: Acute Code(s): I10 - Essential (primary) hypertension (2) Suicidal ideation: Status: Acute Code(s): R45.851 - Suicidal ideations (3) Schizoaffective disorder: Status: Acute Code(s): F25.9 - Schizoaffective disorder, unspecified Plan HPI: Patient is a 69 years old , black, [place] speaking male who self presented to [facility] [place] [facility] secondary to endorsing SI with plan to slit his wrist. He also reports command hallucination telling him to kill himself. Reports no precipitants to the voices or suicidal thoughts come out of no where . ? If medication compliant. At baseline, do not follow-up with medication and treatment recommendations. Many hospitalizations. Formulation/clinical reasoning: Poor sleep, increase in SI and command hallucination telling him to hurt himself. ? Medication compliant. Decompensate. History of schizoaffective bipolar type. Given the above information, patient will be benefit for restrictive environment for his own safety, medication adjustment, and refer patient back to outpatient psychiatry services for aftercare. Hospital course: 05/05/25: Continue with home medications. The lidocaine patches for lower legs pain. Voltaren personal own cream for bilateral leg pain. Seroquel 600 at bedtime for mood. We will monitor for possible [id number] a new presentation. Patient is not cooperative for more information regarding medication compliant. Hyper focused on oxycodone for now. We will monitor for hypotension, lisinopril was held at this moment as medication does not not look right, record indicated he takes twice a day which is rare. Clonidine 0.1BID Continue with medication for HIV. Patient was given oxycodone last night in the ED. no record of given lately, except for only 2-3 days back in March. We will not prescribed oxycodone-not necessary at this time. 05/06/25: per hospitalist note for treatment plan: EtOH use disorder/polysubstance abuse disorder/depression/mood disorder/suicidal ideation Plan per inpatient psychiatric team Patient MASS PAT checked, previously on buprenorphine. No oxycodone scripts noted. Recommendations to follow up with outpatient Podiatry, and primary care regarding chronic pain management. Would avoid narcotic pain medications in his patient with a known history of polysubstance abuse. Hypertension: Continue Clonidine and Lisinopril. 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 Psychiatric progress note: Patient slept for 7 hours, mostly compliant with meds. Patient is not cooperative with either this provider or with . Is irritable, passively engaged, shut down the interaction since he was told not able to get Oxycodone. Denies voices I am not now when he wanted to leave the hospital but earlier report voices telling him you guys are doing nothing for me - regarding his leg/foot pain. He states that he will not do anything- not attend groups or anything like that next couple of days until he is discharged. Repeated a couple more times as this provider approached the exit door. Denies SI. Irritable, isolative, not treatment focus. Per nursing note, patient was only given a couple doses of Oxycodone on 04/03- 04/05/25, No refill. Plan Patient on 15 minute checks for safety. Admitted to [facility]. CV. Signed 3 day notice and he is not getting oxycodone. Work with treatment team to do collateral. Contact the hospitalist regarding hospitalist consultation on admission: By lateral lower leg pain. Patient educated on: medication risk/benefits and therapeutic strategies Informed Consent: further education needed Reason for continued inpatient stay Substantial Risk for: med/psych decompensation Time Spent With Patient Time: Total time managing care of this patient today ____ minutes.
[2025-05-06 20:00] VITALS: BP 144/84; PULSE 84; RESP 16; TEMP 36.1; O2SAT 96
[2025-05-07 08:00] VITALS: BP 110/61; PULSE 92; RESP 14; TEMP 36.6; O2SAT 96
[2025-05-07 08:43] VITALS: BP 110/61
[2025-05-07] MEDS: Aspirin Enteric Coated 81 MG TABLET.DR PO (08:43)
[2025-05-07] MEDS: Bictegrav/Emtricit/Tenofov Ala TABLET 1 TAB PO (08:43)
[2025-05-07 08:44] VITALS: BP 110/61
[2025-05-07] MEDS: DICLOFENAC SODIUM 1% 2 EACH TOPICAL ×2 (08:45→22:23)
--- NOTE | 2025-05-07 12:02 | MHC.CLN ---
CONSULT-ROUTINE REPORTED DECREASED APPETITE AND WEIGHT LOSS. COMPARING WEIGHT 77.111 KG 05/05/25 AND WEIGHT 81.647 KG 04/30/24, SHOWS WEIGHT LOSS X ONE YEAR -5.5%, APPROX 10#. DIET RX REGULAR. PER PROVIDER, ENSURE TID (1050 KCALS, 60 G PROTEIN). ANTICIPATE IMPROVED PO IN CONTROLLED ENVIRONMENT. CONTINUE CURRENT NUTRITION INTERVENTIONS.
--- NOTE | 2025-05-07 21:57 | HO.PSYCHPN ---
Subjective Subjective Date of Service: 05/07/25 Reason For Visit: SI and AH Subjective Notes: 3 Day Healthcare Proxy: No Guardianship: No Medical Problems Affecting Mental Status: No Interim History: Medical record and nursing notes reviewed; case discussed during rounds with team/nursing staff, and met with patient for supportive therapy/psychoeducation, as well as medication management. Patient slept for 8 hours, good appetite, however refused lidocaine patches, refused labs work. He was sitting at a table in his room working on his menu, reports everyone is depressed and pointed to the roommate that he is depressed to as he does not want the lights off. Patient was really irritable regarding the lisinopril not ordered b.i.d.. Nursing was able to call and confirm at the pharmacy, which he was given b.i.d. 10 mg which is order started tonight. Patient wanted to confirm that he is able to release/discharge on Saturday. Medication Compliance: Yes (Refused lidocaine patches ) Side effects from medications: No Attending Groups: No Review of Systems Acute medical concerns: No Medical Review of Systems: unchanged Review of Systems Review of Systems No SOB/Wheezing. No N/V. Pain on bilateral legs/feet: seen by hospitalist on 05/06/25. Mental Status Exam Mental Status Exam Narrative: Patient is alert and oriented; behavior is more cooperative, less irritable; patient is not in distress; dressed in casual attire with kempt hair and adequate hygiene; isolative,- affect congruent; eye contact avoided; Speech is normal rate, volume and prosody and not pressured; no psychomotor agitation/retardation present; thought process is organized and goal directed - want to be discharged; Thought content is WNL, pertinent to relevant topics and without any delusional content, paranoid ideation or grandiosity; denies any SI/SIB/HI. Denies AH and there is no evidence of perceptual disturbance. Patient's insight and judgment fair. Diagnostics Vital Signs (24Hr): Vital Signs - 24 hr 05/07/25 08:00 05/07/25 08:43 05/07/25 08:44 Temperature 97.8 F Pulse Rate 92 Respiratory Rate 14 Blood Pressure 110/61 110/61 110/61 Pulse Oximetry 96 Oxygen Delivery Method Room Air BMI result Body Mass Index 21.2 Labs 05/04/25 18:22 05/04/25 18:22 Medications Medications Current Medications Al Hydroxide/Mg Hydroxide (Magnesium Hydrox/Alum Hydrox 30 Ml Oral.Susp) 30 ml PO Q6H PRN PRN Reason: Heartburn/Nausea Aspirin (Aspirin Enteric Coated 81 Mg Tablet.Dr) 81 mg PO DAILY [facility] Last Admin: 05/07/25 08:43 Dose: 81 mg Bictegravir/Emtricitabine/Tenofovir (Bictegrav/Emtricit/Tenofov Ala Tablet) 1 tab PO DAILY [facility] Last Admin: 05/07/25 08:43 Dose: 1 tab Clonidine HCl (Clonidine Hcl 0.1 Mg Tablet) 0.1 mg PO BID [facility]; Protocol Last Admin: 05/07/25 08:43 Dose: 0.1 mg Hydroxyzine HCl (Hydroxyzine Hcl 25 Mg Tablet) 25 mg PO Q6H PRN PRN Reason: mild anxiety Ibuprofen (Ibuprofen 400 Mg Tablet) 400 mg PO Q6H PRN PRN Reason: Pain, Mild 1-3,fever,headache Lidocaine (Lidocaine 4 % Patch Adh..Patch) 2 patch TRANSDERMA DAILY [facility]; Protocol Last Admin: 05/07/25 08:49 Dose: Not Given Lisinopril (Lisinopril 10 Mg Tablet) 10 mg PO BID [facility]; Protocol Magnesium Hydroxide (Milk Of Magnesia 30 Ml Oral.Susp) 30 ml PO DAILY PRN PRN Reason: Constipation Melatonin (Melatonin 3 Mg Tablet) 6 mg PO BEDTIME [facility] Last Admin: 05/06/25 21:18 Dose: 3 mg Nicotine (Nicotine 21 Mg Patch.Td24) 21 mg TRANSDERMA DAILY PRN PRN Reason: nicotine craving Nicotine Polacrilex (Nicotine Polacrilex 2 Mg Gum) 2 mg BUCCAL Q2H PRN PRN Reason: Nicotine Cravings Pat Own Med ( Diclofenac Sodium 1 % Gel) 2 gm TOPICAL BID [facility] Last Admin: 05/07/25 08:45 Dose: 2 gm Olanzapine (Olanzapine 5 Mg Tablet) 5 mg PO BID PRN PRN Reason: agitation Quetiapine Fumarate (Quetiapine Fumarate 300 Mg Tablet) 600 mg PO BEDTIME [facility] Last Admin: 05/06/25 21:18 Dose: 600 mg Trazodone HCl (Trazodone Hcl 50 Mg Tablet) 150 mg PO BEDTIME [facility] Last Admin: 05/06/25 21:18 Dose: 150 mg Allergies Allergies Allergy/AdvReac Type Severity Reaction Status Date / Time acetaminophen (ACETAMINOPHEN) Allergy Mild rashes Verified 05/04/25 17:59 Assessment & Plan Assessment & Plan (1) HTN (hypertension): Status: Acute Code(s): I10 - Essential (primary) hypertension (2) Suicidal ideation: Status: Acute Code(s): R45.851 - Suicidal ideations (3) Schizoaffective disorder: Status: Acute Code(s): F25.9 - Schizoaffective disorder, unspecified Plan HPI: Patient is a 69 years old , black, [place]i speaking male who self presented [place] [facility] secondary to endorsing SI with plan to slit his wrist. He also reports command hallucination telling him to kill himself. Reports no precipitants to the voices or suicidal thoughts come out of no where . ? If medication compliant. At baseline, do not follow-up with medication and treatment recommendations. Many hospitalizations. Formulation/clinical reasoning: Poor sleep, increase in SI and command hallucination telling him to hurt himself. ? Medication compliant. Decompensate. History of schizoaffective bipolar type. Given the above information, patient will be benefit for restrictive environment for his own safety, medication adjustment, and refer patient back to outpatient psychiatry services for aftercare. Hospital course: 05/05/25: Continue with home medications. The lidocaine patches for lower legs pain. Voltaren personal own cream for bilateral leg pain. Seroquel 600 at bedtime for mood. We will monitor for possible [id number] a new presentation. Patient is not cooperative for more information regarding medication compliant. Hyper focused on oxycodone for now. We will monitor for hypotension, lisinopril was held at this moment as medication does not not look right, record indicated he takes twice a day which is rare. Clonidine 0.1BID Continue with medication for HIV. Patient was given oxycodone last night in the ED. no record of given lately, except for only 2-3 days back in March. We will not prescribed oxycodone-not necessary at this time. 05/06/25: per hospitalist note for treatment plan: EtOH use disorder/polysubstance abuse disorder/depression/mood disorder/suicidal ideation Plan per inpatient psychiatric team Patient MASS PAT checked, previously on buprenorphine. No oxycodone scripts noted. Recommendations to follow up with outpatient Podiatry, and primary care regarding chronic pain management. Would avoid narcotic pain medications in his patient with a known history of polysubstance abuse. Hypertension: Continue Clonidine and Lisinopril. 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 Psychiatric progress note: Patient slept for 7 hours, mostly compliant with meds. Patient is not cooperative with either this provider or with SW. Is irritable, passively engaged, shut down the interaction since he was told not able to get Oxycodone. Denies voices I am not now when he wanted to leave the hospital but earlier report voices telling him you guys are doing nothing for me - regarding his leg/foot pain. He states that he will not do anything- not attend groups or anything like that next couple of days until he is discharged. Repeated a couple more times as this provider approached the exit door. Denies SI. Irritable, isolative, not treatment focus. Per nursing note, patient was only given a couple doses of Oxycodone on 04/03- 04/05/25, No refill. 05/07/25: Patient slept for 8 hours, good appetite, however refused lidocaine patches, refused labs work. He was sitting at a table in his room working on his menu, reports everyone is depressed and pointed to the roommate that he is depressed to as he does not want the lights off. Patient was really irritable regarding the lisinopril not ordered b.i.d.. Nursing was able to call and confirm at the pharmacy, which he was given b.i.d. 10 mg which is order started tonight. Patient wanted to confirm that he is able to release/discharge on Saturday. Plan Patient on 15 minute checks for safety. Admitted to . CV. Signed 3 day notice and he is not getting oxycodone. Work with treatment team to do collateral. Contact the hospitalist regarding hospitalist consultation on admission: By lateral lower leg pain. Patient educated on: medication risk/benefits Informed Consent: understands and further education needed Reason for continued inpatient stay Substantial Risk for: med/psych decompensation Time Spent With Patient Time: Total time managing care of this patient today ____ minutes.
[2025-05-07 22:17] VITALS: BP 111/69; PULSE 84; RESP 16; TEMP 36.9; O2SAT 97
[2025-05-08] MEDS: Lidocaine 4 % Patch ADH..PATCH 2 PATCH TRANSDERMA (06:45)
[2025-05-08 08:00] VITALS: BP 131/77; PULSE 84; RESP 18; TEMP 36.4; O2SAT 100
[2025-05-08 08:32] VITALS: BP 131/77
[2025-05-08 08:33] VITALS: BP 131/77
[2025-05-08] MEDS: Bictegrav/Emtricit/Tenofov Ala TABLET 1 TAB PO (08:33)
[2025-05-08] MEDS: Aspirin Enteric Coated 81 MG TABLET.DR PO (08:33)
--- NOTE | 2025-05-08 09:10 | P.PNPSI_ITS ---
Subjective Subjective Date of Service: 05/08/25 Reason For Visit: SI and AH Subjective Notes: 3 Day Healthcare Proxy: No Guardianship: No Medical Problems Affecting Mental Status: No Interim History: Medical record and nursing notes reviewed; case discussed during rounds with team/nursing staff, and met with patient for supportive therapy/psychoeducation, as well as medication management. Patient slept well-7 hours, No issues with appetite. Less irritable since yesterday and more pleasant today upon approach. He admits that he was mad at this provider not giving him Oxy which result in not wanting Lidocaine patches the past couple of days. However, he requested ealry this morning to see if he could get them prior scheduled time. Denies hallucination, denies safety concerns. Visible, watching TV, drinking ensure. Medication Compliance: Yes (Refused lidocaine patches yesterday) Side effects from medications: No Attending Groups: No Review of Systems Medical Review of Systems: unchanged Review of Systems Review of Systems No SOB/Wheezing. No N/V. Pain on bilateral legs/feet: seen by hospitalist on 05/06/25. Mental Status Exam Mental Status Exam Narrative: Patient is alert and oriented; behavior is more cooperative, less irritable; patient is not in distress; dressed in casual attire with kempt hair and adequate hygiene; isolative,- affect congruent; eye contact avoided; Speech is normal rate, volume and prosody and not pressured; no psychomotor agitation/retardation present; thought process is organized and goal directed - want to be discharged; Thought content is WNL, pertinent to relevant topics and without any delusional content, paranoid ideation or grandiosity; denies any SI/SIB/HI. Denies AH and there is no evidence of perceptual disturbance. Patient's insight and judgment fair. Diagnostics Vital Signs (24Hr): Vital Signs - 24 hr 05/07/25 22:17 05/08/25 08:00 05/08/25 08:32 Temperature 98.5 F 97.5 F Pulse Rate 84 84 Respiratory Rate 16 18 Blood Pressure 111/69 131/77 131/77 Pulse Oximetry 97 100 Oxygen Delivery Method Room Air Room Air 05/08/25 08:33 Temperature Pulse Rate Respiratory Rate Blood Pressure 131/77 Pulse Oximetry Oxygen Delivery Method BMI result Body Mass Index 21.2 Labs 05/04/25 18:22 05/04/25 18:22 Medications Medications Current Medications Al Hydroxide/Mg Hydroxide (Magnesium Hydrox/Alum Hydrox 30 Ml Oral.Susp) 30 ml PO Q6H PRN PRN Reason: Heartburn/Nausea Aspirin (Aspirin Enteric Coated 81 Mg Tablet.Dr) 81 mg PO DAILY [facility] Last Admin: 05/08/25 08:33 Dose: 81 mg Bictegravir/Emtricitabine/Tenofovir (Bictegrav/Emtricit/Tenofov Ala Tablet) 1 tab PO DAILY [facility] Last Admin: 05/08/25 08:33 Dose: 1 tab Clonidine HCl (Clonidine Hcl 0.1 Mg Tablet) 0.1 mg PO BID [facility]; Protocol Last Admin: 05/08/25 08:33 Dose: 0.1 mg Hydroxyzine HCl (Hydroxyzine Hcl 25 Mg Tablet) 25 mg PO Q6H PRN PRN Reason: mild anxiety Ibuprofen (Ibuprofen 400 Mg Tablet) 400 mg PO Q6H PRN PRN Reason: Pain, Mild 1-3,fever,headache Lidocaine (Lidocaine 4 % Patch Adh..Patch) 2 patch TRANSDERMA DAILY [facility]; Protocol Last Admin: 05/07/25 08:49 Dose: Not Given Lisinopril (Lisinopril 10 Mg Tablet) 10 mg PO BID [facility]; Protocol Last Admin: 05/08/25 08:32 Dose: 10 mg Magnesium Hydroxide (Milk Of Magnesia 30 Ml Oral.Susp) 30 ml PO DAILY PRN PRN Reason: Constipation Melatonin (Melatonin 3 Mg Tablet) 6 mg PO BEDTIME [facility] Last Admin: 05/07/25 22:20 Dose: 3 mg Nicotine (Nicotine 21 Mg Patch.Td24) 21 mg TRANSDERMA DAILY PRN PRN Reason: nicotine craving Nicotine Polacrilex (Nicotine Polacrilex 2 Mg Gum) 2 mg BUCCAL Q2H PRN PRN Reason: Nicotine Cravings Pat Own Med ( Diclofenac Sodium 1 % Gel) 2 gm TOPICAL BID [facility] Last Admin: 05/07/25 22:23 Dose: 2 gm Olanzapine (Olanzapine 5 Mg Tablet) 5 mg PO BID PRN PRN Reason: agitation Quetiapine Fumarate (Quetiapine Fumarate 300 Mg Tablet) 600 mg PO BEDTIME [facility] Last Admin: 05/07/25 22:22 Dose: 600 mg Trazodone HCl (Trazodone Hcl 50 Mg Tablet) 150 mg PO BEDTIME [facility] Last Admin: 05/07/25 22:21 Dose: 150 mg Allergies Allergies Allergy/AdvReac Type Severity Reaction Status Date / Time acetaminophen (ACETAMINOPHEN) Allergy Mild rashes Verified 05/04/25 17:59 Assessment & Plan Assessment & Plan (1) HTN (hypertension): Status: Acute Code(s): I10 - Essential (primary) hypertension (2) Suicidal ideation: Status: Acute Code(s): R45.851 - Suicidal ideations (3) Schizoaffective disorder: Status: Acute Code(s): F25.9 - Schizoaffective disorder, unspecified Plan HPI: Patient is a 69 years old , black, Turkish speaking male who self presented to [facility] secondary to endorsing SI with plan to slit his wrist. He also reports command hallucination telling him to kill himself. Reports no precipitants to the voices or suicidal thoughts come out of no where . ? If medication compliant. At baseline, do not follow-up with medication and treatment recommendations. Many hospitalizations. Formulation/clinical reasoning: Poor sleep, increase in SI and command hallucination telling him to hurt himself. ? Medication compliant. Decompensate. History of schizoaffective bipolar type. Given the above information, patient will be benefit for restrictive environment for his own safety, medication adjustment, and refer patient back to outpatient psychiatry services for aftercare. Hospital course: 05/05/25: Continue with home medications. The lidocaine patches for lower legs pain. Voltaren personal own cream for bilateral leg pain. Seroquel 600 at bedtime for mood. We will monitor for possible [id number] a new presentation. Patient is not cooperative for more information regarding medication compliant. Hyper focused on oxycodone for now. We will monitor for hypotension, lisinopril was held at this moment as medication does not not look right, record indicated he takes twice a day which is rare. Clonidine 0.1BID Continue with medication for HIV. Patient was given oxycodone last night in the ED. no record of given lately, except for only 2-3 days back in March. We will not prescribed oxycodone-not necessary at this time. 05/06/25: per hospitalist note for treatment plan: EtOH use disorder/polysubstance abuse disorder/depression/mood disorder/suicidal ideation Plan per inpatient psychiatric team Patient MASS PAT checked, previously on buprenorphine. No oxycodone scripts noted. Recommendations to follow up with outpatient Podiatry, and primary care regarding chronic pain management. Would avoid narcotic pain medications in his patient with a known history of polysubstance abuse. Hypertension: Continue Clonidine and Lisinopril. Foot pain: Patient has a outpatient follow up with upcoming surgery with [facility] Advised patient to follow up with his primary care doctor and golf ball trimmer for chronic pain management Continue with Lidoderm patches, diclofenac gel and ibuprofen as needed. Psychiatric progress note: Patient slept for 7 hours, mostly compliant with meds. Patient is not cooperative with either this provider or with SW. Is irritable, passively engaged, shut down the interaction since he was told not able to get Oxycodone. Denies voices I am not now when he wanted to leave the hospital but earlier report voices telling him you guys are doing nothing for me - regarding his leg/foot pain. He states that he will not do anything- not attend groups or anything like that next couple of days until he is discharged. Repeated a couple more times as this provider approached the exit door. Denies SI. Irritable, isolative, not treatment focus. Per nursing note, patient was only given a couple doses of Oxycodone on 04/03- 04/05/25, No refill. 05/07/25: Patient slept for 8 hours, good appetite, however refused lidocaine patches, refused labs work. He was sitting at a table in his room working on his menu, reports everyone is depressed and pointed to the roommate that he is depressed to as he does not want the lights off. Patient was really irritable regarding the lisinopril not ordered b.i.d.. Nursing was able to call and confirm at the pharmacy, which he was given b.i.d. 10 mg which is order started tonight. Patient wanted to confirm that he is able to release/discharge on Saturday. 05/08/25: Patient slept well-7 hours, No issues with appetite. Less irritable since yesterday and more pleasant today upon approach. He admits that he was mad at this provider not giving him Oxy which result in not wanting Lidocaine patches the past couple of days. However, he requested ealry this morning to see if he could get them prior scheduled time. Denies hallucination, denies safety concerns. Visible, watching TV, drinking ensure. Plan Patient on 15 minute checks for safety. Admitted to M3. CV. Signed 3 day notice and he is not getting oxycodone. Tentative D/C on Saturday. Work with treatment team to do collateral. Contact the hospitalist regarding hospitalist consultation on admission: By lateral lower leg pain. Patient educated on: diagnosis, medication risk/benefits and therapeutic strategies Informed Consent: further education needed Reason for continued inpatient stay Substantial Risk for: med/psych decompensation Time Spent With Patient Time: Total time managing care of this patient today ____ minutes.
[2025-05-08 19:33] VITALS: BP 124/75; PULSE 98; RESP 18; TEMP 37.1; O2SAT 98
[2025-05-08 21:10] VITALS: BP 127/78
[2025-05-08 21:11] VITALS: BP 127/78
[2025-05-09] MEDS: Lidocaine 4 % Patch ADH..PATCH 2 PATCH TRANSDERMA (06:46)
--- NOTE | 2025-05-09 06:58 | PC.NURSE ---
Pt having bilateral foot pain, lidocaine patches given early. Provider notified.
[2025-05-09 08:00] VITALS: BP 133/82; PULSE 84; RESP 16; TEMP 36.6; O2SAT 99
[2025-05-09] MEDS: Aspirin Enteric Coated 81 MG TABLET.DR PO (08:26)
[2025-05-09] MEDS: Bictegrav/Emtricit/Tenofov Ala TABLET 1 TAB PO (08:59)
[2025-05-09 09:08] LABS: Hemoglobin A1C 117.2286 umol/L; Total Hemoglobin (HGBA1C) 3577.2767 umol/L
[2025-05-09 09:09] LABS: Alanine Aminotransferase 56 U/L (0-40); Albumin Level 3.6 g/dL (3.5-5.0); Alkaline Phosphatase 113 U/L (39-117); Anion Gap 12 (12-20); Aspartate Amino Transferase 63 U/L (5-37); Blood Urea Nitrogen 22 mg/dL (9-16); Calcium 9.2 mg/dL (8.4-10.2); Carbon Dioxide 25 mmol/L (22-29); Chloride 104 mmol/L (96-108); Cholesterol 156 mg/dL (<200); Creatinine Clr Calc Pharmacy 80.5; Estimated Glomerular Filt Rate > 60; HDL Cholesterol 82 mg/dL (>40); Potassium 4.3 mmol/L (3.3-5.1); Sodium 137 mmol/L (135-145); Total Protein 7.4 g/dL (6.5-8.0); Triglycerides 84 mg/dL (<150)
[2025-05-09 09:23] LABS: Free T4 (Free Thyroxine) 0.85 ng/dL (0.71-1.85); Thyroid Stimulating Hormone 1.54 uIU/mL (0.32-4.0)
[2025-05-09 09:26] LABS: Vitamin B12 487 pg/mL (200-900)
[2025-05-09 21:30] VITALS: BP 129/80; PULSE 85; RESP 16; TEMP 37.4; O2SAT 98
[2025-05-09] MEDS: DICLOFENAC SODIUM 1% 2 EACH TOPICAL (21:37)
--- NOTE | 2025-05-09 22:43 | P.PNPSI_ITS ---
Subjective Subjective Date of Service: 05/09/25 Reason For Visit: SI and AH Subjective Notes: 3 Day Healthcare Proxy: No Guardianship: No Medical Problems Affecting Mental Status: No Interim History: Medical record and nursing notes reviewed; case discussed during rounds with team/nursing staff, and met with patient for supportive therapy/psychoeducation, as well as medication management. Patient slept for 8 hours, brighter, visible watching TV. , more pleasant cooperative. Denies safety concerns. Denies suicidal thoughts or hallucinations. He really wants to leave tomorrow and do not want to retracted 3 day. He has has been menstruate safe behavior, with down suicidal thought or hallucination. Working on sending to send medication out to preferred pharmacy Medication Compliance: Yes (Refused Volteren cream ) Side effects from medications: No Attending Groups: No (out watching TV) Review of Systems Acute medical concerns: No Medical Review of Systems: unchanged Review of Systems Review of Systems No SOB/Wheezing. No N/V. Pain on bilateral legs/feet: seen by hospitalist on 05/06/25. Mental Status Exam Mental Status Exam Narrative: Patient is alert and oriented; behavior is cooperative; patient is not in distress; dressed in casual attire with kempt hair and adequate hygiene; isolative,- affect congruent; eye contact avoided; Speech is normal rate, volume and prosody and not pressured; no psychomotor agitation/retardation present; thought process is organized and goal directed - want to be discharged; Thought content is WNL, pertinent to relevant topics and without any delusional content, paranoid ideation or grandiosity; denies any SI/SIB/HI. Denies AH and there is no evidence of perceptual disturbance. Patient's insight and judgment fair. Diagnostics Vital Signs (24Hr): Vital Signs - 24 hr 05/09/25 08:00 05/09/25 21:30 Temperature 97.9 F 99.4 F Pulse Rate 84 85 Respiratory Rate 16 16 Blood Pressure 133/82 129/80 Pulse Oximetry 99 98 Oxygen Delivery Method Room Air Room Air BMI result Body Mass Index 21.2 Labs 05/04/25 18:22 05/09/25 07:41 Labs: Laboratory Results - last 48 hr 05/09/25 07:41 Sodium 137 Potassium 4.3 Chloride 104 Carbon Dioxide 25 Anion Gap 12 BUN 22 H Creatinine 0.97 Estim Creat Clear Calc 80.5 Estimated GFR > 60 Random Glucose 88 Estimat Average Glucose 100 Hemoglobin A1c % 5.1 Calcium 9.2 Total Bilirubin 0.2 AST 63 H ALT 56 H Alkaline Phosphatase 113 Total Protein 7.4 Albumin 3.6 Triglycerides 84 Cholesterol 156 LDL Cholesterol, Calc 58 HDL Cholesterol 82 Vitamin B12 487 TSH 1.54 Free T4 0.85 Medications Medications Current Medications Al Hydroxide/Mg Hydroxide (Magnesium Hydrox/Alum Hydrox 30 Ml Oral.Susp) 30 ml PO Q6H PRN PRN Reason: Heartburn/Nausea Aspirin (Aspirin Enteric Coated 81 Mg Tablet.Dr) 81 mg PO DAILY [facility] Last Admin: 05/09/25 08:26 Dose: 81 mg Bictegravir/Emtricitabine/Tenofovir (Bictegrav/Emtricit/Tenofov Ala Tablet) 1 tab PO DAILY [facility] Last Admin: 05/09/25 08:59 Dose: 1 tab Clonidine HCl (Clonidine Hcl 0.1 Mg Tablet) 0.1 mg PO BID [facility]; Protocol Last Admin: 05/09/25 21:34 Dose: 0.1 mg Hydroxyzine HCl (Hydroxyzine Hcl 25 Mg Tablet) 25 mg PO Q6H PRN PRN Reason: mild anxiety Ibuprofen (Ibuprofen 400 Mg Tablet) 400 mg PO Q6H PRN PRN Reason: Pain, Mild 1-3,fever,headache Last Admin: 05/08/25 21:12 Dose: 400 mg Lidocaine (Lidocaine 4 % Patch Adh..Patch) 2 patch TRANSDERMA DAILY [facility]; Protocol Last Admin: 05/09/25 06:46 Dose: 2 patch Lisinopril (Lisinopril 10 Mg Tablet) 10 mg PO BID [facility]; Protocol Last Admin: 05/09/25 21:34 Dose: 10 mg Magnesium Hydroxide (Milk Of Magnesia 30 Ml Oral.Susp) 30 ml PO DAILY PRN PRN Reason: Constipation Melatonin (Melatonin 3 Mg Tablet) 6 mg PO BEDTIME [facility] Last Admin: 05/09/25 21:33 Dose: 6 mg Nicotine (Nicotine 21 Mg Patch.Td24) 21 mg TRANSDERMA DAILY PRN PRN Reason: nicotine craving Nicotine Polacrilex (Nicotine Polacrilex 2 Mg Gum) 2 mg BUCCAL Q2H PRN PRN Reason: Nicotine Cravings Pat Own Med ( Diclofenac Sodium 1 % Gel) 2 gm TOPICAL BID [facility] Last Admin: 05/09/25 21:37 Dose: 2 gm Olanzapine (Olanzapine 5 Mg Tablet) 5 mg PO BID PRN PRN Reason: agitation Quetiapine Fumarate (Quetiapine Fumarate 300 Mg Tablet) 600 mg PO BEDTIME [facility] Last Admin: 05/09/25 21:34 Dose: 600 mg Trazodone HCl (Trazodone Hcl 50 Mg Tablet) 150 mg PO BEDTIME [facility] Last Admin: 05/09/25 21:33 Dose: 150 mg Allergies Allergies Allergy/AdvReac Type Severity Reaction Status Date / Time acetaminophen (ACETAMINOPHEN) Allergy Mild rashes Verified 05/04/25 17:59 Assessment & Plan Assessment & Plan (1) HTN (hypertension): Status: Acute Code(s): I10 - Essential (primary) hypertension (2) Suicidal ideation: Status: Acute Code(s): R45.851 - Suicidal ideations (3) Schizoaffective disorder: Status: Acute Code(s): F25.9 - Schizoaffective disorder, unspecified Plan HPI: Patient is a 69 years old , black, Faroese speaking male who self presented to [facility] secondary to endorsing SI with plan to slit his wrist. He also reports command hallucination telling him to kill himself. Reports no precipitants to the voices or suicidal thoughts come out of no where . ? If medication compliant. At baseline, do not follow-up with medication and treatment recommendations. Many hospitalizations. Formulation/clinical reasoning: Poor sleep, increase in SI and command hallucination telling him to hurt himself. ? Medication compliant. Decompensate. History of schizoaffective bipolar type. Given the above information, patient will be benefit for restrictive environment for his own safety, medication adjustment, and refer patient back to outpatient psychiatry services for aftercare. Hospital course: 05/05/25: Continue with home medications. The lidocaine patches for lower legs pain. Voltaren personal own cream for bilateral leg pain. Seroquel 600 at bedtime for mood. We will monitor for possible [id number] a new presentation. Patient is not cooperative for more information regarding medication compliant. Hyper focused on oxycodone for now. We will monitor for hypotension, lisinopril was held at this moment as medication does not not look right, record indicated he takes twice a day which is rare. Clonidine 0.1BID Continue with medication for HIV. Patient was given oxycodone last night in the ED. no record of given lately, except for only 2-3 days back in March. We will not prescribed oxycodone-not necessary at this time. 05/06/25: per hospitalist note for treatment plan: EtOH use disorder/polysubstance abuse disorder/depression/mood disorder/suicidal ideation Plan per inpatient psychiatric team Patient MASS PAT checked, previously on buprenorphine. No oxycodone scripts noted. Recommendations to follow up with outpatient Podiatry, and primary care regarding chronic pain management. Would avoid narcotic pain medications in his patient with a known history of polysubstance abuse. Hypertension: Continue Clonidine and Lisinopril. Foot pain: Patient has a outpatient follow up with upcoming surgery with [facility] Advised patient to follow up with his primary care doctor and health education aide for chronic pain management Continue with Lidoderm patches, diclofenac gel and ibuprofen as needed. Psychiatric progress note: Patient slept for 7 hours, mostly compliant with meds. Patient is not cooperative with either this provider or with SW. Is irritable, passively engaged, shut down the interaction since he was told not able to get Oxycodone. Denies voices I am not now when he wanted to leave the hospital but earlier report voices telling him you guys are doing nothing for me - regarding his leg/foot pain. He states that he will not do anything- not attend groups or anything like that next couple of days until he is discharged. Repeated a couple more times as this provider approached the exit door. Denies SI. Irritable, isolative, not treatment focus. Per nursing note, patient was only given a couple doses of Oxycodone on 04/03- 04/05/25, No refill. 05/07/25: Patient slept for 8 hours, good appetite, however refused lidocaine patches, refused labs work. He was sitting at a table in his room working on his menu, reports everyone is depressed and pointed to the roommate that he is depressed to as he does not want the lights off. Patient was really irritable regarding the lisinopril not ordered b.i.d.. Nursing was able to call and confirm at the pharmacy, which he was given b.i.d. 10 mg which is order started tonight. Patient wanted to confirm that he is able to release/discharge on Saturday. 05/08/25: Patient slept well-7 hours, No issues with appetite. Less irritable since yesterday and more pleasant today upon approach. He admits that he was mad at this provider not giving him Oxy which result in not wanting Lidocaine patches the past couple of days. However, he requested ealry this morning to see if he could get them prior scheduled time. Denies hallucination, denies safety concerns. Visible, watching TV, drinking ensure. 05/09/25: Patient slept for 8 hours, brighter, visible watching TV. , more pleasant cooperative. Denies safety concerns. Denies suicidal thoughts or hallucinations. He really wants to leave tomorrow and do not want to retracted 3 day. He has has been menstruate safe behavior, with down suicidal thought or hallucination. Working on sending to send medication out to preferred pharmacy. Plan Patient on 15 minute checks for safety. Admitted to M3. CV. Signed 3 day notice and he is not getting oxycodone. Tentative D/C on Saturday. Work with treatment team to do collateral. Contact the hospitalist regarding hospitalist consultation on admission: By lateral lower leg pain. Patient educated on: medication risk/benefits and therapeutic strategies Informed Consent: understands Reason for continued inpatient stay Substantial Risk for: med/psych decompensation Time Spent With Patient Time: Total time managing care of this patient today ____ minutes.
[2025-05-10] MEDS: Lidocaine 4 % Patch ADH..PATCH 2 PATCH TRANSDERMA (05:32)
--- NOTE | 2025-05-10 05:33 | PC.NURSE ---
Antonio reported elevated pain in his bilateral feet. Patient given lidocaine patches earlier per nursing discretion. Provider notified.
[2025-05-10 07:15] VITALS: BP 150/80; PULSE 84; TEMP 36.9; O2SAT 100
[2025-05-10 08:35] VITALS: BP 147/81
[2025-05-10] MEDS: Aspirin Enteric Coated 81 MG TABLET.DR PO (08:35)
[2025-05-10 08:36] VITALS: BP 147/81
[2025-05-10] MEDS: Bictegrav/Emtricit/Tenofov Ala TABLET 1 TAB PO (08:36)
--- NOTE | 2025-05-10 10:00 | P.DS_ITS ---
DS: Providers Provider Date of Service: 05/10/25 Date of admission: 05/05/25 11:02 Date of discharge: 05/10/25 Primary care physician: Tadeo Physician Attending physician on admission: Iris Chung Consults: 05/05/25 21:00 Consult to Hospitalist Routine Comment: Consulting Provider: [facility] Hospitalists Reason For Exam: Billateral leg pain. Attending physician on discharge: Iris Chung DS: Diagnosis Discharge Diagnosis (1) HTN (hypertension): Status: Acute (2) Suicidal ideation: Status: Acute (3) Schizoaffective disorder: Status: Acute DS: Medications Discharge Medications Home Medications: Previous Rx's ?Medication ?Instructions ?Recorded aspirin 81 mg tablet,delayed 81 mg PO DAILY Heart dise ase 30 05/10/25 release days #30 tabs bictegravir 50 mg-emtricitabine 1 tab PO DAILY HIIV 30 days #30 05/10/25 200 mg-tenofovir alafenam 25 mg tabs tablet (Biktarvy) clonidine HCl 0.1 mg tablet 0.1 mg PO BID Anxiety/HTN 30 days 05/10/25 #60 tabs diclofenac sodium 1 % topical gel 2 g topical BID leg pain #50 grams 05/10/25 ibuprofen 400 mg tablet 400 mg PO Q6H PRN Pain, Mild 05/10/25 1-3,Fever,Headache #30 tabs lidocaine 4 % topical patch 2 patch transdermal DAILY #60 ea 05/10/25 (Lidocaine Pain Relief) lisinopril 10 mg PO BID elevated of blo od 05/10/25 pressure 30 days #60 tabs melatonin 3 mg tablet 6 mg (2 x 3 mg) PO BEDTIME 0 05/10/25 insomnia 30 days #60 tabs quetiapine 300 mg tablet 600 mg (2 x 300 mg) PO BEDTI ME 05/10/25 psychosis 30 days #60 tabs trazodone 150 mg tablet 150 mg PO BEDTIME insomnia 30 05/10/25 days #30 tabs Mental Status Exam Mental Status Exam Narrative: Patient presents well-groomed, casually dressed. Affect is euthymic with full range. Speech is clear and coherent. Thought process is linear and logical. Thought content is appropriate and relevant. Patient denies suicidal or homicidal ideation intent or plan. No overt psychotic symptoms elicited. Insight is good. Judgment is good. Data Data Completed and Pending Completed studies during hospitalization [Text1]: 05/04/25 05/04/25 05/09/25 18:22 21:31 07:41 WBC 4.2 L RBC 4.17 L Hgb 13.9 L Hct 39.1 L MCV 93.8 MCH 33.3 H MCHC 35.5 RDW 14.2 Plt Count 154 L MPV 11.8 Immature Gran % (Auto) 0.0 Neut % (Auto) 33.7 L Lymph % (Auto) 53.6 H Perkins % (Auto) 10.0 Eos % (Auto) 1.7 Baso % (Auto) 1.0 Lymph # (Auto) 2.3 Perkins # (Auto) 0.4 Eos # (Auto) 0.1 Baso # (Auto) 0.0 Abs Immat Gran (auto) 0.00 Absolute Neuts (auto) 1.4 L Absolute Nucleated RBC 0.000 Nucleated RBC % (auto) 0.0 Sodium 146 H 137 Potassium 3.8 4.3 Chloride 106 104 Carbon Dioxide 28 25 Anion Gap 16 12 BUN 17 H 22 H Creatinine 0.87 0.97 Estim Creat Clear Calc 92.6 80.5 Estimated GFR > 60 > 60 Random Glucose 110 88 Estimat Average Glucose 100 Hemoglobin A1c % 5.1 Calcium 9.4 9.2 Magnesium 2.0 Total Bilirubin 0.4 0.2 Direct Bilirubin 0.1 AST 78 H 63 H ALT 71 H 56 H Alkaline Phosphatase 113 113 Total Creatine Kinase 105 Total Protein 8.3 H 7.4 Albumin 4.0 3.6 Triglycerides 84 Cholesterol 156 LDL Cholesterol, Calc 58 HDL Cholesterol 82 Vitamin B12 487 TSH 1.54 Free T4 0.85 Urine Color Yellow Urine Appearance Turbid Urine pH 8.5 Ur Specific [place] 1.020 Urine Protein Trace Urine Glucose (UA) Negative Urine Ketones Trace Urine Blood Negative Urine Nitrite Negative Ur Leukocyte Esterase Trace H Urine RBC 0-2 Urine WBC 0-5 Ur Squamous Epith Cells 0-2 Urine Bacteria None Seen Hyaline Casts 0-2 Urine Opiates Screen Not Detected Ur Buprenorphine Scrn Not Detected Ur Oxycodone Screen Not Detected Urine Methadone Screen Not Detected Urine Fentanyl Screen Not Detected Ur Barbiturates Screen Not Detected Ur Phencyclidine Scrn Not Detected Ur Amphetamines Screen Not Detected U Benzodiazepines Scrn Not Detected Urine Cocaine Screen Not Detected U Marijuana (THC) Screen POSITIVE H Ethyl Alcohol 76 COVID-19 (DRAKE) Negative COVID-19 Clin Com See Note Influenza Type A (JOVITA) Negative Influenza Type B (JOVITA) Negative Influenza A & B Note See Note DS: Summary Hospital Course Hospital Course: HPI: Patient is a 69 years old , black, Palestinian speaking male who self presented to [facility] secondary to endorsing SI with plan to slit his wrist. He also reports command hallucination telling him to kill himself. Reports no precipitants to the voices or suicidal thoughts come out of no where . ? If medication compliant. At baseline, do not follow-up with medication and treatment recommendations. Many hospitalizations. Formulation/clinical reasoning: Poor sleep, increase in SI and command hallucination telling him to hurt himself. ? Medication compliant. Decompensate. History of schizoaffective bipolar type. Given the above information, patient will be benefit for restrictive environment for his own safety, medication adjustment, and refer patient back to outpatient psychiatry services for aftercare. Hospital course: 05/05/25: Continue with home medications. The lidocaine patches for lower legs pain. Voltaren personal own cream for bilateral leg pain. Seroquel 600 at bedtime for mood. We will monitor for possible [id number] a new presentation. Patient is not cooperative for more information regarding medication compliant. Hyper focused on oxycodone for now. We will monitor for hypotension, lisinopril was held at this moment as medication does not not look right, record indicated he takes twice a day which is rare. Clonidine 0.1BID Continue with medication for HIV. Patient was given oxycodone last night in the ED. no record of given lately, except for only 2-3 days back in March. We will not prescribed oxycodone-not necessary at this time. 05/06/25: per hospitalist note for treatment plan: EtOH use disorder/polysubstance abuse disorder/depression/mood disorder/suicidal ideation Plan per inpatient psychiatric team Patient MASS PAT checked, previously on buprenorphine. No oxycodone scripts noted. Recommendations to follow up with outpatient Podiatry, and primary care regarding chronic pain management. Would avoid narcotic pain medications in his patient with a known history of polysubstance abuse. Hypertension: Continue Clonidine and Lisinopril. Foot pain: Patient has a outpatient follow up with upcoming surgery with [facility] Advised patient to follow up with his primary care doctor and supervisor/port director for chronic pain management Continue with Lidoderm patches, diclofenac gel and ibuprofen as needed. Psychiatric progress note: Patient slept for 7 hours, mostly compliant with meds. Patient is not cooperative with either this provider or with SW. Is irritable, passively engaged, shut down the interaction since he was told not able to get Oxycodone. Denies voices I am not now when he wanted to leave the hospital but earlier report voices telling him you guys are doing nothing for me - regarding his leg/foot pain. He states that he will not do anything- not attend groups or anything like that next couple of days until he is discharged. Repeated a couple more times as this provider approached the exit door. Denies SI. Irritable, isolative, not treatment focus. Per nursing note, patient was only given a couple doses of Oxycodone on 04/03- 04/05/25, No refill. 05/07/25: Patient slept for 8 hours, good appetite, however refused lidocaine patches, refused labs work. He was sitting at a table in his room working on his menu, reports everyone is depressed and pointed to the roommate that he is depressed to as he does not want the lights off. Patient was really irritable regarding the lisinopril not ordered b.i.d.. Nursing was able to call and confirm at the pharmacy, which he was given b.i.d. 10 mg which is order started tonight. Patient wanted to confirm that he is able to release/discharge on Saturday. 05/08/25: Patient slept well-7 hours, No issues with appetite. Less irritable since yesterday and more pleasant today upon approach. He admits that he was mad at this provider not giving him Oxy which result in not wanting Lidocaine patches the past couple of days. However, he requested ealry this morning to see if he could get them prior scheduled time. Denies hallucination, denies safety concerns. Visible, watching TV, drinking ensure. 05/09/25: Patient slept for 8 hours, brighter, visible watching TV. , more pleasant cooperative. Denies safety concerns. Denies suicidal thoughts or hallucinations. He really wants to leave tomorrow and do not want to retracted 3 day. He has has been menstruate safe behavior, with down suicidal thought or hallucination. Working on sending to send medication out to preferred pharmacy. 05/10/25: Patient feeling safe going home, denies safety concerns. Medication- paper scripts handed and reviewed with patient by nursing Time spent discussing smoking cessation with patient: 3 to 10 minutes Status at Discharge Cognitive/behavioral status at discharge: CONDITION ON DISCHARGE: CURRENT STATUS IT RELATES TO ADMISSION CRITERIA: Stable, improved. Improvements in depression, anxiety, and suicidal ideation. Improvements in sleep, energy, and appetite. and no hallucination or paranoia/delusional thought. Functional status at discharge: independent ambulation Overall status at discharge: patient is back to baseline Time Spent with Patient Time attestation: Total time managing care of this patient today ____ minutes. Time spent: Greater than 30 minutes Discharge Plan Discharge Anticipated Discharge Date/Time: 05/10/25 09:59 Patient Disposition: Home, Self-Care Discharge Diagnosis: schizoaffective, hypertension Referrals: [facility] [Other] - 1 Week Referral Note: Please follow up with outpatient providers. [facility] [Provider Group] - 1 Week Referral Note: 05-06-25 [facility] was added to patients chart. Please call [phone] to schedule a follow up appt within 7-10 days of discharge. No release or PCP on file. Discharge Medications: New ibuprofen 400 mg Tablet 400 mg PO Q6H PRN (Reason: Pain, Mild 1-3,Fever,Headache) Qty: 30 0RF lidocaine [Lidocaine Pain Relief] 4 % Adhesive Patch,Medicated 2 patch transdermal DAILY Qty: 60 0RF Protocol: Apply to: Apply to: apply to bilataral leg for pain Rx Instructions: Apply to bilateral legs Continued clonidine HCl 0.1 mg Tablet 0.1 mg PO BID 30 Days Qty: 60 0RF Protocol: Hold for SBP< HOLD for SBP < : 90 quetiapine 300 mg tablet 600 mg PO BEDTIME 30 Days Qty: 60 0RF aspirin 81 mg tablet,delayed release (DR/EC) 81 mg PO DAILY 30 Days Qty: 30 0RF trazodone 150 mg tablet 150 mg PO BEDTIME 30 Days Qty: 30 0RF diclofenac sodium 1 % Gel 2 g TOPICAL BID Qty: 50 0RF Rx Instructions: One application to Bilateral feet for pain Biktarvy 50-200-25 mg tablet 1 tab PO DAILY 30 Days Qty: 30 0RF lisinopril 10 MG tablet 10 mg PO BID 30 Days Qty: 60 0RF Changed melatonin 3 mg Tablet 6 mg PO BEDTIME 30 Days Qty: 60 0RF Discontinued oxycodone 5 mg tablet 5 mg PO Q6H Discharge Orders: Discharge Order (Routine); Ordered 05/10/25 Ordered By: Iris Chung Diet: Regular diet Activity on Discharge: As tolerated Stand Alone Forms: Patient Portal Discharge page, Community Support Print Language: Palestinian Care Plan Goals: Maintain mood and safe behaviors Take medications as prescribed Continue to pursue sobriety Practice coping skills Continue with outpatient providers and reach out to them as needed Health Concerns: Mood stability and behaviors Sobriety Plan of Treatment: Follow up with your PCP, psychiatric provider and other outpatient providers regarding above concerns Take medications as prescribed Assessment: Assessment: Risk assessment at time of discharge: Patient was interviewed prior to discharge and found to be fully oriented and without any SI or HI. Patient has improved insight and judgment and wants to continue treatment. Patient is not in imminent risk of harm to self or others and has a safety plan that includes presenting to the closest ER or calling 911 if feeling unsafe. Patient has been observed closely by nursing and unit staff throughout admission; patient has not engaged in any behaviors that suggest dangerousness to self or others and has demonstrated appropriate behaviors and impulse control Discharge Date/Time: 05/10/25 10:45
== END 2025-05-10 10:45 | disposition home or self-care (01) | DRG 885 ==
LOC: HO.ED 05-05 11:50 → HO.PADLT16 05-05 13:40
PROVIDERS: Physician Assistant Medical; Admitting Provider Nurse Practitioner Psychiatric/Mental Health; Emergency Provider Emergency Medicine; Visit Provider Nurse Practitioner Psychiatric/Mental Health
DX: F25.9 Schizoaffective disorder, unspecified (principal); R45.851 Suicidal ideations; F17.210 Nicotine dependence, cigarettes, uncomplicated; G89.29 Other chronic pain; Z71.6 Tobacco abuse counseling; M79.662 Pain in left lower leg; M79.661 Pain in right lower leg; Z21 Asymptomatic human immunodeficiency virus [HIV] infection status; F19.10 Other psychoactive substance abuse, uncomplicated; I10 Essential (primary) hypertension; Z20.822 Contact with and (suspected) exposure to COVID-19; Z79.899 Other long term (current) drug therapy
CPT/HCPCS: 36415; 70450; 72125; 80048; 80053; 80061; 80076; 80307; 81001; 82550; 82607; 83036; 83735; 84439; 84443; 85025; 87502; 87635; 93005; 99285; S9485

== ENCOUNTER → 2025-05-04 18:03 | Outpatient (BNV) | payer MEDICARE, SELFPAY | PROVIDERS: Emergency Provider Emergency Medicine; Visit Provider Internal Medicine Cardiovascular Disease | DX: R00.0 Tachycardia, unspecified (principal) | CPT/HCPCS: 93010 ==

== ENCOUNTER → 2025-05-04 18:06 | Outpatient (BNV) | payer MEDICARE, SELFPAY | PROVIDERS: Visit Provider Radiology Diagnostic Radiology | DX: M43.12 Spondylolisthesis, cervical region (principal); G31.89 Other specified degenerative diseases of nervous system | CPT/HCPCS: 70450; 72125 ==

== ENCOUNTER → 2025-05-05 11:02 | Outpatient (BNV) | payer OTHER, SELFPAY | PROVIDERS: Admitting Provider Nurse Practitioner Psychiatric/Mental Health; Emergency Provider Emergency Medicine; Visit Provider Nurse Practitioner Family | DX: Z02.2 Encounter for examination for admission to residential institution (principal); I10 Essential (primary) hypertension | CPT/HCPCS: 99429 ==

== ENCOUNTER → 2025-05-05 11:02 | Outpatient (BNV) | payer MEDICARE, SELFPAY | PROVIDERS: Admitting Provider Nurse Practitioner Psychiatric/Mental Health; Emergency Provider Emergency Medicine; Visit Provider Nurse Practitioner Psychiatric/Mental Health | DX: F25.0 Schizoaffective disorder, bipolar type (principal); R45.851 Suicidal ideations; I10 Essential (primary) hypertension | CPT/HCPCS: 90792; 99231; 99232; 99238 ==

== ENCOUNTER 2025-05-14 10:33 | Inpatient (IN) | payer OTHER, SELFPAY ==
--- OUTSIDE RECORDS SUMMARY | 2016-04-29 20:00 | XMS_ITS | Continuity of Care Document ---
Author Organization [employer] Address [address] [place] [address] Phone Care Team Providers Care Bill Recapitulation Clerk Name Role Phone Unavailable Unavailable Unavailable Procedures Procedure Date EKG Interpretation - Hospital 6 Advance Directives Directive Yes / No Effective Date File Name No Information Encounters Encounter Description Practice Location Reason(s) For Visit Diagnoses Date Provider Providers Copied on Encounter [employer] [facility], [address] [place] [address], [id number], tel:[phone] [employer] No Information No Information Referring Provider: Bebeto Head, [address] [place] [address], [id number] . tel:[phone] Family History Family Member Type Diagnosis Age At Onset No Information Payers Payer name Insurance type Covered libertarian ID Authoriza tion(s) Medicare [place] B [place] [id number] Medicaid [id number] Social History Type Description Quantity Date Captured [...]
--- NOTE | 2025-05-14 10:38 | ED.PSYCH ---
HPI - Psych General Chief Complaint: Psychiatric Symptoms Stated Complaint: SI Time Seen by Provider: 05/14/25 10:38 Source: patient, EMS, RN notes reviewed and old records reviewed Mode of arrival: EMS History of Present Illness ED Provider: Sugar HPI Narrative: Patient is a 69-year-old male with history of alcohol use disorder, polysubstance abuse, housing and security, depression and mood disorder presenting to the ED with complaint of auditory hallucinations and suicidal ideation. Also complaining of chronic left foot pain. Denies HI, VH. States he feels his medications are not working as well as they used to. MD complaint: suicidal ideation and hallucinations Related Data Home Medications ?Medication ?Instructions ?Recorded ?Confirmed lisinopril 10 mg tablet 10 mg PO BID 05/15/25 05/15/25 Previous Rx's ?Medication ?Instructions ?Recorded aspirin 81 mg tablet,delayed 81 mg PO DAILY Heart disease 30 05/10/25 release days #30 tabs bictegravir 50 mg-emtricitabine 1 tab PO DAILY HIIV 30 days #30 05/10/25 200 mg-tenofovir alafenam 25 mg tabs tablet (Biktarvy) clonidine HCl 0.1 mg tablet 0.1 mg PO BID Anxiety/HTN 30 days 05/10/25 #60 tabs diclofenac sodium 1 % topical gel 2 g topical BID leg pain #50 grams 05/10/25 ibuprofen 400 mg tablet 400 mg PO Q6H PRN Pain, Mild 05/10/25 1-3,Fever,Headache #30 tabs lidocaine 4 % topical patch 2 patch transdermal DAILY #60 ea 05/10/25 (Lidocaine Pain Relief) melatonin 3 mg tablet 6 mg (2 x 3 mg) PO BEDTIME 05/10/25 insomnia 30 days #60 tabs quetiapine 300 mg tablet 600 mg (2 x 300 mg) PO BEDTIME 05/10/25 psychosis 30 days #60 tabs trazodone 150 mg tablet 150 mg PO BEDTIME insomnia 30 05/10/25 days #30 tabs Allergies Allergy/AdvReac Type Severity Reaction Status Date / Time acetaminophen (ACETAMINOPHEN) Allergy Mild rashes Verified 05/14/25 11:03 Review of Systems Review of Systems: As per HPI Yes all other systems are reviewed and are negative Constitutional: Constitutional: Reports as per HPI PMFSH Past Medical History Medical History Alcohol intoxication Social History Social History Household Members: None Housing: Apartment Housing Other:: staying in [facility] Do you presently have visiting nurse or other home services: No Unable to assess alcohol history related to: Refusing to respond Alcohol intake: current Alcohol intake frequency: does not drink Alcohol type: hard liquor Patient Tobacco Use Status: Current everyday Tobacco user Tobacco use type: Cigarette Cigarettes Per Day: 8 Years Smoked: 36 years Smoked in Last 30 Days: Yes e-Cigarette/Vaping Use: Never Used Patient Interested in Nicotine Replacement: Yes Patient Given Instructions on How to Stop Smoking: No (pt declined) Second Hand Smoke Exposure: No Substance Use Type: Marijuana Currently Displaying Signs/Symptoms of Drug Intoxication Withdrawal: No Have you been hit, kicked, punched, or otherwise hurt by someone within the past year? If so, by whom?: No Do you feel safe in your current relationship?: No Current Relationship Is there a partner from a previous relationship who is making you feel unsafe now?: No Are you made to feel afraid or neglected: No Synagogue Healthcare Practices: Yarsanism Advance Directives: No Advance Directives Information Provided: No Do you have thoughts of harming others: None Do you have a plan to hurt others: No Plan Recently lost weight without trying: No How much weight loss: Not applicable Eating poorly because of decreased appetite: No Nutrition screen score: 0 Nutrition Risks: No Nutritional Risk Poor oral hygiene: No service: Yes Sexual orientation: Straight/Heterosexual Physical Exam Vital Signs: Vital Signs: Last Vital Signs Temp 98.1 F 05/17/25 15:00 Pulse 75 05/17/25 15:00 Resp 16 05/17/25 15:00 BP 103/64 05/17/25 21:30 Pulse Ox 99 05/17/25 15:00 O2 Del Method Room Air 05/17/25 15:00 BMI result Body Mass Index 23.1 Vital signs have been reviewed and appear to be correct. Blood pressure normal. Heart rate normal. Respiratory rate normal. Temperature normal. Oxygen saturation normal. Const: General: cooperative, healthy appearing and no acute distress Orientation/consciousness: oriented to person, oriented to place, oriented to time and patient oriented x3 Limitations: no limitations HEENT: Head: Yes normocephalic and Yes atraumatic Ears: external ears normal General nose exam: Normal external nose present Face and sinus: Yes face symmetric Mouth: oropharynx normal and moist mucous membranes Throat: Yes uvula midline Eyes: Pupils: Equal, round and reactive pupils present Neck: Neck: Yes normal visual inspection and Yes supple Resp: Effort & Inspection: normal respiratory effort and able to speak in complete sentences Auscultation: clear to auscultation bilaterally Cardio: Rate: regular rate Rhythm: regular rhythm Heart sounds: S1 normal heart sound present and S2 normal heart sound present GI: Palpation (GI): Soft to palpation and nontender Auscultation: normoactive bowel sounds : General: Yes no CVA tenderness Back/Spine/Pelvis: Back: no CVA tenderness Skin: General skin exam: elasticity normal and turgor normal Neuro: General: oriented to person, oriented to place, oriented to time, patient oriented x3, moves all extremities, no focal motor deficits and CN's II-XI intact bilaterally Cranial nerves: Yes Equal, round and reactive pupils present Cognition (Neuro): normal cognition Extrem: General: Yes full ROM, Yes no pedal edema and Yes no calf tenderness Psych: Appearance: grossly normal Mental Status: mental status grossly normal Affect: normal affect Attitude: cooperative Thought process: Normal thought process present Thought content: Suicidality present, no homicidality and Hallucination(s) present auditory; not visual Insight: Fair insight present (Psych) Judgement: Fair judgement present (Psych) Course Reevaluation(s) Reevaluation #1: await for the patient to go to [facility] at some point today. Time: 15:30 Reevaluation #2: Time: 0830 Date: 05/16/25 Provider: DR. Watson Patient in physician observation for psychiatric evaluation.? No acute events reported overnight. No current complaints. VS stable.? Patient is in bed search status. Will continue to monitor. Reevaluation #3: 0700 05/17/2025 (Dr. Hans Moise): Time: 13:37 Date: 05/17/25 Provider: Hans Moise, DO Patient in physician observation for psychiatric evaluation.? No acute events reported overnight. No current complaints. VS stable.?Will continue to monitor. Additional Reevaluation(s): Time: 14:23 Date: 05/17/25 Provider: Chelsea Caraballo DO Physician observation ended at 1423 Patient to be admitted as inpatient to psychiatry. Medications Administered Generic Name Dose Route Start Last Admin Trade Name Hilda PRN Reason Stop Dose Admin Aspirin 81 mg 05/14/25 19:15 05/17/25 06:59 Aspirin Enteric Coated 81 Mg Tablet.Dr PO 81 mg DAILY SABA Administration Bictegravir/Emtricitabine/Tenofovir 1 tab 05/14/25 19:15 05/17/25 08:35 Bictegrav/Emtricit/Tenofov Ala Tablet PO 1 tab DAILY SABA Administration Clonidine HCl 0.1 mg 05/14/25 21:00 05/17/25 21:16 Clonidine Hcl 0.1 Mg Tablet PO 0.1 mg BID SABA Administration Protocol Lidocaine 2 patch 05/14/25 19:15 05/17/25 06:59 Lidocaine 4 % Patch Adh..Patch TRANSDERMA 2 patch DAILY SABA Administration Protocol Lisinopril 10 mg 05/17/25 21:00 05/17/25 22:55 Lisinopril 10 Mg Tablet PO Not Given BID SABA Protocol Melatonin 6 mg 05/14/25 21:00 05/17/25 22:56 Melatonin 3 Mg Tablet PO Not Given BEDTIME SABA Quetiapine Fumarate 600 mg 05/14/25 21:00 05/17/25 22:56 Quetiapine Fumarate 300 Mg Tablet PO Not Given BEDTIME SABA Trazodone HCl 150 mg 05/14/25 21:00 05/17/25 22:56 Trazodone Hcl 50 Mg Tablet PO Not Given BEDTIME SABA Discontinued Medications Generic Name Dose Route Start Last Admin Trade Name Hilda PRN Reason Stop Dose Admin Lisinopril 10 mg 05/14/25 21:00 05/17/25 06:58 Lisinopril 10 Mg Tablet PO 10 mg BID SABA Administration Oxycodone HCl 5 mg 05/14/25 11:41 05/14/25 12:07 Oxycodone Hcl Immed Release 5 Mg Tablet PO 05/14/25 11:42 5 mg ONCE ONE Administration Oxycodone HCl 5 mg 05/14/25 16:53 05/17/25 13:56 Oxycodone Hcl Immed Release 5 Mg Tablet PO 5 mg Q6H PRN Administration Pain, Moderate(Pain Scale 4-6) Medical Decision Making Medical Decision Making MDM Narrative: Patient is a 69-year-old male with history of alcohol use disorder, polysubstance abuse, housing and security, depression and mood disorder presenting to the ED with complaint of auditory hallucinations and suicidal ideation. On exam patient is awake, A+Ox3, VS WNL, afebrile, normal neurological exam without focal deficits, physical exam findings as above. Given reported symptoms and physical exam findings, initial differential includes but is not limited to suicidal ideation, auditory hallucinations, depression, chronic foot pain. Will plan for medical clerance then CARE team evaluation. Labs unremarkable. Urine is without evidence of infection. COVID negative. Ethanol negative, urine drug screen positive for THC only. Patient can be medically cleared at this time and place on physician observation pending care team evaluation. Differential Diagnosis Differential Diagnoses: The differential diagnosis associated with the presentation includes as per [facility] Admission/Observation Consideration of admission/observation: Escalation of care including admission/observation considered Consult Healthcare Provider Management of the patient was discussed with: Behavioral Health Provider Lab Data [facility] Lab Attestation statement: I reviewed the patient's lab results. as per [facility] 05/14/25 11:13 05/14/25 11:13 Labs: Lab Results 05/14/25 05/14/25 Range/Units 11:13 11:29 WBC 5.0 (4.8-10.8) X10*3/uL RBC 4.11 L (4.60-5.80) X10*6/uL Hgb 13.6 L (14.0-18.0) g/dl Hct 40.2 L (42.0-52.0) % MCV 97.8 (80.0-98.0) fL MCH 33.1 H (27.0-33.0) pg MCHC 33.8 (31.0-36.0) g/dl RDW 14.1 (11.0-16.0) % Plt Count 113 L D (160-400) X10*3/uL MPV 12.1 (9.4-12.4) fL Immature Gran % (Auto) 0.2 (0.0-0.4) % Neut % (Auto) 60.3 (45-73) % Lymph % (Auto) 26.6 (20-40) % [place] % (Auto) 11.5 H (2-11) % Eos % (Auto) 1.0 (0-4) % Baso % (Auto) 0.4 (0-2) % Lymph # (Auto) 1.3 (1.2-4.9) X10*3/uL [place] # (Auto) 0.6 (0.1-1.2) X10*3/uL Eos # (Auto) 0.1 (0.0-0.4) X10*3/uL Baso # (Auto) 0.0 (0.0-0.2) X10*3/uL Abs Immat Gran (auto) 0.01 (0.00-0.03) X10*3/uL Absolute Neuts (auto) 3.0 (2.0-8.3) x10*3/uL Absolute Nucleated RBC 0.000 (0.0-0.012) X10*3/uL Nucleated RBC % (auto) 0.0 (0.0-0.2) /100WBC Sodium 145 (135-145) mmol/L Potassium 4.5 (3.3-5.1) mmol/L Chloride 108 (96-108) mmol/L Carbon Dioxide 32 H (22-29) mmol/L Anion Gap 10 L (12-20) BUN 26 H (9-16) mg/dL Creatinine 1.02 (0.5-1.4) mg/dL Estim Creat Clear Calc 76.6 Estimated GFR > 60 Random Glucose 90 (60-115) mg/dL Calcium 9.2 (8.4-10.2) mg/dL Total Bilirubin 0.2 (0.0-1.0) mg/dL AST 63 H (5-37) U/L ALT 63 H (0-40) U/L Alkaline Phosphatase 124 H (39-117) U/L Total Protein 7.6 (6.5-8.0) g/dL Albumin 3.6 (3.5-5.0) g/dL Urine Color Yellow Urine Appearance Clear Urine pH 6.0 (5.0-9.0) Ur Specific [place] 1.025 (1.005-1.025) Urine Protein Negative (Neg-Trace) mg/dL Urine Glucose (UA) Negative (Negative) mg/dL Urine Ketones Negative (Negative) mg/dL Urine Blood Negative (Negative) Urine Nitrite Negative (Negative) Ur Leukocyte Esterase Negative (Negative) Salicylates < 5.0 L (15-30) mg/dL Urine Opiates Screen Not Detected (Not Detect) Ur Buprenorphine Scrn Not Detected (Not Detect) ng/mL Ur Oxycodone Screen Not Detected (Not Detect) ng/mL Urine Methadone Screen Not Detected (Not Detect) ng/mL Urine Fentanyl Screen Not Detected (Not Detect) Acetaminophen < 3 (<30) mcg/mL Ur Barbiturates Screen Not Detected (Not Detect) Ur Phencyclidine Scrn Not Detected (Not Detect) Ur Amphetamines Screen Not Detected (Not Detect) U Benzodiazepines Scrn Not Detected (Not Detect) Urine Cocaine Screen Not Detected (Not Detect) U Marijuana (THC) Screen POSITIVE H (Not Detect) Ethyl Alcohol < 10 mg/dL COVID-19 (DRAKE) Negative (Negative) COVID-19 Clin Com See Note External Record Review External record reviewed: Inpatient record, Office record and Outpatient record Discharge Plan Discharge Clinical Impression: Auditory hallucination, Suicidal ideation Patient Disposition: Admitted As Inpatient Interventions: Admission Worksheet (ED) Last Done: 05/17/25 14:23 Discharge Date/Time: 05/17/25 14:44
[2025-05-14 10:59] VITALS: BP 150/92; PULSE 72; O2SAT 96; BMI 23.1
[2025-05-14 11:15] VITALS: BP 122/86; PULSE 90; RESP 16; TEMP 36.2; O2SAT 100
[2025-05-14 11:19] LABS: MANUAL DIFF FLAG NO
[2025-05-14 11:25] LABS: Hematocrit 40.2 % (42.0-52.0); Hemoglobin 13.6 g/dl (14.0-18.0); Imm Gran Abs Auto 0.01 X10*3/uL (0.00-0.03); Imm Gran Pct Auto 0.2 % (0.0-0.4); Lymphocytes Absolute Auto 1.3 X10*3/uL (1.2-4.9); Mean Corpuscular HGB Conc 33.8 g/dl (31.0-36.0); Mean Corpuscular Hemoglobin 33.1 pg (27.0-33.0); Mean Corpuscular Volume 97.8 fL (80.0-98.0); NRBC Abs Auto 0.000 X10*3/uL (0.0-0.012); NRBC Pct Auto 0.0 /100WBC (0.0-0.2); Platelet Count 113 X10*3/uL (160-400); Red Blood Count 4.11 X10*6/uL (4.60-5.80); White Blood Count 5.0 X10*3/uL (4.8-10.8)
[2025-05-14 11:35] LABS: COVID-19 Test Negative (Negative); IDNOW Serial# 55D5AD1C
[2025-05-14 11:40] LABS: Appearance Urine Clear; Glucose Urine UA Negative (Negative); PH 6.0 (5.0-9.0); Specific Gravity - Urine 1.025 (1.005-1.025)
[2025-05-14 11:41] LABS: Acetaminophen LAB < 3 mcg/mL (<30); Salicylate < 5.0 mg/dL (15-30)
[2025-05-14 11:43] LABS: Alanine Aminotransferase 63 U/L (0-40); Albumin Level 3.6 g/dL (3.5-5.0); Alkaline Phosphatase 124 U/L (39-117); Anion Gap 10 (12-20); Aspartate Amino Transferase 63 U/L (5-37); Blood Urea Nitrogen 26 mg/dL (9-16); Calcium 9.2 mg/dL (8.4-10.2); Carbon Dioxide 32 mmol/L (22-29); Chloride 108 mmol/L (96-108); Creatinine Clr Calc Pharmacy 76.6; Estimated Glomerular Filt Rate > 60; Potassium 4.5 mmol/L (3.3-5.1); Sodium 145 mmol/L (135-145); Total Protein 7.6 g/dL (6.5-8.0)
[2025-05-14 11:51] LABS: Cannabinoid Screen Urine POSITIVE (Not Detect)
[2025-05-14] MEDS: oxyCODONE HCl Immed Release 5 MG TABLET PO ×2 (12:07→17:01)
--- OUTSIDE RECORDS SUMMARY | 2025-05-14 12:27 | XMS_ITS | Clinical Summary ---
Author Organization [facility] Address [address] [address] Care Team Providers Care Sole Ruffer Name Role Phone Zaki Freedman MD Primary Care Provider [phone] Allergies Active Allergy Reactions Criticality Noted Date [...] patient's age to complete this topic Insurance [facility] [employer] [place] [employer] [id number] Care Teams Sole Ruffer Relationship Specialty Start Date End Date Zaki Freedman MD [address] [place] [address] [facility] - General 09/29/21
[2025-05-14 14:16] VITALS: BP 131/81; PULSE 79; RESP 16; TEMP 36.5; O2SAT 98
--- NOTE | 2025-05-14 17:54 | PC.NURSE ---
Pt has remained calm and cooperative. He has been napping and watching TV. he requests pain medication for chronic back pain. He continues to endorse SI but no plan and has AH of voices telling him he is no good.
--- NOTE | 2025-05-14 18:26 | MHC.CARE ---
Pt was accepted to [address], [facility] [address], for tomorrow 05/15/25. ETA 4pm. Accepting facility will call for N2N
[2025-05-14] MEDS: Lidocaine 4 % Patch ADH..PATCH 2 PATCH TRANSDERMA (20:46)
[2025-05-14] MEDS: Aspirin Enteric Coated 81 MG TABLET.DR PO (20:46)
--- NOTE | 2025-05-15 00:01 | PC.NURSE ---
Assume care of patient at 23:00. Patient sleeping in bed, RR 16, even chest wall rise and fall, no s/s of apparent distress noted.
[2025-05-15 03:07] VITALS: BP 161/109; PULSE 84; RESP 18; TEMP 36.6; O2SAT 100
[2025-05-15] MEDS: oxyCODONE HCl Immed Release 5 MG TABLET PO ×4 (03:07→21:04)
--- NOTE | 2025-05-15 03:08 | PC.NURSE ---
Patient medicated per MAR for c/o 03/04 pain in bilateral lower legs/feet.
[2025-05-15 06:41] VITALS: RESP 16
[2025-05-15] MEDS: Aspirin Enteric Coated 81 MG TABLET.DR PO (09:08)
[2025-05-15] MEDS: Bictegrav/Emtricit/Tenofov Ala TABLET 1 TAB PO (09:08)
[2025-05-15] MEDS: Lidocaine 4 % Patch ADH..PATCH 2 PATCH TRANSDERMA (09:15)
--- NOTE | 2025-05-15 15:53 | PHA.MEDREC ---
Addendum entered by Wilmar Avalos [facility] 05/15/25 17:06: MED REC REVIEWED BY [facility] Addendum entered by Vito De La Cruz 05/15/25 15:55: Confirmed medication list using both pharmacy claims and medical records. Original Note: Pharmacy Consult ? Medication Reconciliation Pharmacy has completed the medication reconciliation. Confirmed medication list against pharmacy claims.
[2025-05-15 19:33] VITALS: RESP 18
[2025-05-15 21:03] VITALS: BP 133/82
--- NOTE | 2025-05-15 21:04 | PC.NURSE ---
VSS. Patient medicated per MAR with bedtime medications and PRN Oxycodone 5 mg PO for 7/10 chronic pain in left foot. Patient currently resting in bed, offers no other complaints at present, plan of care ongoing.
[2025-05-16 05:53] VITALS: BP 170/107; PULSE 84; RESP 20; TEMP 36.6; O2SAT 100
--- NOTE | 2025-05-16 08:54 | PC.NURSE ---
this nurse obtained report from nicholas, patient currently sleeping, rr equal/non labored, will medicate patient upon waking
[2025-05-16 09:22] VITALS: BP 170/107
[2025-05-16] MEDS: Aspirin Enteric Coated 81 MG TABLET.DR PO (09:22)
[2025-05-16] MEDS: oxyCODONE HCl Immed Release 5 MG TABLET PO ×3 (09:25→22:01)
[2025-05-16] MEDS: Lidocaine 4 % Patch ADH..PATCH 2 PATCH TRANSDERMA (09:31)
--- NOTE | 2025-05-16 09:33 | PC.NURSE ---
adele texted pharmacy for missing medication for patient will medicate upon its arrival, patient is aware medication is coming from pharmacy
[2025-05-16] MEDS: Bictegrav/Emtricit/Tenofov Ala TABLET 1 TAB PO (10:57)
--- NOTE | 2025-05-16 15:07 | PC.NURSE ---
Assumed care of patient at 1445, patient currently resting in bed watching TV, appears to be in no apparent distress, respirations even and unlabored. Continue plan of care for IPLOC
[2025-05-16 19:40] VITALS: BP 168/97; PULSE 60; RESP 16; TEMP 36.6; O2SAT 100
[2025-05-17] MEDS: oxyCODONE HCl Immed Release 5 MG TABLET PO ×2 (06:57→13:56)
[2025-05-17] MEDS: Lidocaine 4 % Patch ADH..PATCH 2 PATCH TRANSDERMA (06:59)
[2025-05-17] MEDS: Aspirin Enteric Coated 81 MG TABLET.DR PO (06:59)
--- NOTE | 2025-05-17 07:19 | PC.NURSE ---
Assumed care, report received. Pt is awake, he is eating breakfast and is given pain meds per request for foot and back pain. His calm and cooperative. He states AH are vague and intermittent telling him to kill himself. He states he fees safe.
[2025-05-17 07:41] VITALS: BP 107/84; PULSE 75; RESP 16; TEMP 36.8; O2SAT 98
[2025-05-17] MEDS: Bictegrav/Emtricit/Tenofov Ala TABLET 1 TAB PO (08:35)
--- NOTE | 2025-05-17 08:53 | ECG_ITS ---
Test Reason : check prolonged qt Blood Pressure : */* mmHG Vent. Rate : 70 BPM Atrial Rate : 70 BPM P-R Int : 160 ms QRS Dur : 78 ms QT Int : 408 ms P-R-T Axes : 80 41 65 degrees QTcB Int : 440 ms Normal sinus rhythm Normal ECG When compared with ECG of 04-May-2025 18:15, Vent. rate has decreased by 38 bpm Referred By: Hans Moise Electronically Signed By: Mack Isaac
--- NOTE | 2025-05-17 14:53 | HO.PM.IMCN ---
History of Present Illness Data of Consult Service Date: 05/06/25 Primary Care Provider: Unknown Physician HPI Reason for consult: Medical management 69-year-old male with past medical history of alcohol use disorder, polysubstance abuse, MDD, housing and security issues, depression, and mood disorder resulted to the emergency department with auditory hallucinations and suicidal ideations. 69-year-old male with history of alcohol use disorder, polysubstance abuse, housing and security, depression and mood disorder presenting to the ED with complaint of auditory hallucinations and suicidal ideation. Labs unremarkable. Urine is without evidence of infection. COVID negative. Ethanol negative, urine drug screen positive for THC only. Patient has been medically cleared and admitted to inpatient psych for further care and treatment. Patient is sitting in room with nursing, again requesting oxycodone. Mass PAT and patient has no recent prescriptions for oxycodone. Review of Systems Review of Systems: Denies any shortness of breath, chest pain, dizziness, lightheadedness, abdominal pain or discomfort, nausea vomiting or diarrhea PMFSH Medical History Alcohol intoxication Social History Household Members: None Housing: Apartment Housing Other:: staying in [facility] Do you presently have visiting nurse or other home services: No Unable to assess alcohol history related to: Refusing to respond Alcohol intake: current Alcohol intake frequency: does not drink Alcohol type: hard liquor Patient Tobacco Use Status: Current everyday Tobacco user Tobacco use type: Cigarette Cigarettes Per Day: 8 Years Smoked: 36 years Smoked in Last 30 Days: Yes e-Cigarette/Vaping Use: Never Used Patient Interested in Nicotine Replacement: Yes Patient Given Instructions on How to Stop Smoking: No (pt declined) Second Hand Smoke Exposure: No Substance Use Type: Marijuana Have you been hit, kicked, punched, or otherwise hurt by someone within the past year? If so, by whom?: No Do you feel safe in your current relationship?: No Current Relationship Is there a partner from a previous relationship who is making you feel unsafe now?: No Are you made to feel afraid or neglected: No Episcopalian Healthcare Practices: Sabianist Advance Directives: No Advance Directives Information Provided: No Do you have a plan to hurt others: No Plan Recently lost weight without trying: No How much weight loss: Not applicable Eating poorly because of decreased appetite: No Nutrition screen score: 0 Nutrition Risks: No Nutritional Risk Poor oral hygiene: No service: Yes Sexual orientation: Straight/Heterosexual Meds Allergies Allergy/AdvReac Type Severity Reaction Status Date / Time acetaminophen (ACETAMINOPHEN) Allergy Mild rashes Verified 05/14/25 11:03 Active Medications: Current Medications Al Hydroxide/Mg Hydroxide (Magnesium Hydrox/Alum Hydrox 30 Ml Oral.Susp) 30 ml PO Q6H PRN PRN Reason: Heartburn/Nausea Aspirin (Aspirin Enteric Coated 81 Mg Tablet.Dr) 81 mg PO DAILY [facility] Last Admin: 05/17/25 06:59 Dose: 81 mg Bictegravir/Emtricitabine/Tenofovir (Bictegrav/Emtricit/Tenofov Ala Tablet) 1 tab PO DAILY [facility] Last Admin: 05/17/25 08:35 Dose: 1 tab Clonidine HCl (Clonidine Hcl 0.1 Mg Tablet) 0.1 mg PO BID [facility]; Protocol Last Admin: 05/17/25 06:57 Dose: 0.1 mg Hydroxyzine HCl (Hydroxyzine Hcl 25 Mg Tablet) 25 mg PO Q6H PRN PRN Reason: mild anxiety Ibuprofen (Ibuprofen 400 Mg Tablet) 400 mg PO Q6H PRN PRN Reason: Pain, Mild 1-3,fever,headache Lidocaine (Lidocaine 4 % Patch Adh..Patch) 2 patch TRANSDERMA DAILY [facility]; Protocol Last Admin: 05/17/25 06:59 Dose: 2 patch Lisinopril (Lisinopril 10 Mg Tablet) 10 mg PO BID [facility]; Protocol Magnesium Hydroxide (Milk Of Magnesia 30 Ml Oral.Susp) 30 ml PO DAILY PRN PRN Reason: Constipation Melatonin (Melatonin 3 Mg Tablet) 6 mg PO BEDTIME [facility] Last Admin: 05/16/25 21:00 Dose: 6 mg Nicotine (Nicotine 21 Mg Patch.Td24) 21 mg TRANSDERMA DAILY [facility] Nicotine Polacrilex (Nicotine Polacrilex 2 Mg Gum) 4 mg BUCCAL Q2H PRN PRN Reason: Nicotine Cravings Olanzapine (Olanzapine 5 Mg Tablet) 5 mg PO Q4H PRN PRN Reason: agitation Quetiapine Fumarate (Quetiapine Fumarate 300 Mg Tablet) 600 mg PO BEDTIME [facility] Last Admin: 05/16/25 21:00 Dose: 600 mg Trazodone HCl (Trazodone Hcl 50 Mg Tablet) 150 mg PO BEDTIME SABA Last Admin: 05/16/25 21:00 Dose: 150 mg Home Medications ?Medication ?Instructions ?Recorded ?Confirmed ?Last Taken ?Type lisinopril 10 mg tablet 10 mg PO BID 05/15/25 05/15/25 05/13/25 21:00 History Physical Exam Vital Signs and Narrative: Vital Signs: Last Vital Signs Temp 98.2 F 05/17/25 07:41 Pulse 75 05/17/25 07:41 Resp 16 05/17/25 07:41 BP 107/84 05/17/25 07:41 Pulse Ox 98 05/17/25 07:41 O2 Del Method Room Air 05/17/25 07:41 BMI result Body Mass Index 23.1 CONST: Alert and oriented, in NAD. Thin HEENT: Normocephalic, atraumatic, MMM RESP: Respiratory rate even and regular, no use of accessory muscles. Lungs clear HEART:No edema, S1-S2 regular rate and rhythm SKIN: Warm dry and intact, no visible lesions or rashes NEURO: Ambulates independently PSYCH: Angry affect Results Labs 05/14/25 11:13 05/14/25 11:13 Assessment and Plan (1) HTN (hypertension): Status: Acute Plan 69-year-old male with a history of alcohol use disorder, polysubstance abuse disorder, housing and security issues, depression, mood disorder presented with auditory and suicidal ideation, he is admitted to inpatient psych for further treatment. Recently discharged from this unit. EtOH use disorder/polysubstance abuse disorder/depression/mood disorder/suicidal ideation Plan per inpatient psychiatric team Patient MASS PAT checked, previously on buprenorphine. No oxycodone scripts noted. Recommendations to follow up with outpatient Podiatry, and primary care regarding chronic pain management. Would avoid narcotic pain medications in his patient with a known history of polysubstance abuse. Hypertension Continue Clonidine and Lisinopril. Foot pain Patient has a outpatient follow up with upcoming surgery with [facility] Advised patient to follow up with his primary care doctor and shaft tender for chronic pain management Refuses Lidoderm patches, diclofenac gel and ibuprofen as needed. Thank you for allowing me to participate in the care of this patient. Signing off at this time. Please reconsult of any acute concerns or issues arise.
[2025-05-17 14:58] VITALS: BMI 23.5
[2025-05-17 15:00] VITALS: BP 105/82; PULSE 75; RESP 16; TEMP 36.7; O2SAT 99
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
--- NOTE | 2025-05-17 16:08 | PC.ADMIT ---
Patient was admitted on a CV from the ED POD for tx of Major Depressive Disorder. Patient is known to the Care Team and M3, with his most recent discharge from our unit being last Saturday on 05/10/25. Precipitant of admission includes recent reports of feeling suicidal and experiencing auditory hallucinations. Upon admission, patient was initially pleasant and cooperative, A&Ox3 with linear/organized thought process. States I wasn't ready to leave last week when I was here. I shouldn't have lied, I just wanted to get out of here . He reports since discharging, he's had increasing suicidal thoughts along with AH. Pt describes the voices as degrading , telling him You're wasting your time, no one is going to help you . He denies any VH along with any current thoughts/plans to hurt himself. Patient reports his sleep has been good with the use of his Seroquel. States he has been compliant with his medications, but just wants to feel better . Tox + for THC , which pt reports is medically prescribed to him. Shortly through the admission assessment, pt was seen by the hospitalist who informed him he would not be receiving oxycodone while he is here and he will need to follow up with his providers outpatient. To this, pt became irritable, visibly upset and less cooperative. Well then I might as well not take any medications while I'm here . Continued to perseverate on this for the rest of the assessment. I'm not sure what you guys will do for me then, if you're already taking away my medications . He reported feelings of depression but declined to elaborate on the contributing factors I don't feel like talking about it right now . Skin check unremarkable, placed on 15 minute checks for safety.
--- NOTE | 2025-05-17 16:51 | PC.NURSE ---
Pt signed a 3 day notice this evening shortly after admission. Provider Lenore Baker notified via tiger text.
[2025-05-17 21:16] VITALS: BP 103/64
[2025-05-17 21:30] VITALS: BP 103/64
[2025-05-18 07:41] VITALS: BP 139/72; PULSE 65; RESP 20; TEMP 36.2; O2SAT 96
--- NOTE | 2025-05-18 08:56 | P.PNPSI_ITS ---
Subjective Subjective Date of Service: 05/18/25 Reason For Visit: Crisis Subjective Notes: 3 Day Interim History: Laying in bed most of shift. keeping to self. Patient reports feeling fine ; he declined AM medications, when asked why, pt stated, because I didn't want to. You guys didn't give me the pain medication so I'm not taking the other medications. I just want to leave . pt reminded he met with hospitalist yesterday and what her recommendations were; pt requesting to be discharged tomorrow. denies SI/HI/VH/AH. Medication Compliance: Intermittent Side effects from medications: No Attending Groups: No Mental Status Exam Mental Status Exam Narrative: Pt is alert and oriented; behavior is calm; dressed in casual attire; mood is described as fine ; eye contact appropriate; Speech is normal rate, volume and not pressured; thought process is organized; Thought content is on discharge; denies SI/HI/VH/AH. Diagnostics Vital Signs (24Hr): Vital Signs - 24 hr 05/17/25 15:00 05/17/25 21:16 05/17/25 21:30 Temperature 98.1 F Pulse Rate 75 Respiratory Rate 16 Blood Pressure 105/82 103/64 103/64 Pulse Oximetry 99 Oxygen Delivery Method Room Air 05/18/25 07:41 Temperature 97.2 F Pulse Rate 65 Respiratory Rate 20 Blood Pressure 139/72 Pulse Oximetry 96 Oxygen Delivery Method BMI result Body Mass Index 23.5 Labs 05/14/25 11:13 05/14/25 11:13 Medications Medications Current Medications Al Hydroxide/Mg Hydroxide (Magnesium Hydrox/Alum Hydrox 30 Ml Oral.Susp) 30 ml PO Q6H PRN PRN Reason: Heartburn/Nausea Aspirin (Aspirin Enteric Coated 81 Mg Tablet.) 81 mg PO DAILY [facility] Last Admin: 05/17/25 06:59 Dose: 81 mg Bictegravir/Emtricitabine/Tenofovir (Bictegrav/Emtricit/Tenofov Ala Tablet) 1 tab PO DAILY [facility] Last Admin: 05/17/25 08:35 Dose: 1 tab Clonidine HCl (Clonidine Hcl 0.1 Mg Tablet) 0.1 mg PO BID [facility]; Protocol Last Admin: 05/17/25 21:16 Dose: 0.1 mg Hydroxyzine HCl (Hydroxyzine Hcl 25 Mg Tablet) 25 mg PO Q6H PRN PRN Reason: mild anxiety Ibuprofen (Ibuprofen 400 Mg Tablet) 400 mg PO Q6H PRN PRN Reason: Pain, Mild 1-3,fever,headache Lidocaine (Lidocaine 4 % Patch Adh..Patch) 2 patch TRANSDERMA DAILY [facility]; Protocol Last Admin: 05/17/25 06:59 Dose: 2 patch Lisinopril (Lisinopril 10 Mg Tablet) 10 mg PO BID [facility]; Protocol Last Admin: 05/17/25 22:55 Dose: Not Given Magnesium Hydroxide (Milk Of Magnesia 30 Ml Oral.Susp) 30 ml PO DAILY PRN PRN Reason: Constipation Melatonin (Melatonin 3 Mg Tablet) 6 mg PO BEDTIME [facility] Last Admin: 05/17/25 22:56 Dose: Not Given Nicotine (Nicotine 21 Mg Patch.Td24) 21 mg TRANSDERMA DAILY [facility] Nicotine Polacrilex (Nicotine Polacrilex 2 Mg Gum) 4 mg BUCCAL Q2H PRN PRN Reason: Nicotine Cravings Olanzapine (Olanzapine 5 Mg Tablet) 5 mg PO Q4H PRN PRN Reason: agitation Quetiapine Fumarate (Quetiapine Fumarate 300 Mg Tablet) 600 mg PO BEDTIME [facility] Last Admin: 05/17/25 22:56 Dose: Not Given Trazodone HCl (Trazodone Hcl 50 Mg Tablet) 150 mg PO BEDTIME [facility] Last Admin: 05/17/25 22:56 Dose: Not Given Allergies Allergies Allergy/AdvReac Type Severity Reaction Status Date / Time acetaminophen (ACETAMINOPHEN) Allergy Mild rashes Verified 05/14/25 11:03 Assessment & Plan Assessment & Plan (1) MDD (major depressive disorder), recurrent episode, moderate: Status: Acute Code(s): F33.1 - Major depressive disorder, recurrent, moderate (2) PTSD (post-traumatic stress disorder): Status: Acute Code(s): F43.10 - Post-traumatic stress disorder, unspecified (3) Auditory hallucination: Status: Resolved Code(s): R44.0 - Auditory hallucinations (4) Suicidal ideation: Status: Resolved Code(s): R45.851 - Suicidal ideations Plan Patient is a 69 year old male with hx of MDD, PTSD, cocaine use d/o, alcohol use d/o, who was brought to ER via ambulance d/t suicidal ideation secondary to increase auditory hallucinations Plan: CV 15 minute safety checks Continue home medications referral to outpatient psychiatric providers encourage groups discharge planning 05/18:Laying in bed most of shift. keeping to self. Patient reports feeling fine ; he declined AM medications, when asked why, pt stated, because I didn't want to. You guys didn't give me the pain medication so I'm not taking the other medications. I just want to leave . pt reminded he met with hospitalist yesterday and what her recommendations were; pt requesting to be discharged tomorrow. denies SI/HI/VH/AH. Patient educated on: diagnosis and medication risk/benefits Reason for continued inpatient stay Substantial Risk for: med/psych decompensation Time Spent With Patient Time: Total time managing care of this patient today _20___ minutes.
[2025-05-18 20:00] VITALS: BP 133/86; PULSE 78; RESP 16; TEMP 36.8; O2SAT 100
[2025-05-19 07:51] VITALS: BP 132/82; PULSE 106; RESP 16; TEMP 36.4; O2SAT 96
[2025-05-19] MEDS: Bictegrav/Emtricit/Tenofov Ala TABLET 1 TAB PO (08:17)
[2025-05-19] MEDS: Aspirin Enteric Coated 81 MG TABLET.DR PO (08:17)
--- NOTE | 2025-05-19 10:05 | PM.PSYDC ---
DS: Providers Provider Date of Service: 05/19/25 Date of admission: 05/17/25 12:52 Date of discharge: 05/19/25 Primary care physician: Unknown Physician Admitting clinician: Lenore Baker Attending physician on admission: Amador Villa Attending physician on discharge: Amador Villa Discharging clinician: Lenore Baker DS: Diagnosis Discharge Diagnosis (1) MDD (major depressive disorder), recurrent episode, moderate: Status: Acute (2) PTSD (post-traumatic stress disorder): Status: Acute (3) Auditory hallucination: Status: Resolved (4) Suicidal ideation: Status: Resolved DS: Medications Discharge Medications Home Medications: Home Medications ?Medication ?Instructions ?Recorded ?Confirmed lisinopril 10 mg tablet 10 mg PO BID 05/15/25 05/15/25 Previous Rx's ?Medication ?Instructions ?Recorded aspirin 81 mg tablet,delayed 81 mg PO DAILY Heart disease 30 05/10/25 release days #30 tabs bictegravir 50 mg-emtricitabine 1 tab PO DAILY HIIV 30 days #30 05/10/25 200 mg-tenofovir alafenam 25 mg tabs tablet (Biktarvy) clonidine HCl 0.1 mg tablet 0.1 mg PO BID Anxiety/HTN 30 days 05/10/25 #60 tabs diclofenac sodium 1 % topical gel 2 g topical BID leg pain #50 grams 05/10/25 ibuprofen 400 mg tablet 400 mg PO Q6H PRN Pain, Mild 05/10/25 1-3,Fever,Headache #30 tabs lidocaine 4 % topical patch 2 patch transdermal DAILY #60 ea 05/10/25 (Lidocaine Pain Relief) melatonin 3 mg tablet 6 mg (2 x 3 mg) PO BEDTIME 05/10/25 insomnia 30 days #60 tabs quetiapine 300 mg tablet 600 mg (2 x 300 mg) PO BEDTIME 05/10/25 psychosis 30 days #60 tabs trazodone 150 mg tablet 150 mg PO BEDTIME insomnia 30 05/10/25 days #30 tabs Mental Status Exam Mental Status Exam Narrative: Pt is alert and oriented; behavior is calm and cooperative; dressed in casual attire; mood is described as fine ; eye contact appropriate; Speech is normal rate, volume and not pressured; thought process is organized; Thought content is on discharge; denies SI/HI/VH/AH. Data Data Completed and Pending Completed studies during hospitalization [Text1]: 05/14/25 05/14/25 11:13 11:29 WBC 5.0 RBC 4.11 L Hgb 13.6 L Hct 40.2 L MCV 97.8 MCH 33.1 H MCHC 33.8 RDW 14.1 Plt Count 113 L D MPV 12.1 Immature Gran % (Auto) 0.2 Neut % (Auto) 60.3 Lymph % (Auto) 26.6 [place] % (Auto) 11.5 H Eos % (Auto) 1.0 Baso % (Auto) 0.4 Lymph # (Auto) 1.3 [place] # (Auto) 0.6 Eos # (Auto) 0.1 Baso # (Auto) 0.0 Abs Immat Gran (auto) 0.01 Absolute Neuts (auto) 3.0 Absolute Nucleated RBC 0.000 Nucleated RBC % (auto) 0.0 Sodium 145 Potassium 4.5 Chloride 108 Carbon Dioxide 32 H Anion Gap 10 L BUN 26 H Creatinine 1.02 Estim Creat Clear Calc 76.6 Estimated GFR > 60 Random Glucose 90 Calcium 9.2 Total Bilirubin 0.2 AST 63 H ALT 63 H Alkaline Phosphatase 124 H Total Protein 7.6 Albumin 3.6 Urine Color Yellow Urine Appearance Clear Urine pH 6.0 Ur Specific [place] 1.025 Urine Protein Negative Urine Glucose (UA) Negative Urine Ketones Negative Urine Blood Negative Urine Nitrite Negative Ur Leukocyte Esterase Negative Salicylates < 5.0 L Urine Opiates Screen Not Detected Ur Buprenorphine Scrn Not Detected Ur Oxycodone Screen Not Detected Urine Methadone Screen Not Detected Urine Fentanyl Screen Not Detected Acetaminophen < 3 Ur Barbiturates Screen Not Detected Ur Phencyclidine Scrn Not Detected Ur Amphetamines Screen Not Detected U Benzodiazepines Scrn Not Detected Urine Cocaine Screen Not Detected U Marijuana (THC) Screen POSITIVE H Ethyl Alcohol < 10 COVID-19 (DRAKE) Negative COVID-19 Clin Com See Note DS: Summary Hospital Course Hospital Course: Patient is a 69 year old male with hx of MDD, PTSD, cocaine use d/o, alcohol use d/o, who was brought to ER via ambulance d/t suicidal ideation secondary to increase auditory hallucinations. Per crisis report, patient was brought in by ambulance after having been seen at [facility] and informing them he was suicidal and experiencing auditory hallucinations. Patient reports he was not ready to go when asked about his last inpatient stay and stated he just wanted to get out . His mood is described as not so great . He reports experiencing suicidal ideation this morning. History of 1 prior suicide attempt 20 years ago. Denies HI/VH. He reports auditory hallucinations however, does not appear to be responding to internal stimuli. Pt reports he has been medication compliant; fair sleep and appetite. denies having any outpatient psychiatric providers. He reports using [facility] for primary care. Patient reports he has attempted to use the [facility] for pain management however was upset the treatment offered was a buprenorphine patch. Patient reports he has not had an alcoholic beverage in 21 days. He reports often using cannabis for pain relief; utox positive for marijuana. During admission assessment, pt presents alert and oriented x3. calm and cooperative. guarded. Patient reports feeling depressed ; patient stated, when I left here I was not honest. I said I was ready but I wasn't. I just wanted to get away from here because I did not like how I was being treated . T/W asked patient to elaborate about what is making him depressed; patient stated, I don't want to get into what's making me depressed. I don't know how you're going to help me. I will talk to you about that later . Patient reports no longer feeling suicidal; patient reports he was thinking about cutting himself . Denies history of self-injurious behavior. Denies HI/VH. He reports auditory hallucinations of voices telling him no one gives a damn about him . Patient reports being medication compliant since being discharged. He does not have outpatient psychiatric providers but would like referrals. Plan: CV 15 minute safety checks Continue home medications referral to outpatient psychiatric providers encourage groups discharge planning Laying in bed most of shift. keeping to self. Patient reports feeling fine ; he declined AM medications, when asked why, pt stated, because I didn't want to. You guys didn't give me the pain medication so I'm not taking the other medications. I just want to leave . pt reminded he met with hospitalist yesterday and what her recommendations were; pt requesting to be discharged tomorrow. denies SI/HI/VH/AH. Patient reports feeling fine ; focused on discharged. Medication compliant last night and this morning. Patient stated, I feel fine. I have an appointment at the [facility] I need to get to. I don't need to be here . denies SI/HI/VH/AH. Patient reports he plans on following up with outpatient providers. Status at Discharge Cognitive/behavioral status at discharge: Patient has insight and demonstrates good judgment in terms of wanting to pursue treatment. Patient has a safety plan that includes presenting to the closest ER or calling 911 if feeling unsafe. Functional status at discharge: independent ambulation Overall status at discharge: patient is back to baseline Time Spent with Patient Time attestation: Total time managing care of this patient today _20___ minutes. Time spent: Less than 30 minutes Discharge Plan Discharge Anticipated Discharge Date/Time: 05/19/25 11:00 Patient Disposition: Home, Self-Care Discharge Diagnosis: MDD, PTSD Referrals: [facility] [Other] - 1 Week Referral Note: Walk in hours are Saturday-Saturday 8am-8pm Jerardo Emery MD [Physician, Internal Medicine] - 1 Week Referral Note: 05-19-25 your primary care provider has been notified of your discharge and will be making contact with you with the date and time of your follow up appt. Discharge Medications: Continued ibuprofen 400 mg Tablet 400 mg PO Q6H PRN (Reason: Pain, Mild 1-3,Fever,Headache) Qty: 30 0RF lidocaine [Lidocaine Pain Relief] 4 % Adhesive Patch,Medicated 2 patch transdermal DAILY Qty: 60 0RF Protocol: Apply to: Apply to: apply to bilataral leg for pain Rx Instructions: Apply to bilateral legs clonidine HCl 0.1 mg Tablet 0.1 mg PO BID 30 Days Qty: 60 0RF Protocol: Hold for SBP< HOLD for SBP < : 90 quetiapine 300 mg tablet 600 mg PO BEDTIME 30 Days Qty: 60 0RF melatonin 3 mg Tablet 6 mg PO BEDTIME 30 Days Qty: 60 0RF aspirin 81 mg tablet,delayed release (DR/EC) 81 mg PO DAILY 30 Days Qty: 30 0RF trazodone 150 mg tablet 150 mg PO BEDTIME 30 Days Qty: 30 0RF diclofenac sodium 1 % Gel 2 g TOPICAL BID Qty: 50 0RF Rx Instructions: One application to Bilateral feet for pain Biktarvy 50-200-25 mg tablet 1 tab PO DAILY 30 Days Qty: 30 0RF lisinopril 10 mg Tablet 10 mg PO BID Discharge Orders: Discharge Order (Routine); Ordered 05/19/25 Ordered By: Lenore Baker Diet: Regular diet Activity on Discharge: As tolerated Stand Alone Forms: Patient Portal Discharge page, Community Support Print Language: [place] Care Plan Goals: Maintain mood and safe behaviors Take medications as prescribed Continue to pursue sobriety Practice coping skills Continue with outpatient providers and reach out to them as needed Health Concerns: Mood stability and behaviors Sobriety Plan of Treatment: Follow up with your PCP, psychiatric provider and other outpatient providers regarding above concerns Take medications as prescribed Assessment: Patient has insight and demonstrates good judgment in terms of wanting to pursue treatment. Patient has a safety plan that includes presenting to the closest ER or calling 911 if feeling unsafe. Discharge Date/Time: 05/19/25 10:34
== END 2025-05-19 10:34 | disposition home or self-care (01) | DRG 885 ==
LOC: HO.ED 05-17 12:57 → HO.PADLT16 05-17 14:32
PROVIDERS: Registered Nurse Emergency; Admitting Provider Registered Nurse; Emergency Provider Emergency Medicine; Responsible Provider Registered Nurse; Visit Provider Psychiatry & Neurology Psychiatry
DX: F33.1 Major depressive disorder, recurrent, moderate (principal); R45.851 Suicidal ideations; R44.0 Auditory hallucinations; F19.10 Other psychoactive substance abuse, uncomplicated; F17.210 Nicotine dependence, cigarettes, uncomplicated; Z71.6 Tobacco abuse counseling; Z20.822 Contact with and (suspected) exposure to COVID-19; Z79.82 Long term (current) use of aspirin; Z79.899 Other long term (current) drug therapy
CPT/HCPCS: 36415; 80053; 80143; 80179; 80307; 81003; 85025; 87635; 93005; 99285; S9485

== ENCOUNTER → 2025-05-17 08:53 | Outpatient (BNV) | payer MEDICARE, MEDICAID, SELFPAY | PROVIDERS: Admitting Provider Registered Nurse; Emergency Provider Emergency Medicine; Responsible Provider Registered Nurse; Visit Provider Internal Medicine Cardiovascular Disease | DX: Z13.6 Encounter for screening for cardiovascular disorders (principal) | CPT/HCPCS: 93010 ==

== ENCOUNTER → 2025-05-17 12:52 | Outpatient (BNV) | payer MEDICARE, MEDICAID, SELFPAY | PROVIDERS: Admitting Provider Registered Nurse; Emergency Provider Emergency Medicine; Visit Provider Registered Nurse | DX: F33.1 Major depressive disorder, recurrent, moderate (principal); F43.11 Post-traumatic stress disorder, acute; R44.0 Auditory hallucinations; R45.851 Suicidal ideations | CPT/HCPCS: 90792; 99231; 99238 ==

== ENCOUNTER → 2025-05-17 12:52 | Outpatient (BNV) | payer OTHER, SELFPAY | PROVIDERS: Admitting Provider Registered Nurse; Emergency Provider Emergency Medicine; Visit Provider Nurse Practitioner Family | DX: Z02.2 Encounter for examination for admission to residential institution (principal) | CPT/HCPCS: 99429 ==

== ENCOUNTER 2025-07-17 13:23 | Inpatient (IN) | payer OTHER, SELFPAY ==
--- OUTSIDE RECORDS SUMMARY | 2016-04-29 19:00 | XMS_ITS | Continuity of Care Document ---
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, [address] [place] [address], [id number], tel:[phone] [employer] No Information No Information Referring Provider: Bebeto Head, [address] [place] [address], [id number] . tel:[phone] Family History Family Member Type Diagnosis Age At Onset No Information Payers Payer name Insurance type Covered republican ID Authoriza tion(s) Medicare [place] B [place] [id number] Medicaid [id number] Social History Type Description Quantity Date Captured Comments Sex Male Smoking Status No Information Chief Complaint And Reason For Visit No Information Reason For Referral Reason For Referral No Information History Of Present Illness Encounter Date Complaint History Of Prese nt Illness No Information Functional Status Date Functional Assessmen t No Information Instructions Date Instruction Additional Infor mation No Information Assessments Type Assessment Date No Information Patient Care Teams Name Effective Dates (start - stop) Status Members No Information
[2025-07-17 13:42] VITALS: BP 179/103; PULSE 108; RESP 16; TEMP 36.1; O2SAT 96; BMI 21.2
--- NOTE | 2025-07-17 13:42 | ED.GENADULT ---
HPI - General Adult General Chief complaint: General Medical Stated complaint: crisis Time Seen by Provider: 07/17/25 13:50 Source: patient, RN notes reviewed and old records reviewed Mode of arrival: ambulatory Limitations: no limitations History of Present Illness ED Provider: Sugar HPI narrative: Patient is a 69-year-old male with history of alcohol use disorder, polysubstance abuse, housing and security, depression and mood disorder presenting to the ED with complaint of anxiety related to his current living situation. States that he moved into a new apartment in the end of April to get out of the correction. Since moving in, he states that other people in the building use cocaine and this has been triggering to him as he has been sober for several years. Denies recent cocaine use. Also feels as though people are coming into his apartment when he's not there and moving/taking items. Reports auditory hallucinations but denies any command AH, denies visual hallucinations, suicidal or homicidal ideation. Denies current physical complaints. MD complaint: anxiety, auditory hallucinations Related Data Home Medications ?Medication ?Instructions ?Recorded ?Confirmed lisinopril 10 mg tablet 10 mg PO BID 05/15/25 07/17/25 mirtazapine 15 mg tablet 15 mg PO BEDTIME insomnia 07/17/25 07/17/25 oxycodone 5 mg tablet 5 mg PO TID PRN pain 07/17/25 07/17/25 quetiapine 100 mg tablet 100 mg PO BID@0900,1400 depressive 07/17/25 07/19/25 disorder quetiapine 300 mg tablet 600 mg PO BEDTIME anxiety 07/19/25 07/19/25 trazodone 150 mg tablet 150 mg PO BEDTIME PRN insomnia 07/19/25 07/19/25 Previous Rx's ?Medication ?Instructions ?Recorded aspirin 81 mg tablet,delayed 81 mg PO DAILY Heart disease 30 05/10/25 release days #30 tabs bictegravir 50 mg-emtricitabine 1 tab PO DAILY HIIV 30 days #30 05/10/25 200 mg-tenofovir alafenam 25 mg tabs tablet (Biktarvy) clonidine HCl 0.1 mg tablet 0.1 mg PO BID Anxiety/HTN 30 days 05/10/25 #60 tabs diclofenac sodium 1 % topical gel 2 g topical BID leg pain #50 grams 09/15/25 ibuprofen 400 mg tablet 400 mg PO Q6H PRN Pain, Mild 05/10/25 1-3,Fever,Headache #30 tabs lidocaine 4 % topical patch 2 patch transdermal DAILY #60 ea 05/10/25 (Lidocaine Pain Relief) melatonin 3 mg tablet 6 mg (2 x 3 mg) PO BEDTIME 05/10/25 insomnia 30 days #60 tabs Allergies Allergy/AdvReac Type Severity Reaction Status Date / Time acetaminophen (ACETAMINOPHEN) Allergy Mild rashes Verified 07/17/25 13:46 Review of Systems Review of Systems: as per hpi Yes all other systems are reviewed and are negative Constitutional: Constitutional: Reports as per HPI PMFSH Past Medical History Medical History (Updated 07/20/25 @ 13:02 by Dilia Galindo DNP) Homelessness Alcohol intoxication Social History Social History Household Members: Other Household Members Other:: Live alone Housing: Apartment Housing Other:: staying in [facility] Do you presently have visiting nurse or other home services: No Unable to assess alcohol history related to: Unable to respond Alcohol intake: current Alcohol intake frequency: does not drink Alcohol type: hard liquor Patient Tobacco Use Status: Current everyday Tobacco user Tobacco use type: Cigarette Cigarettes Per Day: 8 Years Smoked: 36 years Smoked in Last 30 Days: Yes e-Cigarette/Vaping Use: Never Used Patient Interested in Nicotine Replacement: Yes Patient Given Instructions on How to Stop Smoking: No Second Hand Smoke Exposure: No Substance Use Type: Marijuana Currently Displaying Signs/Symptoms of Drug Intoxication Withdrawal: No Do you feel safe in your current relationship?: No Current Relationship Is there a partner from a previous relationship who is making you feel unsafe now?: No Are you made to feel afraid or neglected: No Spiritual Healthcare Practices: Scientologist Advance Directives: No Advance Directives Information Provided: No Do you have thoughts of harming others: None Do you have a plan to hurt others: No Plan Recently lost weight without trying: No Eating poorly because of decreased appetite: No Nutrition Risks: No Nutritional Risk service: Yes Sexual orientation: Straight/Heterosexual Physical Exam ED Vital Signs: Vital Signs - 24 hr 07/18/25 11:28 Temperature 98.1 F Pulse Rate 67 Respiratory Rate 13 Blood Pressure 158/94 H Pulse Oximetry 99 Oxygen Delivery Method Room Air BMI result Body Mass Index 21.2 Vital signs have been reviewed and appear to be correct. Blood pressure elevated. Heart rate slightly tachycardic. Respiratory rate normal. Temperature normal. Oxygen saturation normal. Const General: cooperative and no acute distress Orientation/consciousness: oriented to person, oriented to place, oriented to time and patient oriented x3 HENMT Head: Yes normocephalic and Yes atraumatic Ears: external ears normal General nose exam: Normal external nose present Face and sinus: Yes face symmetric Mouth: oropharynx normal and moist mucous membranes Throat: Yes uvula midline Eyes Pupils: Equal, round and reactive pupils present Neck Neck: Yes normal visual inspection and Yes supple Resp Effort & Inspection: normal respiratory effort and able to speak in complete sentences Auscultation: clear to auscultation bilaterally Cardio Rate: regular rate Rhythm: regular rhythm Heart sounds: S1 normal heart sound present and S2 normal heart sound present GI Palpation (GI): Soft to palpation and nontender Auscultation: normoactive bowel sounds General: Yes no CVA tenderness Back/Spine/Pelvis Back: no CVA tenderness Skin General skin exam: elasticity normal and turgor normal Neuro General: oriented to person, oriented to place, oriented to time, patient oriented x3, moves all extremities, no focal motor deficits and CN's II-XI intact bilaterally Cranial nerves: Yes Equal, round and reactive pupils present Cognition (Neuro): normal cognition Extrem General: Yes full ROM, Yes no pedal edema and Yes no calf tenderness Psych Appearance: grossly normal Mental Status: mental status grossly normal Speech and movement: Normal speech and movement present Affect: normal affect Attitude: cooperative Thought process: Normal thought process present Thought content: suicidality, no homicidality and Hallucination(s) present auditory; not visual Course Course Course Narrative: RME, this is a rapid medical exam performed by Yasir Mora please refer to primary provider for complete H&P- 69 year old male presents for evaluation of paranoia. He does not feel safe in his apartment. History of substance asbue. He is not suicidal. Plan for medical clearance. The patient reports that he hs not been takiung all of his medications as prescribed Reevaluation(s) Reevaluation #1: Time: 04:52 Date: 07/18/25 Provider: Jayson Dominguez MD Patient in physician observation for psychiatric evaluation. Patient feels unsafe in his current living situation and is paranoid.? Patient was evaluated by care team and meets inpatient level of care. The patient is on a section 12. No acute events reported overnight. No current complaints. VS stable.? Patient is in bed search status. Will continue to monitor. Reevaluation #2: Time: 05:56 Date: 07/19/25 Provider: Jose Lan MD Patient in physician observation for psychiatric evaluation.? No acute events reported overnight. No current complaints. VS stable.? Patient is in bed search status/pending CARE team evaluation. Will continue to monitor. Time: 14:40 hours Date: 08/18/2025 Provider: Jayson Dominguez MD Physician observation ended at 14:40 hours. The patient was admitted to [facility] psychiatric service for further treatment. Medications Administered Generic Name Dose Route Start Last Admin Trade Name Freq PRN Reason Stop Dose Admin Aspirin 81 mg 07/18/25 09:00 07/25/25 07:47 Aspirin Enteric Coated 81 Mg Tablet.Dr PO 81 mg DAILY SABA Administration Bictegravir/Emtricitabine/Tenofovir 1 tab 07/18/25 09:00 07/25/25 07:47 Bictegrav/Emtricit/Tenofov Ala Tablet PO 1 tab DAILY SABA Administration Clonidine HCl 0.1 mg 07/18/25 09:00 07/25/25 20:08 Clonidine Hcl 0.1 Mg Tablet PO 0.1 mg BID SABA Administration Protocol Hydroxyzine HCl 25 mg 07/19/25 13:10 07/24/25 20:20 Hydroxyzine Hcl 25 Mg Tablet PO 25 mg Q6H PRN Administration mild anxiety Ibuprofen 400 mg 07/18/25 07:41 07/26/25 06:26 Ibuprofen 400 Mg Tablet PO 400 mg Q6H PRN Administration Pain, Mild 1-3,fever,headache Lidocaine 2 patch 07/18/25 09:00 07/25/25 09:54 Lidocaine 4 % Patch Adh..Patch TRANSDERMA Not Given DAILY [facility] Protocol Lidocaine 1 appl 07/19/25 18:15 07/22/25 08:12 Lidocaine 5 % Ointment 35 Gm TOPICAL 1 appl BID PRN Administration foot pain Protocol Lisinopril 10 mg 07/18/25 09:00 07/25/25 20:08 Lisinopril 10 Mg Tablet PO 10 mg BID SABA Administration Protocol Melatonin 6 mg 07/18/25 21:00 07/25/25 20:08 Melatonin 3 Mg Tablet PO 6 mg BEDTIME SABA Administration Mirtazapine 30 mg 07/20/25 21:00 07/25/25 20:08 Mirtazapine 30 Mg Tablet PO 30 mg BEDTIME SABA Administration Nicotine 21 mg 07/19/25 13:10 07/19/25 15:07 Nicotine 21 Mg Patch.Td24 TRANSDERMA 21 mg DAILY PRN Administration smoking cessation Oxycodone HCl 10 mg 07/21/25 12:01 07/26/25 06:26 Oxycodone Hcl Immed Release 5 Mg Tablet PO 10 mg 0630,1830 PRN Administration Pain, Severe (Pain Scale 7-10) Quetiapine Fumarate 100 mg 07/19/25 14:00 07/25/25 13:50 Quetiapine Fumarate 100 Mg Tablet PO 100 mg BID@0900,1400 SABA Administration Quetiapine Fumarate 600 mg 07/19/25 21:00 07/25/25 20:08 Quetiapine Fumarate 300 Mg Tablet PO 600 mg BEDTIME SABA Administration Trazodone HCl 150 mg 07/19/25 15:53 07/25/25 20:32 Trazodone Hcl 50 Mg Tablet PO 150 mg BEDTIME PRN Administration Insomnia Discontinued Medications Generic Name Dose Route Start Last Admin Trade Name Freq PRN Reason Stop Dose Admin Ibuprofen 400 mg 07/17/25 16:01 07/17/25 20:22 Ibuprofen 400 Mg Tablet PO 07/17/25 16:02 Not Given ONCE ONE Influenza Virus Vaccine 0.5 ml 07/19/25 15:49 07/19/25 16:24 Flu Vacc [id number](6mo Up)/Pf 0.5 Ml Syringe IM 07/19/25 15:50 Not Given .ONCE ONE Mirtazapine 15 mg 07/18/25 21:00 07/19/25 21:50 Mirtazapine 15 Mg Tablet PO Not Given BEDTIME SABA Oxycodone HCl 5 mg 07/17/25 21:24 07/17/25 21:32 Oxycodone Hcl Immed Release 5 Mg Tablet PO 07/17/25 21:25 5 mg ONCE ONE Administration Oxycodone HCl 5 mg 07/18/25 07:41 07/20/25 08:32 Oxycodone Hcl Immed Release 5 Mg Tablet PO 5 mg TID PRN Administration Pain, Severe (Pain Scale 7-10) Oxycodone HCl 10 mg 07/20/25 13:24 07/21/25 09:00 Oxycodone Hcl Immed Release 5 Mg Tablet PO 10 mg Q12H PRN Administration Pain, Severe (Pain Scale 7-10) Oxycodone HCl 5 mg 07/20/25 15:00 07/20/25 15:14 Oxycodone Hcl Immed Release 5 Mg Tablet PO 07/20/25 15:01 5 mg ONCE ONE Administration Quetiapine Fumarate 100 mg 07/18/25 09:00 07/19/25 09:08 Quetiapine Fumarate 100 Mg Tablet PO 100 mg BID SABA Administration Trazodone HCl 150 mg 07/18/25 21:00 07/18/25 22:04 Trazodone Hcl 50 Mg Tablet PO 150 mg BEDTIME SABA Administration Medical Decision Making Medical Decision Making [facility] Narrative: Patient is a 69-year-old male with history of alcohol use disorder, polysubstance abuse, housing and security, depression and mood disorder presenting to the ED with complaint of anxiety related to his current living situation. On exam patient is awake, A+Ox3, VS WNL, afebrile, normal neurological exam without focal deficits, physical exam findings as above. Given reported symptoms and physical exam findings, initial differential includes but is not limited to anxiety, auditory hallucinations. Will plan for medical clearance then care team evaluation. Labs grossly within normal limits. UA without evidence of infection. UDS positive for opiates/oxycodone and marijuana. Ethanol negative. Will medically clear patient at this time and place on physician observation for CARE team evaluation. Differential Diagnosis Differential Diagnoses: The differential diagnosis associated with the presentation includes as per [facility] Admission/Observation Consideration of admission/observation: Escalation of care including admission/observation considered Patient would have been admitted to the hospital and transferred to appropriate facility had their clinical presentation warranted hospital admission. Consult Healthcare Provider Management of the patient was discussed with: Behavioral Health Provider Lab Data [facility] Lab Attestation statement: I reviewed the patient's lab results. as per [facility] 07/17/25 14:31 07/20/25 12:22 Labs: Lab Results 07/17/25 07/17/25 07/17/25 Range/Units 14:31 15:29 15:31 WBC 3.7 L (4.8-10.8) X10*3/uL RBC 4.16 L (4.60-5.80) X10*6/uL Hgb 13.7 L (14.0-18.0) g/dl Hct 38.5 L (42.0-52.0) % MCV 92.5 (80.0-98.0) fL MCH 32.9 (27.0-33.0) pg MCHC 35.6 (31.0-36.0) g/dl RDW 11.9 (11.0-16.0) % Plt Count 85 L (160-400) X10*3/uL MPV 11.3 (9.4-12.4) fL Immature Gran % (Auto) 0.3 (0.0-0.4) % Neut % (Auto) 55.0 (45-73) % Lymph % (Auto) 33.2 (20-40) % [place] % (Auto) 9.9 (2-11) % Eos % (Auto) 0.8 (0-4) % Baso % (Auto) 0.8 (0-2) % Lymph # (Auto) 1.2 (1.2-4.9) X10*3/uL [place] # (Auto) 0.4 (0.1-1.2) X10*3/uL Eos # (Auto) 0.0 (0.0-0.4) X10*3/uL Baso # (Auto) 0.0 (0.0-0.2) X10*3/uL Abs Immat Gran (auto) 0.01 (0.00-0.03) X10*3/uL Absolute Neuts (auto) 2.0 (2.0-8.3) x10*3/uL Absolute Nucleated RBC 0.000 (0.0-0.012) X10*3/uL Nucleated RBC % (auto) 0.0 (0.0-0.2) /100WBC Sodium 142 (135-145) mmol/L Potassium 4.3 (3.3-5.1) mmol/L Chloride 104 (96-108) mmol/L Carbon Dioxide 29 (22-29) mmol/L Anion Gap 13 (12-20) BUN 12 (9-16) mg/dL Creatinine 0.95 (0.5-1.4) mg/dL Estim Creat Clear Calc 79.8 Estimated GFR > 60 Random Glucose 87 (60-115) mg/dL Calcium 9.6 (8.4-10.2) mg/dL Total Bilirubin 0.4 (0.0-1.0) mg/dL AST 65 H (5-37) U/L ALT 51 H (0-40) U/L Alkaline Phosphatase 102 (39-117) U/L Total Protein 7.5 (6.5-8.0) g/dL Albumin 4.0 (3.5-5.0) g/dL Urine Color Yellow Urine Appearance Cloudy Urine pH 8.5 (5.0-9.0) Ur Specific [place] 1.010 (1.005-1.025) Urine Protein Negative (Neg-Trace) mg/dL Urine Glucose (UA) Negative (Negative) mg/dL Urine Ketones Negative (Negative) mg/dL Urine Blood Negative (Negative) Urine Nitrite Negative (Negative) Ur Leukocyte Esterase Negative (Negative) Urine RBC 0-2 (0-2) /HPF Urine WBC 0-5 (0-5) /HPF Ur Squamous Epith Cells 0-2 (0-2) /HPF Urine Bacteria None Seen (None Seen) Hyaline Casts 0-2 (0-2) /LPF Salicylates < 5.0 L (15-30) mg/dL Urine Opiates Screen POSITIVE H (Not Detect) Ur Buprenorphine Scrn Not Detected (Not Detect) ng/mL Ur Oxycodone Screen Positive H (Not Detect) ng/mL Urine Methadone Screen Not Detected (Not Detect) ng/mL Urine Fentanyl Screen Not Detected (Not Detect) Acetaminophen < 3 (<30) mcg/mL Ur Barbiturates Screen Not Detected (Not Detect) Ur Phencyclidine Scrn Not Detected (Not Detect) Ur Amphetamines Screen Not Detected (Not Detect) U Benzodiazepines Scrn Not Detected (Not Detect) Urine Cocaine Screen Not Detected (Not Detect) U Marijuana (THC) Screen POSITIVE H (Not Detect) Ethyl Alcohol < 10 mg/dL External Record Review External record reviewed: Inpatient record, Office record and Outpatient record Discharge Plan Discharge Clinical Impression: Anxiety, Auditory hallucination Patient Disposition: Admitted As Inpatient Discharge Date/Time: 07/19/25 14:40
--- OUTSIDE RECORDS SUMMARY | 2025-07-17 14:15 | XMS_ITS | Clinical Summary ---
Author Organization [facility] Address [address] [address] Care Team Providers Care Endoscopic Technician Name Role Phone Zaki Freedman MD Primary Care Provider Allergies Active Allergy Reactions Criticality Noted Date [...] patient's age to complete this topic Insurance [facility] [employer] [id number] Care Teams Endoscopic Technician Relationship Specialty Start Date End Date Zaki Freedman MD [address] [place] [address] [facility] - General 09/29/21
[2025-07-17 14:36] LABS: MANUAL DIFF FLAG NO
[2025-07-17 14:38] LABS: Hematocrit 38.5 % (42.0-52.0); Hemoglobin 13.7 g/dl (14.0-18.0); Imm Gran Abs Auto 0.01 X10*3/uL (0.00-0.03); Imm Gran Pct Auto 0.3 % (0.0-0.4); Lymphocytes Absolute Auto 1.2 X10*3/uL (1.2-4.9); Mean Corpuscular HGB Conc 35.6 g/dl (31.0-36.0); Mean Corpuscular Hemoglobin 32.9 pg (27.0-33.0); Mean Corpuscular Volume 92.5 fL (80.0-98.0); NRBC Abs Auto 0.000 X10*3/uL (0.0-0.012); NRBC Pct Auto 0.0 /100WBC (0.0-0.2); Platelet Count 85 X10*3/uL (160-400); Red Blood Count 4.16 X10*6/uL (4.60-5.80); White Blood Count 3.7 X10*3/uL (4.8-10.8)
[2025-07-17 14:49] LABS: Acetaminophen LAB < 3 mcg/mL (<30); Alanine Aminotransferase 51 U/L (0-40); Albumin Level 4.0 g/dL (3.5-5.0); Alkaline Phosphatase 102 U/L (39-117); Anion Gap 13 (12-20); Aspartate Amino Transferase 65 U/L (5-37); Blood Urea Nitrogen 12 mg/dL (9-16); Calcium 9.6 mg/dL (8.4-10.2); Carbon Dioxide 29 mmol/L (22-29); Chloride 104 mmol/L (96-108); Creatinine Clr Calc Pharmacy 79.8; Estimated Glomerular Filt Rate > 60; Potassium 4.3 mmol/L (3.3-5.1); Salicylate < 5.0 mg/dL (15-30); Sodium 142 mmol/L (135-145); Total Protein 7.5 g/dL (6.5-8.0)
[2025-07-17 15:41] LABS: Appearance Urine Cloudy; Glucose Urine UA Negative (Negative); PH 8.5 (5.0-9.0); Specific Gravity - Urine 1.010 (1.005-1.025)
[2025-07-17 15:49] VITALS: BP 133/82; PULSE 85; RESP 17; TEMP 36.3; O2SAT 99
[2025-07-17 15:56] LABS: Cannabinoid Screen Urine POSITIVE (Not Detect)
--- NOTE | 2025-07-17 17:25 | PC.NURSE ---
Pt is calm and cooperative. He arrives to the POD feeling unsafe in his living situation HE reports chronic discomfort in his bilat feet.
--- NOTE | 2025-07-17 18:43 | MHC.EDTECH ---
Patient refused the SARS test. patient state if I doesn't get my pain medication you might as well call me an uber so i can leave! where I proceed to talk with him letting him know i will talk to the nurse about his concern I asked him if i can please swap his nose for the SARS test he then stated No i'm all set you can tell the nurse I said no. nurse aware.
[2025-07-17] MEDS: oxyCODONE HCl Immed Release 5 MG TABLET PO (21:32)
--- NOTE | 2025-07-18 06:42 | MHC.EDTECH ---
Pt refused mornign vitals. Let RN be aware
--- NOTE | 2025-07-18 07:53 | PC.NURSE ---
Assumed care, report received. Pt is awake, alert and anxious about his living situation, he states he wants to talk to the police because he knows someone has keys to his place and has been stealing his belongings. HE is in agreement to go IPLOC.
[2025-07-18] MEDS: Aspirin Enteric Coated 81 MG TABLET.DR PO (08:17)
[2025-07-18] MEDS: oxyCODONE HCl Immed Release 5 MG TABLET PO ×2 (08:17→14:11)
[2025-07-18 11:28] VITALS: BP 158/94; PULSE 67; RESP 13; TEMP 36.7; O2SAT 99
--- NOTE | 2025-07-19 | ECG_ITS ---
Test Reason : r/o prolonged QT Blood Pressure : */* mmHG Vent. Rate : 74 BPM Atrial Rate : 74 BPM P-R Int : 154 ms QRS Dur : 78 ms QT Int : 404 ms P-R-T Axes : 67 44 67 degrees QTcB Int : 448 ms Normal sinus rhythm Normal ECG When compared with ECG of 17-May-2025 09:00, No significant change was found Referred By: Madelyn Wooten Electronically Signed By: Mack Isaac
[2025-07-19 06:36] VITALS: RESP 16
--- NOTE | 2025-07-19 07:14 | PC.NURSE ---
Assumed care of aptient at 0645. Patient sleeping in bed, respirations even and unlabored. Plan for IPLOC.
[2025-07-19] MEDS: oxyCODONE HCl Immed Release 5 MG TABLET PO ×3 (07:37→20:41)
[2025-07-19 07:44] VITALS: BP 164/98; PULSE 75; RESP 20; TEMP 35.7; O2SAT 94
[2025-07-19] MEDS: Aspirin Enteric Coated 81 MG TABLET.DR PO (09:08)
--- NOTE | 2025-07-19 09:20 | PC.NURSE ---
Requested Bigtarvy via pharmacy. Awaiting medication
--- NOTE | 2025-07-19 10:58 | PHA.MEDREC ---
Addendum entered by Wilmar Avalos RPh 07/19/25 11:11: MED REC REVIEWED BY [facility] To clarify, per Samantha, patient takes 2 of the 300 mg tablets (=600 mg) at bedtime along [id number] mg bid. Original Note: Pharmacy Consult ? Medication Reconciliation Pharmacy reviewed med rec done by nursing. Spoke with pt and he verified the med rec. Pt taking Quetiapine 100mg BID and 300mg at bedtime; nurse only confirmed 100mg bid, 300mg LF 07/14 for 14 days and he is taking Trazodone as needed for insomnia; original directions is scheduled at bedtime.
[2025-07-19] MEDS: Lidocaine 4 % Patch ADH..PATCH 2 PATCH TRANSDERMA (11:54)
[2025-07-19] MEDS: Bictegrav/Emtricit/Tenofov Ala TABLET 1 TAB PO (13:02)
[2025-07-19 14:44] VITALS: BP 142/97; PULSE 96; RESP 18; TEMP 36.4; O2SAT 99
--- NOTE | 2025-07-19 14:46 | PC.NURSE ---
Nurse to nurse report given to M5.
[2025-07-19] MEDS: Nicotine 21 MG PATCH.TD24 TRANSDERMA (15:07)
[2025-07-19 16:03] VITALS: BMI 20.9
--- NOTE | 2025-07-19 17:06 | PC.ADMIT ---
Patient 69 year-old male with history of Hypertension, Major depressive disorder, polysubstance abuse, was seen and evaluated in the ED by the CARE TEAM with complaint of anxiety , disorganized thinking, paranoia, impaired reality resulting in functional deterioration and concern safety, reporting recent stressors related in a newly rented apartment , which appear to have contributed to increasing emotional instability. Patient stated feels other people has the keys to go to his apartment when he is not there , moving stuff around or steal items from him, sometimes people are watching him when he was inside. He states that other people in the building use cocaine and this has been a trigger for him as he has been sober for several years. Patient reported occasional auditory hallucinations but denies any command, denies visual hallucinations, suicidal or homicidal ideation. Urine toxicology was positive for marijuana, opiates, and oxycodone, consistent with the patient history of substance use. Although the patient denies active intent to self harm or others, the severity of psychosis limits the ability to ensure personal safety without patient care. Patient was admitted to at 14:44 om on a CV for better management.
[2025-07-19 20:36] VITALS: BP 119/69; PULSE 89; RESP 18; TEMP 37.1; O2SAT 97
[2025-07-19 20:39] VITALS: BP 119/69
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
[2025-07-20 08:00] VITALS: BP 119/77; PULSE 79; RESP 18; TEMP 36.5; O2SAT 94
[2025-07-20] MEDS: Aspirin Enteric Coated 81 MG TABLET.DR PO (08:18)
[2025-07-20] MEDS: Bictegrav/Emtricit/Tenofov Ala TABLET 1 TAB PO (08:18)
[2025-07-20] MEDS: oxyCODONE HCl Immed Release 5 MG TABLET PO ×2 (08:32→15:14)
[2025-07-20] MEDS: Lidocaine 4 % Patch ADH..PATCH 2 PATCH TRANSDERMA (08:33)
--- NOTE | 2025-07-20 09:07 | P.CONHOSP_ITS ---
History of Present Illness Data of Consult Service Date: 07/20/25 Primary Care Provider: Maverick French MD [facility] Reason for consult: Medical H&P 69-year-old male with past medical history of alcohol use disorder, polysubstance use disorder, hypertension, housing insecurity, depression and mood disorder presented to [facility] ED with complaints of anxiety and paranoia. Patient recently moved into a new apartment in April and feels that his neighbors are entering into his apartment when he is not there and moving things as well as using cocaine which is triggering to him. CBC reveals mild leukopenia, mild anemia. Patient with elevation in AST and ALT consistent with alcohol use, no evidence of renal dysfunction, electrolytes within normal limits. Urine without evidence of infection. Tox screen positive for opiates, oxycodone, and marijuana. Patient also has bunion and hammertoes on bilateral feet, patient is scheduled to have surgery with Dr. Mathews on his left foot in the near future. He otherwise has no medical concerns. Review of Systems 2 Review of Systems: Denies any shortness of breath, chest pain, headaches, dysuria, abdominal pain or discomfort, nausea, vomiting or diarrhea. Denies fever or chills. [facility] Medical History Homelessness Alcohol intoxication Social History Household Members: Other Household Members Other:: Live alone Housing: Apartment Housing Other:: staying in [facility] Do you presently have visiting nurse or other home services: No Unable to assess alcohol history related to: Unable to respond Alcohol intake: current Alcohol intake frequency: does not drink Alcohol type: hard liquor Patient Tobacco Use Status: Current everyday Tobacco user Tobacco use type: Cigarette Cigarettes Per Day: 8 Years Smoked: 36 years Smoked in Last 30 Days: Yes e-Cigarette/Vaping Use: Never Used Patient Interested in Nicotine Replacement: Yes Patient Given Instructions on How to Stop Smoking: No Second Hand Smoke Exposure: No Substance Use Type: Marijuana Currently Displaying Signs/Symptoms of Drug Intoxication Withdrawal: No Do you feel safe in your current relationship?: No Current Relationship Is there a partner from a previous relationship who is making you feel unsafe now?: No Are you made to feel afraid or neglected: No Spiritual Healthcare Practices: Denominational Advance Directives: No Advance Directives Information Provided: No Do you have thoughts of harming others: None Do you have a plan to hurt others: No Plan Recently lost weight without trying: No Eating poorly because of decreased appetite: No Nutrition Risks: No Nutritional Risk service: Yes Sexual orientation: Straight/Heterosexual Meds Allergies Allergy/AdvReac Type Severity Reaction Status Date / Time acetaminophen (ACETAMINOPHEN) Allergy Mild rashes Verified 07/17/25 13:46 Active Medications: Current Medications Al Hydroxide/Mg Hydroxide (Magnesium Hydrox/Alum Hydrox 30 Ml Oral.Susp) 30 ml PO Q6H PRN PRN Reason: Heartburn/Nausea Aspirin (Aspirin Enteric Coated 81 Mg Tablet.Dr) 81 mg PO DAILY [facility] Last Admin: 07/20/25 08:18 Dose: 81 mg Bictegravir/Emtricitabine/Tenofovir (Bictegrav/Emtricit/Tenofov Ala Tablet) 1 tab PO DAILY [facility] Last Admin: 07/20/25 08:18 Dose: 1 tab Clonidine HCl (Clonidine Hcl 0.1 Mg Tablet) 0.1 mg PO BID [facility]; Protocol Last Admin: 07/20/25 08:18 Dose: 0.1 mg Hydroxyzine HCl (Hydroxyzine Hcl 25 Mg Tablet) 25 mg PO Q6H PRN PRN Reason: mild anxiety Ibuprofen (Ibuprofen 400 Mg Tablet) 400 mg PO Q6H PRN PRN Reason: Pain, Mild 1-3,fever,headache Last Admin: 07/19/25 15:07 Dose: 400 mg Lidocaine (Lidocaine 4 % Patch Adh..Patch) 2 patch TRANSDERMA DAILY [facility]; Protocol Last Admin: 07/20/25 08:33 Dose: 2 patch Lidocaine (Lidocaine 5 % Ointment 35 Gm) 1 appl TOPICAL BID PRN; Protocol PRN Reason: foot pain Lisinopril (Lisinopril 10 Mg Tablet) 10 mg PO BID [facility]; Protocol Last Admin: 07/20/25 08:19 Dose: 10 mg Magnesium Hydroxide (Milk Of Magnesia 30 Ml Oral.Susp) 30 ml PO DAILY PRN PRN Reason: Constipation Melatonin (Melatonin 3 Mg Tablet) 6 mg PO BEDTIME [facility] Last Admin: 07/19/25 20:40 Dose: 6 mg Mirtazapine (Mirtazapine 15 Mg Tablet) 15 mg PO BEDTIME [facility] Last Admin: 07/19/25 21:50 Dose: Not Given Nicotine (Nicotine 21 Mg Patch.Td24) 21 mg TRANSDERMA DAILY PRN PRN Reason: smoking cessation Last Admin: 07/19/25 15:07 Dose: 21 mg Nicotine Polacrilex (Nicotine Polacrilex 2 Mg Gum) 4 mg BUCCAL Q2H PRN PRN Reason: Nicotine Cravings Olanzapine (Olanzapine 5 Mg Tablet) 5 mg PO TID PRN PRN Reason: agitation Oxycodone HCl (Oxycodone Hcl Immed Release 5 Mg Tablet) 5 mg PO TID PRN PRN Reason: Pain, Severe (Pain Scale 7-10) Last Admin: 07/20/25 08:32 Dose: 5 mg Quetiapine Fumarate (Quetiapine Fumarate 100 Mg Tablet) 100 mg PO BID@0900,1400 [facility] Last Admin: 07/20/25 08:18 Dose: 100 mg Quetiapine Fumarate (Quetiapine Fumarate 300 Mg Tablet) 600 mg PO BEDTIME [facility] Last Admin: 07/19/25 20:38 Dose: 600 mg Trazodone HCl (Trazodone Hcl 50 Mg Tablet) 150 mg PO BEDTIME PRN PRN Reason: Insomnia Home Medications ?Medication ?Instructions ?Recorded ?Confirmed ?Last Taken ?Type lisinopril 10 mg tablet 10 mg PO BID 05/15/2507/17/25 History mirtazapine 15 mg tablet 15 mg PO BEDTIME insomnia 07/17/25 07/16/25 History oxycodone 5 mg tablet 5 mg PO TID PRN pain 5 07/17/25 07/17/25 History quetiapine 100 mg tablet 100 mg PO BID@0900,1400 depr essive 07/17/25 07/19/25 07/17/25 History disorder quetiapine 300 mg tablet 600 mg PO BEDTIME anxiety 07/19/25 07/16/25 History trazodone 150 mg tablet 150 mg PO BEDTIME PRN insomn ia 07/19/25 07/19/25 Unknown History Physical Exam 2 Vital Signs and Narrative: Vital Signs: Last Vital Signs Temp 97.7 F 07/20/25 08:00 Pulse 79 07/20/25 08:00 Resp 18 07/20/25 08:00 BP 119/77 07/20/25 08:00 Pulse Ox 94 07/20/25 08:00 O2 Del Method Room Air 07/20/25 08:00 BMI result Body Mass Index 20.9 CONST: Alert and oriented, in NAD. Thin HEENT: Normocephalic, atraumatic, MMM. Edentulous. RESP: Respiratory rate even and regular, no use of accessory muscles. Lungs clear HEART:No edema, S1-S2 regular rate and rhythm SKIN: Warm dry and intact, no visible lesions or rashes NEURO: Ambulates independently PSYCH: Quiet and cooperative. Talkative, mildly anxious. EXTREMETIES: No edema, Hammer toes 2,3,4 toes left foot. Results Labs 07/17/25 14:31 07/17/25 14:31 Assessment and Plan (1) HTN (hypertension): Status: Acute Plan 69-year-old male with a history of alcohol use disorder, polysubstance abuse disorder, housing security issues, depression, mood disorder presented with paranoia, now admitted to inpatient psych for further treatment. EtOH use disorder/polysubstance abuse disorder/depression/mood disorder/suicidal ideation Plan per inpatient psychiatric team Hypertension Continue Clonidine and Lisinopril. Baby aspirin daily Hammer toes bilateral feet Patient followed by outpatient Maintenance Representative Dr. Mathews and is scheduled for surgery in the near future. Would avoid escalation in narcotic pain medications in his patient with a known history of polysubstance abuse. 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 oxycodone, Lidocaine gel and patches as needed. Thank you for allowing me to participate in the care of this patient. Will follow with you, please notify medical provider with any changes in condition or concerns.
--- NOTE | 2025-07-20 10:20 | P.PNPSI_ITS ---
Subjective Subjective Date of Service: 07/20/25 Reason For Visit: crisis Subjective Notes: Conditional Voluntary Healthcare Proxy: No Guardianship: No Medical Problems Affecting Mental Status: No Interim History: Pt reports he is frightened to return to his home as he is convinced that others are in his home when he is away and they are planning to harm him, taking his SSDI. He also reports poor pain mgt. We discussed consolidation of dosing/timing and he asks to trial this which we will begin today. Seroqeul just increased he reports, willing to look at augmentation, however, wanting to see how pain mgt works. Asks for OP pain mgt referral upon discharge[place] . [place] are [place]. Will trial Remeron at 30 mg-verified a new increase recently with Dr. Ash's practice. Medication Compliance: Yes Side effects from medications: No Attending Groups: Intermittent Review of Systems chronic pain bunions/hammertoe-surgery is pending Medical Review of Systems: unchanged Review of Systems Review of Systems chronic pain Mental Status Exam Mental Status Exam Patient Appearance: Appropriate Patient Orientation: Person, Place, Time and Situation Level of Consciousness: Alert Patient Behavior: Talkative and Good Eye Contact Mood Description: Anxious Affect Description: Anxious Ability to Follow Directions: Good Speech Pattern: Spontaneous Speech Memory Description: Episodic Impaired Hallucinations: None Delusions: Being Controlled, Paranoid Ideation and Present Perceptual Disturbances: Derealization Thought Process: Rumination Thought Content: positive for Circumstantial and positive for Perseveration Depressive Symptoms: Thoughts of /Suicide (denies) and Loss of Energy Judgement: Fair Diagnostics Vital Signs (24Hr): Vital Signs - 24 hr 07/19/25 14:44 07/19/25 20:36 07/19/25 20:39 Temperature 97.6 F 98.8 F Pulse Rate 96 89 Respiratory Rate 18 18 Blood Pressure 142/97 H 119/69 119/69 Pulse Oximetry 99 97 Oxygen Delivery Method Room Air Room Air 07/19/25 20:39 07/20/25 08:00 Temperature 97.7 F Pulse Rate 79 Respiratory Rate 18 Blood Pressure 119/69 119/77 Pulse Oximetry 94 Oxygen Delivery Method Room Air BMI result Body Mass Index 20.9 Labs 07/17/25 14:31 07/20/25 12:22 Medications Medications Current Medications Al Hydroxide/Mg Hydroxide (Magnesium Hydrox/Alum Hydrox 30 Ml Oral.Susp) 30 ml PO Q6H PRN PRN Reason: Heartburn/Nausea Aspirin (Aspirin Enteric Coated 81 Mg Tablet.Dr) 81 mg PO DAILY [facility] Last Admin: 07/20/25 08:18 Dose: 81 mg Bictegravir/Emtricitabine/Tenofovir (Bictegrav/Emtricit/Tenofov Ala Tablet) 1 tab PO DAILY [facility] Last Admin: 07/20/25 08:18 Dose: 1 tab Clonidine HCl (Clonidine Hcl 0.1 Mg Tablet) 0.1 mg PO BID [facility]; Protocol Last Admin: 07/20/25 08:18 Dose: 0.1 mg Hydroxyzine HCl (Hydroxyzine Hcl 25 Mg Tablet) 25 mg PO Q6H PRN PRN Reason: mild anxiety Ibuprofen (Ibuprofen 400 Mg Tablet) 400 mg PO Q6H PRN PRN Reason: Pain, Mild 1-3,fever,headache Last Admin: 07/20/25 09:09 Dose: 400 mg Lidocaine (Lidocaine 4 % Patch Adh..Patch) 2 patch TRANSDERMA DAILY [facility]; Protocol Last Admin: 07/20/25 08:33 Dose: 2 patch Lidocaine (Lidocaine 5 % Ointment 35 Gm) 1 appl TOPICAL BID PRN; Protocol PRN Reason: foot pain Lisinopril (Lisinopril 10 Mg Tablet) 10 mg PO BID [facility]; Protocol Last Admin: 07/20/25 08:19 Dose: 10 mg Magnesium Hydroxide (Milk Of Magnesia 30 Ml Oral.Susp) 30 ml PO DAILY PRN PRN Reason: Constipation Melatonin (Melatonin 3 Mg Tablet) 6 mg PO BEDTIME [facility] Last Admin: 07/19/25 20:40 Dose: 6 mg Mirtazapine (Mirtazapine 15 Mg Tablet) 15 mg PO BEDTIME [facility] Last Admin: 07/19/25 21:50 Dose: Not Given Nicotine (Nicotine 21 Mg Patch.Td24) 21 mg TRANSDERMA DAILY PRN PRN Reason: smoking cessation Last Admin: 07/19/25 15:07 Dose: 21 mg Nicotine Polacrilex (Nicotine Polacrilex 2 Mg Gum) 4 mg BUCCAL Q2H PRN PRN Reason: Nicotine Cravings Olanzapine (Olanzapine 5 Mg Tablet) 5 mg PO TID PRN PRN Reason: agitation Oxycodone HCl (Oxycodone Hcl Immed Release 5 Mg Tablet) 5 mg PO TID PRN PRN Reason: Pain, Severe (Pain Scale 7-10) Last Admin: 07/20/25 08:32 Dose: 5 mg Quetiapine Fumarate (Quetiapine Fumarate 100 Mg Tablet) 100 mg PO BID@0900,1400 [facility] Last Admin: 07/20/25 08:18 Dose: 100 mg Quetiapine Fumarate (Quetiapine Fumarate 300 Mg Tablet) 600 mg PO BEDTIME [facility] Last Admin: 07/19/25 20:38 Dose: 600 mg Trazodone HCl (Trazodone Hcl 50 Mg Tablet) 150 mg PO BEDTIME PRN PRN Reason: Insomnia Allergies Allergies Allergy/AdvReac Type Severity Reaction Status Date / Time acetaminophen (ACETAMINOPHEN) Allergy Mild rashes Verified 07/17/25 13:46 Assessment & Plan Assessment & Plan (1) Schizoaffective disorder: Status: Acute Code(s): F25.9 - Schizoaffective disorder, unspecified (2) PTSD (post-traumatic stress disorder): Status: Acute Code(s): F43.10 - Post-traumatic stress disorder, unspecified (3) HTN (hypertension): Status: Acute Code(s): I10 - Essential (primary) hypertension Plan alcohol use disorder, polysubstance use disorder, hypertension, housing insecurity, depression and mood disorder 69-year-old male with a history of alcohol use disorder, polysubstance abuse disorder, housing and security issues, depression, mood disorder presented with auditory and suicidal ideation, he is admitted to inpatient psych for further treatment. Recently discharged from this unit. EtOH use disorder/polysubstance abuse disorder/depression/mood disorder/suicidal ideation Plan per inpatient psychiatric team Patient MASS PAT checked, previously on buprenorphine. No oxycodone scripts noted. Recommendations to follow up with outpatient Podiatry, and primary care regarding chronic pain management. Would avoid narcotic pain medications in his patient with a known history of polysubstance abuse. Hypertension Continue Clonidine and Lisinopril. 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 Thank you for allowing me to participate in the care of this patient. Signing off at this time. Please reconsult of any acute concerns or issues arise. 07/20: Pt reports he is frightened to return to his home as he is convinced that others are in his home when he is away and they are planning to harm him, taking his SSDI. He also reports poor pain mgt. We discussed consolidation of dosing/timing and he asks to trial this which we will begin today. Seroqeul just increased he reports, willing to look at augmentation, however, wanting to see how pain mgt works. Asks for OP pain mgt referral upon discharge[place] . [place] are [place]. Will trial Remeron at 30 mg-verified a new increase recently with Dr. Ash's practice. Reason for continued inpatient stay Substantial Risk for: rapid decompensation Time Spent With Patient Time: Total time managing care of this patient today ____ minutes.
[2025-07-20 12:52] LABS: Alanine Aminotransferase 55 U/L (0-40); Albumin Level 3.7 g/dL (3.5-5.0); Alkaline Phosphatase 88 U/L (39-117); Anion Gap 12 (12-20); Aspartate Amino Transferase 87 U/L (5-37); Blood Urea Nitrogen 22 mg/dL (9-16); Calcium 9.3 mg/dL (8.4-10.2); Carbon Dioxide 29 mmol/L (22-29); Chloride 106 mmol/L (96-108); Cholesterol 156 mg/dL (<200); Creatinine Clr Calc Pharmacy 50.1; Estimated Glomerular Filt Rate 47; HDL Cholesterol 67 mg/dL (>40); Potassium 4.4 mmol/L (3.3-5.1); Sodium 143 mmol/L (135-145); Total Protein 7.0 g/dL (6.5-8.0); Triglycerides 122 mg/dL (<150)
[2025-07-20 19:56] VITALS: BP 100/60; PULSE 100; RESP 16; TEMP 36.8; O2SAT 96
[2025-07-20] MEDS: oxyCODONE HCl Immed Release 5 MG TABLET 10 MG PO (20:09)
[2025-07-21 08:00] VITALS: BP 107/68; PULSE 102; RESP 18; TEMP 36.4; O2SAT 100
[2025-07-21] MEDS: Aspirin Enteric Coated 81 MG TABLET.DR PO (08:58)
[2025-07-21] MEDS: Bictegrav/Emtricit/Tenofov Ala TABLET 1 TAB PO (08:59)
[2025-07-21] MEDS: oxyCODONE HCl Immed Release 5 MG TABLET 10 MG PO ×2 (09:00→18:32)
--- NOTE | 2025-07-21 10:41 | P.PNPSI_ITS ---
Subjective Subjective Date of Service: 07/21/25 Reason For Visit: crisis Subjective Notes: Conditional Voluntary Healthcare Proxy: No Guardianship: No Medical Problems Affecting Mental Status: No Interim History: Pt is focused on pain medication. Asks for timing to change to 06 and 183 which we will trial. Team reports pt slept well. Isolative today, not attending groups, reports depression. Active in his room, reading, writing, taking notes and attempting to socialize with room-mate when seen Medication Compliance: Yes Side effects from medications: No Attending Groups: No Review of Systems Acute medical concerns: No Medical Review of Systems: unchanged Review of Systems Review of Systems chronic pain Mental Status Exam Mental Status Exam Patient Appearance: Appropriate Patient Orientation: Person, Place, Time and Situation Level of Consciousness: Alert Patient Behavior: Talkative and Good Eye Contact Mood Description: Anxious Affect Description: Anxious Ability to Follow Directions: Good Speech Pattern: Spontaneous Speech Memory Description: Episodic Impaired Hallucinations: None Delusions: Being Controlled, Paranoid Ideation and Present Perceptual Disturbances: Derealization Thought Process: Rumination Thought Content: positive for Circumstantial and positive for Perseveration Depressive Symptoms: Thoughts of /Suicide (denies) and Loss of Energy Judgement: Fair Diagnostics Vital Signs (24Hr): Vital Signs - 24 hr 07/20/25 19:56 07/21/25 08:00 Temperature 98.3 F 97.6 F Pulse Rate 100 102 H Respiratory Rate 16 18 Blood Pressure 100/60 107/68 Pulse Oximetry 96 100 Oxygen Delivery Method Room Air Room Air BMI result Body Mass Index 20.9 Labs 07/17/25 14:31 07/20/25 12:22 Labs: Laboratory Results - last 48 hr 07/20/25 12:22 Sodium 143 Potassium 4.4 Chloride 106 Carbon Dioxide 29 Anion Gap 12 BUN 22 H Creatinine 1.49 H Estim Creat Clear Calc 50.1 Estimated GFR 47 Random Glucose 100 Estimat Average Glucose 108 Hemoglobin A1c % 5.4 Calcium 9.3 Total Bilirubin 0.3 AST 87 H ALT 55 H Alkaline Phosphatase 88 Total Protein 7.0 Albumin 3.7 Triglycerides 122 Cholesterol 156 LDL Cholesterol, Calc 65 HDL Cholesterol 67 TSH 1.68 Medications Medications Current Medications Al Hydroxide/Mg Hydroxide (Magnesium Hydrox/Alum Hydrox 30 Ml Oral.Susp) 30 ml PO Q6H PRN PRN Reason: Heartburn/Nausea Aspirin (Aspirin Enteric Coated 81 Mg Tablet.Dr) 81 mg PO DAILY [facility] Last Admin: 11/26/25 08:58 Dose: 81 mg Bictegravir/Emtricitabine/Tenofovir (Bictegrav/Emtricit/Tenofov Ala Tablet) 1 tab PO DAILY [facility] Last Admin: 07/21/25 08:59 Dose: 1 tab Clonidine HCl (Clonidine Hcl 0.1 Mg Tablet) 0.1 mg PO BID [facility]; Protocol Last Admin: 07/21/25 08:59 Dose: 0.1 mg Hydroxyzine HCl (Hydroxyzine Hcl 25 Mg Tablet) 25 mg PO Q6H PRN PRN Reason: mild anxiety Ibuprofen (Ibuprofen 400 Mg Tablet) 400 mg PO Q6H PRN PRN Reason: Pain, Mild 1-3,fever,headache Last Admin: 07/21/25 09:00 Dose: 400 mg Lidocaine (Lidocaine 4 % Patch Adh..Patch) 2 patch TRANSDERMA DAILY [facility]; Protocol Last Admin: 07/20/25 08:33 Dose: 2 patch Lidocaine (Lidocaine 5 % Ointment 35 Gm) 1 appl TOPICAL BID PRN; Protocol PRN Reason: foot pain Last Admin: 07/21/25 07:13 Dose: 1 appl Lisinopril (Lisinopril 10 Mg Tablet) 10 mg PO BID [facility]; Protocol Last Admin: 07/21/25 08:59 Dose: 10 mg Magnesium Hydroxide (Milk Of Magnesia 30 Ml Oral.Susp) 30 ml PO DAILY PRN PRN Reason: Constipation Melatonin (Melatonin 3 Mg Tablet) 6 mg PO BEDTIME [facility] Last Admin: 07/20/25 20:05 Dose: 6 mg Mirtazapine (Mirtazapine 30 Mg Tablet) 30 mg PO BEDTIME [facility] Last Admin: 07/20/25 20:06 Dose: 30 mg Nicotine (Nicotine 21 Mg Patch.Td24) 21 mg TRANSDERMA DAILY PRN PRN Reason: smoking cessation Last Admin: 07/19/25 15:07 Dose: 21 mg Nicotine Polacrilex (Nicotine Polacrilex 2 Mg Gum) 4 mg BUCCAL Q2H PRN PRN Reason: Nicotine Cravings Olanzapine (Olanzapine 5 Mg Tablet) 5 mg PO TID PRN PRN Reason: agitation Oxycodone HCl (Oxycodone Hcl Immed Release 5 Mg Tablet) 10 mg PO Q12H PRN PRN Reason: Pain, Severe (Pain Scale 7-10) Last Admin: 07/21/25 09:00 Dose: 10 mg Quetiapine Fumarate (Quetiapine Fumarate 100 Mg Tablet) 100 mg PO BID@0900,1400 [facility] Last Admin: 07/21/25 08:59 Dose: 100 mg Quetiapine Fumarate (Quetiapine Fumarate 300 Mg Tablet) 600 mg PO BEDTIME [facility] Last Admin: 07/20/25 20:05 Dose: 600 mg Trazodone HCl (Trazodone Hcl 50 Mg Tablet) 150 mg PO BEDTIME PRN PRN Reason: Insomnia Last Admin: 07/20/25 20:06 Dose: 150 mg Allergies Allergies Allergy/AdvReac Type Severity Reaction Status Date / Time acetaminophen (ACETAMINOPHEN) Allergy Mild rashes Verified 07/17/25 13:46 Assessment & Plan Assessment & Plan (1) Schizoaffective disorder: Status: Acute Code(s): F25.9 - Schizoaffective disorder, unspecified (2) PTSD (post-traumatic stress disorder): Status: Acute Code(s): F43.10 - Post-traumatic stress disorder, unspecified (3) HTN (hypertension): Status: Acute Code(s): I10 - Essential (primary) hypertension Plan alcohol use disorder, polysubstance use disorder, hypertension, housing insecurity, depression and mood disorder 69-year-old male with a history of alcohol use disorder, polysubstance abuse disorder, housing and security issues, depression, mood disorder presented with auditory and suicidal ideation, he is admitted to inpatient psych for further treatment. Recently discharged from this unit. EtOH use disorder/polysubstance abuse disorder/depression/mood disorder/suicidal ideation Plan per inpatient psychiatric team Patient MASS PAT checked, previously on buprenorphine. No oxycodone scripts noted. Recommendations to follow up with outpatient Podiatry, and primary care regarding chronic pain management. Would avoid narcotic pain medications in his patient with a known history of polysubstance abuse. Hypertension Continue Clonidine and Lisinopril. 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 Thank you for allowing me to participate in the care of this patient. Signing off at this time. Please reconsult of any acute concerns or issues arise. 07/20: Pt reports he is frightened to return to his home as he is convinced that others are in his home when he is away and they are planning to harm him, taking his SSDI. He also reports poor pain mgt. We discussed consolidation of dosing/timing and he asks to trial this which we will begin today. Seroqeul just increased he reports, willing to look at augmentation, however, wanting to see how pain mgt works. Asks for OP pain mgt referral upon discharge[place] . [place] are [place]. Will trial Remeron at 30 mg-verified a new increase recently with Dr. Ash's practice. 07/21:Pt is focused on pain medication. Asks for timing to change to 0630 and 1830 which we will trial. Team reports pt slept well. Isolative today, not attending groups, reports depression. Active in his room, reading, writing, taking notes and attempting to socialize with room-mate when seen. Reason for continued inpatient stay Substantial Risk for: rapid decompensation Time Spent With Patient Time: Total time managing care of this patient today ____ minutes.
[2025-07-21 19:37] VITALS: BP 114/63; PULSE 114; TEMP 37.3; O2SAT 96
[2025-07-21 20:26] VITALS: BP 114/63
[2025-07-21 20:37] VITALS: BP 114/63
[2025-07-22 07:00] VITALS: BMI 52.8
[2025-07-22 08:00] VITALS: BP 147/79; PULSE 88; RESP 18; TEMP 36.5; O2SAT 100
[2025-07-22 08:06] VITALS: BP 147/79
[2025-07-22] MEDS: Bictegrav/Emtricit/Tenofov Ala TABLET 1 TAB PO (08:07)
[2025-07-22] MEDS: Aspirin Enteric Coated 81 MG TABLET.DR PO (08:07)
[2025-07-22 08:08] VITALS: BP 147/79
[2025-07-22] MEDS: oxyCODONE HCl Immed Release 5 MG TABLET 10 MG PO ×2 (08:10→18:30)
[2025-07-22 20:00] VITALS: BP 117/76; PULSE 91; TEMP 36.4; O2SAT 98
[2025-07-22 20:45] VITALS: BP 117/76
[2025-07-22 20:46] VITALS: BP 117/76
--- NOTE | 2025-07-22 22:33 | HO.PSYCHPN ---
Subjective Subjective Date of Service: 07/22/25 Reason For Visit: crisis Subjective Notes: Conditional Voluntary Healthcare Proxy: No Guardianship: No Medical Problems Affecting Mental Status: No Interim History: Medical record and nursing notes reviewed; case discussed during rounds with team/nursing staff, and met with patient for supportive therapy/psychoeducation, as well as medication management. Meet with patient in exam room. Repeated talking how he was awaken up for everything else in the morning but not wake him up for PRN Oxycodine which for some reason scheduled at 0630 and 1830 PRN. He is fixation with this time frame. Explained to him again and again during 1-1 assessment but still upset regarding got his oxycodone late. Denies SI/SIB/HI/VH. Report he hears voices yesterday get out of here. You should not be here but not during this encounter. Good appetite and sleep with mild depression. He reports recently had Seroquel increased prior to be admitted here so he wants to wait for a littel longer for effectiveness. Do not want meds changed at this time. Conitnue with curren plan. Medication Compliance: Yes Side effects from medications: No Attending Groups: Intermittent Review of Systems Acute medical concerns: No Medical Review of Systems: unchanged Review of Systems Review of Systems chronic pain. On oxcodone PRN Mental Status Exam Mental Status Exam Narrative: A&O x4, no SIB/SI/HI/AVH. Anxious, irritable. Perservertive on oxycodone PRN schedule. Diagnostics Vital Signs (24Hr): Vital Signs - 24 hr 07/22/25 08:00 07/22/25 08:06 07/22/25 08:08 Temperature 97.7 F Pulse Rate 88 Respiratory Rate 18 Blood Pressure 147/79 H 147/79 H 147/79 H Pulse Oximetry 100 Oxygen Delivery Method Room Air 07/22/25 20:00 07/22/25 20:45 07/22/25 20:46 Temperature 97.5 F Pulse Rate 91 Respiratory Rate Blood Pressure 117/76 117/76 117/76 Pulse Oximetry 98 Oxygen Delivery Method Room Air BMI result Body Mass Index 52.8 Labs 07/17/25 14:31 07/20/25 12:22 Medications Medications Current Medications Al Hydroxide/Mg Hydroxide (Magnesium Hydrox/Alum Hydrox 30 Ml Oral.Susp) 30 ml PO Q6H PRN PRN Reason: Heartburn/Nausea Aspirin (Aspirin Enteric Coated 81 Mg Tablet.Dr) 81 mg PO DAILY [facility] Last Admin: 07/22/25 08:07 Dose: 81 mg Bictegravir/Emtricitabine/Tenofovir (Bictegrav/Emtricit/Tenofov Ala Tablet) 1 tab PO DAILY [facility] Last Admin: 07/22/25 08:07 Dose: 1 tab Clonidine HCl (Clonidine Hcl 0.1 Mg Tablet) 0.1 mg PO BID [facility]; Protocol Last Admin: 07/22/25 20:45 Dose: 0.1 mg Hydroxyzine HCl (Hydroxyzine Hcl 25 Mg Tablet) 25 mg PO Q6H PRN PRN Reason: mild anxiety Last Admin: 07/22/25 20:49 Dose: 25 mg Ibuprofen (Ibuprofen 400 Mg Tablet) 400 mg PO Q6H PRN PRN Reason: Pain, Mild 1-3,fever,headache Last Admin: 07/22/25 20:49 Dose: 400 mg Lidocaine (Lidocaine 4 % Patch Adh..Patch) 2 patch TRANSDERMA DAILY [facility]; Protocol Last Admin: 07/22/25 09:35 Dose: Not Given Lidocaine (Lidocaine 5 % Ointment 35 Gm) 1 appl TOPICAL BID PRN; Protocol PRN Reason: foot pain Last Admin: 07/22/25 08:12 Dose: 1 appl Lisinopril (Lisinopril 10 Mg Tablet) 10 mg PO BID [facility]; Protocol Last Admin: 07/22/25 20:46 Dose: 10 mg Magnesium Hydroxide (Milk Of Magnesia 30 Ml Oral.Susp) 30 ml PO DAILY PRN PRN Reason: Constipation Melatonin (Melatonin 3 Mg Tablet) 6 mg PO BEDTIME [facility] Last Admin: 07/22/25 20:46 Dose: 6 mg Mirtazapine (Mirtazapine 30 Mg Tablet) 30 mg PO BEDTIME [facility] Last Admin: 07/22/25 20:46 Dose: 30 mg Nicotine (Nicotine 21 Mg Patch.Td24) 21 mg TRANSDERMA DAILY PRN PRN Reason: smoking cessation Last Admin: 07/19/25 15:07 Dose: 21 mg Nicotine Polacrilex (Nicotine Polacrilex 2 Mg Gum) 4 mg BUCCAL Q2H PRN PRN Reason: Nicotine Cravings Olanzapine (Olanzapine 5 Mg Tablet) 5 mg PO TID PRN PRN Reason: agitation Oxycodone HCl (Oxycodone Hcl Immed Release 5 Mg Tablet) 10 mg PO 0630,1830 PRN PRN Reason: Pain, Severe (Pain Scale 7-10) Last Admin: 07/22/25 18:30 Dose: 10 mg Quetiapine Fumarate (Quetiapine Fumarate 100 Mg Tablet) 100 mg PO BID@0900,1400 [facility] Last Admin: 07/22/25 13:44 Dose: 100 mg Quetiapine Fumarate (Quetiapine Fumarate 300 Mg Tablet) 600 mg PO BEDTIME [facility] Last Admin: 07/22/25 20:46 Dose: 600 mg Trazodone HCl (Trazodone Hcl 50 Mg Tablet) 150 mg PO BEDTIME PRN PRN Reason: Insomnia Last Admin: 07/20/25 20:06 Dose: 150 mg Allergies Allergies Allergy/AdvReac Type Severity Reaction Status Date / Time acetaminophen (ACETAMINOPHEN) Allergy Mild rashes Verified 07/17/25 13:46 Assessment & Plan Assessment & Plan (1) Schizoaffective disorder: Status: Acute Code(s): F25.9 - Schizoaffective disorder, unspecified (2) PTSD (post-traumatic stress disorder): Status: Acute Code(s): F43.10 - Post-traumatic stress disorder, unspecified (3) HTN (hypertension): Status: Acute Code(s): I10 - Essential (primary) hypertension Plan alcohol use disorder, polysubstance use disorder, hypertension, housing insecurity, depression and mood disorder 69-year-old male with a history of alcohol use disorder, polysubstance abuse disorder, housing and security issues, depression, mood disorder presented with auditory and suicidal ideation, he is admitted to inpatient psych for further treatment. Recently discharged from this unit. EtOH use disorder/polysubstance abuse disorder/depression/mood disorder/suicidal ideation Plan per inpatient psychiatric team Patient MASS PAT checked, previously on buprenorphine. No oxycodone scripts noted. Recommendations to follow up with outpatient Podiatry, and primary care regarding chronic pain management. Would avoid narcotic pain medications in his patient with a known history of polysubstance abuse. Hypertension Continue Clonidine and Lisinopril. Foot pain Patient has a outpatient follow up with upcoming surgery with [facility] Advised patient to follow up with his primary care doctor and security controls assessor for chronic pain management Refuses Lidoderm patches, diclofenac gel and ibuprofen as needed. Thank you for allowing me to participate in the care of this patient. Signing off at this time. Please reconsult of any acute concerns or issues arise. 07/20: Pt reports he is frightened to return to his home as he is convinced that others are in his home when he is away and they are planning to harm him, taking his SSDI. He also reports poor pain mgt. We discussed consolidation of dosing/timing and he asks to trial this which we will begin today. Seroqeul just increased he reports, willing to look at augmentation, however, wanting to see how pain mgt works. Asks for OP pain mgt referral upon discharge[place] . [place] are [place]. Will trial Remeron at 30 mg-verified a new increase recently with Dr. Ash's practice. 07/21:Pt is focused on pain medication. Asks for timing to change to 0630 and 1830 which we will trial. Team reports pt slept well. Isolative today, not attending groups, reports depression. Active in his room, reading, writing, taking notes and attempting to socialize with room-mate when seen. 07/22/25: Meet with patient in exam room. Repeated talking how he was awaken up for everything else in the morning but not wake him up for PRN Oxycodine which for some reason scheduled at 0630 and 1830 PRN. He is fixation with this time frame. Explained to him again and again during 1-1 assessment but still upset regarding got his oxycodone late. Denies SI/SIB/HI/VH. Report he hears voices yesterday get out of here. You should not be here but not during this encounter. Good appetite and sleep with mild depression. He reports recently had Seroquel increased prior to be admitted here so he wants to wait for a littel longer for effectiveness. Do not want meds changed at this time. Continue with curren plan. Patient visible, spent very long time for breakfast, visible ,working on word puzzle in dining room. Patient educated on: diagnosis, medication risk/benefits and therapeutic strategies Informed Consent: understands and further education needed Reason for continued inpatient stay Substantial Risk for: med/psych decompensation Time Spent With Patient Time: Total time managing care of this patient today ____ minutes.
[2025-07-23] MEDS: oxyCODONE HCl Immed Release 5 MG TABLET 10 MG PO ×2 (07:26→18:25)
[2025-07-23 09:16] VITALS: RESP 18
--- NOTE | 2025-07-23 10:16 | HO.PSYCHPN ---
Subjective Subjective Date of Service: 07/23/25 Reason For Visit: crisis Subjective Notes: Conditional Voluntary Healthcare Proxy: No Guardianship: No Medical Problems Affecting Mental Status: No Interim History: Pt resting in bed. Alert, distressed as he is worried about his funding for July. Reports he needs access to the internet to open a bank account which team has informed him he cannot do via computer. Discussed anger about not being awoken at 6am as requested prior to pain medications. Denies SI,HI,AH,VH. Clear, alert, organized in presentation. No new medical issues-chronic pain helped by timing change of pain med he reports. Medication Compliance: Yes Side effects from medications: No Attending Groups: No Review of Systems Acute medical concerns: No Medical Review of Systems: unchanged Review of Systems Review of Systems chronic pain Mental Status Exam Mental Status Exam Patient Appearance: Appropriate Patient Orientation: Person, Place, Time and Situation Level of Consciousness: Alert Patient Behavior: Talkative and Good Eye Contact Mood Description: Appropriate Affect Description: Appropriate Ability to Follow Directions: Good Speech Pattern: Spontaneous Speech Memory Description: Episodic Impaired Hallucinations: None Perceptual Disturbances: Derealization Thought Process: Rumination Thought Content: positive for Circumstantial and positive for Perseveration Depressive Symptoms: Loss of Energy Judgement: Fair Diagnostics Vital Signs (24Hr): Vital Signs - 24 hr 07/22/25 20:00 07/22/25 20:45 07/22/25 20:46 Temperature 97.5 F Pulse Rate 91 Respiratory Rate Blood Pressure 117/76 117/76 117/76 Pulse Oximetry 98 Oxygen Delivery Method Room Air 07/23/25 09:16 Temperature Pulse Rate Respiratory Rate 18 Blood Pressure Pulse Oximetry Oxygen Delivery Method BMI result Body Mass Index 52.8 Labs 07/17/25 14:31 07/20/25 12:22 Medications Medications Current Medications Al Hydroxide/Mg Hydroxide (Magnesium Hydrox/Alum Hydrox 30 Ml Oral.Susp) 30 ml PO Q6H PRN PRN Reason: Heartburn/Nausea Aspirin (Aspirin Enteric Coated 81 Mg Tablet.) 81 mg PO DAILY [facility] Last Admin: 07/22/25 08:07 Dose: 81 mg Bictegravir/Emtricitabine/Tenofovir (Bictegrav/Emtricit/Tenofov Ala Tablet) 1 tab PO DAILY [facility] Last Admin: 07/22/25 08:07 Dose: 1 tab Clonidine HCl (Clonidine Hcl 0.1 Mg Tablet) 0.1 mg PO BID [facility]; Protocol Last Admin: 07/22/25 20:45 Dose: 0.1 mg Hydroxyzine HCl (Hydroxyzine Hcl 25 Mg Tablet) 25 mg PO Q6H PRN PRN Reason: mild anxiety Last Admin: 07/22/25 20:49 Dose: 25 mg Ibuprofen (Ibuprofen 400 Mg Tablet) 400 mg PO Q6H PRN PRN Reason: Pain, Mild 1-3,fever,headache Last Admin: 07/23/25 07:25 Dose: 400 mg Lidocaine (Lidocaine 4 % Patch Adh..Patch) 2 patch TRANSDERMA DAILY [facility]; Protocol Last Admin: 07/22/25 09:35 Dose: Not Given Lidocaine (Lidocaine 5 % Ointment 35 Gm) 1 appl TOPICAL BID PRN; Protocol PRN Reason: foot pain Last Admin: 07/22/25 08:12 Dose: 1 appl Lisinopril (Lisinopril 10 Mg Tablet) 10 mg PO BID [facility]; Protocol Last Admin: 07/22/25 20:46 Dose: 10 mg Magnesium Hydroxide (Milk Of Magnesia 30 Ml Oral.Susp) 30 ml PO DAILY PRN PRN Reason: Constipation Melatonin (Melatonin 3 Mg Tablet) 6 mg PO BEDTIME [facility] Last Admin: 07/22/25 20:46 Dose: 6 mg Mirtazapine (Mirtazapine 30 Mg Tablet) 30 mg PO BEDTIME [facility] Last Admin: 07/22/25 20:46 Dose: 30 mg Nicotine (Nicotine 21 Mg Patch.Td24) 21 mg TRANSDERMA DAILY PRN PRN Reason: smoking cessation Last Admin: 07/19/25 15:07 Dose: 21 mg Nicotine Polacrilex (Nicotine Polacrilex 2 Mg Gum) 4 mg BUCCAL Q2H PRN PRN Reason: Nicotine Cravings Olanzapine (Olanzapine 5 Mg Tablet) 5 mg PO TID PRN PRN Reason: agitation Oxycodone HCl (Oxycodone Hcl Immed Release 5 Mg Tablet) 10 mg PO 0630,1830 PRN PRN Reason: Pain, Severe (Pain Scale 7-10) Last Admin: 07/23/25 07:26 Dose: 10 mg Quetiapine Fumarate (Quetiapine Fumarate 100 Mg Tablet) 100 mg PO BID@0900,1400 [facility] Last Admin: 07/22/25 13:44 Dose: 100 mg Quetiapine Fumarate (Quetiapine Fumarate 300 Mg Tablet) 600 mg PO BEDTIME [facility] Last Admin: 07/22/25 20:46 Dose: 600 mg Trazodone HCl (Trazodone Hcl 50 Mg Tablet) 150 mg PO BEDTIME PRN PRN Reason: Insomnia Last Admin: 07/20/25 20:06 Dose: 150 mg Allergies Allergies Allergy/AdvReac Type Severity Reaction Status Date / Time acetaminophen (ACETAMINOPHEN) Allergy Mild rashes Verified 07/17/25 13:46 Assessment & Plan Assessment & Plan (1) Schizoaffective disorder: Status: Acute Code(s): F25.9 - Schizoaffective disorder, unspecified (2) PTSD (post-traumatic stress disorder): Status: Acute Code(s): F43.10 - Post-traumatic stress disorder, unspecified (3) HTN (hypertension): Status: Acute Code(s): I10 - Essential (primary) hypertension Plan alcohol use disorder, polysubstance use disorder, hypertension, housing insecurity, depression and mood disorder 69-year-old male with a history of alcohol use disorder, polysubstance abuse disorder, housing and security issues, depression, mood disorder presented with auditory and suicidal ideation, he is admitted to inpatient psych for further treatment. Recently discharged from this unit. EtOH use disorder/polysubstance abuse disorder/depression/mood disorder/suicidal ideation Plan per inpatient psychiatric team Patient MASS PAT checked, previously on buprenorphine. No oxycodone scripts noted. Recommendations to follow up with outpatient Podiatry, and primary care regarding chronic pain management. Would avoid narcotic pain medications in his patient with a known history of polysubstance abuse. Hypertension Continue Clonidine and Lisinopril. 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 Thank you for allowing me to participate in the care of this patient. Signing off at this time. Please reconsult of any acute concerns or issues arise. 07/20: Pt reports he is frightened to return to his home as he is convinced that others are in his home when he is away and they are planning to harm him, taking his SSDI. He also reports poor pain mgt. We discussed consolidation of dosing/timing and he asks to trial this which we will begin today. Seroqeul just increased he reports, willing to look at augmentation, however, wanting to see how pain mgt works. Asks for OP pain mgt referral upon [place] . [place]. Will trial Remeron at 30 mg-verified a new increase recently with Dr. Ash's practice. 07/21:Pt is focused on pain medication. Asks for timing to change to 0630 and 1830 which we will trial. Team reports pt slept well. Isolative today, not attending groups, reports depression. Active in his room, reading, writing, taking notes and attempting to socialize with room-mate when seen. 07/22/25: Meet with patient in exam room. Repeated talking how he was awaken up for everything else in the morning but not wake him up for PRN Oxycodine which for some reason scheduled at 0630 and 1830 PRN. He is fixation with this time frame. Explained to him again and again during 1-1 assessment but still upset regarding got his oxycodone late. Denies SI/SIB/HI/VH. Report he hears voices yesterday get out of here. You should not be here but not during this encounter. Good appetite and sleep with mild depression. He reports recently had Seroquel increased prior to be admitted here so he wants to wait for a littel longer for effectiveness. Do not want meds changed at this time. Continue with curren plan. Patient visible, spent very long time for breakfast, visible ,working on word puzzle in dining room. 07/23/25:Pt resting in bed. Alert, distressed as he is worried about his funding for July. Reports he needs access to the internet to open a bank account which team has informed him he cannot do via computer. Discussed anger about not being awoken at 6am as requested prior to pain medications. Denies SI,HI,AH,VH. Clear, alert, organized in presentation. No new medical issues-chronic pain helped by timing change of pain med he reports. Reason for continued inpatient stay Substantial Risk for: rapid decompensation Time Spent With Patient Time: Total time managing care of this patient today ____ minutes.
[2025-07-23 19:48] VITALS: BP 141/82; PULSE 84; RESP 16; TEMP 37.1; O2SAT 98
[2025-07-23 20:57] VITALS: BP 141/82
[2025-07-24] MEDS: oxyCODONE HCl Immed Release 5 MG TABLET 10 MG PO ×2 (06:25→18:31)
[2025-07-24 08:32] VITALS: BP 172/96; PULSE 79; RESP 18; TEMP 36.4; O2SAT 98
[2025-07-24] MEDS: Bictegrav/Emtricit/Tenofov Ala TABLET 1 TAB PO (09:01)
[2025-07-24] MEDS: Aspirin Enteric Coated 81 MG TABLET.DR PO (09:01)
[2025-07-24] MEDS: Lidocaine 4 % Patch ADH..PATCH 2 PATCH TRANSDERMA (09:02)
[2025-07-24 19:36] VITALS: BP 118/68; PULSE 90; RESP 16; TEMP 37; O2SAT 98
[2025-07-24 20:19] VITALS: BP 118/68
[2025-07-24 20:20] VITALS: BP 118/68
--- NOTE | 2025-07-24 21:21 | P.PNPSI_ITS ---
Subjective Subjective Date of Service: 07/24/25 Reason For Visit: crisis Subjective Notes: Conditional Voluntary Healthcare Proxy: No Guardianship: No Medical Problems Affecting Mental Status: No Interim History: Medical record and nursing notes reviewed; case discussed during rounds with team/nursing staff, and met with patient for supportive therapy/psychoeducation, as well as medication management. Met with patient in assigned room. He appears to be guarded at the beginning, and was irritable regarding not able to get his oxycodone in the morning yesterday, and was not allowed to get online to create/open a bank account so that his check can go through. Patient said I do not want to do any groups This provider spent a long time explained to patient the negative affect from not taking medication when he frustrated and refused them. And that in order to open bank account, he needs to physically go to the bank with information admitted. Online access from the hospital if it is allowed we will not able to complete the tasks that he needs to do. Patient having had look down on the floor why this provider explained to him the process. Patient then got out of his room, took medications, when back to his room, seeing this provider in the botello and says thank you for talking to me . Appears to be grateful after the long talk with this provider. No other safety concerns, per nursing, patient slept for 7.5 hours, blood pressure elevated as he refused most of his medication yesterday. Medication Compliance: Yes (However, refused all meds yesterday.) Side effects from medications: No Attending Groups: No Review of Systems Acute medical concerns: No Medical Review of Systems: unchanged Review of Systems Review of Systems chronic pain. No N/V. No dizzy. No labor breathing Mental Status Exam Mental Status Exam Narrative: A&O x4, no SIB/SI/HI/AVH. Anxious, irritable but more pleasant at the end of encounter. Poor judgment. No express SI/SIB/HI/AVH. Speech WNL. Diagnostics Vital Signs (24Hr): Vital Signs - 24 hr 07/24/25 08:32 07/24/25 19:36 07/24/25 20:19 Temperature 97.6 F 98.6 F Pulse Rate 79 90 Respiratory Rate 18 16 Blood Pressure 172/96 H 118/68 132/78 Pulse Oximetry 98 98 Oxygen Delivery Method Room Air Room Air 07/24/25 20:20 Temperature Pulse Rate Respiratory Rate Blood Pressure 132/78 Pulse Oximetry Oxygen Delivery Method BMI result Body Mass Index 52.8 Labs 07/17/25 14:31 07/20/25 12:22 Medications Medications Current Medications Al Hydroxide/Mg Hydroxide (Magnesium Hydrox/Alum Hydrox 30 Ml Oral.Susp) 30 ml PO Q6H PRN PRN Reason: Heartburn/Nausea Aspirin (Aspirin Enteric Coated 81 Mg Tablet.Dr) 81 mg PO DAILY [facility] Last Admin: 07/24/25 09:01 Dose: 81 mg Bictegravir/Emtricitabine/Tenofovir (Bictegrav/Emtricit/Tenofov Ala Tablet) 1 tab PO DAILY [facility] Last Admin: 07/24/25 09:01 Dose: 1 tab Clonidine HCl (Clonidine Hcl 0.1 Mg Tablet) 0.1 mg PO BID [facility]; Protocol Last Admin: 07/24/25 20:20 Dose: 0.1 mg Hydroxyzine HCl (Hydroxyzine Hcl 25 Mg Tablet) 25 mg PO Q6H PRN PRN Reason: mild anxiety Last Admin: 07/24/25 20:20 Dose: 25 mg Ibuprofen (Ibuprofen 400 Mg Tablet) 400 mg PO Q6H PRN PRN Reason: Pain, Mild 1-3,fever,headache Last Admin: 07/24/25 18:31 Dose: 400 mg Lidocaine (Lidocaine 4 % Patch Adh..Patch) 2 patch TRANSDERMA DAILY [facility]; Protocol Last Admin: 07/24/25 09:02 Dose: 2 patch Lidocaine (Lidocaine 5 % Ointment 35 Gm) 1 appl TOPICAL BID PRN; Protocol PRN Reason: foot pain Last Admin: 07/22/25 08:12 Dose: 1 appl Lisinopril (Lisinopril 10 Mg Tablet) 10 mg PO BID [facility]; Protocol Last Admin: 07/24/25 20:19 Dose: 10 mg Magnesium Hydroxide (Milk Of Magnesia 30 Ml Oral.Susp) 30 ml PO DAILY PRN PRN Reason: Constipation Melatonin (Melatonin 3 Mg Tablet) 6 mg PO BEDTIME [facility] Last Admin: 07/24/25 20:20 Dose: 6 mg Mirtazapine (Mirtazapine 30 Mg Tablet) 30 mg PO BEDTIME [facility] Last Admin: 07/24/25 20:20 Dose: 30 mg Nicotine (Nicotine 21 Mg Patch.Td24) 21 mg TRANSDERMA DAILY PRN PRN Reason: smoking cessation Last Admin: 07/19/25 15:07 Dose: 21 mg Nicotine Polacrilex (Nicotine Polacrilex 2 Mg Gum) 4 mg BUCCAL Q2H PRN PRN Reason: Nicotine Cravings Olanzapine (Olanzapine 5 Mg Tablet) 5 mg PO TID PRN PRN Reason: agitation Oxycodone HCl (Oxycodone Hcl Immed Release 5 Mg Tablet) 10 mg PO 0630,1830 PRN PRN Reason: Pain, Severe (Pain Scale 7-10) Last Admin: 07/24/25 18:31 Dose: 10 mg Quetiapine Fumarate (Quetiapine Fumarate 100 Mg Tablet) 100 mg PO BID@0900,1400 [facility] Last Admin: 07/24/25 14:33 Dose: 100 mg Quetiapine Fumarate (Quetiapine Fumarate 300 Mg Tablet) 600 mg PO BEDTIME [facility] Last Admin: 07/24/25 20:19 Dose: 600 mg Trazodone HCl (Trazodone Hcl 50 Mg Tablet) 150 mg PO BEDTIME PRN PRN Reason: Insomnia Last Admin: 07/20/25 20:06 Dose: 150 mg Allergies Allergies Allergy/AdvReac Type Severity Reaction Status Date / Time acetaminophen (ACETAMINOPHEN) Allergy Mild rashes Verified 07/17/25 13:46 Assessment & Plan Assessment & Plan (1) Schizoaffective disorder: Status: Acute Code(s): F25.9 - Schizoaffective disorder, unspecified (2) PTSD (post-traumatic stress disorder): Status: Acute Code(s): F43.10 - Post-traumatic stress disorder, unspecified (3) HTN (hypertension): Status: Acute Code(s): I10 - Essential (primary) hypertension Plan alcohol use disorder, polysubstance use disorder, hypertension, housing insecurity, depression and mood disorder 69-year-old male with a history of alcohol use disorder, polysubstance abuse disorder, housing and security issues, depression, mood disorder presented with auditory and suicidal ideation, he is admitted to inpatient psych for further treatment. Recently discharged from this unit. EtOH use disorder/polysubstance abuse disorder/depression/mood disorder/suicidal ideation Plan per inpatient psychiatric team Patient MASS PAT checked, previously on buprenorphine. No oxycodone scripts noted. Recommendations to follow up with outpatient Podiatry, and primary care regarding chronic pain management. Would avoid narcotic pain medications in his patient with a known history of polysubstance abuse. Hypertension Continue Clonidine and Lisinopril. 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 Thank you for allowing me to participate in the care of this patient. Signing off at this time. Please reconsult of any acute concerns or issues arise. 07/20: Pt reports he is frightened to return to his home as he is convinced that others are in his home when he is away and they are planning to harm him, taking his SSDI. He also reports poor pain mgt. We discussed consolidation of dosing/timing and he asks to trial this which we will begin today. Seroqeul just increased he reports, willing to look at augmentation, however, wanting to see how pain mgt works. Asks for OP pain mgt referral upon [place] . [place]. Will trial Remeron at 30 mg-verified a new increase recently with Dr. Ash's practice. 07/21:Pt is focused on pain medication. Asks for timing to change to 0630 and 1830 which we will trial. Team reports pt slept well. Isolative today, not attending groups, reports depression. Active in his room, reading, writing, taking notes and attempting to socialize with room-mate when seen. 07/22/25: Meet with patient in exam room. Repeated talking how he was awaken up for everything else in the morning but not wake him up for PRN Oxycodine which for some reason scheduled at 0630 and 1830 PRN. He is fixation with this time frame. Explained to him again and again during 1-1 assessment but still upset regarding got his oxycodone late. Denies SI/SIB/HI/VH. Report he hears voices yesterday get out of here. You should not be here but not during this encounter. Good appetite and sleep with mild depression. He reports recently had Seroquel increased prior to be admitted here so he wants to wait for a littel longer for effectiveness. Do not want meds changed at this time. Continue with curren plan. Patient visible, spent very long time for breakfast, visible ,working on word puzzle in dining room. 07/23/25:Pt resting in bed. Alert, distressed as he is worried about his funding for July. Reports he needs access to the internet to open a bank account which team has informed him he cannot do via computer. Discussed anger about not being awoken at 6am as requested prior to pain medications. Denies SI,HI,AH,VH. Clear, alert, organized in presentation. No new medical issues-chronic pain helped by timing change of pain med he reports. 07/24/25: Met with patient in assigned, reports continued to improve psychotic features. Voices has been quiet down but is still somewhat bother him with paranoid thoughts. Reports anxiety higher than before the encounter. Reports that he always depressed. Denies manic behavior in the past. Reported that he had taken Lexapro from someone else before which was helpful but do not remember dosage. He agreed to start on Lexapro for depression. Also agreed to have risperidone increased for total of 5 mg, and prolactin level in the morning. Continue expressed that he misses his daughter. Encourage groups as he mostly spent time in his room. Slept well but poor appetite Per nursing, patient slept well. Compliant with medication, no side effects. No SI/SIB/VH. Patient educated on: diagnosis, medication risk/benefits and therapeutic strategies Informed Consent: understands and further education needed Reason for continued inpatient stay Substantial Risk for: med/psych decompensation Time Spent With Patient Time: Total time managing care of this patient today ____ minutes.
[2025-07-25] MEDS: oxyCODONE HCl Immed Release 5 MG TABLET 10 MG PO ×2 (06:28→18:35)
[2025-07-25 07:42] VITALS: BP 176/79; PULSE 74; RESP 16; TEMP 36.5; O2SAT 98
[2025-07-25] MEDS: Bictegrav/Emtricit/Tenofov Ala TABLET 1 TAB PO (07:47)
[2025-07-25] MEDS: Aspirin Enteric Coated 81 MG TABLET.DR PO (07:47)
--- NOTE | 2025-07-25 12:54 | PC.NURSE ---
Pt signed a three day notice today 07/25/25. Team notified.
[2025-07-25 19:55] VITALS: BP 132/67; PULSE 90; RESP 15; TEMP 36.8; O2SAT 100
--- NOTE | 2025-07-25 21:35 | P.PNPSI_ITS ---
Subjective Subjective Date of Service: 07/25/25 Reason For Visit: crisis Subjective Notes: 3 Day Healthcare Proxy: No Guardianship: No Medical Problems Affecting Mental Status: No Interim History: Medical record and nursing notes reviewed; case discussed during rounds with team/nursing staff, and met with patient for supportive therapy/psychoeducation, as well as medication management. Patient is more pleasant, visible in kitchen working on word puzzle. Denies SI/SIB/HI/AVH. 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 Request to have Ingrezza and reports he has been taking 80mg daily. Will take a loot at medication hx and previous record. Quiet, pleasant, took meds without side effects. Medication Compliance: Yes Side effects from medications: No Attending Groups: Intermittent Review of Systems Acute medical concerns: No Medical Review of Systems: unchanged Review of Systems Review of Systems chronic pain. No N/V. No dizzy. No labor breathing Mental Status Exam Mental Status Exam Narrative: A&O x4, no SIB/SI/HI/AVH. Anxious, more pleasant at the end of encounter. Poor judgment. No express SI/SIB/HI/AVH. Speech WNL. Diagnostics Vital Signs (24Hr): Vital Signs - 24 hr 07/25/25 07:42 07/25/25 19:55 Temperature 97.7 F 98.3 F Pulse Rate 74 90 Respiratory Rate 16 15 Blood Pressure 176/79 H 132/67 Pulse Oximetry 98 100 Oxygen Delivery Method Room Air BMI result Body Mass Index 52.8 Labs 07/17/25 14:31 07/20/25 12:22 Medications Medications Current Medications Al Hydroxide/Mg Hydroxide (Magnesium Hydrox/Alum Hydrox 30 Ml Oral.Susp) 30 ml PO Q6H PRN PRN Reason: Heartburn/Nausea Aspirin (Aspirin Enteric Coated 81 Mg Tablet.) 81 mg PO DAILY [facility] Last Admin: 07/25/25 07:47 Dose: 81 mg Bictegravir/Emtricitabine/Tenofovir (Bictegrav/Emtricit/Tenofov Ala Tablet) 1 tab PO DAILY [facility] Last Admin: 07/25/25 07:47 Dose: 1 tab Clonidine HCl (Clonidine Hcl 0.1 Mg Tablet) 0.1 mg PO BID [facility]; Protocol Last Admin: 07/25/25 20:08 Dose: 0.1 mg Hydroxyzine HCl (Hydroxyzine Hcl 25 Mg Tablet) 25 mg PO Q6H PRN PRN Reason: mild anxiety Last Admin: 07/24/25 20:20 Dose: 25 mg Ibuprofen (Ibuprofen 400 Mg Tablet) 400 mg PO Q6H PRN PRN Reason: Pain, Mild 1-3,fever,headache Last Admin: 07/25/25 18:34 Dose: 400 mg Lidocaine (Lidocaine 4 % Patch Adh..Patch) 2 patch TRANSDERMA DAILY [facility]; Protocol Last Admin: 07/25/25 09:54 Dose: Not Given Lidocaine (Lidocaine 5 % Ointment 35 Gm) 1 appl TOPICAL BID PRN; Protocol PRN Reason: foot pain Last Admin: 07/22/25 08:12 Dose: 1 appl Lisinopril (Lisinopril 10 Mg Tablet) 10 mg PO BID [facility]; Protocol Last Admin: 07/25/25 20:08 Dose: 10 mg Magnesium Hydroxide (Milk Of Magnesia 30 Ml Oral.Susp) 30 ml PO DAILY PRN PRN Reason: Constipation Melatonin (Melatonin 3 Mg Tablet) 6 mg PO BEDTIME [facility] Last Admin: 07/25/25 20:08 Dose: 6 mg Mirtazapine (Mirtazapine 30 Mg Tablet) 30 mg PO BEDTIME [facility] Last Admin: 07/25/25 20:08 Dose: 30 mg Nicotine (Nicotine 21 Mg Patch.Td24) 21 mg TRANSDERMA DAILY PRN PRN Reason: smoking cessation Last Admin: 07/19/25 15:07 Dose: 21 mg Nicotine Polacrilex (Nicotine Polacrilex 2 Mg Gum) 4 mg BUCCAL Q2H PRN PRN Reason: Nicotine Cravings Olanzapine (Olanzapine 5 Mg Tablet) 5 mg PO TID PRN PRN Reason: agitation Oxycodone HCl (Oxycodone Hcl Immed Release 5 Mg Tablet) 10 mg PO 0630,1830 PRN PRN Reason: Pain, Severe (Pain Scale 7-10) Last Admin: 07/25/25 18:35 Dose: 10 mg Quetiapine Fumarate (Quetiapine Fumarate 100 Mg Tablet) 100 mg PO BID@0900,1400 [facility] Last Admin: 07/25/25 13:50 Dose: 100 mg Quetiapine Fumarate (Quetiapine Fumarate 300 Mg Tablet) 600 mg PO BEDTIME [facility] Last Admin: 07/25/25 20:08 Dose: 600 mg Trazodone HCl (Trazodone Hcl 50 Mg Tablet) 150 mg PO BEDTIME PRN PRN Reason: Insomnia Last Admin: 07/25/25 20:32 Dose: 150 mg Allergies Allergies Allergy/AdvReac Type Severity Reaction Status Date / Time acetaminophen (ACETAMINOPHEN) Allergy Mild rashes Verified 07/17/25 13:46 Assessment & Plan Assessment & Plan (1) Schizoaffective disorder: Status: Acute Code(s): F25.9 - Schizoaffective disorder, unspecified (2) PTSD (post-traumatic stress disorder): Status: Acute Code(s): F43.10 - Post-traumatic stress disorder, unspecified (3) HTN (hypertension): Status: Acute Code(s): I10 - Essential (primary) hypertension Plan alcohol use disorder, polysubstance use disorder, hypertension, housing insecurity, depression and mood disorder 69-year-old male with a history of alcohol use disorder, polysubstance abuse disorder, housing and security issues, depression, mood disorder presented with auditory and suicidal ideation, he is admitted to inpatient psych for further treatment. Recently discharged from this unit. EtOH use disorder/polysubstance abuse disorder/depression/mood disorder/suicidal ideation Plan per inpatient psychiatric team Patient MASS PAT checked, previously on buprenorphine. No oxycodone scripts noted. Recommendations to follow up with outpatient Podiatry, and primary care regarding chronic pain management. Would avoid narcotic pain medications in his patient with a known history of polysubstance abuse. Hypertension Continue Clonidine and Lisinopril. 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 Thank you for allowing me to participate in the care of this patient. Signing off at this time. Please reconsult of any acute concerns or issues arise. 07/20: Pt reports he is frightened to return to his home as he is convinced that others are in his home when he is away and they are planning to harm him, taking his SSDI. He also reports poor pain mgt. We discussed consolidation of dosing/timing and he asks to trial this which we will begin today. Seroqeul just increased he reports, willing to look at augmentation, however, wanting to see how pain mgt works. Asks for OP pain mg[place] referral [place] . [place] Will trial Remeron at 30 mg-verified a new increase recently with Dr. Ash's practice. 07/21:Pt is focused on pain medication. Asks for timing to change to 0630 and 1830 which we will trial. Team reports pt slept well. Isolative today, not attending groups, reports depression. Active in his room, reading, writing, taking notes and attempting to socialize with room-mate when seen. 07/22/25: Meet with patient in exam room. Repeated talking how he was awaken up for everything else in the morning but not wake him up for PRN Oxycodine which for some reason scheduled at 0630 and 1830 PRN. He is fixation with this time frame. Explained to him again and again during 1-1 assessment but still upset regarding got his oxycodone late. Denies SI/SIB/HI/VH. Report he hears voices yesterday get out of here. You should not be here but not during this encounter. Good appetite and sleep with mild depression. He reports recently had Seroquel increased prior to be admitted here so he wants to wait for a littel longer for effectiveness. Do not want meds changed at this time. Continue with curren plan. Patient visible, spent very long time for breakfast, visible ,working on word puzzle in dining room. 07/23/25:Pt resting in bed. Alert, distressed as he is worried about his funding for July. Reports he needs access to the internet to open a bank account which team has informed him he cannot do via computer. Discussed anger about not being awoken at 6am as requested prior to pain medications. Denies SI,HI,AH,VH. Clear, alert, organized in presentation. No new medical issues-chronic pain helped by timing change of pain med he reports. 07/24/25: Met with patient in assigned, reports continued to improve psychotic features. Voices has been quiet down but is still somewhat bother him with paranoid thoughts. Reports anxiety higher than before the encounter. Reports that he always depressed. Denies manic behavior in the past. Reported that he had taken Lexapro from someone else before which was helpful but do not remember dosage. He agreed to start on Lexapro for depression. Also agreed to have risperidone increased for total of 5 mg, and prolactin level in the morning. Continue expressed that he misses his daughter. Encourage groups as he mostly spent time in his room. Slept well but poor appetite Per nursing, patient slept well. Compliant with medication, no side effects. No SI/SIB/VH. 07/25/25: Patient is more pleasant, visible in kitchen working on word puzzle. Denies SI/SIB/HI/AVH. 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 Request to have Kirby and reports he has been taking 80mg daily. Will take a loot at medication hx and previous record. Quiet, pleasant, took meds without side effects. Patient educated on: diagnosis, medication risk/benefits and therapeutic strategies Informed Consent: understands and further education needed Reason for continued inpatient stay Substantial Risk for: med/psych decompensation Time Spent With Patient Time: Total time managing care of this patient today ____ minutes.
[2025-07-26] MEDS: oxyCODONE HCl Immed Release 5 MG TABLET 10 MG PO ×2 (06:26→19:02)
[2025-07-26 08:00] VITALS: BP 121/68; PULSE 86; RESP 18; TEMP 36.6; O2SAT 96
[2025-07-26] MEDS: Bictegrav/Emtricit/Tenofov Ala TABLET 1 TAB PO (09:01)
[2025-07-26 20:00] VITALS: BP 161/87; PULSE 92; RESP 16; TEMP 36.7; O2SAT 95
--- NOTE | 2025-07-26 23:01 | P.PNPSI_ITS ---
Subjective Subjective Date of Service: 07/26/25 Reason For Visit: crisis Interim History: Medical record and nursing notes reviewed; case discussed during rounds with team/nursing staff, and met with patient for supportive therapy/psychoeducation, as well as medication management. Patient remains in bed this morning, appear tired, depressed. Patient spent pretty long time talking about Ingrezza for his TD. Per record, he was taken this at 40mg but not prescribed since then. However, he claimed that he is taking 80mg. Not sure it is accurate. Will touch base with our pharmacy if we carrry this particular med as it seems we are not. Report he heard voices this morning and respond to it as he was yelling out loud to make the voices stop. Hospitalist contacted d/t low plt count (84 on 07/17) to see if we need to hold on Aspirin. Per Dilia, it is ok to continue with Aspirin. Will continue to monitor and recheck level tomorrow. Patient may think about to retract 3-day notice. Patient is more isolate, in room. Medication Compliance: Yes Side effects from medications: No Attending Groups: No Review of Systems Acute medical concerns: No Medical Review of Systems: unchanged Review of Systems Review of Systems chronic pain. No N/V. No dizzy. No labor breathing Mental Status Exam Mental Status Exam Narrative: A&O x4, no SIB/SI/HI/AVH. Anxious, depressed,tired but pleasant. Poor judgment. No express SI/SIB/HI/AVH. Speech WNL. Diagnostics Vital Signs (24Hr): Vital Signs - 24 hr 07/26/25 08:00 07/26/25 20:00 Temperature 98 F 98.1 F Pulse Rate 86 92 Respiratory Rate 18 16 Blood Pressure 121/68 161/87 H Pulse Oximetry 96 95 Oxygen Delivery Method Room Air Room Air BMI result Body Mass Index 52.8 Labs 07/17/25 14:31 07/20/25 12:22 Medications Medications Current Medications Al Hydroxide/Mg Hydroxide (Magnesium Hydrox/Alum Hydrox 30 Ml Oral.Susp) 30 ml PO Q6H PRN PRN Reason: Heartburn/Nausea Aspirin (Aspirin Enteric Coated 81 Mg Tablet.) 81 mg PO DAILY [facility] Last Admin: 07/26/25 13:30 Dose: Not Given Bictegravir/Emtricitabine/Tenofovir (Bictegrav/Emtricit/Tenofov Ala Tablet) 1 tab PO DAILY [facility] Last Admin: 07/26/25 09:01 Dose: 1 tab Clonidine HCl (Clonidine Hcl 0.1 Mg Tablet) 0.1 mg PO BID [facility]; Protocol Last Admin: 07/26/25 20:56 Dose: 0.1 mg Hydroxyzine HCl (Hydroxyzine Hcl 25 Mg Tablet) 25 mg PO Q6H PRN PRN Reason: mild anxiety Last Admin: 07/24/25 20:20 Dose: 25 mg Ibuprofen (Ibuprofen 400 Mg Tablet) 400 mg PO Q6H PRN PRN Reason: Pain, Mild 1-3,fever,headache Last Admin: 07/26/25 19:02 Dose: 400 mg Lidocaine (Lidocaine 4 % Patch Adh..Patch) 2 patch TRANSDERMA DAILY [facility]; Protocol Last Admin: 07/26/25 10:14 Dose: Not Given Lidocaine (Lidocaine 5 % Ointment 35 Gm) 1 appl TOPICAL BID PRN; Protocol PRN Reason: foot pain Last Admin: 07/26/25 21:00 Dose: 1 appl Lisinopril (Lisinopril 10 Mg Tablet) 10 mg PO BID [facility]; Protocol Last Admin: 07/26/25 20:56 Dose: 10 mg Magnesium Hydroxide (Milk Of Magnesia 30 Ml Oral.Susp) 30 ml PO DAILY PRN PRN Reason: Constipation Melatonin (Melatonin 3 Mg Tablet) 6 mg PO BEDTIME [facility] Last Admin: 07/26/25 20:50 Dose: 6 mg Mirtazapine (Mirtazapine 30 Mg Tablet) 30 mg PO BEDTIME [facility] Last Admin: 07/26/25 20:55 Dose: 30 mg Nicotine (Nicotine 21 Mg Patch.Td24) 21 mg TRANSDERMA DAILY PRN PRN Reason: smoking cessation Last Admin: 07/19/25 15:07 Dose: 21 mg Nicotine Polacrilex (Nicotine Polacrilex 2 Mg Gum) 4 mg BUCCAL Q2H PRN PRN Reason: Nicotine Cravings Olanzapine (Olanzapine 5 Mg Tablet) 5 mg PO TID PRN PRN Reason: agitation Oxycodone HCl (Oxycodone Hcl Immed Release 5 Mg Tablet) 10 mg PO 0630,1830 PRN PRN Reason: Pain, Severe (Pain Scale 7-10) Last Admin: 07/26/25 19:02 Dose: 10 mg Quetiapine Fumarate (Quetiapine Fumarate 100 Mg Tablet) 100 mg PO BID@0900,1400 [facility] Last Admin: 07/26/25 14:43 Dose: 100 mg Quetiapine Fumarate (Quetiapine Fumarate 300 Mg Tablet) 600 mg PO BEDTIME [facility] Last Admin: 07/26/25 20:56 Dose: 600 mg Trazodone HCl (Trazodone Hcl 50 Mg Tablet) 150 mg PO BEDTIME PRN PRN Reason: Insomnia Last Admin: 07/25/25 20:32 Dose: 150 mg Allergies Allergies Allergy/AdvReac Type Severity Reaction Status Date / Time acetaminophen (ACETAMINOPHEN) Allergy Mild rashes Verified 07/17/25 13:46 Assessment & Plan Assessment & Plan (1) Schizoaffective disorder: Status: Acute Code(s): F25.9 - Schizoaffective disorder, unspecified (2) PTSD (post-traumatic stress disorder): Status: Acute Code(s): F43.10 - Post-traumatic stress disorder, unspecified (3) HTN (hypertension): Status: Acute Code(s): I10 - Essential (primary) hypertension Plan alcohol use disorder, polysubstance use disorder, hypertension, housing insecurity, depression and mood disorder 69-year-old male with a history of alcohol use disorder, polysubstance abuse disorder, housing and security issues, depression, mood disorder presented with auditory and suicidal ideation, he is admitted to inpatient psych for further treatment. Recently discharged from this unit. EtOH use disorder/polysubstance abuse disorder/depression/mood disorder/suicidal ideation Plan per inpatient psychiatric team Patient MASS PAT checked, previously on buprenorphine. No oxycodone scripts noted. Recommendations to follow up with outpatient Podiatry, and primary care regarding chronic pain management. Would avoid narcotic pain medications in his patient with a known history of polysubstance abuse. Hypertension Continue Clonidine and Lisinopril. Foot pain Patient has a outpatient follow up with upcoming surgery with [facility] Advised patient to follow up with his primary care doctor and oracle adf developer for chronic pain management Refuses Lidoderm patches, diclofenac gel and ibuprofen as needed. Thank you for allowing me to participate in the care of this patient. Signing off at this time. Please reconsult of any acute concerns or issues arise. 07/20: Pt reports he is frightened to return to his home as he is convinced that others are in his home when he is away and they are planning to harm him, taking his SSDI. He also reports poor pain mgt. We discussed consolidation of dosing/timing and he asks to trial this which we will begin today. Seroqeul just increased he reports, willing to look at augmentation, however, wanting to see how pain mgt works. Asks for OP pain mgt referral upon [place] . [place] Will trial Remeron at 30 mg-verified a new increase recently with Dr. Ash's practice. 07/21:Pt is focused on pain medication. Asks for timing to change to 0630 and 1830 which we will trial. Team reports pt slept well. Isolative today, not attending groups, reports depression. Active in his room, reading, writing, taking notes and attempting to socialize with room-mate when seen. 07/22/25: Meet with patient in exam room. Repeated talking how he was awaken up for everything else in the morning but not wake him up for PRN Oxycodine which for some reason scheduled at 0630 and 1830 PRN. He is fixation with this time frame. Explained to him again and again during 1-1 assessment but still upset regarding got his oxycodone late. Denies SI/SIB/HI/VH. Report he hears voices yesterday get out of here. You should not be here but not during this encounter. Good appetite and sleep with mild depression. He reports recently had Seroquel increased prior to be admitted here so he wants to wait for a littel longer for effectiveness. Do not want meds changed at this time. Continue with curren plan. Patient visible, spent very long time for breakfast, visible ,working on word puzzle in dining room. 07/23/25:Pt resting in bed. Alert, distressed as he is worried about his funding for July. Reports he needs access to the internet to open a bank account which team has informed him he cannot do via computer. Discussed anger about not being awoken at 6am as requested prior to pain medications. Denies SI,HI,AH,VH. Clear, alert, organized in presentation. No new medical issues-chronic pain helped by timing change of pain med he reports. 07/24/25: Met with patient in assigned, reports continued to improve psychotic features. Voices has been quiet down but is still somewhat bother him with paranoid thoughts. Reports anxiety higher than before the encounter. Reports that he always depressed. Denies manic behavior in the past. Reported that he had taken Lexapro from someone else before which was helpful but do not remember dosage. He agreed to start on Lexapro for depression. Also agreed to have risperidone increased for total of 5 mg, and prolactin level in the morning. Continue expressed that he misses his daughter. Encourage groups as he mostly spent time in his room. Slept well but poor appetite Per nursing, patient slept well. Compliant with medication, no side effects. No SI/SIB/VH. 07/25/25: Patient is more pleasant, visible in kitchen working on word puzzle. Denies SI/SIB/HI/AVH. 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 Request to have Ingrezza and reports he has been taking 80mg daily. Will take a loot at medication hx and previous record. Quiet, pleasant, took meds without side effects. 07/26/25: Patient remains in bed this morning, appear tired, depressed. Patient spent pretty long time talking about Ingrezza for his TD. Per record, he was taken this at 40mg but not prescribed since then. However, he claimed that he is taking 80mg. Not sure it is accurate. Will touch base with our pharmacy if we carry this particular med as it seems we are not. Report he heard voices this morning and respond to it as he was yelling out loud to make the voices stop. Hospitalist contacted d/t low plt count (84 on 07/17) to see if we need to hold on Aspirin. Per Dilia, it is ok to continue with Aspirin. Will continue to monitor and recheck level tomorrow. Patient may think about to retract 3-day notice. Patient is more isolate, in room. Will order CBC w/diff and CMP Patient educated on: diagnosis, medication risk/benefits and therapeutic strategies Reason for continued inpatient stay Substantial Risk for: med/psych decompensation Time Spent With Patient Time: Total time managing care of this patient today ____ minutes.
[2025-07-27] MEDS: oxyCODONE HCl Immed Release 5 MG TABLET 10 MG PO ×2 (06:57→17:39)
[2025-07-27 08:36] VITALS: BP 177/93; PULSE 85; RESP 18; TEMP 36.6; O2SAT 98
[2025-07-27] MEDS: Aspirin Enteric Coated 81 MG TABLET.DR PO (09:25)
[2025-07-27] MEDS: Bictegrav/Emtricit/Tenofov Ala TABLET 1 TAB PO (09:25)
[2025-07-27 09:26] VITALS: BP 177/93
--- NOTE | 2025-07-27 12:31 | P.PNPSI_ITS ---
Subjective Subjective Date of Service: 07/27/25 Reason For Visit: crisis Subjective Notes: Conditional Voluntary and 3 Day Healthcare Proxy: No Guardianship: No Medical Problems Affecting Mental Status: No Interim History: You people are pushing me out. Discussed the legal parameters of a three day notice and expiration date. Pt reports that his nicotine patch and pain medications should be scheduled, which we did. Discussed treatment options for depressive sx. He will consider. Discussed needing a brief time on a computer to secure his finances. Will ask someone to check on his apartment and to assist him in paying rent. Medication Compliance: Yes Side effects from medications: No Attending Groups: Intermittent Review of Systems Acute medical concerns: No Medical Review of Systems: unchanged Review of Systems Review of Systems chronic pain Mental Status Exam Mental Status Exam Patient Appearance: Appropriate Patient Orientation: Person, Place, Time and Situation Level of Consciousness: Alert Patient Behavior: Talkative Mood Description: Constricted Affect Description: Constricted Patient Cognition Impaired: No Ability to Follow Directions: Good Speech Pattern: Spontaneous Speech Memory Description: Intact Hallucinations: None Delusions: Not Present Thought Process: Goal Oriented Thought Content: positive for Goal Oriented Depressive Symptoms: Increased Irritability Judgement: Fair Diagnostics Vital Signs (24Hr): Vital Signs - 24 hr 07/26/25 20:00 07/27/25 08:36 07/27/25 09:26 Temperature 98.1 F 97.9 F Pulse Rate 92 85 Respiratory Rate 16 18 Blood Pressure 161/87 H 177/93 H 177/93 H Pulse Oximetry 95 98 Oxygen Delivery Method Room Air Room Air 07/27/25 09:26 Temperature Pulse Rate Respiratory Rate Blood Pressure 177/93 H Pulse Oximetry Oxygen Delivery Method BMI result Body Mass Index 52.8 Labs 07/17/25 14:31 07/20/25 12:22 Medications Medications Current Medications Al Hydroxide/Mg Hydroxide (Magnesium Hydrox/Alum Hydrox 30 Ml Oral.Susp) 30 ml PO Q6H PRN PRN Reason: Heartburn/Nausea Aspirin (Aspirin Enteric Coated 81 Mg Tablet.) 81 mg PO DAILY [facility] Last Admin: 07/27/25 09:25 Dose: 81 mg Bictegravir/Emtricitabine/Tenofovir (Bictegrav/Emtricit/Tenofov Ala Tablet) 1 tab PO DAILY [facility] Last Admin: 07/27/25 09:25 Dose: 1 tab Clonidine HCl (Clonidine Hcl 0.1 Mg Tablet) 0.1 mg PO BID [facility]; Protocol Last Admin: 07/27/25 09:26 Dose: 0.1 mg Hydroxyzine HCl (Hydroxyzine Hcl 25 Mg Tablet) 25 mg PO Q6H PRN PRN Reason: mild anxiety Last Admin: 07/24/25 20:20 Dose: 25 mg Ibuprofen (Ibuprofen 400 Mg Tablet) 400 mg PO Q6H PRN PRN Reason: Pain, Mild 1-3,fever,headache Last Admin: 07/26/25 19:02 Dose: 400 mg Lidocaine (Lidocaine 4 % Patch Adh..Patch) 2 patch TRANSDERMA DAILY [facility]; Protocol Last Admin: 07/27/25 09:33 Dose: Not Given Lidocaine (Lidocaine 5 % Ointment 35 Gm) 1 appl TOPICAL BID PRN; Protocol PRN Reason: foot pain Last Admin: 07/27/25 09:32 Dose: 1 appl Lisinopril (Lisinopril 10 Mg Tablet) 10 mg PO BID [facility]; Protocol Last Admin: 07/27/25 09:26 Dose: 10 mg Magnesium Hydroxide (Milk Of Magnesia 30 Ml Oral.Susp) 30 ml PO DAILY PRN PRN Reason: Constipation Melatonin (Melatonin 3 Mg Tablet) 6 mg PO BEDTIME [facility] Last Admin: 07/26/25 20:50 Dose: 6 mg Mirtazapine (Mirtazapine 30 Mg Tablet) 30 mg PO BEDTIME [facility] Last Admin: 07/26/25 20:55 Dose: 30 mg Nicotine (Nicotine 21 Mg Patch.Td24) 21 mg TRANSDERMA DAILY [facility] Olanzapine (Olanzapine 5 Mg Tablet) 5 mg PO TID PRN PRN Reason: agitation Oxycodone HCl (Oxycodone Hcl Immed Release 5 Mg Tablet) 10 mg PO 0630,1830 [facility] Quetiapine Fumarate (Quetiapine Fumarate 100 Mg Tablet) 100 mg PO BID@0900,1400 [facility] Last Admin: 07/27/25 09:26 Dose: 100 mg Quetiapine Fumarate (Quetiapine Fumarate 300 Mg Tablet) 600 mg PO BEDTIME [facility] Last Admin: 07/26/25 20:56 Dose: 600 mg Trazodone HCl (Trazodone Hcl 50 Mg Tablet) 150 mg PO BEDTIME PRN PRN Reason: Insomnia Last Admin: 07/25/25 20:32 Dose: 150 mg Allergies Allergies Allergy/AdvReac Type Severity Reaction Status Date / Time acetaminophen (ACETAMINOPHEN) Allergy Mild rashes Verified 07/17/25 13:46 Assessment & Plan Assessment & Plan (1) Schizoaffective disorder: Status: Acute Code(s): F25.9 - Schizoaffective disorder, unspecified (2) PTSD (post-traumatic stress disorder): Status: Acute Code(s): F43.10 - Post-traumatic stress disorder, unspecified (3) HTN (hypertension): Status: Acute Code(s): I10 - Essential (primary) hypertension Plan alcohol use disorder, polysubstance use disorder, hypertension, housing insecurity, depression and mood disorder 69-year-old male with a history of alcohol use disorder, polysubstance abuse disorder, housing and security issues, depression, mood disorder presented with auditory and suicidal ideation, he is admitted to inpatient psych for further treatment. Recently discharged from this unit. EtOH use disorder/polysubstance abuse disorder/depression/mood disorder/suicidal ideation Plan per inpatient psychiatric team Patient MASS PAT checked, previously on buprenorphine. No oxycodone scripts noted. Recommendations to follow up with outpatient Podiatry, and primary care regarding chronic pain management. Would avoid narcotic pain medications in his patient with a known history of polysubstance abuse. Hypertension Continue Clonidine and Lisinopril. Foot pain Patient has a outpatient follow up with upcoming surgery with [facility] Advised patient to follow up with his primary care doctor and instructor adjunct pharmacy technician for chronic pain management Refuses Lidoderm patches, diclofenac gel and ibuprofen as needed. Thank you for allowing me to participate in the care of this patient. Signing off at this time. Please reconsult of any acute concerns or issues arise. 07/20: Pt reports he is frightened to return to his home as he is convinced that others are in his home when he is away and they are planning to harm him, taking his SSDI. He also reports poor pain mgt. We discussed consolidation of dosing/timing and he asks to trial this which we will begin today. Seroqeul just increased he reports, willing to look at augmentation, however, wanting to see how pain mgt works. Asks for OP pain mgt referral upon [place] . [place]. Will trial Remeron at 30 mg-verified a new increase recently with Dr. Ash's practice. 07/21:Pt is focused on pain medication. Asks for timing to change to 0630 and 1830 which we will trial. Team reports pt slept well. Isolative today, not attending groups, reports depression. Active in his room, reading, writing, taking notes and attempting to socialize with room-mate when seen. 07/22/25: Meet with patient in exam room. Repeated talking how he was awaken up for everything else in the morning but not wake him up for PRN Oxycodine which for some reason scheduled at 0630 and 1830 PRN. He is fixation with this time frame. Explained to him again and again during 1-1 assessment but still upset regarding got his oxycodone late. Denies SI/SIB/HI/VH. Report he hears voices yesterday get out of here. You should not be here but not during this encounter. Good appetite and sleep with mild depression. He reports recently had Seroquel increased prior to be admitted here so he wants to wait for a littel longer for effectiveness. Do not want meds changed at this time. Continue with curren plan. Patient visible, spent very long time for breakfast, visible ,working on word puzzle in dining room. 07/23/25:Pt resting in bed. Alert, distressed as he is worried about his funding for July. Reports he needs access to the internet to open a bank account which team has informed him he cannot do via computer. Discussed anger about not being awoken at 6am as requested prior to pain medications. Denies SI,HI,AH,VH. Clear, alert, organized in presentation. No new medical issues-chronic pain helped by timing change of pain med he reports. 07/24/25: Met with patient in assigned, reports continued to improve psychotic features. Voices has been quiet down but is still somewhat bother him with paranoid thoughts. Reports anxiety higher than before the encounter. Reports that he always depressed. Denies manic behavior in the past. Reported that he had taken Lexapro from someone else before which was helpful but do not remember dosage. He agreed to start on Lexapro for depression. Also agreed to have risperidone increased for total of 5 mg, and prolactin level in the morning. Continue expressed that he misses his daughter. Encourage groups as he mostly spent time in his room. Slept well but poor appetite Per nursing, patient slept well. Compliant with medication, no side effects. No SI/SIB/VH. 07/25/25: Patient is more pleasant, visible in kitchen working on word puzzle. Denies SI/SIB/HI/AVH. 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 Request to have Ingrezza and reports he has been taking 80mg daily. Will take a loot at medication hx and previous record. Quiet, pleasant, took meds without side effects. 07/26/25: Patient remains in bed this morning, appear tired, depressed. Patient spent pretty long time talking about Ingrezza for his TD. Per record, he was taken this at 40mg but not prescribed since then. However, he claimed that he is taking 80mg. Not sure it is accurate. Will touch base with our pharmacy if we carry this particular med as it seems we are not. Report he heard voices this morning and respond to it as he was yelling out loud to make the voices stop. Hospitalist contacted d/t low plt count (84 on 07/17) to see if we need to hold on Aspirin. Per Dilia, it is ok to continue with Aspirin. Will continue to monitor and recheck level tomorrow. Patient may think about to retract 3-day notice. Patient is more isolate, in room. Will order CBC w/diff and CMP 07/27/25: You people are pushing me out. Discussed the legal parameters of a three day notice and expiration date. Pt reports that his nicotine patch and pain medications should be scheduled, which we did. Discussed treatment options for depressive sx. He will consider. Discussed needing a brief time on a computer to secure his finances. Will ask someone to check on his apartment and to assist him in paying rent. Plan: Continue tx. Reason for continued inpatient stay Substantial Risk for: rapid decompensation Time Spent With Patient Time: Total time managing care of this patient today ____ minutes.
--- NOTE | 2025-07-27 12:31 | PC.NURSE ---
PATIENT RETRACTED HIS 3 DAY NOTICE ON 07/27/25. RN NOTIFIED NEWSPAPER CARRIER, SENIOR NET DEVELOPER
[2025-07-27 20:00] VITALS: BP 147/88; PULSE 81; RESP 18; TEMP 36.8; O2SAT 95
[2025-07-28] MEDS: oxyCODONE HCl Immed Release 5 MG TABLET 10 MG PO ×2 (06:40→17:38)
[2025-07-28 08:49] VITALS: BP 149/92; PULSE 72; RESP 16; TEMP 36.7; O2SAT 94
[2025-07-28] MEDS: Bictegrav/Emtricit/Tenofov Ala TABLET 1 TAB PO (08:52)
[2025-07-28] MEDS: Aspirin Enteric Coated 81 MG TABLET.DR PO (08:52)
[2025-07-28] MEDS: Nicotine 21 MG PATCH.TD24 TRANSDERMA (08:53)
--- NOTE | 2025-07-28 10:37 | HO.PSYCHPN ---
Subjective Subjective Date of Service: 07/28/25 Reason For Visit: crisis Subjective Notes: Conditional Voluntary Healthcare Proxy: No Guardianship: No Medical Problems Affecting Mental Status: No Interim History: Pt denies SI,HI,AH,VH. He is visable in the milieu and attending groups today. He asked to talk with the production zone leader after group as he felt he had wisdom and could advise him properly. I will be honest, I am really afraid to go home. I fear I will be hurt and this will be my last chance. It weighs on me heavily. Medication Compliance: Yes Side effects from medications: No Attending Groups: Yes Review of Systems Acute medical concerns: No Review of Systems Review of Systems chronic pain Mental Status Exam Mental Status Exam Patient Appearance: Appropriate Patient Orientation: Person, Place, Time and Situation Level of Consciousness: Alert Patient Behavior: Talkative and Fearful Mood Description: Constricted Affect Description: Constricted Patient Cognition Impaired: No Ability to Follow Directions: Good Speech Pattern: Spontaneous Speech Memory Description: Intact Hallucinations: None Delusions: Not Present Thought Process: Goal Oriented Thought Content: positive for Goal Oriented Depressive Symptoms: Increased Irritability Judgement: Fair Diagnostics Vital Signs (24Hr): Vital Signs - 24 hr 07/27/25 20:00 07/28/25 08:49 Temperature 98.3 F 98.1 F Pulse Rate 81 72 Respiratory Rate 18 16 Blood Pressure 147/88 H 149/92 H Pulse Oximetry 95 94 Oxygen Delivery Method Room Air Room Air BMI result Body Mass Index 52.8 Labs 07/17/25 14:31 07/20/25 12:22 Medications Medications Current Medications Al Hydroxide/Mg Hydroxide (Magnesium Hydrox/Alum Hydrox 30 Ml Oral.Susp) 30 ml PO Q6H PRN PRN Reason: Heartburn/Nausea Aspirin (Aspirin Enteric Coated 81 Mg Tablet.) 81 mg PO DAILY [facility] Last Admin: 07/28/25 08:52 Dose: 81 mg Bictegravir/Emtricitabine/Tenofovir (Bictegrav/Emtricit/Tenofov Ala Tablet) 1 tab PO DAILY [facility] Last Admin: 07/28/25 08:52 Dose: 1 tab Clonidine HCl (Clonidine Hcl 0.1 Mg Tablet) 0.1 mg PO BID [facility]; Protocol Last Admin: 07/28/25 08:52 Dose: 0.1 mg Hydroxyzine HCl (Hydroxyzine Hcl 25 Mg Tablet) 25 mg PO Q6H PRN PRN Reason: mild anxiety Last Admin: 07/24/25 20:20 Dose: 25 mg Ibuprofen (Ibuprofen 400 Mg Tablet) 400 mg PO Q6H PRN PRN Reason: Pain, Mild 1-3,fever,headache Last Admin: 07/26/25 19:02 Dose: 400 mg Lidocaine (Lidocaine 4 % Patch Adh..Patch) 2 patch TRANSDERMA DAILY [facility]; Protocol Last Admin: 07/28/25 08:55 Dose: Not Given Lidocaine (Lidocaine 5 % Ointment 35 Gm) 1 appl TOPICAL BID PRN; Protocol PRN Reason: foot pain Last Admin: 07/27/25 09:32 Dose: 1 appl Lisinopril (Lisinopril 10 Mg Tablet) 10 mg PO BID [facility]; Protocol Last Admin: 07/28/25 08:52 Dose: 10 mg Magnesium Hydroxide (Milk Of Magnesia 30 Ml Oral.Susp) 30 ml PO DAILY PRN PRN Reason: Constipation Melatonin (Melatonin 3 Mg Tablet) 6 mg PO BEDTIME [facility] Last Admin: 07/27/25 21:22 Dose: 6 mg Mirtazapine (Mirtazapine 30 Mg Tablet) 30 mg PO BEDTIME [facility] Last Admin: 07/27/25 21:22 Dose: 30 mg Nicotine (Nicotine 21 Mg Patch.Td24) 21 mg TRANSDERMA DAILY [facility] Last Admin: 07/28/25 08:53 Dose: 21 mg Olanzapine (Olanzapine 5 Mg Tablet) 5 mg PO TID PRN PRN Reason: agitation Oxycodone HCl (Oxycodone Hcl Immed Release 5 Mg Tablet) 10 mg PO 0630,1830 [facility] Last Admin: 07/28/25 06:40 Dose: 10 mg Quetiapine Fumarate (Quetiapine Fumarate 100 Mg Tablet) 100 mg PO BID@0900,1400 [facility] Last Admin: 07/28/25 08:52 Dose: 100 mg Quetiapine Fumarate (Quetiapine Fumarate 300 Mg Tablet) 600 mg PO BEDTIME [facility] Last Admin: 07/27/25 21:21 Dose: 600 mg Trazodone HCl (Trazodone Hcl 50 Mg Tablet) 150 mg PO BEDTIME PRN PRN Reason: Insomnia Last Admin: 07/25/25 20:32 Dose: 150 mg Allergies Allergies Allergy/AdvReac Type Severity Reaction Status Date / Time acetaminophen (ACETAMINOPHEN) Allergy Mild rashes Verified 07/17/25 13:46 Assessment & Plan Assessment & Plan (1) Schizoaffective disorder: Status: Acute Code(s): F25.9 - Schizoaffective disorder, unspecified (2) PTSD (post-traumatic stress disorder): Status: Acute Code(s): F43.10 - Post-traumatic stress disorder, unspecified (3) HTN (hypertension): Status: Acute Code(s): I10 - Essential (primary) hypertension Plan alcohol use disorder, polysubstance use disorder, hypertension, housing insecurity, depression and mood disorder 69-year-old male with a history of alcohol use disorder, polysubstance abuse disorder, housing and security issues, depression, mood disorder presented with auditory and suicidal ideation, he is admitted to inpatient psych for further treatment. Recently discharged from this unit. EtOH use disorder/polysubstance abuse disorder/depression/mood disorder/suicidal ideation Plan per inpatient psychiatric team Patient MASS PAT checked, previously on buprenorphine. No oxycodone scripts noted. Recommendations to follow up with outpatient Podiatry, and primary care regarding chronic pain management. Would avoid narcotic pain medications in his patient with a known history of polysubstance abuse. Hypertension Continue Clonidine and Lisinopril. 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 Thank you for allowing me to participate in the care of this patient. Signing off at this time. Please reconsult of any acute concerns or issues arise. 07/20: Pt reports he is frightened to return to his home as he is convinced that others are in his home when he is away and they are planning to harm him, taking his SSDI. He also reports poor pain mgt. We discussed consolidation of dosing/timing and he asks to trial this which we will begin today. Seroqeul just increased he reports, willing to look at augmentation, however, wanting to see how pain mgt works. Asks for OP pain mgt referral upon discharge[place] . [place]. Will trial Remeron at 30 mg-verified a new increase recently with Dr. Ash's practice. 07/21:Pt is focused on pain medication. Asks for timing to change to 0630 and 1830 which we will trial. Team reports pt slept well. Isolative today, not attending groups, reports depression. Active in his room, reading, writing, taking notes and attempting to socialize with room-mate when seen. 07/22/25: Meet with patient in exam room. Repeated talking how he was awaken up for everything else in the morning but not wake him up for PRN Oxycodine which for some reason scheduled at 0630 and 1830 PRN. He is fixation with this time frame. Explained to him again and again during 1-1 assessment but still upset regarding got his oxycodone late. Denies SI/SIB/HI/VH. Report he hears voices yesterday get out of here. You should not be here but not during this encounter. Good appetite and sleep with mild depression. He reports recently had Seroquel increased prior to be admitted here so he wants to wait for a littel longer for effectiveness. Do not want meds changed at this time. Continue with curren plan. Patient visible, spent very long time for breakfast, visible ,working on word puzzle in dining room. 07/23/25:Pt resting in bed. Alert, distressed as he is worried about his funding for July. Reports he needs access to the internet to open a bank account which team has informed him he cannot do via computer. Discussed anger about not being awoken at 6am as requested prior to pain medications. Denies SI,HI,AH,VH. Clear, alert, organized in presentation. No new medical issues-chronic pain helped by timing change of pain med he reports. 07/24/25: Met with patient in assigned, reports continued to improve psychotic features. Voices has been quiet down but is still somewhat bother him with paranoid thoughts. Reports anxiety higher than before the encounter. Reports that he always depressed. Denies manic behavior in the past. Reported that he had taken Lexapro from someone else before which was helpful but do not remember dosage. He agreed to start on Lexapro for depression. Also agreed to have risperidone increased for total of 5 mg, and prolactin level in the morning. Continue expressed that he misses his daughter. Encourage groups as he mostly spent time in his room. Slept well but poor appetite Per nursing, patient slept well. Compliant with medication, no side effects. No SI/SIB/VH. 07/25/25: Patient is more pleasant, visible in kitchen working on word puzzle. Denies SI/SIB/HI/AVH. 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 Request to have Ingrezza and reports he has been taking 80mg daily. Will take a loot at medication hx and previous record. Quiet, pleasant, took meds without side effects. 07/26/25: Patient remains in bed this morning, appear tired, depressed. Patient spent pretty long time talking about Ingrezza for his TD. Per record, he was taken this at 40mg but not prescribed since then. However, he claimed that he is taking 80mg. Not sure it is accurate. Will touch base with our pharmacy if we carry this particular med as it seems we are not. Report he heard voices this morning and respond to it as he was yelling out loud to make the voices stop. Hospitalist contacted d/t low plt count (84 on 07/17) to see if we need to hold on Aspirin. Per Dilia, it is ok to continue with Aspirin. Will continue to monitor and recheck level tomorrow. Patient may think about to retract 3-day notice. Patient is more isolate, in room. Will order CBC w/diff and CMP 07/27/25: You people are pushing me out. Discussed the legal parameters of a three day notice and expiration date. Pt reports that his nicotine patch and pain medications should be scheduled, which we did. Discussed treatment options for depressive sx. He will consider. Discussed needing a brief time on a computer to secure his finances. Will ask someone to check on his apartment and to assist him in paying rent. Plan: Continue tx. 07/28/25: Retraction of TDN. Pt denies SI,HI,AH,VH. He is visable in the milieu and attending groups today. He asked to talk with the production zone leader after group as he felt he had wisdom and could advise him properly. I will be honest, I am really afraid to go home. I fear I will be hurt and this will be my last chance. It weighs on me heavily. Plan: Continue tx Reason for continued inpatient stay Substantial Risk for: rapid decompensation Time Spent With Patient Time: Total time managing care of this patient today ____ minutes.
[2025-07-28 19:50] VITALS: BP 146/100; PULSE 108; RESP 20; TEMP 36.5; O2SAT 96
[2025-07-29] MEDS: oxyCODONE HCl Immed Release 5 MG TABLET 10 MG PO ×2 (06:22→17:25)
[2025-07-29 07:00] VITALS: BMI 22.8
[2025-07-29 08:00] VITALS: BP 142/82; PULSE 76; RESP 18; TEMP 2.6; TEMP 36.7; O2SAT 100
[2025-07-29] MEDS: Aspirin Enteric Coated 81 MG TABLET.DR PO (09:07)
[2025-07-29] MEDS: Bictegrav/Emtricit/Tenofov Ala TABLET 1 TAB PO (09:07)
[2025-07-29] MEDS: Nicotine 21 MG PATCH.TD24 TRANSDERMA (09:08)
--- NOTE | 2025-07-29 09:10 | P.PNPSI_ITS ---
Subjective Subjective Date of Service: 07/29/25 Reason For Visit: crisis Subjective Notes: Conditional Voluntary Healthcare Proxy: No Guardianship: No Medical Problems Affecting Mental Status: No Interim History: Denies SI,HI,AH,VH. Denies new medical issues. Chronic pain managed. Visable in milieu, attending some groups, working on word search puzzles, interactive with team and peers. Reports poor sleep-discussed mirtazapine increase which pt agrees to trial. Team reports intermittent irritability. Medication Compliance: Yes Side effects from medications: No Attending Groups: Intermittent Review of Systems Acute medical concerns: No Medical Review of Systems: unchanged Review of Systems Review of Systems chronic pain Mental Status Exam Mental Status Exam Patient Appearance: Appropriate Patient Orientation: Person, Place, Time and Situation Level of Consciousness: Alert Patient Behavior: Talkative Mood Description: Constricted Affect Description: Constricted Patient Cognition Impaired: No Ability to Follow Directions: Good Speech Pattern: Spontaneous Speech Memory Description: Intact Hallucinations: None Delusions: Not Present Thought Process: Goal Oriented Thought Content: positive for Goal Oriented Depressive Symptoms: Increased Irritability Judgement: Good Diagnostics Vital Signs (24Hr): Vital Signs - 24 hr 07/28/25 19:50 Temperature 97.7 F Pulse Rate 108 H Respiratory Rate 20 Blood Pressure 146/100 H Pulse Oximetry 96 Oxygen Delivery Method Room Air BMI result Body Mass Index 52.8 Labs 07/17/25 14:31 07/20/25 12:22 Medications Medications Current Medications Al Hydroxide/Mg Hydroxide (Magnesium Hydrox/Alum Hydrox 30 Ml Oral.Susp) 30 ml PO Q6H PRN PRN Reason: Heartburn/Nausea Aspirin (Aspirin Enteric Coated 81 Mg Tablet.) 81 mg PO DAILY [facility] Last Admin: 07/28/25 08:52 Dose: 81 mg Bictegravir/Emtricitabine/Tenofovir (Bictegrav/Emtricit/Tenofov Ala Tablet) 1 tab PO DAILY [facility] Last Admin: 07/28/25 08:52 Dose: 1 tab Clonidine HCl (Clonidine Hcl 0.1 Mg Tablet) 0.1 mg PO BID [facility]; Protocol Last Admin: 07/28/25 21:19 Dose: 0.1 mg Hydroxyzine HCl (Hydroxyzine Hcl 25 Mg Tablet) 25 mg PO Q6H PRN PRN Reason: mild anxiety Last Admin: 07/28/25 21:53 Dose: 25 mg Ibuprofen (Ibuprofen 400 Mg Tablet) 400 mg PO Q6H PRN PRN Reason: Pain, Mild 1-3,fever,headache Last Admin: 07/28/25 17:38 Dose: 400 mg Lidocaine (Lidocaine 4 % Patch Adh..Patch) 2 patch TRANSDERMA DAILY [facility]; Protocol Last Admin: 07/28/25 08:55 Dose: Not Given Lidocaine (Lidocaine 5 % Ointment 35 Gm) 1 appl TOPICAL BID PRN; Protocol PRN Reason: foot pain Last Admin: 07/28/25 22:06 Dose: 1 appl Lisinopril (Lisinopril 10 Mg Tablet) 10 mg PO BID [facility]; Protocol Last Admin: 07/28/25 21:18 Dose: 10 mg Magnesium Hydroxide (Milk Of Magnesia 30 Ml Oral.Susp) 30 ml PO DAILY PRN PRN Reason: Constipation Melatonin (Melatonin 3 Mg Tablet) 6 mg PO BEDTIME [facility] Last Admin: 07/28/25 21:19 Dose: 6 mg Mirtazapine (Mirtazapine 30 Mg Tablet) 30 mg PO BEDTIME [facility] Last Admin: 07/28/25 21:19 Dose: 30 mg Nicotine (Nicotine 21 Mg Patch.Td24) 21 mg TRANSDERMA DAILY [facility] Last Admin: 07/28/25 08:53 Dose: 21 mg Olanzapine (Olanzapine 5 Mg Tablet) 5 mg PO TID PRN PRN Reason: agitation Oxycodone HCl (Oxycodone Hcl Immed Release 5 Mg Tablet) 10 mg PO 0630,1830 [facility] Last Admin: 07/29/25 06:22 Dose: 10 mg Quetiapine Fumarate (Quetiapine Fumarate 100 Mg Tablet) 100 mg PO BID@0900,1400 [facility] Last Admin: 07/28/25 14:55 Dose: 100 mg Quetiapine Fumarate (Quetiapine Fumarate 300 Mg Tablet) 600 mg PO BEDTIME [facility] Last Admin: 07/28/25 21:18 Dose: 600 mg Trazodone HCl (Trazodone Hcl 50 Mg Tablet) 150 mg PO BEDTIME PRN PRN Reason: Insomnia Last Admin: 07/25/25 20:32 Dose: 150 mg Allergies Allergies Allergy/AdvReac Type Severity Reaction Status Date / Time acetaminophen (ACETAMINOPHEN) Allergy Mild rashes Verified 07/17/25 13:46 Assessment & Plan Assessment & Plan (1) Schizoaffective disorder: Status: Acute Code(s): F25.9 - Schizoaffective disorder, unspecified (2) PTSD (post-traumatic stress disorder): Status: Acute Code(s): F43.10 - Post-traumatic stress disorder, unspecified (3) HTN (hypertension): Status: Acute Code(s): I10 - Essential (primary) hypertension Plan alcohol use disorder, polysubstance use disorder, hypertension, housing insecurity, depression and mood disorder 69-year-old male with a history of alcohol use disorder, polysubstance abuse disorder, housing and security issues, depression, mood disorder presented with auditory and suicidal ideation, he is admitted to inpatient psych for further treatment. Recently discharged from this unit. EtOH use disorder/polysubstance abuse disorder/depression/mood disorder/suicidal ideation Plan per inpatient psychiatric team Patient MASS PAT checked, previously on buprenorphine. No oxycodone scripts noted. Recommendations to follow up with outpatient Podiatry, and primary care regarding chronic pain management. Would avoid narcotic pain medications in his patient with a known history of polysubstance abuse. Hypertension Continue Clonidine and Lisinopril. Foot pain Patient has a outpatient follow up with upcoming surgery with [facility] Advised patient to follow up with his primary care doctor and human resources office manager for chronic pain management Refuses Lidoderm patches, diclofenac gel and ibuprofen as needed. Thank you for allowing me to participate in the care of this patient. Signing off at this time. Please reconsult of any acute concerns or issues arise. 07/20: Pt reports he is frightened to return to his home as he is convinced that others are in his home when he is away and they are planning to harm him, taking his SSDI. He also reports poor pain mgt. We discussed consolidation of dosing/timing and he asks to trial this which we will begin today. Seroqeul just increased he reports, willing to look at augmentation, however, wanting to see how pain mgt works. Asks for OP pain mgt referral upon [place] . [place]. Will trial Remeron at 30 mg-verified a new increase recently with Dr. Ash's practice. 07/21:Pt is focused on pain medication. Asks for timing to change to 0630 and 1830 which we will trial. Team reports pt slept well. Isolative today, not attending groups, reports depression. Active in his room, reading, writing, taking notes and attempting to socialize with room-mate when seen. 07/22/25: Meet with patient in exam room. Repeated talking how he was awaken up for everything else in the morning but not wake him up for PRN Oxycodine which for some reason scheduled at 0630 and 1830 PRN. He is fixation with this time frame. Explained to him again and again during 1-1 assessment but still upset regarding got his oxycodone late. Denies SI/SIB/HI/VH. Report he hears voices yesterday get out of here. You should not be here but not during this encounter. Good appetite and sleep with mild depression. He reports recently had Seroquel increased prior to be admitted here so he wants to wait for a littel longer for effectiveness. Do not want meds changed at this time. Continue with curren plan. Patient visible, spent very long time for breakfast, visible ,working on word puzzle in dining room. 07/23/25:Pt resting in bed. Alert, distressed as he is worried about his funding for July. Reports he needs access to the internet to open a bank account which team has informed him he cannot do via computer. Discussed anger about not being awoken at 6am as requested prior to pain medications. Denies SI,HI,AH,VH. Clear, alert, organized in presentation. No new medical issues-chronic pain helped by timing change of pain med he reports. 07/24/25: Met with patient in assigned, reports continued to improve psychotic features. Voices has been quiet down but is still somewhat bother him with paranoid thoughts. Reports anxiety higher than before the encounter. Reports that he always depressed. Denies manic behavior in the past. Reported that he had taken Lexapro from someone else before which was helpful but do not remember dosage. He agreed to start on Lexapro for depression. Also agreed to have risperidone increased for total of 5 mg, and prolactin level in the morning. Continue expressed that he misses his daughter. Encourage groups as he mostly spent time in his room. Slept well but poor appetite Per nursing, patient slept well. Compliant with medication, no side effects. No SI/SIB/VH. 07/25/25: Patient is more pleasant, visible in kitchen working on word puzzle. Denies SI/SIB/HI/AVH. 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 Request to have Ingrezza and reports he has been taking 80mg daily. Will take a loot at medication hx and previous record. Quiet, pleasant, took meds without side effects. 07/26/25: Patient remains in bed this morning, appear tired, depressed. Patient spent pretty long time talking about Ingrezza for his TD. Per record, he was taken this at 40mg but not prescribed since then. However, he claimed that he is taking 80mg. Not sure it is accurate. Will touch base with our pharmacy if we carry this particular med as it seems we are not. Report he heard voices this morning and respond to it as he was yelling out loud to make the voices stop. Hospitalist contacted d/t low plt count (84 on 07/17) to see if we need to hold on Aspirin. Per Dilia, it is ok to continue with Aspirin. Will continue to monitor and recheck level tomorrow. Patient may think about to retract 3-day notice. Patient is more isolate, in room. Will order CBC w/diff and CMP 07/27/25: You people are pushing me out. Discussed the legal parameters of a three day notice and expiration date. Pt reports that his nicotine patch and pain medications should be scheduled, which we did. Discussed treatment options for depressive sx. He will consider. Discussed needing a brief time on a computer to secure his finances. Will ask someone to check on his apartment and to assist him in paying rent. Plan: Continue tx. 07/28/25: Retraction of TDN. Pt denies SI,HI,AH,VH. He is visable in the milieu and attending groups today. He asked to talk with the adjuster leader after group as he felt he had wisdom and could advise him properly. I will be honest, I am really afraid to go home. I fear I will be hurt and this will be my last chance. It weighs on me heavily. Plan: Continue tx 07/29/25: Continue tx. Discharge planning. Reason for continued inpatient stay Substantial Risk for: rapid decompensation and med/psych decompensation Time Spent With Patient Time: Total time managing care of this patient today ____ minutes.
[2025-07-29 20:00] VITALS: BP 131/99; PULSE 84; RESP 18; TEMP 37.1; O2SAT 99
[2025-07-30] MEDS: oxyCODONE HCl Immed Release 5 MG TABLET 10 MG PO ×2 (06:49→17:31)
[2025-07-30 08:00] VITALS: BP 171/97; PULSE 87; RESP 16; TEMP 36.6; O2SAT 96
[2025-07-30] MEDS: Bictegrav/Emtricit/Tenofov Ala TABLET 1 TAB PO (09:30)
[2025-07-30] MEDS: Aspirin Enteric Coated 81 MG TABLET.DR PO (09:30)
[2025-07-30] MEDS: Nicotine 21 MG PATCH.TD24 TRANSDERMA (09:31)
--- NOTE | 2025-07-30 10:13 | HO.PSYCHPN ---
Subjective Subjective Date of Service: 07/30/25 Reason For Visit: crisis Subjective Notes: 3 Day Healthcare Proxy: No Guardianship: No Medical Problems Affecting Mental Status: No Interim History: Visable in the milieu, not attending groups, has submitted a TDN. Spending most of his time in the kitchen working on word search puzzles. Interactive with peers. Denies SI,HI,AH, VH. Medication Compliance: Yes Side effects from medications: No Attending Groups: No Review of Systems chronic pain Medical Review of Systems: unchanged Review of Systems Review of Systems chronic pain Mental Status Exam Mental Status Exam Patient Appearance: Appropriate Patient Orientation: Person, Place, Time and Situation Level of Consciousness: Alert Patient Behavior: Talkative Mood Description: Constricted Affect Description: Constricted Patient Cognition Impaired: No Ability to Follow Directions: Good Speech Pattern: Spontaneous Speech Memory Description: Intact Hallucinations: None Delusions: Not Present Thought Process: Goal Oriented Thought Content: positive for Goal Oriented Depressive Symptoms: Increased Irritability Judgement: Good Diagnostics Vital Signs (24Hr): Vital Signs - 24 hr 07/29/25 20:00 07/30/25 08:00 Temperature 98.8 F 97.9 F Pulse Rate 84 87 Respiratory Rate 18 16 Blood Pressure 131/99 H 171/97 H Pulse Oximetry 99 96 Oxygen Delivery Method Room Air Room Air BMI result Body Mass Index 22.8 Labs 07/17/25 14:31 07/20/25 12:22 Medications Medications Current Medications Al Hydroxide/Mg Hydroxide (Magnesium Hydrox/Alum Hydrox 30 Ml Oral.Susp) 30 ml PO Q6H PRN PRN Reason: Heartburn/Nausea Aspirin (Aspirin Enteric Coated 81 Mg Tablet.) 81 mg PO DAILY [facility] Last Admin: 07/30/25 09:30 Dose: 81 mg Bictegravir/Emtricitabine/Tenofovir (Bictegrav/Emtricit/Tenofov Ala Tablet) 1 tab PO DAILY [facility] Last Admin: 07/30/25 09:30 Dose: 1 tab Clonidine HCl (Clonidine Hcl 0.1 Mg Tablet) 0.1 mg PO BID [facility]; Protocol Last Admin: 07/30/25 09:31 Dose: 0.1 mg Hydroxyzine HCl (Hydroxyzine Hcl 25 Mg Tablet) 25 mg PO Q6H PRN PRN Reason: mild anxiety Last Admin: 07/28/25 21:53 Dose: 25 mg Ibuprofen (Ibuprofen 400 Mg Tablet) 400 mg PO Q6H PRN PRN Reason: Pain, Mild 1-3,fever,headache Last Admin: 07/29/25 18:05 Dose: 400 mg Lidocaine (Lidocaine 4 % Patch Adh..Patch) 2 patch TRANSDERMA DAILY [facility]; Protocol Last Admin: 07/30/25 09:34 Dose: Not Given Lidocaine (Lidocaine 5 % Ointment 35 Gm) 1 appl TOPICAL BID PRN; Protocol PRN Reason: foot pain Last Admin: 07/30/25 09:34 Dose: 1 appl Lisinopril (Lisinopril 10 Mg Tablet) 10 mg PO BID [facility]; Protocol Last Admin: 07/30/25 09:31 Dose: 10 mg Magnesium Hydroxide (Milk Of Magnesia 30 Ml Oral.Susp) 30 ml PO DAILY PRN PRN Reason: Constipation Melatonin (Melatonin 3 Mg Tablet) 6 mg PO BEDTIME [facility] Last Admin: 07/29/25 22:33 Dose: 6 mg Mirtazapine (Mirtazapine 15 Mg Tablet) 45 mg PO BEDTIME [facility] Last Admin: 07/29/25 22:34 Dose: 45 mg Nicotine (Nicotine 21 Mg Patch.Td24) 21 mg TRANSDERMA DAILY [facility] Last Admin: 07/30/25 09:31 Dose: 21 mg Olanzapine (Olanzapine 5 Mg Tablet) 5 mg PO TID PRN PRN Reason: agitation Oxycodone HCl (Oxycodone Hcl Immed Release 5 Mg Tablet) 10 mg PO 0630,1830 [facility] Last Admin: 07/30/25 06:49 Dose: 10 mg Quetiapine Fumarate (Quetiapine Fumarate 100 Mg Tablet) 100 mg PO BID@0900,1400 [facility] Last Admin: 07/30/25 09:31 Dose: 100 mg Quetiapine Fumarate (Quetiapine Fumarate 300 Mg Tablet) 600 mg PO BEDTIME [facility] Last Admin: 07/29/25 22:35 Dose: 600 mg Trazodone HCl (Trazodone Hcl 50 Mg Tablet) 150 mg PO BEDTIME PRN PRN Reason: Insomnia Last Admin: 07/25/25 20:32 Dose: 150 mg Allergies Allergies Allergy/AdvReac Type Severity Reaction Status Date / Time acetaminophen (ACETAMINOPHEN) Allergy Mild rashes Verified 07/17/25 13:46 Assessment & Plan Assessment & Plan (1) Schizoaffective disorder: Status: Acute Code(s): F25.9 - Schizoaffective disorder, unspecified (2) PTSD (post-traumatic stress disorder): Status: Acute Code(s): F43.10 - Post-traumatic stress disorder, unspecified (3) HTN (hypertension): Status: Acute Code(s): I10 - Essential (primary) hypertension Plan alcohol use disorder, polysubstance use disorder, hypertension, housing insecurity, depression and mood disorder 69-year-old male with a history of alcohol use disorder, polysubstance abuse disorder, housing and security issues, depression, mood disorder presented with auditory and suicidal ideation, he is admitted to inpatient psych for further treatment. Recently discharged from this unit. EtOH use disorder/polysubstance abuse disorder/depression/mood disorder/suicidal ideation Plan per inpatient psychiatric team Patient MASS PAT checked, previously on buprenorphine. No oxycodone scripts noted. Recommendations to follow up with outpatient Podiatry, and primary care regarding chronic pain management. Would avoid narcotic pain medications in his patient with a known history of polysubstance abuse. Hypertension Continue Clonidine and Lisinopril. Foot pain Patient has a outpatient follow up with upcoming surgery with [facility] Advised patient to follow up with his primary care doctor and central sterilization technician for chronic pain management Refuses Lidoderm patches, diclofenac gel and ibuprofen as needed. Thank you for allowing me to participate in the care of this patient. Signing off at this time. Please reconsult of any acute concerns or issues arise. 07/20: Pt reports he is frightened to return to his home as he is convinced that others are in his home when he is away and they are planning to harm him, taking his SSDI. He also reports poor pain mgt. We discussed consolidation of dosing/timing and he asks to trial this which we will begin today. Seroqeul just increased he reports, willing to look at augmentation, however, wanting to see how pain mgt works. Asks for OP pain mgt referral upon discharge[place] . [place]. Will trial Remeron at 30 mg-verified a new increase recently with Dr. Ash's practice. 07/21:Pt is focused on pain medication. Asks for timing to change to 0630 and 1830 which we will trial. Team reports pt slept well. Isolative today, not attending groups, reports depression. Active in his room, reading, writing, taking notes and attempting to socialize with room-mate when seen. 07/22/25: Meet with patient in exam room. Repeated talking how he was awaken up for everything else in the morning but not wake him up for PRN Oxycodine which for some reason scheduled at 0630 and 1830 PRN. He is fixation with this time frame. Explained to him again and again during 1-1 assessment but still upset regarding got his oxycodone late. Denies SI/SIB/HI/VH. Report he hears voices yesterday get out of here. You should not be here but not during this encounter. Good appetite and sleep with mild depression. He reports recently had Seroquel increased prior to be admitted here so he wants to wait for a littel longer for effectiveness. Do not want meds changed at this time. Continue with curren plan. Patient visible, spent very long time for breakfast, visible ,working on word puzzle in dining room. 07/23/25:Pt resting in bed. Alert, distressed as he is worried about his funding for July. Reports he needs access to the internet to open a bank account which team has informed him he cannot do via computer. Discussed anger about not being awoken at 6am as requested prior to pain medications. Denies SI,HI,AH,VH. Clear, alert, organized in presentation. No new medical issues-chronic pain helped by timing change of pain med he reports. 07/24/25: Met with patient in assigned, reports continued to improve psychotic features. Voices has been quiet down but is still somewhat bother him with paranoid thoughts. Reports anxiety higher than before the encounter. Reports that he always depressed. Denies manic behavior in the past. Reported that he had taken Lexapro from someone else before which was helpful but do not remember dosage. He agreed to start on Lexapro for depression. Also agreed to have risperidone increased for total of 5 mg, and prolactin level in the morning. Continue expressed that he misses his daughter. Encourage groups as he mostly spent time in his room. Slept well but poor appetite Per nursing, patient slept well. Compliant with medication, no side effects. No SI/SIB/VH. 07/25/25: Patient is more pleasant, visible in kitchen working on word puzzle. Denies SI/SIB/HI/AVH. 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 Request to have Ingrezza and reports he has been taking 80mg daily. Will take a loot at medication hx and previous record. Quiet, pleasant, took meds without side effects. 07/26/25: Patient remains in bed this morning, appear tired, depressed. Patient spent pretty long time talking about Ingrezza for his TD. Per record, he was taken this at 40mg but not prescribed since then. However, he claimed that he is taking 80mg. Not sure it is accurate. Will touch base with our pharmacy if we carry this particular med as it seems we are not. Report he heard voices this morning and respond to it as he was yelling out loud to make the voices stop. Hospitalist contacted d/t low plt count (84 on 07/17) to see if we need to hold on Aspirin. Per Dilia, it is ok to continue with Aspirin. Will continue to monitor and recheck level tomorrow. Patient may think about to retract 3-day notice. Patient is more isolate, in room. Will order CBC w/diff and CMP 07/27/25: You people are pushing me out. Discussed the legal parameters of a three day notice and expiration date. Pt reports that his nicotine patch and pain medications should be scheduled, which we did. Discussed treatment options for depressive sx. He will consider. Discussed needing a brief time on a computer to secure his finances. Will ask someone to check on his apartment and to assist him in paying rent. Plan: Continue tx. 07/28/25: Retraction of TDN. Pt denies SI,HI,AH,VH. He is visable in the milieu and attending groups today. He asked to talk with the group home supervisor after group as he felt he had wisdom and could advise him properly. I will be honest, I am really afraid to go home. I fear I will be hurt and this will be my last chance. It weighs on me heavily. Plan: Continue tx 07/29/25: Continue tx. Discharge planning. 07/30/25: TDN submitted. Continue tx Discharge planning Reason for continued inpatient stay Substantial Risk for: rapid decompensation Time Spent With Patient Time: Total time managing care of this patient today ____ minutes.
[2025-07-30 20:00] VITALS: BP 148/89; PULSE 80; RESP 20; TEMP 36.4; O2SAT 95
[2025-07-30 20:10] VITALS: BP 148/89
[2025-07-30 20:11] VITALS: BP 148/89
[2025-07-31] MEDS: oxyCODONE HCl Immed Release 5 MG TABLET 10 MG PO ×2 (06:50→17:32)
[2025-07-31 08:30] VITALS: BP 146/69; PULSE 81; RESP 18; TEMP 36.6; O2SAT 97
[2025-07-31] MEDS: Aspirin Enteric Coated 81 MG TABLET.DR PO (09:32)
[2025-07-31] MEDS: Bictegrav/Emtricit/Tenofov Ala TABLET 1 TAB PO (09:32)
[2025-07-31] MEDS: Nicotine 21 MG PATCH.TD24 TRANSDERMA (09:35)
--- NOTE | 2025-07-31 10:15 | HO.PSYCHPN ---
Subjective Subjective Date of Service: 07/31/25 Reason For Visit: crisis Subjective Notes: Conditional Voluntary and 3 Day Healthcare Proxy: No Guardianship: No Medical Problems Affecting Mental Status: No Interim History: Reviewed with team, plan of care reviewed, discussed with pt who talked of feeling disrespected by team, thus his submitting a three day notice. Reports a body team member attempted to provide education when pt was planning to give a peer on the unit money-encouraging him not to do this and discussing risks to his being taken advantage of. Pt expressed anger, expressed fear of going home and I may need to protect myself. Team report an increase in paranoia-pt calling the hospital kitchen last evening to accuse them of poisoning food and that he would call the FBI. Visable in milieu-working on word search puzzles in the kitchen. Social with select peers. Medication Compliance: Yes Side effects from medications: No Attending Groups: No Review of Systems Acute medical concerns: No chronic pain Medical Review of Systems: unchanged Review of Systems Review of Systems chronic pain Mental Status Exam Mental Status Exam Patient Appearance: Appropriate Patient Orientation: Person, Place, Time and Situation Level of Consciousness: Alert Patient Behavior: Talkative Mood Description: Constricted Affect Description: Constricted Patient Cognition Impaired: No Ability to Follow Directions: Good Speech Pattern: Spontaneous Speech Memory Description: Intact Hallucinations: None Delusions: Not Present and Paranoid Ideation Thought Process: Goal Oriented Thought Content: positive for Goal Oriented Depressive Symptoms: Increased Irritability Judgement: Good Diagnostics Vital Signs (24Hr): Vital Signs - 24 hr 07/30/25 20:00 07/30/25 20:10 07/30/25 20:11 Temperature 97.5 F Pulse Rate 80 Respiratory Rate 20 Blood Pressure 148/89 H 148/89 H 148/89 H Pulse Oximetry 95 Oxygen Delivery Method Room Air BMI result Body Mass Index 22.8 Labs 07/17/25 14:31 07/20/25 12:22 Medications Medications Current Medications Al Hydroxide/Mg Hydroxide (Magnesium Hydrox/Alum Hydrox 30 Ml Oral.Susp) 30 ml PO Q6H PRN PRN Reason: Heartburn/Nausea Aspirin (Aspirin Enteric Coated 81 Mg Tablet.) 81 mg PO DAILY [facility] Last Admin: 07/31/25 09:32 Dose: 81 mg Bictegravir/Emtricitabine/Tenofovir (Bictegrav/Emtricit/Tenofov Ala Tablet) 1 tab PO DAILY [facility] Last Admin: 07/31/25 09:32 Dose: 1 tab Clonidine HCl (Clonidine Hcl 0.1 Mg Tablet) 0.1 mg PO BID [facility]; Protocol Last Admin: 07/31/25 09:32 Dose: 0.1 mg Hydroxyzine HCl (Hydroxyzine Hcl 25 Mg Tablet) 25 mg PO Q6H PRN PRN Reason: mild anxiety Last Admin: 07/28/25 21:53 Dose: 25 mg Ibuprofen (Ibuprofen 400 Mg Tablet) 400 mg PO Q6H PRN PRN Reason: Pain, Mild 1-3,fever,headache Last Admin: 07/31/25 06:58 Dose: 400 mg Lidocaine (Lidocaine 4 % Patch Adh..Patch) 2 patch TRANSDERMA DAILY [facility]; Protocol Last Admin: 07/31/25 09:36 Dose: Not Given Lidocaine (Lidocaine 5 % Ointment 35 Gm) 1 appl TOPICAL BID PRN; Protocol PRN Reason: foot pain Last Admin: 07/31/25 09:37 Dose: 1 appl Lisinopril (Lisinopril 10 Mg Tablet) 10 mg PO BID [facility]; Protocol Last Admin: 07/31/25 09:32 Dose: 10 mg Magnesium Hydroxide (Milk Of Magnesia 30 Ml Oral.Susp) 30 ml PO DAILY PRN PRN Reason: Constipation Melatonin (Melatonin 3 Mg Tablet) 6 mg PO BEDTIME [facility] Last Admin: 07/30/25 20:11 Dose: 6 mg Mirtazapine (Mirtazapine 15 Mg Tablet) 45 mg PO BEDTIME [facility] Last Admin: 07/30/25 20:11 Dose: 45 mg Nicotine (Nicotine 21 Mg Patch.Td24) 21 mg TRANSDERMA DAILY [facility] Last Admin: 07/31/25 09:35 Dose: 21 mg Olanzapine (Olanzapine 5 Mg Tablet) 5 mg PO TID PRN PRN Reason: agitation Oxycodone HCl (Oxycodone Hcl Immed Release 5 Mg Tablet) 10 mg PO 0630,1830 [facility] Last Admin: 07/31/25 06:50 Dose: 10 mg Quetiapine Fumarate (Quetiapine Fumarate 100 Mg Tablet) 100 mg PO BID@0900,1400 [facility] Last Admin: 07/31/25 09:32 Dose: 100 mg Quetiapine Fumarate (Quetiapine Fumarate 300 Mg Tablet) 600 mg PO BEDTIME [facility] Last Admin: 07/30/25 20:11 Dose: 600 mg Trazodone HCl (Trazodone Hcl 50 Mg Tablet) 150 mg PO BEDTIME PRN PRN Reason: Insomnia Last Admin: 07/25/25 20:32 Dose: 150 mg Allergies Allergies Allergy/AdvReac Type Severity Reaction Status Date / Time acetaminophen (ACETAMINOPHEN) Allergy Mild rashes Verified 07/17/25 13:46 Assessment & Plan Assessment & Plan (1) Schizoaffective disorder: Status: Acute Code(s): F25.9 - Schizoaffective disorder, unspecified (2) PTSD (post-traumatic stress disorder): Status: Acute Code(s): F43.10 - Post-traumatic stress disorder, unspecified (3) HTN (hypertension): Status: Acute Code(s): I10 - Essential (primary) hypertension Plan alcohol use disorder, polysubstance use disorder, hypertension, housing insecurity, depression and mood disorder 69-year-old male with a history of alcohol use disorder, polysubstance abuse disorder, housing and security issues, depression, mood disorder presented with auditory and suicidal ideation, he is admitted to inpatient psych for further treatment. Recently discharged from this unit. EtOH use disorder/polysubstance abuse disorder/depression/mood disorder/suicidal ideation Plan per inpatient psychiatric team Patient MASS PAT checked, previously on buprenorphine. No oxycodone scripts noted. Recommendations to follow up with outpatient Podiatry, and primary care regarding chronic pain management. Would avoid narcotic pain medications in his patient with a known history of polysubstance abuse. Hypertension Continue Clonidine and Lisinopril. Foot pain Patient has a outpatient follow up with upcoming surgery with [facility] Advised patient to follow up with his primary care doctor and fixed income manager for chronic pain management Refuses Lidoderm patches, diclofenac gel and ibuprofen as needed. Thank you for allowing me to participate in the care of this patient. Signing off at this time. Please reconsult of any acute concerns or issues arise. 07/20: Pt reports he is frightened to return to his home as he is convinced that others are in his home when he is away and they are planning to harm him, taking his SSDI. He also reports poor pain mgt. We discussed consolidation of dosing/timing and he asks to trial this which we will begin today. Seroqeul just increased he reports, willing to look at augmentation, however, wanting to see how pain mgt works. Asks for OP pain mgt referral upon discharge. [place] . [place] are [place]. Will trial Remeron at 30 mg-verified a new increase recently with Dr. Ash's practice. 07/21:Pt is focused on pain medication. Asks for timing to change to 0630 and 1830 which we will trial. Team reports pt slept well. Isolative today, not attending groups, reports depression. Active in his room, reading, writing, taking notes and attempting to socialize with room-mate when seen. 07/22/25: Meet with patient in exam room. Repeated talking how he was awaken up for everything else in the morning but not wake him up for PRN Oxycodine which for some reason scheduled at 0630 and 1830 PRN. He is fixation with this time frame. Explained to him again and again during 1-1 assessment but still upset regarding got his oxycodone late. Denies SI/SIB/HI/VH. Report he hears voices yesterday get out of here. You should not be here but not during this encounter. Good appetite and sleep with mild depression. He reports recently had Seroquel increased prior to be admitted here so he wants to wait for a littel longer for effectiveness. Do not want meds changed at this time. Continue with curren plan. Patient visible, spent very long time for breakfast, visible ,working on word puzzle in dining room. 07/23/25:Pt resting in bed. Alert, distressed as he is worried about his funding for July. Reports he needs access to the internet to open a bank account which team has informed him he cannot do via computer. Discussed anger about not being awoken at 6am as requested prior to pain medications. Denies SI,HI,AH,VH. Clear, alert, organized in presentation. No new medical issues-chronic pain helped by timing change of pain med he reports. 07/24/25: Met with patient in assigned, reports continued to improve psychotic features. Voices has been quiet down but is still somewhat bother him with paranoid thoughts. Reports anxiety higher than before the encounter. Reports that he always depressed. Denies manic behavior in the past. Reported that he had taken Lexapro from someone else before which was helpful but do not remember dosage. He agreed to start on Lexapro for depression. Also agreed to have risperidone increased for total of 5 mg, and prolactin level in the morning. Continue expressed that he misses his daughter. Encourage groups as he mostly spent time in his room. Slept well but poor appetite Per nursing, patient slept well. Compliant with medication, no side effects. No SI/SIB/VH. 07/25/25: Patient is more pleasant, visible in kitchen working on word puzzle. Denies SI/SIB/HI/AVH. 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 Request to have Ingrezza and reports he has been taking 80mg daily. Will take a loot at medication hx and previous record. Quiet, pleasant, took meds without side effects. 07/26/25: Patient remains in bed this morning, appear tired, depressed. Patient spent pretty long time talking about Ingrezza for his TD. Per record, he was taken this at 40mg but not prescribed since then. However, he claimed that he is taking 80mg. Not sure it is accurate. Will touch base with our pharmacy if we carry this particular med as it seems we are not. Report he heard voices this morning and respond to it as he was yelling out loud to make the voices stop. Hospitalist contacted d/t low plt count (84 on 07/17) to see if we need to hold on Aspirin. Per Dilia, it is ok to continue with Aspirin. Will continue to monitor and recheck level tomorrow. Patient may think about to retract 3-day notice. Patient is more isolate, in room. Will order CBC w/diff and CMP 07/27/25: You people are pushing me out. Discussed the legal parameters of a three day notice and expiration date. Pt reports that his nicotine patch and pain medications should be scheduled, which we did. Discussed treatment options for depressive sx. He will consider. Discussed needing a brief time on a computer to secure his finances. Will ask someone to check on his apartment and to assist him in paying rent. Plan: Continue tx. 07/28/25: Retraction of TDN. Pt denies SI,HI,AH,VH. He is visable in the milieu and attending groups today. He asked to talk with the adjuster leader after group as he felt he had wisdom and could advise him properly. I will be honest, I am really afraid to go home. I fear I will be hurt and this will be my last chance. It weighs on me heavily. Plan: Continue tx 07/29/25: Continue tx. Discharge planning. 07/30/25: TDN submitted. Continue tx Discharge planning 07/31/25:Reviewed with team, plan of care reviewed, discussed with pt who talked of feeling disrespected by team, thus his submitting a three day notice. Reports a body team member attempted to provide education when pt was planning to give a peer on the unit money-encouraging him not to do this and discussing risks to his being taken advantage of. Pt expressed anger, expressed fear of going home and I may need to protect myself. Team report an increase in paranoia-pt calling the hospital kitchen last evening to accuse them of poisoning food and that he would call the FBI. Visable in milieu-working on word search puzzles in the kitchen. Social with select peers. Plan: Labs 08/01 Reason for continued inpatient stay Substantial Risk for: rapid decompensation Time Spent With Patient Time: Total time managing care of this patient today ____ minutes.
[2025-07-31 19:52] VITALS: BP 149/79; PULSE 91; RESP 15; TEMP 36.4; O2SAT 97
--- NOTE | 2025-08-01 05:49 | P.PNPSI_ITS ---
Subjective Subjective Date of Service: 08/01/25 Reason For Visit: crisis Subjective Notes: Conditional Voluntary Healthcare Proxy: No Guardianship: No Medical Problems Affecting Mental Status: No Interim History: Pt is visable in the milieu-working on word search puzzles. He reports he plans to discharge on 08/02/25. He denies SI,HI,AH,VH. He is anxious about return to his home. We discussed the discussions he has had with local police about these concerns. He does plan to follow up with them prior to going home tomorrow. He is also angry with team as he describes a negative interaction along with a discrepency in melatonin dosing which we will adjust. States I feel disrespected by the staff and I don't want to stay here any longer. He declined further discussion of this issue. Medication Compliance: Yes Side effects from medications: No Attending Groups: Intermittent Review of Systems chronic pain Review of Systems Review of Systems chronic pain Mental Status Exam Mental Status Exam Patient Appearance: Appropriate Patient Orientation: Person, Place, Time and Situation Level of Consciousness: Alert Patient Behavior: Talkative Mood Description: Constricted Affect Description: Constricted Patient Cognition Impaired: No Ability to Follow Directions: Good Speech Pattern: Spontaneous Speech Memory Description: Intact Hallucinations: None Delusions: Not Present and Paranoid Ideation Thought Process: Goal Oriented Thought Content: positive for Goal Oriented Depressive Symptoms: Increased Irritability Judgement: Good Diagnostics Vital Signs (24Hr): Vital Signs - 24 hr 07/31/25 08:30 07/31/25 19:52 Temperature 97.8 F 97.5 F Pulse Rate 81 91 Respiratory Rate 18 15 Blood Pressure 146/69 H 149/79 H Pulse Oximetry 97 97 Oxygen Delivery Method Room Air BMI result Body Mass Index 22.8 Labs 07/17/25 14:31 07/20/25 12:22 Medications Medications Current Medications Al Hydroxide/Mg Hydroxide (Magnesium Hydrox/Alum Hydrox 30 Ml Oral.Susp) 30 ml PO Q6H PRN PRN Reason: Heartburn/Nausea Aspirin (Aspirin Enteric Coated 81 Mg Tablet.) 81 mg PO DAILY [facility] Last Admin: 07/31/25 09:32 Dose: 81 mg Bictegravir/Emtricitabine/Tenofovir (Bictegrav/Emtricit/Tenofov Ala Tablet) 1 tab PO DAILY [facility] Last Admin: 07/31/25 09:32 Dose: 1 tab Clonidine HCl (Clonidine Hcl 0.1 Mg Tablet) 0.1 mg PO BID [facility]; Protocol Last Admin: 07/31/25 21:11 Dose: 0.1 mg Hydroxyzine HCl (Hydroxyzine Hcl 25 Mg Tablet) 25 mg PO Q6H PRN PRN Reason: mild anxiety Last Admin: 07/28/25 21:53 Dose: 25 mg Ibuprofen (Ibuprofen 400 Mg Tablet) 400 mg PO Q6H PRN PRN Reason: Pain, Mild 1-3,fever,headache Last Admin: 07/31/25 17:32 Dose: 400 mg Lidocaine (Lidocaine 4 % Patch Adh..Patch) 2 patch TRANSDERMA DAILY [facility]; Protocol Last Admin: 07/31/25 09:36 Dose: Not Given Lidocaine (Lidocaine 5 % Ointment 35 Gm) 1 appl TOPICAL BID PRN; Protocol PRN Reason: foot pain Last Admin: 07/31/25 09:37 Dose: 1 appl Lisinopril (Lisinopril 10 Mg Tablet) 10 mg PO BID [facility]; Protocol Last Admin: 07/31/25 21:10 Dose: 10 mg Magnesium Hydroxide (Milk Of Magnesia 30 Ml Oral.Susp) 30 ml PO DAILY PRN PRN Reason: Constipation Melatonin (Melatonin 3 Mg Tablet) 6 mg PO BEDTIME [facility] Last Admin: 07/31/25 21:15 Dose: Not Given Mirtazapine (Mirtazapine 15 Mg Tablet) 45 mg PO BEDTIME [facility] Last Admin: 07/31/25 21:11 Dose: 45 mg Nicotine (Nicotine 21 Mg Patch.Td24) 21 mg TRANSDERMA DAILY [facility] Last Admin: 07/31/25 09:35 Dose: 21 mg Olanzapine (Olanzapine 5 Mg Tablet) 5 mg PO TID PRN PRN Reason: agitation Oxycodone HCl (Oxycodone Hcl Immed Release 5 Mg Tablet) 10 mg PO 0630,1830 [facility] Last Admin: 07/31/25 17:32 Dose: 10 mg Quetiapine Fumarate (Quetiapine Fumarate 100 Mg Tablet) 100 mg PO BID@0900,1400 [facility] Last Admin: 07/31/25 13:57 Dose: 100 mg Quetiapine Fumarate (Quetiapine Fumarate 300 Mg Tablet) 600 mg PO BEDTIME [facility] Last Admin: 07/31/25 21:11 Dose: 600 mg Trazodone HCl (Trazodone Hcl 50 Mg Tablet) 150 mg PO BEDTIME PRN PRN Reason: Insomnia Last Admin: 07/31/25 21:17 Dose: 150 mg Allergies Allergies Allergy/AdvReac Type Severity Reaction Status Date / Time acetaminophen (ACETAMINOPHEN) Allergy Mild rashes Verified 07/17/25 13:46 Assessment & Plan Assessment & Plan (1) Schizoaffective disorder: Status: Acute Code(s): F25.9 - Schizoaffective disorder, unspecified (2) PTSD (post-traumatic stress disorder): Status: Acute Code(s): F43.10 - Post-traumatic stress disorder, unspecified (3) HTN (hypertension): Status: Acute Code(s): I10 - Essential (primary) hypertension Plan alcohol use disorder, polysubstance use disorder, hypertension, housing insecurity, depression and mood disorder 69-year-old male with a history of alcohol use disorder, polysubstance abuse disorder, housing and security issues, depression, mood disorder presented with auditory and suicidal ideation, he is admitted to inpatient psych for further treatment. Recently discharged from this unit. EtOH use disorder/polysubstance abuse disorder/depression/mood disorder/suicidal ideation Plan per inpatient psychiatric team Patient MASS PAT checked, previously on buprenorphine. No oxycodone scripts noted. Recommendations to follow up with outpatient Podiatry, and primary care regarding chronic pain management. Would avoid narcotic pain medications in his patient with a known history of polysubstance abuse. Hypertension Continue Clonidine and Lisinopril. Foot pain Patient has a outpatient follow up with upcoming surgery with [facility] Advised patient to follow up with his primary care doctor and programmer operator numerical control for chronic pain management Refuses Lidoderm patches, diclofenac gel and ibuprofen as needed. Thank you for allowing me to participate in the care of this patient. Signing off at this time. Please reconsult of any acute concerns or issues arise. 07/20: Pt reports he is frightened to return to his home as he is convinced that others are in his home when he is away and they are planning to harm him, taking his SSDI. He also reports poor pain mgt. We discussed consolidation of dosing/timing and he asks to trial this which we will begin today. Seroqeul just increased he reports, willing to look at augmentation, however, wanting to see how pain mgt works. Asks for OP pain mgt referral upon discharge. [place] . [place] are not [place]. Will trial Remeron at 30 mg-verified a new increase recently with Dr. Ash's practice. 07/21:Pt is focused on pain medication. Asks for timing to change to 0630 and 1830 which we will trial. Team reports pt slept well. Isolative today, not attending groups, reports depression. Active in his room, reading, writing, taking notes and attempting to socialize with room-mate when seen. 07/22/25: Meet with patient in exam room. Repeated talking how he was awaken up for everything else in the morning but not wake him up for PRN Oxycodine which for some reason scheduled at 0630 and 1830 PRN. He is fixation with this time frame. Explained to him again and again during 1-1 assessment but still upset regarding got his oxycodone late. Denies SI/SIB/HI/VH. Report he hears voices yesterday get out of here. You should not be here but not during this encounter. Good appetite and sleep with mild depression. He reports recently had Seroquel increased prior to be admitted here so he wants to wait for a littel longer for effectiveness. Do not want meds changed at this time. Continue with curren plan. Patient visible, spent very long time for breakfast, visible ,working on word puzzle in dining room. 07/23/25:Pt resting in bed. Alert, distressed as he is worried about his funding for July. Reports he needs access to the internet to open a bank account which team has informed him he cannot do via computer. Discussed anger about not being awoken at 6am as requested prior to pain medications. Denies SI,HI,AH,VH. Clear, alert, organized in presentation. No new medical issues-chronic pain helped by timing change of pain med he reports. 07/24/25: Met with patient in assigned, reports continued to improve psychotic features. Voices has been quiet down but is still somewhat bother him with paranoid thoughts. Reports anxiety higher than before the encounter. Reports that he always depressed. Denies manic behavior in the past. Reported that he had taken Lexapro from someone else before which was helpful but do not remember dosage. He agreed to start on Lexapro for depression. Also agreed to have risperidone increased for total of 5 mg, and prolactin level in the morning. Continue expressed that he misses his daughter. Encourage groups as he mostly spent time in his room. Slept well but poor appetite Per nursing, patient slept well. Compliant with medication, no side effects. No SI/SIB/VH. 07/25/25: Patient is more pleasant, visible in kitchen working on word puzzle. Denies SI/SIB/HI/AVH. 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 Request to have Ingrezza and reports he has been taking 80mg daily. Will take a loot at medication hx and previous record. Quiet, pleasant, took meds without side effects. 07/26/25: Patient remains in bed this morning, appear tired, depressed. Patient spent pretty long time talking about Ingrezza for his TD. Per record, he was taken this at 40mg but not prescribed since then. However, he claimed that he is taking 80mg. Not sure it is accurate. Will touch base with our pharmacy if we carry this particular med as it seems we are not. Report he heard voices this morning and respond to it as he was yelling out loud to make the voices stop. Hospitalist contacted d/t low plt count (84 on 07/17) to see if we need to hold on Aspirin. Per Dilia, it is ok to continue with Aspirin. Will continue to monitor and recheck level tomorrow. Patient may think about to retract 3-day notice. Patient is more isolate, in room. Will order CBC w/diff and CMP 07/27/25: You people are pushing me out. Discussed the legal parameters of a three day notice and expiration date. Pt reports that his nicotine patch and pain medications should be scheduled, which we did. Discussed treatment options for depressive sx. He will consider. Discussed needing a brief time on a computer to secure his finances. Will ask someone to check on his apartment and to assist him in paying rent. Plan: Continue tx. 07/28/25: Retraction of TDN. Pt denies SI,HI,AH,VH. He is visable in the milieu and attending groups today. He asked to talk with the subscription crew leader after group as he felt he had wisdom and could advise him properly. I will be honest, I am really afraid to go home. I fear I will be hurt and this will be my last chance. It weighs on me heavily. Plan: Continue tx 07/29/25: Continue tx. Discharge planning. 07/30/25: TDN submitted. Continue tx Discharge planning 07/31/25:Reviewed with team, plan of care reviewed, discussed with pt who talked of feeling disrespected by team, thus his submitting a three day notice. Reports a tennis desk team member attempted to provide education when pt was planning to give a peer on the unit money-encouraging him not to do this and discussing risks to his being taken advantage of. Pt expressed anger, expressed fear of going home and I may need to protect myself. Team report an increase in paranoia-pt calling the hospital kitchen last evening to accuse them of poisoning food and that he would call the FBI. Visable in milieu-working on word search puzzles in the kitchen. Social with select peers. Plan: Labs 08/01 08/01:Pt is visable in the milieu-working on word search puzzles. He reports he plans to discharge on 08/02/25. He denies SI,HI,AH,VH. He is anxious about return to his home. We discussed the discussions he has had with local police about these concerns. He does plan to follow up with them prior to going home tomorrow. He is also angry with team as he describes a negative interaction along with a discrepency in melatonin dosing which we will adjust. States I feel disrespected by the staff and I don't want to stay here any longer. He declined further discussion of this issue. Reason for continued inpatient stay Substantial Risk for: stable for discharge Time Spent With Patient Time: Total time managing care of this patient today ____ minutes.
[2025-08-01] MEDS: oxyCODONE HCl Immed Release 5 MG TABLET 10 MG PO ×2 (06:35→17:34)
[2025-08-01 08:30] VITALS: BP 163/91; PULSE 76; RESP 18; TEMP 36.4; O2SAT 98
[2025-08-01] MEDS: Bictegrav/Emtricit/Tenofov Ala TABLET 1 TAB PO (09:14)
[2025-08-01] MEDS: Aspirin Enteric Coated 81 MG TABLET.DR PO (09:14)
[2025-08-01] MEDS: Nicotine 21 MG PATCH.TD24 TRANSDERMA (09:16)
[2025-08-01 20:00] VITALS: BP 132/72; PULSE 89; RESP 15; TEMP 37; O2SAT 96
[2025-08-02] MEDS: oxyCODONE HCl Immed Release 5 MG TABLET 10 MG PO (06:37)
[2025-08-02 07:59] VITALS: BP 187/103; PULSE 75; TEMP 36.4; O2SAT 96
[2025-08-02] MEDS: Nicotine 21 MG PATCH.TD24 TRANSDERMA (08:31)
[2025-08-02] MEDS: Bictegrav/Emtricit/Tenofov Ala TABLET 1 TAB PO (08:31)
[2025-08-02] MEDS: Aspirin Enteric Coated 81 MG TABLET.DR PO (08:32)
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
== END 2025-08-02 11:58 | disposition home or self-care (01) | DRG 885 ==
LOC: HO.ED 07-19 12:34 → HO.PM5 07-19 14:03
PROVIDERS: Physician Assistant; Admitting Provider Psychiatry & Neurology Psychiatry; Emergency Provider Emergency Medicine Emergency Medical Services; PCP Family Medicine; Visit Provider Clinical Nurse Specialist Psychiatric/Mental Health, Adult
DX: F25.9 Schizoaffective disorder, unspecified (principal); Z59.02 Unsheltered homelessness; R45.851 Suicidal ideations; F43.10 Post-traumatic stress disorder, unspecified; I10 Essential (primary) hypertension; G89.29 Other chronic pain; F19.10 Other psychoactive substance abuse, uncomplicated; M20.42 Other hammer toe(s) (acquired), left foot; M20.41 Other hammer toe(s) (acquired), right foot; F17.210 Nicotine dependence, cigarettes, uncomplicated; Z71.6 Tobacco abuse counseling; Z79.899 Other long term (current) drug therapy
CPT/HCPCS: 36415; 80053; 80061; 80143; 80179; 80307; 81001; 83036; 84443; 85025; 93005; 99285; S9485

== ENCOUNTER → 2025-07-19 10:47 | Outpatient (BNV) | payer OTHER, SELFPAY | PROVIDERS: Admitting Provider Psychiatry & Neurology Psychiatry; Emergency Provider Emergency Medicine Emergency Medical Services; PCP Family Medicine; Visit Provider Internal Medicine Cardiovascular Disease | DX: Z13.6 Encounter for screening for cardiovascular disorders (principal) | CPT/HCPCS: 93010 ==

== ENCOUNTER → 2025-07-19 13:10 | Outpatient (BNV) | payer OTHER, SELFPAY | PROVIDERS: Admitting Provider Psychiatry & Neurology Psychiatry; Emergency Provider Emergency Medicine Emergency Medical Services; PCP Family Medicine; Visit Provider Nurse Practitioner Psychiatric/Mental Health | DX: F25.9 Schizoaffective disorder, unspecified (principal); F43.11 Post-traumatic stress disorder, acute; I10 Essential (primary) hypertension | CPT/HCPCS: 90792; 99232 ==

== ENCOUNTER → 2025-07-19 13:10 | Outpatient (BNV) | payer OTHER, SELFPAY | PROVIDERS: Admitting Provider Psychiatry & Neurology Psychiatry; Emergency Provider Emergency Medicine Emergency Medical Services; PCP Family Medicine; Visit Provider Nurse Practitioner Family | DX: I10 Essential (primary) hypertension (principal) | CPT/HCPCS: 99221 ==

== ENCOUNTER → 2025-08-23 14:24 | Outpatient (BNV) | payer MEDICARE, SELFPAY | PROVIDERS: Emergency Provider Emergency Medicine; Visit Provider Internal Medicine | DX: Z13.6 Encounter for screening for cardiovascular disorders (principal) | CPT/HCPCS: 93010 ==

== ENCOUNTER → 2025-08-23 16:34 | Outpatient (BNV) | payer OTHER, SELFPAY | PROVIDERS: Admitting Provider Registered Nurse; Emergency Provider Emergency Medicine; Responsible Provider Registered Nurse; Visit Provider Registered Nurse | DX: F25.9 Schizoaffective disorder, unspecified (principal); F43.10 Post-traumatic stress disorder, unspecified; F14.10 Cocaine abuse, uncomplicated | CPT/HCPCS: 90792 ==

== ENCOUNTER → 2025-08-23 16:34 | Outpatient (BNV) | payer OTHER, SELFPAY | PROVIDERS: Admitting Provider Registered Nurse; Emergency Provider Emergency Medicine; Visit Provider Nurse Practitioner Family | DX: I10 Essential (primary) hypertension (principal) | CPT/HCPCS: 99221 ==